=== PATIENT | female | born 1930 | race Caucasian/White ===

== ENCOUNTER 2016-12-11 10:46 | Observation (INO) | payer MEDICARE, OTHER ==
[2016-12-11] MEDS ORDERED: Albuterol 0.083% 2.5 MG/3 ML Neb Soln NEB ONE (11:29)
[2016-12-11] MEDS ORDERED: Sodium Chloride 0.9% 10 ML Syringe FLUSH PRN (11:29)
--- NOTE | 2016-12-11 11:36 | EDM.PDOC ---
ED HISTORY OF PRESENT ILLNESS - General Chief Complaint: Respiratory Problem Stated Complaint: FLU SYMPTOMS Time Seen by Provider: 12/11/16 11:09 Source of Information: Reports: Patient, Family History Limitations: Reports: No limitations - History of Present Illness INITIAL COMMENTS - FREE TEXT/NARRATIVE: Patient is a 86-year-old female who presents to the ED complaining of nonproductive cough with wheezing and generalized weakness/fatigue that has been present for the past 2 weeks. States her son was visiting her and had what appeared to be a bad upper respiratory infection with similar symptoms. Patient states she's been experiencing a poor appetite with worsening fatigue. States the cough has only mildly worsened. She did have diarrhea with onset of symptoms that has resolved. States she has chronic shortness of breath with mild worsening noted. In addition states she has some mild intermittent chest discomfort located around her heart that is chronic as well with no worsening noted. She does have history of congestive heart failure , atrial fibrillation , and sores to her lower legs. She takes Coumadin, metoprolol, lisinopril, Aldactone, and Lasix. She denies any increase in weight or increased swelling to her lower legs. She denies any PND or orthopnea. Sores to the lower leg are a chronic issue to which she receives dressing changes twice a week by home health. 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 She states her INR is therapeutic. Daughter states she has noticed patient being more short of breath with exertion. Timing/Duration: Reports: Constant Severity: mild Improves with: Reports: None Worsens with: Reports: Other (Exertion) Context, General: Reports: Sick contact Associated Symptoms (General): Reports: chest pain, cough, loss of appetite, malaise, shortness of breath, weakness. 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 (see below) (None stated) - Related Data Allergies/ADRs: Allergies Allergy/AdvReac Type Severity Reaction Status Date / Time Penicillins Allergy Mild Swelling/itchy Verified 12/11/16 11:03 rash ciprofloxacin [From Cipro] Allergy Rash Verified 12/11/16 11:03 metronidazole Allergy Nausea and Verified 12/11/16 11:03 Vomiting vancomycin Allergy Rash Verified 12/11/16 11:03 Home Meds: Home Meds Furosemide [Lasix] 20 mg PO BID 02/28/14 [History] Levothyroxine Sodium [Levoxyl] 150 mcg PO DAILY 02/28/14 [History] Lisinopril 5 mg PO BEDTIME 02/28/14 [History] Metoprolol Tartrate [Lopressor] 12.5 mg PO BID 02/28/14 [History] Pramipexole [Mirapex] 0.5 mg PO DAILY 02/28/14 [History] Sertraline [Zoloft] 25 mg PO DAILY 02/28/14 [History] Simvastatin [Zocor] 10 mg PO DAILY 02/28/14 [History] Spironolactone [Aldactone] 25 mg PO DAILY 02/28/14 [History] Warfarin [Coumadin] 2 mg PO MO 02/28/14 [History] Zolpidem Tartrate [Ambien] 5 mg PO BEDTIME 02/28/14 [History] Warfarin [Coumadin] 3 mg PO SUTUWETHFRSA 10/25/15 [History] Potassium Chloride [Klor-Con 10] 10 meq PO BIDMEALS 06/29/16 [History] Past Medical History HEENT History: Reports: Impaired vision Cardiovascular History: Reports: Heart murmur, Pacemaker Respiratory History: Reports: Sleep apnea, SOB Genitourinary History: Reports: Urinary incontinence 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: Endocrine/Metabolic History: Reports: Hypothyroidism Oncologic (Cancer) History: Reports: Other (see below) 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 Dermatologic History: Reports: Other (see below) Other Dermatologic History: scattered sores all over her legs and arms from picking - Infectious Disease History Infectious Disease History: Reports: MRSA - Past Surgical History GI Surgical History: Reports: Cholecystectomy Musculoskeletal Surgical History: Reports: Knee replacement Social & Family History - Family History Family Medical History: Noncontributory - Tobacco Use Smoking Status *Q: Never Smoker Second Hand Smoke Exposure: No - Caffeine Use Caffeine Use: Reports: Coffee - Recreational Drug Use Recreational Drug Use: No - Living Situation & Occupation Living situation: Reports: Occupation: retired ED ROS GENERAL - Review of Systems Review Of Systems: See Below Constitutional: Reports: malaise, weakness, fatigue, decreased appetite. Denies : fever, chills Respiratory: Reports: Shortness of Breath, Wheezing, Cough. Denies: Pleuritic Chest Pain, Sputum, Hemoptysis Cardiovascular: Reports: Chest pain, Dyspnea on exertion. Denies: Edema, Lightheadedness, Orthopnea, Palpitations, PND, Syncope GI/Abdominal: Reports: Diarrhea. Denies: Abdominal pain, Nausea, Vomiting : Denies: dysuria, urgency Musculoskeletal: Reports: no symptoms Neurological: Reports: Dizziness (Intermittent) ED EXAM, GENERAL - Physical Exam Exam: See Below Exam Limited By: No limitations General Appearance: alert, WD/WN, no apparent distress Ears: hearing grossly normal Nose: normal inspection Throat/Mouth: Normal voice, No airway compromise, Other (Mild dry oromucosa) Neck: normal inspection, supple Respiratory/Chest: no respiratory distress, no accessory muscle use, chest non- tender, other (Wheezing to the lower lobes bilaterally with rhonchi to the right lower/middle lobe.) Cardiovascular: normal peripheral pulses, regular rate, rhythm, no edema Peripheral Pulses: 2+: radial (L) GI/Abdominal: normal bowel sounds, soft, non tender, no organomegaly, no distention Back Exam: normal inspection Extremities: non-tender, other (Lower legs are wrapped with no increased edema noted.) Neurological: alert, oriented, CN II-XII intact, normal cognition Psychiatric: normal affect, normal mood Skin Exam: Warm, Dry, Intact, Normal color, No rash Course - Vital Signs Last Recorded V/S: Last Vital Signs Temp 98.4 F 12/11/16 11:03 Pulse 71 12/11/16 11:03 Resp 26 H 12/11/16 11:03 BP 111/63 12/11/16 11:03 Pulse Ox 98 12/11/16 12:02 - Orders/Labs/Meds Orders: Active Orders 24 hr Category Date Time Status Admission Status [Patient Status] [ADT] Routine ADT 12/11/16 14:34 Active Peripheral IV Care [RC] . DIRECTED Care 12/11/16 11:29 Active RT Aerosol Therapy [RC] ASDIRECTED Care 12/11/16 11:29 Active CULTURE URINE [RM] Stat Lab 12/11/16 14:33 Uncollected Sodium Chloride 0.9% [Normal Saline] 1,000 ml Med 12/11/16 13:15 Active IV ASDIRECTED Sodium Chloride 0.9% [Saline Flush] Med 12/11/16 11:29 Active 10 ml FLUSH ASDIRECTED PRN Peripheral IV Insertion Adult [OM.PC] Stat Oth 12/11/16 11:29 Ordered Medication Orders Sodium Chloride (Normal Saline) 1,000 mls @ 50 mls/hr IV ASDIRECTED KAY Last Admin: 12/11/16 13:33 Dose: 50 mls/hr Sodium Chloride (Saline Flush) 10 ml FLUSH ASDIRECTED PRN PRN Reason: Keep Vein Open Last Admin: 12/11/16 11:58 Dose: 10 ml Labs: Laboratory Tests 12/11/16 12/11/16 12/11/16 Range/Units 12:00 12:00 12:00 WBC 6.43 (3.98-10.04) K/mm3 RBC 4.59 (3.98-5.22) M/mm3 Hgb 14.3 (11.2-15.7) gm/L Hct 43.6 (34.1-44.9) % MCV 95.0 H (79.4-94.8) fl MCH 31.2 (25.6-32.2) pg MCHC 32.8 (32.2-35.5) g/dl RDW Std Deviation 49.4 H (36.4-46.3) fL Plt Count 177 L (182-369) K/mm3 MPV 9.9 (9.4-12.3) fl Neut % (Auto) 74.0 H (34.0-71.1) % Lymph % (Auto) 16.0 L (19.3-51.7) % [place] % (Auto) 8.4 (4.7-12.5) % Eos % (Auto) 1.2 (0.7-5.8) Baso % (Auto) 0.2 (0.1-1.2) % Neut # (Auto) 4.76 (1.56-6.13) K/mm3 Lymph # (Auto) 1.03 L (1.18-3.74) K/mm3 [place] # (Auto) 0.54 H (0.24-0.36) K/mm3 Eos # (Auto) 0.08 (0.04-0.36) K/mm3 Baso # (Auto) 0.01 (0.01-0.08) K/mm3 PT 36.1 H (8.0-13.0) SECONDS INR 3.08 APTT (22-36) SECONDS Sodium 140 (136-145) mEq/L Potassium 4.3 (3.5-5.1) mEq/L Chloride 107 (98-107) mEq/L Carbon Dioxide 26 (21-32) mEq/L Anion Gap 11.3 (5-15) BUN 21 H (7-18) mg/dL Creatinine 1.2 H (0.55-1.02) mg/dL Est Cr Clr Drug Dosing 24.17 mL/min Estimated GFR (MDRD) 43 (>60) mL/min BUN/Creatinine Ratio 17.5 (14-18) Glucose 93 (83-115) mg/dL Calcium 8.6 (8.5-10.1) mg/dL Total Bilirubin 0.6 (0.2-1.0) mg/dL AST 19 (15-37) U/L ALT 15 (14-59) U/L Alkaline Phosphatase 108 (46-116) U/L Troponin I < 0.017 (0.00-0.056) ng/mL C-Reactive Protein 0.7 (<1.0) mg/dL B-Natriuretic Peptide (0-100) pg/mL Total Protein 6.2 L (6.4-8.2) g/dl Albumin 3.1 L (3.4-5.0) g/dl Globulin 3.1 gm/dL Albumin/Globulin Ratio 1.0 (1-2) Urine Color (Yellow) Urine Appearance (Clear) Urine pH (5.0-8.0) Ur Specific [place] (1.005-1.030) Urine Protein (Negative) Urine Glucose (UA) (Negative) Urine Ketones (Negative) Urine Occult Blood (Negative) Urine Nitrite (Negative) Urine Bilirubin (Negative) Urine Urobilinogen (0.2-1.0) Ur Leukocyte Esterase (Negative) Urine RBC (0-5) /hpf Urine WBC (0-5) /hpf Ur Epithelial Cells (0-5) /hpf Urine Bacteria (FEW) /hpf Urine Mucus (FEW) /hpf 12/11/16 12/11/16 12/11/16 Range/Units 12:00 12:00 13:30 WBC (3.98-10.04) K/mm3 RBC (3.98-5.22) M/mm3 Hgb (11.2-15.7) gm/L Hct (34.1-44.9) % MCV (79.4-94.8) fl MCH (25.6-32.2) pg MCHC (32.2-35.5) g/dl RDW Std Deviation (36.4-46.3) fL Plt Count (182-369) K/mm3 MPV (9.4-12.3) fl Neut % (Auto) (34.0-71.1) % Lymph % (Auto) (19.3-51.7) % [place] % (Auto) (4.7-12.5) % Eos % (Auto) (0.7-5.8) Baso % (Auto) (0.1-1.2) % Neut # (Auto) (1.56-6.13) K/mm3 Lymph # (Auto) (1.18-3.74) K/mm3 [place] # (Auto) (0.24-0.36) K/mm3 Eos # (Auto) (0.04-0.36) K/mm3 Baso # (Auto) (0.01-0.08) K/mm3 PT (8.0-13.0) SECONDS INR APTT 38 H (22-36) SECONDS Sodium (136-145) mEq/L Potassium (3.5-5.1) mEq/L Chloride (98-107) mEq/L Carbon Dioxide (21-32) mEq/L Anion Gap (5-15) BUN (7-18) mg/dL Creatinine (0.55-1.02) mg/dL Est Cr Clr Drug Dosing mL/min Estimated GFR (MDRD) (>60) mL/min BUN/Creatinine Ratio (14-18) Glucose (83-115) mg/dL Calcium (8.5-10.1) mg/dL Total Bilirubin (0.2-1.0) mg/dL AST (15-37) U/L ALT (14-59) U/L Alkaline Phosphatase (46-116) U/L Troponin I (0.00-0.056) ng/mL C-Reactive Protein (<1.0) mg/dL B-Natriuretic Peptide 220 H (0-100) pg/mL Total Protein (6.4-8.2) g/dl Albumin (3.4-5.0) g/dl Globulin gm/dL Albumin/Globulin Ratio (1-2) Urine Color Dark yellow (Yellow) Urine Appearance Slt cloudy H (Clear) Urine pH 6.5 (5.0-8.0) Ur Specific [place] 1.020 (1.005-1.030) Urine Protein 1+ H (Negative) Urine Glucose (UA) Negative (Negative) Urine Ketones Negative (Negative) Urine Occult Blood Trace-lysed H (Negative) Urine Nitrite Positive H (Negative) Urine Bilirubin Negative (Negative) Urine Urobilinogen 0.2 (0.2-1.0) Ur Leukocyte Esterase 1+ H (Negative) Urine RBC 0-5 (0-5) /hpf Urine WBC 5-10 H (0-5) /hpf Ur Epithelial Cells 0-5 (0-5) /hpf Urine Bacteria Many H (FEW) /hpf Urine Mucus Few (FEW) /hpf Meds: Medications Generic Name Dose Route Start Last Admin Trade Name Freq PRN Reason Stop Dose Admin Sodium Chloride 1,000 mls @ 50 mls/hr 12/11/16 13:15 12/11/16 13:33 Normal Saline IV 50 mls/hr ASDIRECTED KAY Administration Sodium Chloride 10 ml 12/11/16 11:29 12/11/16 11:58 Saline Flush FLUSH 10 ml ASDIRECTED PRN Administration Keep Vein Open Discontinued Medications Generic Name Dose Route Start Last Admin Trade Name Freq PRN Reason Stop Dose Admin Albuterol 2.5 mg 12/11/16 11:29 12/11/16 12:02 Proventil Neb Soln NEB 12/11/16 11:30 2.5 mg ONETIME ONE Administration Ceftriaxone Sodium 1 gm/ 100 mls @ 200 mls/hr 12/11/16 14:06 12/11/16 14:21 Sodium Chloride IV 12/11/16 14:35 200 mls/hr ONETIME ONE Administration - Re-Assessments/Exams Free Text/Narrative Re-Assessment/Exam: Order peripheral IV and albuterol neb treatment times one. Initial labs and studies include CBC, chem 14, CRP, BNP, troponin, PTT, INR, UA with micro, and chest x-ray two-view. EKG revealed a ventricular paced rhythm. 12/11/16 12:17 chest x-ray impression: Incidental findings. Nothing acute is appreciated on two-view chest x-ray. 12/11/16 12:50 labs reviewed with patient and daughter: White blood cell count is 6.43, hemoglobin is 14.3, INR is 3.08, sodium is 140, potassium is 4.3, creatinine is 1.2, troponin is less than 0.017, BNP is 220. Patient has not been able to urinate. She is taking fluids at this time. She is requesting having something to eat to which will arrange. Neb treatment did not improve symptoms. Although chest x-ray does not show any findings for pneumonia I am concerned that she may have early onset pneumonia vs bronchitis. Family and patient are requesting to be admitted to the hospital for evaluation and treatment. Discussed patient with case management director to check on admission status. Patient meets observation admission. Awaiting for urine to be collected for UA. Patient has history of UTI's in the past. Will start patient on NS 50 mls/hr. 12/11/16 13:16 12/11/16 14:07 UA revealed patient has a UTI. Urine culture obtained. Ordered rocephin 1 gram IVP. Patient has a PCN allergy with rash. Denies anaphylactic reaction. She received Rocephin this past June with no issues. 12/11/16 14:[address] Eduardo. She will see the patient in the ED. Departure - Departure Time of Disposition: 14:29 Disposition: Refer to Observation Condition: fair Clinical Impression: Dehydration, Weakness, Poor appetite UTI (urinary tract infection) Qualifiers: Urinary tract infection type: acute cystitis Hematuria presence: with hematuria Qualified Code(s): N30.01 - Acute cystitis with hematuria Referrals: Ag Garcia MD [Primary Care Provider] - Forms: ED Department Discharge - My Orders Last 24 Hours: My Active Orders 12/11/16 11:29 Peripheral IV Care [RC] . DIRECTED RT Aerosol Therapy [RC] ASDIRECTED Sodium Chloride 0.9% [Saline Flush] 10 ml FLUSH ASDIRECTED PRN Peripheral IV Insertion Adult [OM.PC] Stat 12/11/16 13:15 Sodium Chloride 0.9% [Normal Saline] 1,000 ml IV ASDIRECTED 12/11/16 14:33 CULTURE URINE [RM] Stat 12/11/16 14:34 Admission Status [Patient Status] [ADT] Routine - Assessment/Plan Last 24 Hours: My Active Orders 12/11/16 11:29 Peripheral IV Care [RC] . DIRECTED RT Aerosol Therapy [RC] ASDIRECTED Sodium Chloride 0.9% [Saline Flush] 10 ml FLUSH ASDIRECTED PRN Peripheral IV Insertion Adult [OM.PC] Stat 12/11/16 13:15 Sodium Chloride 0.9% [Normal Saline] 1,000 ml IV ASDIRECTED 12/11/16 14:33 CULTURE URINE [RM] Stat 12/11/16 14:34 Admission Status [Patient Status] [ADT] Routine
--- NOTE | 2016-12-11 12:07 | CR ---
Chest: Two views of the chest are obtained. Comparison: Previous chest x-ray 06/29/16 and 10/26/15. Heart size and mediastinum are within normal limits for technique. Lungs are somewhat dark in technique but no discrete infiltrates are seen. Scoliosis noted within the spine. Kyphosis present within the spine due to multiple compression deformities. Compression deformities appear fairly stable from previous chest x-ray of 10/26/15. Impression: 1. Incidental findings. Nothing acute is appreciated on two-view chest x-ray. Diagnostic code #2
[2016-12-11] MEDS ORDERED: Sodium Chloride 0.9% 1,000 ML IV SCH (13:15)
[2016-12-11] MEDS ORDERED: cefTRIAXone 1 GM in Sodium Chloride 0.9% 100 ML IV ONE (14:06)
--- NOTE | 2016-12-11 16:26 | PCM.HP ---
H&P History of Present Illness - General Date of Service: 12/11/16 Admit Problem/Dx: Admission Diagnosis/Problem Admission Diagnosis/Problem UTI, Urinary tract infectious disease Source of Information: Patient, Family, Provider History Limitations: Reports: No limitations - History of Present Illness Initial Comments - Free Text/Narative: 86 year old female presents with mutiple complaints, but overall has lost her appetite. Complains of generalized weakness, lighthead, with a dry cough. CXR is not supportive of CAP, however a UA documents an AUTI. The patient lives at home and until 12/08/13 was able to enjoy working outside in her garden. She reports feeling weak and "run down" for 1-2 weeks; her family added additional information. She was given rocephin in the ED; aggressive IV hydration will be started upon admission. Onset of Symptoms: Reports: gradual Symptom Onset Date: 12/06/16 Duration of Symptoms: Reports: Day(s):, Getting worse Location: Reports: generalized Severity: moderate Improves with: Reports: None Worsens with: Reports: None Context: Reports: sick contact (unknown) Associated Symptoms: Reports: fever/chills, loss of appetite, malaise, syncope ( presyncope) - Related Data Allergies/Adverse Reactions: Allergies Allergy/AdvReac Type Severity Reaction Status Date / Time Penicillins Allergy Mild Swelling/itchy Verified 12/11/16 16:45 rash ciprofloxacin [From Cipro] Allergy Rash Verified 12/11/16 16:45 vancomycin Allergy Rash Verified 12/11/16 16:45 metronidazole AdvReac Nausea and Verified 12/11/16 16:45 Vomiting Home Medications: Home Meds Furosemide [Lasix] 20 mg PO BID 02/28/14 [History] Levothyroxine Sodium [Levoxyl] 150 mcg PO DAILY 02/28/14 [History] Lisinopril 5 mg PO BEDTIME 02/28/14 [History] Metoprolol Tartrate [Lopressor] 12.5 mg PO BID 02/28/14 [History] Pramipexole [Mirapex] 0.5 mg PO DAILY 02/28/14 [History] Sertraline [Zoloft] 25 mg PO DAILY 02/28/14 [History] Simvastatin [Zocor] 10 mg PO DAILY 02/28/14 [History] Spironolactone [Aldactone] 25 mg PO DAILY 02/28/14 [History] Warfarin [Coumadin] 2 mg PO MO 02/28/14 [History] Zolpidem Tartrate [Ambien] 5 mg PO BEDTIME 02/28/14 [History] Warfarin [Coumadin] 3 mg PO SUTUWETHFRSA 10/25/15 [History] Potassium Chloride [Klor-Con 10] 10 meq PO BIDMEALS 06/29/16 [History] Past Medical History HEENT History: Reports: Impaired vision Cardiovascular History: Reports: Heart murmur, Pacemaker Respiratory History: Reports: Sleep apnea, SOB Genitourinary History: Reports: Urinary incontinence 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: Endocrine/Metabolic History: Reports: Hypothyroidism Oncologic (Cancer) History: Reports: Other (see below) 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 Dermatologic History: Reports: Other (see below) Other Dermatologic History: scattered sores all over her legs and arms from picking - Infectious Disease History Infectious Disease History: Reports: MRSA - Past Surgical History GI Surgical History: Reports: Cholecystectomy Musculoskeletal Surgical History: Reports: Knee replacement Social & Family History - Family History Family Medical History: Noncontributory - Tobacco Use Smoking Status *Q: Never Smoker Second Hand Smoke Exposure: No - Caffeine Use Caffeine Use: Reports: Coffee - Recreational Drug Use Recreational Drug Use: No - Living Situation & Occupation Living situation: Reports: Occupation: retired H&P Review of Systems - Review of Systems: Review Of Systems: See Below General: Reports: malaise, weakness, fatigue HEENT: Reports: no symptoms Pulmonary: Reports: Shortness of Breath, Pleuritic Chest Pain, Cough Cardiovascular: Reports: lightheadedness Gastrointestinal: Reports: Diarrhea, Decreased appetite Genitourinary: Reports: no symptoms Musculoskeletal: Reports: no symptoms Skin: Reports: no symptoms Psychiatric: Reports: no symptoms Neurological: Reports: No Symptoms Hematologic/Lymphatic: Reports: no symptoms Immunologic: Reports: no symptoms Exam - Exam Exam: See Below - Vital Signs Vital Signs: Last Vital Signs Temp 36.9 C 12/11/16 11:03 Pulse 71 12/11/16 11:03 Resp 26 H 12/11/16 11:03 BP 111/63 12/11/16 11:03 Pulse Ox 98 12/11/16 12:02 Weight: 88.451 kg - Exam Quality Assessment: DVT prophylaxis General: alert, oriented HEENT: Conjunctiva clear, Mucosa moist & pink, Nares patent, Normal nasal septum , Pupils equal, Pupils reactive Neck: supple, trachea midline Lungs: Normal respiratory effort Cardiovascular: regular rate Abdomen: normal bowel sounds, soft (Female) Exam: Deferred Rectal (Female) Exam: Deferred Back Exam: normal inspection Extremities: normal pulses (UE bilaterally) Skin: warm Neurological: cranial nerves intact, normal speech Neuro Extensive - Mental Status: alert, oriented x3, normal mood/affect, normal cognition, memory intact Neuro Extensive - Motor, Sensory, Reflexes: CN II-XII intact Psychiatric: alert, normal affect, normal mood - Patient Data Result Diagrams: 12/11/16 12:00 12/11/16 12:00 *Q Meaningful Use (ADM) - VTE *Q VTE Criteria *Q: - Stroke *Q Stroke Criteria *Q: - AMI *Q AMI Criteria *Q: - Problem List (1) Dehydration SNOMED Code(s): 40023632 ICD Code: E86.0 - DEHYDRATION Status: Acute Current Visit: Yes (2) Poor appetite SNOMED Code(s): 47622689 ICD Code: R63.0 - ANOREXIA Status: Acute Current Visit: Yes (3) UTI (urinary tract infection) SNOMED Code(s): 83102932 ICD Code: N39.0 - URINARY TRACT INFECTION, SITE NOT SPECIFIED Status: Acute Current Visit: Yes Qualifiers: Urinary tract infection type: acute cystitis Hematuria presence: with hematuria Qualified Code(s): N30.01 - Acute cystitis with hematuria (4) Weakness SNOMED Code(s): 63452423 ICD Code: R53.1 - WEAKNESS Status: Acute Current Visit: Yes (5) Acute upper urinary tract infection SNOMED Code(s): 800777595 ICD Code: N39.0 - URINARY TRACT INFECTION, SITE NOT SPECIFIED Status: Acute Current Visit: No (6) Bronchitis SNOMED Code(s): 04418408 ICD Code: J40 - BRONCHITIS, NOT SPECIFIED ACUTE OR CHRONIC Status: Acute Current Visit: No Problem List Initiated/Reviewed/Updated: Yes Orders Last 24hrs: Active Orders 24 hr Category Date Time Status Antiembolic Devices [RC] PER UNIT ROUTINE Care 12/11/16 16:07 Ordered Bedrest Bathroom Privileges [RC] ASDIRECTED Care 12/11/16 16:02 Ordered RT Aerosol Therapy [RC] ASDIRECTED Care 12/11/16 16:23 Ordered Consult to Case Management [CONS] Routine Cons 12/11/16 16:23 Ordered Consult to Occupational Therapy [OT Evaluation and Cons 12/12/16 10:00 Ordered Treatment] [CONS] Routine Consult to Physical Therapy [PT Evaluation and Cons 12/12/16 09:00 Ordered Treatment] [CONS] Routine CXR [Chest 2V] [CR] Routine Exams 12/12/16 10:00 Ordered BASIC METABOLIC PANEL,BMP [CHEM] DAILY Lab 12/12/16 05:00 Ordered BASIC METABOLIC PANEL,BMP [CHEM] DAILY Lab 12/13/16 05:00 Ordered CBC WITH AUTO DIFF [HEME] DAILY Lab 12/13/16 05:00 Ordered CBC WITH AUTO DIFF [HEME] DAILY Lab 12/14/16 05:00 Ordered CRP [C-REACTIVE PROTEIN] [CHEM] DAILY Lab 12/12/16 05:00 Ordered CRP [C-REACTIVE PROTEIN] [CHEM] DAILY Lab 12/13/16 05:00 Ordered INFLUENZA A+B AG SCREEN [RM] Routine Lab 12/11/16 16:21 Uncollected INR,PT,PROTHROMBIN TIME [COAG] Routine Lab 12/12/16 05:00 Ordered MAGNESIUM [CHEM] DAILY Lab 12/12/16 05:00 Ordered MAGNESIUM [CHEM] DAILY Lab 12/13/16 05:00 Ordered MYCOPLASMA PNEUMONIAE IGM AB [CHEM] Routine Lab 12/12/16 05:00 Ordered Levalbuterol HCl [Xopenex] Med 12/11/16 16:22 Ordered 1.25 mg NEB QID PRN Levothyroxine Sodium [Levoxyl] Med 12/12/16 09:00 Ordered 150 mcg PO DAILY Pramipexole [Mirapex] Med 12/12/16 09:00 Ordered 0.5 mg PO DAILY Sertraline [Zoloft] Med 12/12/16 09:00 Ordered 25 mg PO DAILY Simvastatin [Zocor] Med 12/12/16 09:00 Ordered 10 mg PO DAILY Sodium Chloride 0.45% @ 125 MLS/HR(1,000ml) Med 12/11/16 16:15 Ordered Sodium Chloride 0.45% 1,000 ml IV ASDIRECTED Warfarin [Coumadin] Med 12/11/16 16:00 Ordered 2 mg PO MO Warfarin [Coumadin] Med 12/12/16 16:00 Ordered 3 mg PO SUTUWETHFRSA Zolpidem Tartrate [Ambien] Med 12/11/16 21:00 Ordered 5 mg PO BEDTIME cefTRIAXone [Rocephin] 2 gm Med 12/12/16 09:00 Ordered Sodium Chloride 0.9% [Normal Saline] 100 ml IV Q24H SCD [Sequential Compression Device] [OM.PC] Routine Oth 12/11/16 16:07 Ordered Code Status [Resuscitation Status] Routine Resus Stat 12/11/16 16:02 Ordered Medication Orders Ceftriaxone Sodium 2 gm/ (Sodium Chloride) 100 mls @ 200 mls/hr IV Q24H KAY Sodium Chloride (Sodium Chloride 0.45%) 1,000 mls @ 125 mls/hr IV ASDIRECTED KAY Non-Formulary Medication (Warfarin [Coumadin]) 2 mg PO MO KAY Non-Formulary Medication (Warfarin [Coumadin]) 3 mg PO SUTUWETHFRSA KAY Non-Formulary Medication (Simvastatin [Zocor]) 10 mg PO DAILY KAY Non-Formulary Medication (Sertraline [Zoloft]) 25 mg PO DAILY KAY Non-Formulary Medication (Pramipexole [Mirapex]) 0.5 mg PO DAILY KAY Non-Formulary Medication (Levothyroxine Sodium [Levoxyl]) 150 mcg PO DAILY KAY Zolpidem Tartrate (Ambien) 5 mg PO BEDTIME KAY Assessment/Plan Comment:: Impression: URI AUTI Chronic A Fib, s/p PPM; on coumadin CHF, unknown etiology Hypothyroidism CHRIS on CPAP Poor wound healing of 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 Xopenex QID prn SOB Obs admission IV antibiotics Ur/BLD Cxs Repeat CXR IVF 0.45% NaCl DVT/GI prophylaxis Full code
[2016-12-11] MEDS: Azithromycin 500 MG in Sodium Chloride 0.9% 250 ML IV SCH (17:39)
[2016-12-11] MEDS: Sodium Chloride 0.45% 1,000 ML IV SCH (17:39)
[2016-12-11] MEDS ORDERED: WARFARIN 2 MG PO SCH (18:00)
[2016-12-11] MEDS: Zolpidem 5 MG TAB PO SCH (20:52)
[2016-12-11] MEDS: Albuterol 0.083% 2.5 MG/3 ML Neb Soln NEB PRN (21:11)
[2016-12-11] MEDS: Benzonatate 100 MG Cap PO SCH (23:32)
[2016-12-12] MEDS: Sodium Chloride 0.45% 1,000 ML IV SCH ×3 (02:17→22:56)
[2016-12-12] MEDS: Albuterol 0.083% 2.5 MG/3 ML Neb Soln NEB PRN (04:41)
[2016-12-12] MEDS: LEVOTHYROXINE SODIUM 150 MCG PO SCH (05:30)
[2016-12-12] MEDS ORDERED: Diphtheria,Pertussis(Acell),Tetanus Vaccine 0.5 ML SDV inactive IM ONE (08:17)
[2016-12-12] MEDS ORDERED: Pneumococcal 13-Valent Conjugate Vaccine 0.5 ML Syringe IM ONE (08:18)
[2016-12-12] MEDS: cefTRIAXone 2 GM in Sodium Chloride 0.9% 100 ML IV SCH (08:19)
[2016-12-12] MEDS: Simvastatin 10 MG PO SCH (08:20)
[2016-12-12] MEDS: Benzonatate 100 MG Cap PO SCH ×3 (08:20→20:48)
[2016-12-12] MEDS: SERTRALINE 50 MG PO SCH (08:20)
--- NOTE | 2016-12-12 08:57 | CR ---
Chest: Two views of the chest were obtained. Comparison: Previous chest x-ray of 12/11/16. Heart size within normal limits. Tortuous thoracic aorta is seen. Pacemaker is noted. Minimal linear areas of scarring are seen within both lung bases. Lungs otherwise are clear. Osteopenia is noted. Compression deformities within the spine are seen which are stable. Impression: 1. Stable chest x-ray. Nothing acute is identified. Diagnostic code #2
--- NOTE | 2016-12-12 12:35 | PCM.PN ---
- General Info Date of Service: 12/12/16 Functional Status: Reports: tolerating diet, ambulating, urinating - Review of Systems General: Reports: Weakness HEENT: Reports: no symptoms Pulmonary: Reports: no symptoms Cardiovascular: Reports: No Symptoms Gastrointestinal: Reports: No symptoms Genitourinary: Reports: no symptoms Musculoskeletal: Reports: no symptoms Skin: Reports: no symptoms Neurological: Reports: No Symptoms Psychiatric: Reports: no symptoms - Patient Data Vitals - most recent: Last Vital Signs Temp 36.2 C 12/12/16 07:53 Pulse 70 12/12/16 07:53 Resp 18 12/12/16 07:53 BP 121/86 12/12/16 07:53 Pulse Ox 98 12/12/16 07:53 Weight - most recent: 91.263 kg I&O - last 24 hours: Intake & Output 12/11/16 12/12/16 12/12/16 22:59 06:59 14:59 Intake Total 320 430 460 Output Total 150 Balance 320 280 460 Lab Results last 24 hrs: Laboratory Results - last 24 hr 12/12/16 12/12/16 Range/Units 06:45 06:45 PT 25.4 H (8.0-13.0) SECONDS INR 2.21 Sodium 139 (136-145) mEq/L Potassium 3.8 (3.5-5.1) mEq/L Chloride 105 (98-107) mEq/L Carbon Dioxide 24 (21-32) mEq/L Anion Gap 13.8 (5-15) BUN 15 (7-18) mg/dL Creatinine 0.9 (0.55-1.02) mg/dL Est Cr Clr Drug Dosing 35.49 mL/min Estimated GFR (MDRD) 59 (>60) mL/min BUN/Creatinine Ratio 16.7 (14-18) Glucose 93 (83-115) mg/dL Calcium 8.1 L (8.5-10.1) mg/dL Magnesium 1.7 L (1.8-2.4) mg/dl C-Reactive Protein 0.4 (<1.0) mg/dL Lorenzo Results last 24 hrs: Microbiology 12/11/16 18:33 Influenza Type A Antigen Screen - Final Nasopharyngeal Swab - Nare, Left NEGATIVE INFLUENZA A VIRUS AG Influenza Type B Antigen Screen - Final NEGATIVE INFLUENZA B VIRUS AG Med Orders - Current: Current Medications Albuterol (Proventil Neb Soln) 2.5 mg NEB Q4H PRN PRN Reason: Shortness of Breath Last Admin: 12/12/16 04:41 Dose: 2.5 mg Benzonatate (Tessalon Perles) 200 mg PO TID [facility] Last Admin: 12/12/16 08:20 Dose: 200 mg Ceftriaxone Sodium 2 gm/ (Sodium Chloride) 100 mls @ 200 mls/hr IV Q24H [facility] Last Admin: 12/12/16 08:19 Dose: 200 mls/hr Sodium Chloride (Sodium Chloride 0.45%) 1,000 mls @ 70 mls/hr IV ASDIRECTED [facility] Last Admin: 12/12/16 08:20 Dose: 70 mls/hr Azithromycin 500 mg/ Sodium (Chloride) 250 mls @ 250 mls/hr IV Q24H [facility] Last Admin: 12/11/16 17:39 Dose: 250 mls/hr Zolpidem 5 Mg Tab 0 each PO BEDTIME [facility] Last Admin: 12/11/16 20:52 Dose: 1 each Warfarin 2 Mg 0 each PO Mo@1800 [facility] Last Admin: 12/11/16 20:00 Dose: Not Given Warfarin 2 Mg (3 Mg (Dose)) 0 each PO SuTuWeThFrSa@1800 [facility] Simvastatin 10 Mg 0 each PO DAILY [facility] Last Admin: 12/12/16 08:20 Dose: 1 each Sertraline 50 Mg 0 each PO DAILY [facility] Last Admin: 12/12/16 08:20 Dose: 1 each Pramipexole 0.5 Mg 0 each PO BEDTIME [facility] Last Admin: 12/11/16 20:51 Dose: 1 each Levothyroxine Sodium (150 Mcg) 0 each PO ACBREAKFAST [facility] Last Admin: 12/12/16 05:30 Dose: 1 each Discontinued Medications Albuterol (Proventil Neb Soln) 2.5 mg NEB ONETIME ONE Stop: 12/11/16 11:30 Last Admin: 12/11/16 12:02 Dose: 2.5 mg Diphtheria/Tetanus/Acell Pertussis (Boostrix) 0.5 ml IM .ONCE ONE Stop: 12/12/16 08:18 Sodium Chloride (Normal Saline) 1,000 mls @ 50 mls/hr IV ASDIRECTED [facility] Last Admin: 12/11/16 13:33 Dose: 50 mls/hr Ceftriaxone Sodium 1 gm/ (Sodium Chloride) 100 mls @ 200 mls/hr IV ONETIME ONE Stop: 12/11/16 14:35 Last Admin: 12/11/16 14:21 Dose: 200 mls/hr Pneumococcal 13-Valent Conj Vacc (Prevnar 13) 0.5 ml IM .ONCE ONE Stop: 12/12/16 08:19 Sodium Chloride (Saline Flush) 10 ml FLUSH ASDIRECTED PRN PRN Reason: Keep Vein Open Last Admin: 12/11/16 11:58 Dose: 10 ml - Exam Quality Assessment: DVT prophylaxis General: alert, oriented, no acute distress HEENT: Pupils equal, Pupils reactive Neck: supple, trachea midline Lungs: Normal respiratory effort, Decreased breath sounds Cardiovascular: Regular Rate Abdomen: bowel sounds present, soft, no tenderness, no distension (Female) Exam: Deferred Back Exam: normal inspection Extremities: normal pulses Skin: warm Neurological: no new focal deficit, normal gait, normal speech Psy/Mental Status: alert, normal affect, normal mood - Problem List & Annotations (1) Dehydration SNOMED Code(s): 41094786 Code(s): E86.0 - DEHYDRATION Status: Acute Current Visit: Yes (2) Poor appetite SNOMED Code(s): 91404396 Code(s): R63.0 - ANOREXIA Status: Acute Current Visit: Yes (3) UTI (urinary tract infection) SNOMED Code(s): 64101163 Code(s): N39.0 - URINARY TRACT INFECTION, SITE NOT SPECIFIED Status: Acute Current Visit: Yes Qualifiers: Urinary tract infection type: acute cystitis Hematuria presence: with hematuria Qualified Code(s): N30.01 - Acute cystitis with hematuria (4) Weakness SNOMED Code(s): 14718803 Code(s): R53.1 - WEAKNESS Status: Acute Current Visit: Yes (5) Acute upper urinary tract infection SNOMED Code(s): 258445622 Code(s): N39.0 - URINARY TRACT INFECTION, SITE NOT SPECIFIED Status: Acute Current Visit: No (6) Bronchitis SNOMED Code(s): 75070833 Code(s): J40 - BRONCHITIS, NOT SPECIFIED ACUTE OR CHRONIC Status: Acute Current Visit: No - Problem List Review Problem List Initiated/Reviewed/Updated: Yes - My Orders Last 24 Hours: My Active Orders 12/11/16 16:02 Bedrest Bathroom Privileges [RC] ASDIRECTED Code Status [Resuscitation Status] Routine 12/11/16 16:15 Sodium Chloride 0.45% 1,000 ml IV ASDIRECTED 12/11/16 16:22 Albuterol [Proventil Neb Soln] 2.5 mg NEB Q4H PRN 12/11/16 16:23 RT Aerosol Therapy [RC] .PRN Consult to Case Management [CONS] Routine 12/11/16 18:00 Azithromycin [Zithromax] 500 mg Sodium Chloride 0.9% [Normal Saline] 250 ml IV Q24H Patient's Own Medication [Ptom] 0 each PO Mo@1800 12/11/16 21:00 Patient's Own Medication [Ptom] 0 each PO BEDTIME Patient's Own Medication [Ptom] 0 each PO BEDTIME 12/11/16 22:00 Benzonatate [Tessalon Perles] 200 mg PO TID 12/11/16 Dinner Clear Liquid Diet [DIET] 12/12/16 06:00 Patient's Own Medication [Ptom] 0 each PO ACBREAKFAST 12/12/16 06:45 BASIC METABOLIC PANEL,BMP [CHEM] DAILY CRP [C-REACTIVE PROTEIN] [CHEM] DAILY MAGNESIUM [CHEM] DAILY MYCOPLASMA PNEUMONIAE IGM AB [CHEM] Routine 12/12/16 07:13 Consult to Physical Therapy [PT Evaluation and Treatment] [CONS] Routine 12/12/16 08:17 Vaccines to be Administered [RC] PER UNIT ROUTINE 12/12/16 09:00 Consult to Physical Therapy [PT Evaluation and Treatment] [CONS] Routine Patient's Own Medication [Ptom] 0 each PO DAILY Patient's Own Medication [Ptom] 0 each PO DAILY cefTRIAXone [Rocephin] 2 gm Sodium Chloride 0.9% [Normal Saline] 100 ml IV Q24H 12/12/16 10:00 Consult to Occupational Therapy [OT Evaluation and Treatment] [CONS] Routine 12/12/16 14:00 CBC WITH AUTO DIFF [HEME] Routine 12/12/16 18:00 Patient's Own Medication [Ptom] 0 each PO SuTuWeThFrSa@1800 12/13/16 05:00 BASIC METABOLIC PANEL,BMP [CHEM] DAILY CBC WITH AUTO DIFF [HEME] DAILY CRP [C-REACTIVE PROTEIN] [CHEM] DAILY MAGNESIUM [CHEM] DAILY 12/14/16 05:00 CBC WITH AUTO DIFF [HEME] DAILY - Plan Plan:: Impression: URI AUTI Chronic A Fib, s/p PPM; on coumadin CHF, unknown etiology Hypothyroidism CHRIS on CPAP Poor wound healing of 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 Xopenex QID prn SOB Obs admission IV antibiotics Ur/BLD Cxs Repeat CXR IVF 0.45% NaCl DVT/GI prophylaxis Full code
[2016-12-12] MEDS ORDERED: WARFARIN PO SCH (18:00)
[2016-12-12] MEDS: Azithromycin 500 MG in Sodium Chloride 0.9% 250 ML IV SCH (18:21)
[2016-12-12] MEDS: Zolpidem 5 MG TAB PO SCH (20:48)
[2016-12-12] MEDS ORDERED: Temazepam 15 MG Cap PO PRN (21:58)
[2016-12-13] MEDS: LEVOTHYROXINE SODIUM 150 MCG PO SCH (06:16)
[2016-12-13] MEDS ORDERED: Acetaminophen 325 MG Tab PO PRN (07:00)
[2016-12-13] MEDS: Simvastatin 10 MG PO SCH (08:31)
[2016-12-13] MEDS: SERTRALINE 50 MG PO SCH (08:31)
[2016-12-13] MEDS: cefTRIAXone 2 GM in Sodium Chloride 0.9% 100 ML IV SCH (08:31)
[2016-12-13] MEDS: Benzonatate 100 MG Cap PO SCH (08:31)
[2016-12-13 08:33] VITALS: BP 147/97
--- NOTE | 2016-12-13 10:15 | PCM.DCSUM1 ---
Discharge Summary - Hospital Course Free Text/Narrative:: 86 year old female who progressively became weaker unable to participate in her usual activities, was found to have AUTI. Additionally was treated empirically for URI; she was treated for dehydration and had 48 hours of IV antibiotics ( Zithromax/Rocephin). The patient was seen by OT and PT, she will resume the previous Home Health schedule that was present before admission. Also had wound care consult for bilateral LE. Primary Dx UTI URI Dehydration Condition Stable Disposition Home Follow up Dr Garcia in 1-2 weeks Medication Resume Home meds Z-pack, take as directed. Tessalon Perles 100 mg 1-2 caps TID prn cough. Activity As tolerated Diet May resume usual; recommend: heart healthy - Discharge Data Discharge Date: 12/13/16 Discharge Disposition: Home, Self-Care 01 Condition: Good - Discharge Diagnosis/Problem(s) (1) Dehydration SNOMED Code(s): 92138605 ICD Code: E86.0 - DEHYDRATION Status: Acute Current Visit: Yes (2) Poor appetite SNOMED Code(s): 95817125 ICD Code: R63.0 - ANOREXIA Status: Acute Current Visit: Yes (3) UTI (urinary tract infection) SNOMED Code(s): 79952812 ICD Code: N39.0 - URINARY TRACT INFECTION, SITE NOT SPECIFIED Status: Acute Current Visit: Yes Qualifiers: Urinary tract infection type: acute cystitis Hematuria presence: with hematuria Qualified Code(s): N30.01 - Acute cystitis with hematuria (4) Weakness SNOMED Code(s): 21075558 ICD Code: R53.1 - WEAKNESS Status: Acute Current Visit: Yes (5) Acute upper urinary tract infection SNOMED Code(s): 864812992 ICD Code: N39.0 - URINARY TRACT INFECTION, SITE NOT SPECIFIED Status: Acute Current Visit: No (6) Bronchitis SNOMED Code(s): 98870459 ICD Code: J40 - BRONCHITIS, NOT SPECIFIED ACUTE OR CHRONIC Status: Acute Current Visit: No - Patient Summary/Data Consults: Consultations 12/11/16 16:23 Consult to Case Management [CONS] Routine 12/12/16 07:13 Consult to Physical Therapy [PT Evaluation and Treatment] [CONS] Routine 12/12/16 09:00 Consult to Physical Therapy [PT Evaluation and Treatment] [CONS] Routine 12/12/16 10:00 Consult to Occupational Therapy [OT Evaluation and Treatment] [CONS] Routine - Patient Instructions Diet: Usual Diet as Tolerated Activity: As Tolerated Driving: Do Not Drive Showering/Bathing: May Shower Notify Provider of: Fever, Nausea and/or Vomiting - Discharge Plan Prescriptions/Med Rec: Azithromycin [Zithromax] 500 mg PO DAILY #5 tablet Benzonatate [Tessalon Perles] 200 mg PO TID PRN #20 cap PRN Reason: Cough Home Medications: Home Meds Furosemide [Lasix] 20 mg PO BID 02/28/14 [History] Levothyroxine Sodium [Levoxyl] 150 mcg PO DAILY 02/28/14 [History] Lisinopril 5 mg PO 1700 02/28/14 [History] Metoprolol Tartrate [Lopressor] 12.5 mg PO BID 02/28/14 [History] Pramipexole [Mirapex] 0.5 mg PO BEDTIME 02/28/14 [History] Sertraline [Zoloft] 50 mg PO DAILY 02/28/14 [History] Simvastatin [Zocor] 10 mg PO DAILY 02/28/14 [History] Spironolactone [Aldactone] 25 mg PO DAILY 02/28/14 [History] Warfarin [Coumadin] 2 mg PO MO 02/28/14 [History] Zolpidem Tartrate [Ambien] 5 mg PO BEDTIME 02/28/14 [History] Warfarin [Coumadin] 3 mg PO SUTUWETHFRSA 10/25/15 [History] Potassium Chloride [Klor-Con 10] 10 meq PO BIDMEALS 06/29/16 [History] L Acidophil/B Lactis/B Longum [Florajen3] 1 tab PO BEDTIME 12/11/16 [History] Azithromycin [Zithromax] 500 mg PO DAILY #5 tablet 12/13/16 [Rx] Benzonatate [Tessalon Perles] 200 mg PO TID PRN #20 cap 12/13/16 [Rx] Patient Handouts: Warfarin: What You Need to Know, Urinary Tract Infection, Adult, [id number], Dehydration, Adult, [id number], Heart Failure, Easy-to- Read Forms: ED Department Discharge Referrals: Ag Garcia MD [Primary Care Provider] - 12/20/16 1:00 pm (Please arrive 15 minutes early. ) - Discharge Summary/Plan Comment DC Time >30 min.: No - General Info Date of Service: 12/11/16 Functional Status: Reports: tolerating diet, ambulating, urinating - Review of Systems General: Reports: No Symptoms HEENT: Reports: no symptoms Pulmonary: Reports: no symptoms Cardiovascular: Reports: No Symptoms Gastrointestinal: Reports: No symptoms Genitourinary: Reports: no symptoms Musculoskeletal: Reports: no symptoms Skin: Reports: no symptoms Neurological: Reports: No Symptoms Psychiatric: Reports: no symptoms - Patient Data Vitals - Most Recent: Last Vital Signs Temp 36.5 C 12/13/16 08:29 Pulse 80 12/13/16 08:29 Resp 15 12/13/16 08:29 BP 147/97 H 12/13/16 08:29 Pulse Ox 100 12/13/16 08:29 Weight - Most Recent: 91.263 kg I&O - Last 24 hours: Intake & Output 12/12/16 12/13/16 12/13/16 22:59 06:59 14:59 Intake Total 2520 1288 Output Total 700 300 Balance 1820 988 Lab Results - Last 24 hrs: Laboratory Results - last 24 hr 12/12/16 12/12/16 12/13/16 Range/Units 06:45 13:56 05:53 WBC 5.43 4.81 (3.98-10.04) K/mm3 RBC 4.48 4.28 (3.98-5.22) M/mm3 Hgb 13.9 13.3 (11.2-15.7) gm/L Hct 42.8 40.6 (34.1-44.9) % MCV 95.5 H 94.9 H (79.4-94.8) fl MCH 31.0 31.1 (25.6-32.2) pg MCHC 32.5 32.8 (32.2-35.5) g/dl RDW Std Deviation 50.0 H 49.0 H (36.4-46.3) fL Plt Count 139 L 142 L (182-369) K/mm3 MPV 9.2 L 9.5 (9.4-12.3) fl Neut % (Auto) 66.3 65.6 (34.0-71.1) % Lymph % (Auto) 21.7 18.9 L (19.3-51.7) % [place] % (Auto) 9.4 11.2 (4.7-12.5) % Eos % (Auto) 1.8 3.5 (0.7-5.8) Baso % (Auto) 0.4 0.4 (0.1-1.2) % Neut # (Auto) 3.60 3.15 (1.56-6.13) K/mm3 Lymph # (Auto) 1.18 0.91 L (1.18-3.74) K/mm3 [place] # (Auto) 0.51 H 0.54 H (0.24-0.36) K/mm3 Eos # (Auto) 0.10 0.17 (0.04-0.36) K/mm3 Baso # (Auto) 0.02 0.02 (0.01-0.08) K/mm3 Sodium 139 (136-145) mEq/L Potassium 3.8 (3.5-5.1) mEq/L Chloride 105 (98-107) mEq/L Carbon Dioxide 24 (21-32) mEq/L Anion Gap 13.8 (5-15) BUN 15 (7-18) mg/dL Creatinine 0.9 (0.55-1.02) mg/dL Est Cr Clr Drug Dosing 35.49 mL/min Estimated GFR (MDRD) 59 (>60) mL/min BUN/Creatinine Ratio 16.7 (14-18) Glucose 93 (83-115) mg/dL Calcium 8.1 L (8.5-10.1) mg/dL Magnesium 1.7 L (1.8-2.4) mg/dl C-Reactive Protein 0.4 (<1.0) mg/dL Mycoplasma pneumon IgM Negative (NEGATIVE) 12/13/16 Range/Units 05:53 WBC (3.98-10.04) K/mm3 RBC (3.98-5.22) M/mm3 Hgb (11.2-15.7) gm/L Hct (34.1-44.9) % MCV (79.4-94.8) fl MCH (25.6-32.2) pg MCHC (32.2-35.5) g/dl RDW Std Deviation (36.4-46.3) fL Plt Count (182-369) K/mm3 MPV (9.4-12.3) fl Neut % (Auto) (34.0-71.1) % Lymph % (Auto) (19.3-51.7) % [place] % (Auto) (4.7-12.5) % Eos % (Auto) (0.7-5.8) Baso % (Auto) (0.1-1.2) % Neut # (Auto) (1.56-6.13) K/mm3 Lymph # (Auto) (1.18-3.74) K/mm3 [place] # (Auto) (0.24-0.36) K/mm3 Eos # (Auto) (0.04-0.36) K/mm3 Baso # (Auto) (0.01-0.08) K/mm3 Sodium 138 (136-145) mEq/L Potassium 3.9 (3.5-5.1) mEq/L Chloride 106 (98-107) mEq/L Carbon Dioxide 24 (21-32) mEq/L Anion Gap 11.9 (5-15) BUN 13 (7-18) mg/dL Creatinine 0.8 (0.55-1.02) mg/dL Est Cr Clr Drug Dosing 39.92 mL/min Estimated GFR (MDRD) > 60 (>60) mL/min BUN/Creatinine Ratio 16.3 (14-18) Glucose 87 (83-115) mg/dL Calcium 8.1 L (8.5-10.1) mg/dL Magnesium 1.6 L (1.8-2.4) mg/dl C-Reactive Protein 0.5 (<1.0) mg/dL Mycoplasma pneumon IgM (NEGATIVE) Med Orders - Current: Current Medications Acetaminophen (Tylenol) 650 mg PO Q4H PRN PRN Reason: Pain/Fever Last Admin: 12/13/16 08:30 Dose: 650 mg Albuterol (Proventil Neb Soln) 2.5 mg NEB Q4H PRN PRN Reason: Shortness of Breath Last Admin: 12/12/16 04:41 Dose: 2.5 mg Benzonatate (Tessalon Perles) 200 mg PO TID [facility] Last Admin: 12/13/16 08:31 Dose: 200 mg Ceftriaxone Sodium 2 gm/ (Sodium Chloride) 100 mls @ 200 mls/hr IV Q24H [facility] Last Admin: 12/13/16 08:31 Dose: 200 mls/hr Sodium Chloride (Sodium Chloride 0.45%) 1,000 mls @ 70 mls/hr IV ASDIRECTED [facility] [place] Last Admin: 12/12/16 22:56 Dose: 70 mls/hr Azithromycin 500 mg/ Sodium (Chloride) 250 mls @ 250 mls/hr IV Q24H [facility] [place] Last Admin: 12/12/16 18:21 Dose: 250 mls/hr Zolpidem 5 Mg Tab 0 each PO BEDTIME [facility] [place] Last Admin: 12/12/16 20:48 Dose: 1 each Warfarin 2 Mg 0 each PO Mo@1800 [facility] Last Admin: 12/11/16 20:00 Dose: Not Given Warfarin 2 Mg (3 Mg (Dose)) 0 each PO SuTuWeThFrSa@1800 [facility] Last Admin: 12/12/16 18:22 Dose: 1.5 each Simvastatin 10 Mg 0 each PO DAILY [facility] Last Admin: 12/13/16 08:31 Dose: 1 each Sertraline 50 Mg 0 each PO DAILY [facility] Last Admin: 12/13/16 08:31 Dose: 1 each Pramipexole 0.5 Mg 0 each PO BEDTIME [facility] Last Admin: 12/12/16 20:48 Dose: 1 each Levothyroxine Sodium (150 Mcg) 0 each PO ACBREAKFAST [facility] Last Admin: 12/13/16 06:16 Dose: 1 each Temazepam (Restoril) 15 mg PO BEDTIME PRN PRN Reason: Sleep Last Admin: 12/12/16 22:56 Dose: 15 mg Discontinued Medications Albuterol (Proventil Neb Soln) 2.5 mg NEB ONETIME ONE Stop: 12/11/16 11:30 Last Admin: 12/11/16 12:02 Dose: 2.5 mg Diphtheria/Tetanus/Acell Pertussis (Boostrix) 0.5 ml IM .ONCE ONE Stop: 12/12/16 08:18 Sodium Chloride (Normal Saline) 1,000 mls @ 50 mls/hr IV ASDIRECTED [facility] Last Admin: 12/11/16 13:33 Dose: 50 mls/hr Ceftriaxone Sodium 1 gm/ (Sodium Chloride) 100 mls @ 200 mls/hr IV ONETIME ONE Stop: 12/11/16 14:35 Last Admin: 12/11/16 14:21 Dose: 200 mls/hr Pneumococcal 13-Valent Conj Vacc (Prevnar 13) 0.5 ml IM .ONCE ONE Stop: 12/12/16 08:19 Sodium Chloride (Saline Flush) 10 ml FLUSH ASDIRECTED PRN PRN Reason: Keep Vein Open Last Admin: 12/11/16 11:58 Dose: 10 ml - Exam Quality Assessment: Reports: DVT prophylaxis General: Reports: alert, oriented, cooperative, no acute distress HEENT: Reports: Pupils equal, Pupils reactive, EOMI Neck: Reports: supple, trachea midline Lungs: Reports: Normal respiratory effort Cardiovascular: Reports: Regular Rate Abdomen: Reports: bowel sounds present, soft, no tenderness, no distension (Female) Exam: Deferred Rectal (Female) Exam: Deferred Back Exam: Reports: normal inspection Extremities: Reports: edema (trace) Skin: Reports: warm Wound/Incisions: Reports: dressing dry and intact Neurological: Reports: no new focal deficit, normal gait (walker), normal speech Psy/Mental Status: Reports: alert, normal affect, normal mood *Q Meaningful Use (DIS) - VTE *Q VTE Criteria *Q: - Stroke *Q Stroke Criteria *Q: - AMI *Q AMI Criteria *Q:
[2016-12-13] MEDS ORDERED: Magnesium Sulfate/Water 2 GM in Premix Bag 1 BAG IV ONE (10:32)
[2016-12-13] MEDS ORDERED: Cephalexin 250 MG Cap PO SCH (12:00)
== END 2016-12-13 15:14 | disposition home or self-care (01) ==
LOC: JD.ED 10:46 → JD.MS 14:34
PROVIDERS: ADMIT Internal Medicine Cardiovascular Disease; ATTEND Internal Medicine Cardiovascular Disease
DX: N39.0 Urinary tract infection, site not specified (principal); E86.0 Dehydration; J40 Bronchitis, not specified as acute or chronic; R53.1 Weakness; R63.0 Anorexia; I48.91 Unspecified atrial fibrillation; I50.9 Heart failure, unspecified; E03.9 Hypothyroidism, unspecified; G47.33 Obstructive sleep apnea (adult) (pediatric); Z96.659 Presence of unspecified artificial knee joint; Z86.14 Personal history of Methicillin resistant Staphylococcus aureus infection; E78.5 Hyperlipidemia, unspecified; R32 Unspecified urinary incontinence; F32.9 Major depressive disorder, single episode, unspecified; Z95.0 Presence of cardiac pacemaker; Z79.01 Long term (current) use of anticoagulants; Z79.899 Other long term (current) drug therapy; Z88.1 Allergy status to other antibiotic agents; S81.802A Unspecified open wound, left lower leg, initial encounter; S81.801A Unspecified open wound, right lower leg, initial encounter; X58.XXXA Exposure to other specified factors, initial encounter; Z23 Encounter for immunization
CPT/HCPCS: 29580; 36415; 71020; 80048; 80053; 81001; 83735; 83880; 84484; 85025; 85610; 85730; 86140; 86738; 87086; 87088; 87186; 87804; 90471; 94640; 94664; 94760; 96361; 96365; 96366; 96367; 97110; 97116; 97161; 97165; 97530; 97535; 99285; A9270; G0009; G0378; J0456; J0696; J7030; J7040; J7050; P9612; 90670; 90715; 99284; J3475

== ENCOUNTER 2017-05-06 01:42 | Inpatient (IN) | payer MEDICARE, OTHER ==
[2017-05-06] MEDS ORDERED: Morphine 2 MG/ML Syringe IVPUSH ONE ×2 (01:53→18:32)
--- NOTE | 2017-05-06 02:27 | EDM.PDOC ---
ED HPI GENERAL MEDICAL PROBLEM - General Chief Complaint: Cardiovascular Problem Stated Complaint: [facility] Time Seen by Provider: 05/06/17 01:45 Source of Information: Reports: Patient, EMS, Family History Limitations: Reports: Respiratory Distress - History of Present Illness INITIAL COMMENTS - FREE TEXT/NARRATIVE: This is an 87-year-old female. According to her son she's been doing fairly well over the last couple of days but yesterday she woke up gasping for breath feeling somewhat weak but having no chest pain. She normally walks around with a walker at home and she tends a garden at home but she was unable to do that since yesterday. This morning her shortness of breath got worse and she was so weak she was unable to get off the toilet so she called the ambulance. When they arrive she was somewhat cyanotic with a pulse ox of 88% and she appeared to be in congestive heart failure. They plus put her on some BiPAP give her 40 of Lasix and transported her to the ER. At home her blood pressure is 106/53. Patient has a history of congestive heart failure. When I talked to the patient when she first arrived the patient just complained of shortness of breath and denied any chest pain. - Related Data Allergies Allergy/AdvReac Type Severity Reaction Status Date / Time Penicillins Allergy Mild Swelling/itchy Verified 05/06/17 01:55 rash ciprofloxacin [From Cipro] Allergy Rash Verified 05/06/17 01:55 vancomycin Allergy Rash Verified 05/06/17 01:55 metronidazole AdvReac Nausea and Verified 05/06/17 01:55 Vomiting Home Meds: Home Meds Furosemide [Lasix] 20 mg PO BID 02/28/14 [History] Levothyroxine Sodium [Levoxyl] 150 mcg PO DAILY 02/28/14 [History] Lisinopril 5 mg PO 1700 02/28/14 [History] Metoprolol Tartrate [Lopressor] 12.5 mg PO BID 02/28/14 [History] Pramipexole [Mirapex] 0.5 mg PO BEDTIME 02/28/14 [History] Sertraline [Zoloft] 50 mg PO DAILY 02/28/14 [History] Simvastatin [Zocor] 10 mg PO DAILY 02/28/14 [History] Spironolactone [Aldactone] 25 mg PO DAILY 02/28/14 [History] Warfarin [Coumadin] 2 mg PO MO 02/28/14 [History] Zolpidem Tartrate [Ambien] 5 mg PO BEDTIME 02/28/14 [History] Warfarin [Coumadin] 3 mg PO SUTUWETHFRSA 10/25/15 [History] Potassium Chloride [Klor-Con 10] 10 meq PO BIDMEALS 06/29/16 [History] L Acidophil/B Lactis/B Longum [Florajen3] 1 tab PO BEDTIME 12/11/16 [History] Azithromycin [Zithromax] 500 mg PO DAILY #5 tablet 12/13/16 [Rx] Benzonatate [Tessalon Perles] 200 mg PO TID PRN #20 cap 12/13/16 [Rx] Past Medical History HEENT History: Reports: Impaired Vision Other HEENT History: wears glasses, hard of hearing Cardiovascular History: 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, Pacemaker Respiratory History: Reports: Sleep Apnea, SOB Genitourinary History: Reports: Urinary Incontinence 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: Endocrine/Metabolic History: Reports: Hypothyroidism Oncologic (Cancer) History: Reports: Other (See Below) 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 Dermatologic History: Reports: Other (See Below) Other Dermatologic History: scattered sores all over her legs and arms from picking - Infectious Disease History Infectious Disease History: Reports: MRSA - Past Surgical History HEENT Surgical History: Reports: Cataract Surgery GI Surgical History: Reports: Cholecystectomy Musculoskeletal Surgical History: Reports: Knee Replacement Social & Family History - Family History Family Medical History: Noncontributory - Tobacco Use Smoking Status *Q: Never Smoker Second Hand Smoke Exposure: No - Caffeine Use Caffeine Use: Reports: Coffee - Recreational Drug Use Recreational Drug Use: No - Living Situation & Occupation Living situation: Reports: Occupation: Retired ED ROS GENERAL - Review of Systems Review Of Systems: See Below Constitutional: Reports: Weakness, Fatigue. Denies: Fever, Chills HEENT: Reports: No Symptoms Respiratory: Reports: Shortness of Breath Cardiovascular: Reports: Edema. Denies: Chest Pain Endocrine: Reports: Fatigue GI/Abdominal: Denies: Abdominal Pain, Nausea, Vomiting : Reports: No Symptoms Musculoskeletal: Reports: Other (Lower extremity swelling) Skin: Reports: Other (Brawny skin changes of lower extremities) Neurological: Reports: Difficulty Walking Psychiatric: Reports: No Symptoms Hematologic/Lymphatic: Reports: No Symptoms ED EXAM, GENERAL - Physical Exam Exam: See Below Exam Limited By: No Limitations General Appearance: Alert, Moderate Distress, Obese Eye Exam: Bilateral Eye: Normal Inspection Ears: Normal External Exam Nose: Normal Inspection Throat/Mouth: Other (Patient is able to verbalize but due to the BiPAP and is somewhat difficult and she is short of breath) Head: Normocephalic Neck: Supple Respiratory/Chest: Respiratory Distress, Crackles, Rales. No: No Respiratory Distress, Retractions Cardiovascular: Regular Rate, Rhythm GI/Abdominal: Soft, Other (Bowel sounds are decreased but she denies any tenderness on palpation) Extremities: Other (She appears to have brawny skin changes of her lower extremities she has just a small amount of swelling noted but in the left lower extremity on the medial side she appears to have some cellulitis and some skin changes) Neurological: Alert, Oriented Psychiatric: Anxious Skin Exam: Warm, Dry. No: Diaphoretic EKG INTERPRETATION EKG Date: 05/06/17 Time: 01:40 EKG Interpretation Comments: EKG shows a sinus rhythm there is no acute ST or T-wave changes however there is very poor R-wave progression in the anterior leads suggesting an old anterior [place], she does appear to have a ventricular paced complexes which would make it difficult to note ST changes. Course - Vital Signs Last Recorded V/S: Last Vital Signs Temp 96 F 05/06/17 01:45 Pulse 75 05/06/17 01:45 Resp 32 H 05/06/17 01:45 BP 111/78 05/06/17 01:45 Pulse Ox 100 05/06/17 01:45 - Orders/Labs/Meds Orders: Active Orders 24 hr Category Date Time Status Adam Catheter Insertion [Insert Urinary Catheter] [OM. Care 05/06/17 02:00 Ordered PC] Q24H Urinary Catheter Assessment [RC] ASDIRECTED Care 05/06/17 01:54 Active Chest 1V Frontal [CR] Stat Exams 05/06/17 01:46 Taken BiPAP [RESPCARE] Urgent Oth 05/06/17 01:56 Active Labs: Laboratory Tests 05/06/17 05/06/17 05/06/17 Range/Units 01:50 01:50 01:50 WBC 12.94 H (3.98-10.04) K/mm3 RBC 4.27 (3.98-5.22) M/mm3 Hgb 13.6 (11.2-15.7) gm/L Hct 41.2 (34.1-44.9) % MCV 96.5 H (79.4-94.8) fl MCH 31.9 (25.6-32.2) pg MCHC 33.0 (32.2-35.5) g/dl RDW Std Deviation 51.8 H (36.4-46.3) fL Plt Count 137 L (182-369) K/mm3 MPV 10.4 (9.4-12.3) fl Neut % (Auto) 88.9 H (34.0-71.1) % Lymph % (Auto) 4.2 L (19.3-51.7) % [place] % (Auto) 6.3 (4.7-12.5) % Eos % (Auto) 0 L (0.7-5.8) Baso % (Auto) 0.2 (0.1-1.2) % Neut # (Auto) 11.52 H (1.56-6.13) K/mm3 Lymph # (Auto) 0.54 L (1.18-3.74) K/mm3 [place] # (Auto) 0.81 H (0.24-0.36) K/mm3 Eos # (Auto) 0.00 L (0.04-0.36) K/mm3 Baso # (Auto) 0.02 (0.01-0.08) K/mm3 Manual Slide Review Normal smear PT 25.1 H (8.0-13.0) SECONDS INR 2.19 Sodium 136 (136-145) mEq/L Potassium 4.0 (3.5-5.1) mEq/L Chloride 101 (98-107) mEq/L Carbon Dioxide 25 (21-32) mEq/L Anion Gap 14.0 (5-15) BUN 31 H (7-18) mg/dL Creatinine 1.5 H (0.55-1.02) mg/dL Est Cr Clr Drug Dosing TNP Estimated GFR (MDRD) 33 (>60) mL/min BUN/Creatinine Ratio 20.7 H (14-18) Glucose 141 H (83-115) mg/dL Calcium 9.4 (8.5-10.1) mg/dL Total Bilirubin 1.2 H (0.2-1.0) mg/dL AST 22 (15-37) U/L ALT 18 (14-59) U/L Alkaline Phosphatase 96 (46-116) U/L Troponin I < 0.017 (0.00-0.056) ng/mL NT-Pro-B Natriuret Pep 5276 H (0-450) pg/mL Total Protein 7.1 (6.4-8.2) g/dl Albumin 3.6 (3.4-5.0) g/dl Globulin 3.5 gm/dL Albumin/Globulin Ratio 1.0 (1-2) Meds: Medications Discontinued Medications Generic Name Dose Route Start Last Admin Trade Name Freq PRN Reason Stop Dose Admin Morphine Sulfate 1 mg 05/06/17 01:53 05/06/17 01:58 Morphine IVPUSH 05/06/17 01:54 1 mg ONETIME ONE Administration - Radiology Interpretation Free Text/Narrative:: X-ray suggests some mild pleural effusions in the costophrenic angles and some mild congestive failure at this time. - Re-Assessments/Exams Free Text/Narrative Re-Assessment/Exam: 05/06/17 03:55 I spoke to the family regarding the test results. She is in congestive heart failure and she will need to be admitted for further evaluation and treatment and they are in agreement with this. I spoke to Dr. Eduardo and she agrees to admit the patient for further evaluation and treatment Departure - Departure Time of Disposition: 03:55 Disposition: Admitted As Inpatient 66 Condition: Fair Clinical Impression: Hypoxemia, Respiratory distress Congestive heart failure Qualifiers: Congestive heart failure type: unspecified congestive heart failure type Congestive heart failure chronicity: unspecified congestive heart failure chronicity Qualified Code(s): I50.9 - Heart failure, unspecified Additional Instructions: I spoke to Dr. Eduardo and she will admit the patient for further evaluation and treatment ED Communication - ED Communication Date/Time Date: 05/06/17 Time Called: 03:56 - Discussed Case With (1) Discussed Case With (1): Admitting Provider Person/s Notified (1): Theresa Eduardo (Will admit for evaluation treatment) - My Orders Last 24 Hours: My Active Orders 05/06/17 01:46 Chest 1V Frontal [CR] Stat 05/06/17 01:54 Urinary Catheter Assessment [RC] ASDIRECTED 05/06/17 01:56 BiPAP [RESPCARE] Urgent 05/06/17 02:00 Adam Catheter Insertion [Insert Urinary Catheter] [OM.PC] Q24H - Assessment/Plan Last 24 Hours: My Active Orders 05/06/17 01:46 Chest 1V Frontal [CR] Stat 05/06/17 01:54 Urinary Catheter Assessment [RC] ASDIRECTED 05/06/17 01:56 BiPAP [RESPCARE] Urgent 05/06/17 02:00 Adam Catheter Insertion [Insert Urinary Catheter] [OM.PC] Q24H
--- NOTE | 2017-05-06 09:13 | PCM.HP ---
H&P History of Present Illness - General Date of Service: 05/06/17 Admit Problem/Dx: Admission Diagnosis/Problem Admission Diagnosis/Problem CHF, Congestive heart failure Source of Information: Family, Provider History Limitations: Reports: No Limitations - History of Present Illness Initial Comments - Free Text/Narative: 87 year old female S/P PPM, query A Fib presented profoundly SOB. She was given lasix, and started on BiPAP, which she has tolerated well. The description from the ED physician is that she was gasping for breath. She was comfortable when seen later by the hospitalist service after her treatment in the [employer] at 0300 hour. She has CHF, and the family has reported a relative active elderly person who has a garden. 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 She appears to drink water liberally without concern for fluid over load. She will be admitted for respiratory distress with acute on chronic CHF. At this time, MS telemetry has been ordered. Onset of Symptoms: Reports: Sudden Symptom Onset Date: 05/05/17 Duration of Symptoms: Reports: Hour(s):, Getting Worse Location: Reports: Generalized Severity: Moderate Improves with: Reports: Medication Worsens with: Reports: Eating (and drinking) Associated Symptoms: Reports: Confusion, Shortness of Breath, Weakness - Related Data Allergies/Adverse Reactions: Allergies Allergy/AdvReac Type Severity Reaction Status Date / Time Penicillins Allergy Mild Swelling/itchy Verified 05/06/17 10:49 rash ciprofloxacin [From Cipro] Allergy Rash Verified 05/06/17 10:49 vancomycin Allergy Rash Verified 05/06/17 10:49 metronidazole AdvReac Nausea and Verified 05/06/17 10:49 Vomiting Home Medications: Home Meds Furosemide [Lasix] 20 mg PO BID 02/28/14 [History] Levothyroxine Sodium [Levoxyl] 150 mcg PO DAILY 02/28/14 [History] Lisinopril 5 mg PO 1700 02/28/14 [History] Metoprolol Tartrate [Lopressor] 12.5 mg PO BID 02/28/14 [History] Pramipexole [Mirapex] 0.5 mg PO DAILY 02/28/14 [History] Sertraline [Zoloft] 25 mg PO DAILY 02/28/14 [History] Simvastatin [Zocor] 10 mg PO DAILY 02/28/14 [History] Spironolactone [Aldactone] 25 mg PO DAILY 02/28/14 [History] Warfarin [Coumadin] 2 mg PO MO 02/28/14 [History] Zolpidem Tartrate [Ambien] 5 mg PO BEDTIME 02/28/14 [History] Warfarin [Coumadin] 3 mg PO SUTUWETHFRSA 10/25/15 [History] Potassium Chloride [Klor-Con 10] 20 meq PO BIDMEALS 06/29/16 [History] Past Medical History HEENT History: Reports: Impaired Vision Other HEENT History: wears glasses, hard of hearing Cardiovascular History: 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, Pacemaker Respiratory History: Reports: Sleep Apnea, SOB Genitourinary History: Reports: Urinary Incontinence 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: Endocrine/Metabolic History: Reports: Hypothyroidism Oncologic (Cancer) History: Reports: Other (See Below) 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 Dermatologic History: Reports: Other (See Below) Other Dermatologic History: scattered sores all over her legs and arms from picking - Infectious Disease History Infectious Disease History: Reports: MRSA - Past Surgical History HEENT Surgical History: Reports: Cataract Surgery Respiratory Surgical History: Reports: None GI Surgical History: Reports: Cholecystectomy Female Surgical History: Reports: None Endocrine Surgical History: Reports: None Neurological Surgical History: Reports: None Musculoskeletal Surgical History: Reports: Knee Replacement Oncologic Surgical History: Reports: None Dermatological Surgical History: Reports: None Social & Family History - Family History Family Medical History: Noncontributory - Tobacco Use Smoking Status *Q: Never Smoker Second Hand Smoke Exposure: No - Caffeine Use Caffeine Use: Reports: Coffee - Recreational Drug Use Recreational Drug Use: No - Living Situation & Occupation Living situation: Reports: Occupation: Retired H&P Review of Systems - Review of Systems: Review Of Systems: See Below General: Reports: Weakness, Fatigue HEENT: Reports: No Symptoms Pulmonary: Reports: Shortness of Breath Cardiovascular: Reports: No Symptoms Gastrointestinal: Reports: No Symptoms Genitourinary: Reports: No Symptoms Musculoskeletal: Reports: No Symptoms Skin: Reports: No Symptoms Psychiatric: Reports: Confusion Neurological: Reports: Confusion Hematologic/Lymphatic: Reports: No Symptoms Immunologic: Reports: No Symptoms Exam - Exam Exam: See Below - Vital Signs Vital Signs: Last Vital Signs Temp 36.2 C 05/06/17 04:59 Pulse 73 05/06/17 04:59 Resp 22 H 05/06/17 04:59 BP 118/67 05/06/17 04:59 Pulse Ox 96 05/06/17 04:59 Weight: 91.217 kg - Exam Quality Assessment: Supplemental Oxygen, DVT Prophylaxis General: Alert, Oriented, Cooperative HEENT: Conjunctiva Clear, Nares Patent, Normal Nasal Septum, Pupils Equal, Pupils Reactive Neck: Supple, Trachea Midline Lungs: Normal Respiratory Effort, Decreased Breath Sounds, Crackles Cardiovascular: Regular Rate GI/Abdominal Exam: Normal Bowel Sounds, Soft, Non-Tender, No Distention (Female) Exam: Deferred Rectal (Female) Exam: Deferred Back Exam: Normal Inspection Extremities: Pedal Edema Skin: Rash (with excoriation) Neurological: Cranial Nerves Intact, Normal Speech Neuro Extensive - Mental Status: Alert Neuro Extensive - Motor, Sensory, Reflexes: CN II-XII Intact Psychiatric: Alert - Patient Data Result Diagrams: 05/06/17 01:50 05/06/17 01:50 *Q Meaningful Use (ADM) - VTE *Q VTE Criteria *Q: - Stroke *Q Stroke Criteria *Q: - AMI *Q AMI Criteria *Q: - Problem List (1) CHF (congestive heart failure) SNOMED Code(s): 58173644 ICD Code: I50.9 - HEART FAILURE, UNSPECIFIED Status: Acute Current Visit : Yes Qualifiers: Congestive heart failure type: unspecified congestive heart failure type Congestive heart failure chronicity: unspecified congestive heart failure chronicity Qualified Code(s): I50.9 - Heart failure, unspecified (2) Hypoxemia SNOMED Code(s): 788331167 ICD Code: R09.02 - HYPOXEMIA Status: Acute Current Visit: Yes (3) Respiratory distress SNOMED Code(s): 400113396 ICD Code: R06.00 - DYSPNEA, UNSPECIFIED Status: Acute Current Visit: Yes (4) Acute upper urinary tract infection SNOMED Code(s): 498065639 ICD Code: N39.0 - URINARY TRACT INFECTION, SITE NOT SPECIFIED Status: Acute Current Visit: No (5) Hypothyroid SNOMED Code(s): 07735632 ICD Code: E03.9 - HYPOTHYROIDISM, UNSPECIFIED Status: Acute Current Visit : Yes (6) Pacemaker SNOMED Code(s): 323026752, 306902149 ICD Code: Z95.0 - PRESENCE OF CARDIAC PACEMAKER Status: Acute Current Visit: Yes Problem List Initiated/Reviewed/Updated: Yes Orders Last 24hrs: Active Orders 24 hr Category Date Time Status Admission Status [Patient Status] [ADT] Routine ADT 05/06/17 04:44 Active Activity as Tolerated [RC] .Routine Care 05/06/17 05:36 Active Intake and Output Strict [RC] Q2HR Care 05/06/17 05:37 Active Oxygen Therapy Adult [Oxygen Therapy] [RC] ASDIRECTED Care 05/06/17 05:34 Active Soft Diet [DIET] Diet 05/06/17 Breakfast Active Code Status [Resuscitation Status] Routine Resus Stat 05/06/17 05:36 Ordered Assessment/Plan Comment:: Impression: Acute respiratory distress on BiPAP Acute on chronic CHF exacerbation AUTI AMS Chronic Hypothyroidism HTN PPM, query A Fib; V paced ECG is noted. CKD Plan: Diurese as tolerated Hold ACEI Decrease BB dose with acute exacerbation 2D echo Renal US UCr/BC Rocephin IV Q 24 hours DVT/GI prophylaxis
[2017-05-06] MEDS ORDERED: Furosemide 40 MG/4 ML VIAL IVPUSH ONE ×2 (10:51→18:00)
[2017-05-06] MEDS: cefTRIAXone 2 GM in Sodium Chloride 0.9% 100 ML IV SCH (15:21)
[2017-05-06] MEDS: Warfarin 3 MG Tab PO SCH (17:44)
[2017-05-06] MEDS ORDERED: Albuterol/Ipratropium 3.0-0.5 MG/3 ML Neb Soln NEB PRN (18:53)
[2017-05-06] MEDS ORDERED: hydrALAZINE 20 MG/ML SDV IVPUSH PRN (18:57)
[2017-05-06] MEDS ORDERED: Magnesium Sulfate/Water 2 GM in Premix Bag 1 BAG IV ONE (19:00)
[2017-05-06] MEDS: Pramipexole 0.5 MG Tab PO SCH (20:32)
[2017-05-06] MEDS: Zolpidem 5 MG Tab PO SCH (20:33)
[2017-05-06] MEDS ORDERED: LORazepam 2 MG/ML MDV IVPUSH PRN (20:59)
[2017-05-06] MEDS ORDERED: Metoprolol Tartrate 25 MG Tab PO SCH (21:00)
[2017-05-06] MEDS ORDERED: Morphine 2 MG/ML Syringe IVPUSH PRN (21:03)
[2017-05-07] MEDS ORDERED: Bumetanide 1 MG/4 ML MDV IVPUSH ONE ×2 (08:00→18:00)
[2017-05-07] MEDS: Levothyroxine 150 MCG Tab PO SCH (08:19)
[2017-05-07] MEDS: Simvastatin 10 MG Tab PO SCH (08:19)
[2017-05-07] MEDS: Spironolactone 25 MG Tab PO SCH (08:19)
[2017-05-07] MEDS: Carvedilol 6.25 MG Tab PO SCH ×2 (08:20→20:04)
[2017-05-07] MEDS: Sertraline 25 MG Tab PO SCH (08:20)
[2017-05-07] MEDS: Enoxaparin 30 MG/0.3 ML Syringe SUBCUT SCH (08:22)
[2017-05-07] MEDS ORDERED: Pramipexole 0.5 MG Tab PO SCH (09:00)
--- NOTE | 2017-05-07 10:54 | PCM.PN ---
- General Info Date of Service: 05/07/17 Functional Status: Reports: Tolerating Diet, Urinating - Review of Systems General: Reports: No Symptoms HEENT: Reports: No Symptoms Pulmonary: Reports: Shortness of Breath Cardiovascular: Reports: No Symptoms Gastrointestinal: Reports: No Symptoms Genitourinary: Reports: No Symptoms Musculoskeletal: Reports: No Symptoms Skin: Reports: No Symptoms Neurological: Reports: No Symptoms Psychiatric: Reports: No Symptoms - Patient Data Vitals - Most Recent: Last Vital Signs Temp 36.6 C 05/07/17 07:35 Pulse 70 05/07/17 08:20 Resp 20 05/07/17 07:35 BP 130/82 05/07/17 08:20 Pulse Ox 96 05/07/17 09:33 Weight - Most Recent: 91.444 kg I&O - Last 24 Hours: Intake & Output 05/06/17 05/07/17 05/07/17 22:59 06:59 14:59 Intake Total 1030 50 0 Output Total 610 350 160 Balance 420 -300 -160 Lab Results Last 24 Hours: Laboratory Results - last 24 hr 05/06/17 05/06/17 05/06/17 Range/Units 12:00 14:20 14:20 WBC (3.98-10.04) K/mm3 RBC (3.98-5.22) M/mm3 Hgb (11.2-15.7) gm/L Hct (34.1-44.9) % MCV (79.4-94.8) fl MCH (25.6-32.2) pg MCHC (32.2-35.5) g/dl RDW Std Deviation (36.4-46.3) fL Plt Count (182-369) K/mm3 MPV (9.4-12.3) fl Neut % (Auto) (34.0-71.1) % Lymph % (Auto) (19.3-51.7) % [place] % (Auto) (4.7-12.5) % Eos % (Auto) (0.7-5.8) Baso % (Auto) (0.1-1.2) % Neut # (Auto) (1.56-6.13) K/mm3 Lymph # (Auto) (1.18-3.74) K/mm3 [place] # (Auto) (0.24-0.36) K/mm3 Eos # (Auto) (0.04-0.36) K/mm3 Baso # (Auto) (0.01-0.08) K/mm3 Manual Slide Review Puncture Site ABG pH (7.35-7.45) ABG pCO2 (35.0-45.0) mmHg ABG pO2 (80.0-100.0) mmHg ABG HCO3 (22.0-26.0) meq/L ABG O2 Saturation (96.0-97.0) % ABG Base Excess (-2-2.0) Toni Test A-a Gradient mmHg O2 Delivery Device Oxygen Flow Rate FiO2 (21.00-100.00) % Sodium (136-145) mEq/L Potassium (3.5-5.1) mEq/L Chloride (98-107) mEq/L Carbon Dioxide (21-32) mEq/L Anion Gap (5-15) BUN (7-18) mg/dL Creatinine (0.55-1.02) mg/dL Est Cr Clr Drug Dosing mL/min Estimated GFR (MDRD) (>60) mL/min BUN/Creatinine Ratio (14-18) Glucose (83-115) mg/dL POC Glucose (83-110) mg/dL Hemoglobin A1c 6.00 (4.50-6.20) % Lactic Acid (0.4-2.0) mmol/L Calcium (8.5-10.1) mg/dL Magnesium 1.7 L (1.8-2.4) mg/dl Troponin I < 0.017 (0.00-0.056) ng/mL C-Reactive Protein 19.1 H* (<1.0) mg/dL NT-Pro-B Natriuret Pep (0-450) pg/mL Triglycerides (<150) mg/dL Cholesterol (<200) mg/dL LDL Cholesterol Direct (<100) mg/dL HDL Cholesterol (40-59) mg/dL TSH 3rd Generation 0.527 (0.358-3.74) uIU/mL Urine Color Yellow (Yellow) Urine Appearance Slt cloudy H (Clear) Urine pH 6.5 (5.0-8.0) Ur Specific [place] 1.020 (1.005-1.030) Urine Protein 1+ H (Negative) Urine Glucose (UA) Negative (Negative) Urine Ketones Negative (Negative) Urine Occult Blood 3+ H (Negative) Urine Nitrite Negative (Negative) Urine Bilirubin Negative (Negative) Urine Urobilinogen 0.2 (0.2-1.0) Ur Leukocyte Esterase 3+ H (Negative) Urine RBC 30-40 H (0-5) /hpf Urine WBC 40-50 H (0-5) /hpf Ur Epithelial Cells 0-5 (0-5) /hpf Urine Bacteria Moderate H (FEW) /hpf Urine Mucus Few (FEW) /hpf 05/06/17 05/06/17 05/06/17 Range/Units 14:20 18:31 18:47 WBC (3.98-10.04) K/mm3 RBC (3.98-5.22) M/mm3 Hgb (11.2-15.7) gm/L Hct (34.1-44.9) % MCV (79.4-94.8) fl MCH (25.6-32.2) pg MCHC (32.2-35.5) g/dl RDW Std Deviation (36.4-46.3) fL Plt Count (182-369) K/mm3 MPV (9.4-12.3) fl Neut % (Auto) (34.0-71.1) % Lymph % (Auto) (19.3-51.7) % [place] % (Auto) (4.7-12.5) % Eos % (Auto) (0.7-5.8) Baso % (Auto) (0.1-1.2) % Neut # (Auto) (1.56-6.13) K/mm3 Lymph # (Auto) (1.18-3.74) K/mm3 [place] # (Auto) (0.24-0.36) K/mm3 Eos # (Auto) (0.04-0.36) K/mm3 Baso # (Auto) (0.01-0.08) K/mm3 Manual Slide Review Puncture Site Rt radial ABG pH 7.49 H (7.35-7.45) ABG pCO2 27.0 L (35.0-45.0) mmHg ABG pO2 62.0 L (80.0-100.0) mmHg ABG HCO3 20.3 L (22.0-26.0) meq/L ABG O2 Saturation 94.4 L (96.0-97.0) % ABG Base Excess -1.3 (-2-2.0) Toni Test Positive A-a Gradient 58 mmHg O2 Delivery Device Nasal cannula Oxygen Flow Rate 1.0 FiO2 24.00 (21.00-100.00) % Sodium (136-145) mEq/L Potassium (3.5-5.1) mEq/L Chloride (98-107) mEq/L Carbon Dioxide (21-32) mEq/L Anion Gap (5-15) BUN (7-18) mg/dL Creatinine (0.55-1.02) mg/dL Est Cr Clr Drug Dosing mL/min Estimated GFR (MDRD) (>60) mL/min BUN/Creatinine Ratio (14-18) Glucose (83-115) mg/dL POC Glucose 224 H (83-110) mg/dL Hemoglobin A1c (4.50-6.20) % Lactic Acid (0.4-2.0) mmol/L Calcium (8.5-10.1) mg/dL Magnesium (1.8-2.4) mg/dl Troponin I (0.00-0.056) ng/mL C-Reactive Protein (<1.0) mg/dL NT-Pro-B Natriuret Pep 5422 H (0-450) pg/mL Triglycerides (<150) mg/dL Cholesterol (<200) mg/dL LDL Cholesterol Direct (<100) mg/dL HDL Cholesterol (40-59) mg/dL TSH 3rd Generation (0.358-3.74) uIU/mL Urine Color (Yellow) Urine Appearance (Clear) Urine pH (5.0-8.0) Ur Specific [place] (1.005-1.030) Urine Protein (Negative) Urine Glucose (UA) (Negative) Urine Ketones (Negative) Urine Occult Blood (Negative) Urine Nitrite (Negative) Urine Bilirubin (Negative) Urine Urobilinogen (0.2-1.0) Ur Leukocyte Esterase (Negative) Urine RBC (0-5) /hpf Urine WBC (0-5) /hpf Ur Epithelial Cells (0-5) /hpf Urine Bacteria (FEW) /hpf Urine Mucus (FEW) /hpf 05/07/17 05/07/17 05/07/17 Range/Units 05:55 05:55 05:55 WBC 10.73 H (3.98-10.04) K/mm3 RBC 4.07 (3.98-5.22) M/mm3 Hgb 13.0 (11.2-15.7) gm/L Hct 39.1 (34.1-44.9) % MCV 96.1 H (79.4-94.8) fl MCH 31.9 (25.6-32.2) pg MCHC 33.2 (32.2-35.5) g/dl RDW Std Deviation 51.1 H (36.4-46.3) fL Plt Count 104 L (182-369) K/mm3 MPV 10.1 (9.4-12.3) fl Neut % (Auto) 86.5 H (34.0-71.1) % Lymph % (Auto) 6.0 L (19.3-51.7) % [place] % (Auto) 7.0 (4.7-12.5) % Eos % (Auto) 0.2 L (0.7-5.8) Baso % (Auto) 0.1 (0.1-1.2) % Neut # (Auto) 9.29 H (1.56-6.13) K/mm3 Lymph # (Auto) 0.64 L (1.18-3.74) K/mm3 [place] # (Auto) 0.75 H (0.24-0.36) K/mm3 Eos # (Auto) 0.02 L (0.04-0.36) K/mm3 Baso # (Auto) 0.01 (0.01-0.08) K/mm3 Manual Slide Review Not Reportable Puncture Site ABG pH (7.35-7.45) ABG pCO2 (35.0-45.0) mmHg ABG pO2 (80.0-100.0) mmHg ABG HCO3 (22.0-26.0) meq/L ABG O2 Saturation (96.0-97.0) % ABG Base Excess (-2-2.0) Toni Test A-a Gradient mmHg O2 Delivery Device Oxygen Flow Rate FiO2 (21.00-100.00) % Sodium 136 (136-145) mEq/L Potassium 3.3 L (3.5-5.1) mEq/L Chloride 100 (98-107) mEq/L Carbon Dioxide 26 (21-32) mEq/L Anion Gap 13.3 (5-15) BUN 27 H (7-18) mg/dL Creatinine 1.2 H (0.55-1.02) mg/dL Est Cr Clr Drug Dosing 26.12 mL/min Estimated GFR (MDRD) 42 (>60) mL/min BUN/Creatinine Ratio 22.5 H (14-18) Glucose 118 H (83-115) mg/dL POC Glucose (83-110) mg/dL Hemoglobin A1c (4.50-6.20) % Lactic Acid 1.0 (0.4-2.0) mmol/L Calcium 8.5 (8.5-10.1) mg/dL Magnesium (1.8-2.4) mg/dl Troponin I (0.00-0.056) ng/mL C-Reactive Protein (<1.0) mg/dL NT-Pro-B Natriuret Pep (0-450) pg/mL Triglycerides 96 (<150) mg/dL Cholesterol 80 (<200) mg/dL LDL Cholesterol Direct 42 (<100) mg/dL HDL Cholesterol 22.0 L (40-59) mg/dL TSH 3rd Generation (0.358-3.74) uIU/mL Urine Color (Yellow) Urine Appearance (Clear) Urine pH (5.0-8.0) Ur Specific [place] (1.005-1.030) Urine Protein (Negative) Urine Glucose (UA) (Negative) Urine Ketones (Negative) Urine Occult Blood (Negative) Urine Nitrite (Negative) Urine Bilirubin (Negative) Urine Urobilinogen (0.2-1.0) Ur Leukocyte Esterase (Negative) Urine RBC (0-5) /hpf Urine WBC (0-5) /hpf Ur Epithelial Cells (0-5) /hpf Urine Bacteria (FEW) /hpf Urine Mucus (FEW) /hpf 05/07/17 Range/Units 05:55 WBC (3.98-10.04) K/mm3 RBC (3.98-5.22) M/mm3 Hgb (11.2-15.7) gm/L Hct (34.1-44.9) % MCV (79.4-94.8) fl MCH (25.6-32.2) pg MCHC (32.2-35.5) g/dl RDW Std Deviation (36.4-46.3) fL Plt Count (182-369) K/mm3 MPV (9.4-12.3) fl Neut % (Auto) (34.0-71.1) % Lymph % (Auto) (19.3-51.7) % [place] % (Auto) (4.7-12.5) % Eos % (Auto) (0.7-5.8) Baso % (Auto) (0.1-1.2) % Neut # (Auto) (1.56-6.13) K/mm3 Lymph # (Auto) (1.18-3.74) K/mm3 [place] # (Auto) (0.24-0.36) K/mm3 Eos # (Auto) (0.04-0.36) K/mm3 Baso # (Auto) (0.01-0.08) K/mm3 Manual Slide Review Puncture Site ABG pH (7.35-7.45) ABG pCO2 (35.0-45.0) mmHg ABG pO2 (80.0-100.0) mmHg ABG HCO3 (22.0-26.0) meq/L ABG O2 Saturation (96.0-97.0) % ABG Base Excess (-2-2.0) Toni Test A-a Gradient mmHg O2 Delivery Device Oxygen Flow Rate FiO2 (21.00-100.00) % Sodium (136-145) mEq/L Potassium (3.5-5.1) mEq/L Chloride (98-107) mEq/L Carbon Dioxide (21-32) mEq/L Anion Gap (5-15) BUN (7-18) mg/dL Creatinine (0.55-1.02) mg/dL Est Cr Clr Drug Dosing mL/min Estimated GFR (MDRD) (>60) mL/min BUN/Creatinine Ratio (14-18) Glucose (83-115) mg/dL POC Glucose (83-110) mg/dL Hemoglobin A1c (4.50-6.20) % Lactic Acid (0.4-2.0) mmol/L Calcium (8.5-10.1) mg/dL Magnesium (1.8-2.4) mg/dl Troponin I (0.00-0.056) ng/mL C-Reactive Protein (<1.0) mg/dL NT-Pro-B Natriuret Pep 4078 H (0-450) pg/mL Triglycerides (<150) mg/dL Cholesterol (<200) mg/dL LDL Cholesterol Direct (<100) mg/dL HDL Cholesterol (40-59) mg/dL TSH 3rd Generation (0.358-3.74) uIU/mL Urine Color (Yellow) Urine Appearance (Clear) Urine pH (5.0-8.0) Ur Specific [place] (1.005-1.030) Urine Protein (Negative) Urine Glucose (UA) (Negative) Urine Ketones (Negative) Urine Occult Blood (Negative) Urine Nitrite (Negative) Urine Bilirubin (Negative) Urine Urobilinogen (0.2-1.0) Ur Leukocyte Esterase (Negative) Urine RBC (0-5) /hpf Urine WBC (0-5) /hpf Ur Epithelial Cells (0-5) /hpf Urine Bacteria (FEW) /hpf Urine Mucus (FEW) /hpf Lorenzo Results Last 24 Hours: Microbiology 05/06/17 12:00 Urine Culture - Preliminary Urine, Catheterized Gram Negative Rods 05/06/17 15:08 Aerobic Blood Culture - Preliminary Blood - Venous - Lab Draw Gram Negative Rods Anaerobic Blood Culture - Preliminary Gram Negative Rods 05/06/17 14:50 Aerobic Blood Culture - Preliminary Blood - Venous Gram Negative Rods Anaerobic Blood Culture - Preliminary Gram Negative Rods Med Orders - Current: Current Medications Albuterol/Ipratropium (Duoneb 3.0-0.5 Mg/3 Ml) 3 ml NEB QID PRN PRN Reason: Shortness of Breath Bumetanide (Bumex) 1 mg IVPUSH ONETIME ONE Stop: 05/07/17 18:01 Carvedilol (Coreg) 6.25 mg PO BID [facility] Last Admin: 05/07/17 08:20 Dose: 6.25 mg Enoxaparin Sodium (Lovenox) 30 mg SUBCUT DAILY [facility] Last Admin: 05/07/17 08:22 Dose: 30 mg Hydralazine HCl (Apresoline) 10 mg IVPUSH Q6H PRN PRN Reason: Hypertension Ceftriaxone Sodium 2 gm/ (Sodium Chloride) 100 mls @ 200 mls/hr IV Q24H [facility] Last Admin: 05/06/17 15:21 Dose: 200 mls/hr Levothyroxine Sodium (Levothyroxine) 150 mcg PO DAILY [facility] Last Admin: 05/07/17 08:19 Dose: 150 mcg Lorazepam (Ativan) 0.5 mg IVPUSH Q8H PRN PRN Reason: Anxiety Morphine Sulfate (Morphine) 1 mg IVPUSH Q6H PRN PRN Reason: SOB, restlessness Potassium Chloride (Potassium Chloride) 40 meq PO BID [facility] Stop: 05/08/17 09:01 Pramipexole Dihydrochloride (Mirapex) 0.5 mg PO BEDTIME [facility] Last Admin: 05/06/17 20:32 Dose: 0.5 mg Sertraline HCl (Zoloft) 25 mg PO DAILY [facility] Last Admin: 05/07/17 08:20 Dose: 25 mg Simvastatin (Zocor) 10 mg PO DAILY [facility] Last Admin: 05/07/17 08:19 Dose: 10 mg Spironolactone (Aldactone) 25 mg PO DAILY [facility] Last Admin: 05/07/17 08:19 Dose: 25 mg Warfarin Sodium (Coumadin) 2 mg PO Mo@1800 [facility] Warfarin Sodium (Coumadin) 3 mg PO SuTuWeThFrSa@1800 [facility] Last Admin: 05/06/17 17:44 Dose: 3 mg Zolpidem Tartrate (Ambien) 5 mg PO BEDTIME [facility] Last Admin: 05/06/17 20:33 Dose: 5 mg Discontinued Medications Bumetanide (Bumex) 1 mg IVPUSH ONETIME ONE Stop: 05/07/17 08:01 Last Admin: 05/07/17 08:26 Dose: 1 mg Furosemide (Lasix) 40 mg IVPUSH NOW ONE Stop: 05/06/17 10:52 Last Admin: 05/06/17 11:17 Dose: 40 mg Furosemide (Lasix) 40 mg IVPUSH NOW ONE Stop: 05/06/17 18:01 Last Admin: 05/06/17 17:44 Dose: 40 mg Magnesium Sulfate 2 gm/ Premix 50 mls @ 25 mls/hr IV ONETIME ONE Stop: 05/06/17 20:59 Last Admin: 05/06/17 19:13 Dose: 25 mls/hr Metoprolol Tartrate (Lopressor) 12.5 mg PO BID [facility] Last Admin: 05/06/17 20:32 Dose: 12.5 mg Morphine Sulfate (Morphine) 1 mg IVPUSH ONETIME ONE Stop: 05/06/17 01:54 Last Admin: 05/06/17 01:58 Dose: 1 mg Morphine Sulfate (Morphine) 1 mg IVPUSH ONETIME ONE Stop: 05/06/17 18:33 Last Admin: 05/06/17 18:41 Dose: 1 mg Pramipexole Dihydrochloride (Mirapex) 0.5 mg PO DAILY KAY - Exam Quality Assessment: DVT Prophylaxis General: Alert, Oriented, Cooperative, No Acute Distress HEENT: Pupils Equal, Pupils Reactive Neck: Supple, Trachea Midline Lungs: Normal Respiratory Effort Cardiovascular: Regular Rate, Regular Rhythm GI/Abdominal Exam: Normal Bowel Sounds, Soft, Non-Tender, No Distention (Female) Exam: Deferred Back Exam: Normal Inspection Extremities: Normal Inspection, Pedal Edema Skin: Warm Neurological: No New Focal Deficit Psy/Mental Status: Alert - Problem List & Annotations (1) CHF (congestive heart failure) SNOMED Code(s): 28231733 Code(s): I50.9 - HEART FAILURE, UNSPECIFIED Status: Acute Current Visit: Yes Qualifiers: Congestive heart failure type: unspecified congestive heart failure type Congestive heart failure chronicity: unspecified congestive heart failure chronicity Qualified Code(s): I50.9 - Heart failure, unspecified (2) Hypoxemia SNOMED Code(s): 550106587 Code(s): R09.02 - HYPOXEMIA Status: Acute Current Visit: Yes (3) Respiratory distress SNOMED Code(s): 953679466 Code(s): R06.00 - DYSPNEA, UNSPECIFIED Status: Acute Current Visit: Yes (4) Acute upper urinary tract infection SNOMED Code(s): 782629595 Code(s): N39.0 - URINARY TRACT INFECTION, SITE NOT SPECIFIED Status: Acute Current Visit: No (5) Hypothyroid SNOMED Code(s): 51054867 Code(s): E03.9 - HYPOTHYROIDISM, UNSPECIFIED Status: Acute Current Visit : Yes (6) Pacemaker SNOMED Code(s): 775533999, 199502192 Code(s): Z95.0 - PRESENCE OF CARDIAC PACEMAKER Status: Acute Current Visit: Yes - Problem List Review Problem List Initiated/Reviewed/Updated: Yes - My Orders Last 24 Hours: My Active Orders 05/06/17 12:00 CULTURE URINE [RM] Routine 05/06/17 14:22 Blood Culture x2 Reflex Set [OM.PC] Stat 05/06/17 14:30 cefTRIAXone [Rocephin] 2 gm Sodium Chloride 0.9% [Normal Saline] 100 ml IV Q24H 05/06/17 14:50 CULTURE BLOOD [BC] Routine 05/06/17 15:08 CULTURE BLOOD [BC] Stat 05/06/17 18:00 Warfarin [Coumadin] 3 mg PO [id number]@1800 05/06/17 18:53 Albuterol/Ipratropium [DuoNeb 3.0-0.5 MG/3 ML] 3 ml NEB QID PRN 05/06/17 18:54 RT Aerosol Therapy [RC] ASDIRECTED 05/06/17 18:57 hydrALAZINE [Apresoline] 10 mg IVPUSH Q6H PRN 05/06/17 20:59 LORazepam [Ativan] 0.5 mg IVPUSH Q8H PRN 05/06/17 21:00 Pramipexole [Mirapex] 0.5 mg PO BEDTIME Zolpidem [Ambien] 5 mg PO BEDTIME 05/06/17 21:03 Morphine 1 mg IVPUSH Q6H PRN 05/07/17 09:00 Consult to Occupational Therapy [OT Evaluation and Treatment] [CONS] Routine Consult to Physical Therapy [PT Evaluation and Treatment] [CONS] Routine Consult to Facility Maintenance Worker [CONS] Routine Carvedilol [Coreg] 6.25 mg PO BID Enoxaparin [Lovenox] 30 mg SUBCUT DAILY Levothyroxine 150 mcg PO DAILY Sertraline [Zoloft] 25 mg PO DAILY Simvastatin [Zocor] 10 mg PO DAILY Spironolactone [Aldactone] 25 mg PO DAILY 05/07/17 10:00 Echo Comp wo Cont [US] Routine Kidney Ultrasound [Retroperitoneal Comp] [US] Routine Congestive Heart Failure Education [OM.PC] Routine 05/07/17 10:48 Potassium Chloride 40 meq PO BID 05/07/17 18:00 Bumetanide [Bumex] 1 mg IVPUSH ONETIME ONE Warfarin [Coumadin] 2 mg PO Mo@1800 05/07/17 Breakfast Fluid Restriction [DIET] Soft Diet [DIET] 05/08/17 05:00 BMP [BASIC METABOLIC PANEL,BMP] [CHEM] DAILY CBC WITH AUTO DIFF [HEME] DAILY INR,PT,PROTHROMBIN TIME [COAG] Routine LACTIC ACID [CHEM] DAILY 05/08/17 08:00 Chest 2V [CR] Routine 05/09/17 05:00 BMP [BASIC METABOLIC PANEL,BMP] [CHEM] DAILY CBC WITH AUTO DIFF [HEME] DAILY 05/10/17 05:00 BMP [BASIC METABOLIC PANEL,BMP] [CHEM] DAILY CBC WITH AUTO DIFF [HEME] DAILY - Plan Plan:: Impression: Acute respiratory distress on BiPAP-->resolved Acute on chronic CHF exacerbation AUTI with G negative bacteremia AMS Chronic Hypothyroidism HTN PPM, query A Fib; V paced ECG is noted. CKD Plan: 2 gm Na and 2 liter fluid restriction Diurese as tolerated Hold ACEI Decrease BB dose with acute exacerbation; non selective BB has been started 2D echo Renal US UCr/BC-->await ID and sensitivity Rocephin IV Q 24 hours DVT/GI prophylaxis
[2017-05-07] MEDS: Potassium Chloride 10% 20 MEQ/15 ML Soln 30 ML UD Cup PO SCH ×2 (11:56→20:04)
[2017-05-07] MEDS: cefTRIAXone 2 GM in Sodium Chloride 0.9% 100 ML IV SCH (14:29)
--- NOTE | 2017-05-07 17:54 | CR ---
Chest: Portable view of the chest was obtained. Comparison: Previous chest x-ray of 12/12/16. Heart size appears within normal limits. Tortuous thoracic aorta is again noted. Pacemaker is noted. No acute appearing infiltrates are seen. Scoliosis is noted within the spine. Bony structures are osteopenic. Impression: 1. Incidental findings. Nothing acute is identified on portable chest x-ray. Diagnostic code #2
[2017-05-07] MEDS ORDERED: Warfarin 2 MG Tab PO SCH (18:00)
[2017-05-07] MEDS: Pramipexole 0.5 MG Tab PO SCH (20:04)
[2017-05-07] MEDS: Zolpidem 5 MG Tab PO SCH (20:06)
[2017-05-08] MEDS: Sertraline 25 MG Tab PO SCH (08:07)
[2017-05-08] MEDS: Carvedilol 6.25 MG Tab PO SCH ×2 (08:08→20:03)
[2017-05-08] MEDS: Simvastatin 10 MG Tab PO SCH (08:14)
[2017-05-08] MEDS: Spironolactone 25 MG Tab PO SCH (08:15)
[2017-05-08] MEDS: Enoxaparin 30 MG/0.3 ML Syringe SUBCUT SCH (08:15)
[2017-05-08] MEDS: Potassium Chloride 10% 20 MEQ/15 ML Soln 30 ML UD Cup PO SCH (08:15)
[2017-05-08] MEDS ORDERED: Bumetanide 1 MG/4 ML MDV IVPUSH ONE ×2 (09:20→18:00)
[2017-05-08] MEDS: Levothyroxine 150 MCG Tab PO SCH (10:15)
--- NOTE | 2017-05-08 11:08 | CR ---
Chest: Two views of the chest were obtained. Comparison: Previous chest x-ray of 05/06/17. Heart size is felt to be within normal limits for technique. Tortuous thoracic aorta is seen. Pacemaker is noted. Lungs show nothing acute. Multiple compression deformities are seen within the spine on the lateral view with kyphosis. Degenerative change is seen within the lower lumbar spine. Impression: 1. Incidental findings. Nothing acute is appreciated on two-view chest x-ray. Diagnostic code #2
--- NOTE | 2017-05-08 11:08 | US ---
Renal ultrasound: Multiple real-time images of the kidneys were obtained. Kidneys show no hydronephrosis or mass. Diffuse cortical thinning is seen. Fatty replacement is seen within a large portion of the renal hilum on both sides. Very small hypoechoic area is noted within the right kidney within the upper pole measuring 8.0 mm most likely due to minimal cyst. No other abnormality is appreciated within the kidneys. No hydronephrosis is seen. Resistivities within the left kidney are slightly elevated. Resistivities within the right kidney are within normal limits. Prevoid volume within the bladder is 46.8 mL and postvoid volume is 15 mL. Adam catheter appears to be present. Measurements: Right kidney length: 10.3 cm Left kidney length: 9.8 cm Impression: 1. Diffuse cortical thinning and other incidental findings. Diagnostic code #3
--- NOTE | 2017-05-08 13:44 | PCM.PN ---
- General Info Date of Service: 05/08/17 Functional Status: Reports: Tolerating Diet, Ambulating, Urinating - Review of Systems General: Reports: Weakness, Fatigue HEENT: Reports: No Symptoms Pulmonary: Reports: No Symptoms Cardiovascular: Reports: No Symptoms Gastrointestinal: Reports: No Symptoms Genitourinary: Reports: No Symptoms Musculoskeletal: Reports: No Symptoms Skin: Reports: No Symptoms Neurological: Reports: No Symptoms Psychiatric: Reports: No Symptoms - Patient Data Vitals - Most Recent: Last Vital Signs Temp 36.7 C 05/08/17 11:56 Pulse 70 05/08/17 11:56 Resp 16 05/08/17 11:56 BP 111/70 05/08/17 11:56 Pulse Ox 97 05/08/17 11:56 Weight - Most Recent: 92.034 kg I&O - Last 24 Hours: Intake & Output 05/07/17 05/08/17 05/08/17 22:59 06:59 14:59 Intake Total 540 100 Output Total 750 550 750 Balance -210 -450 -750 Lab Results Last 24 Hours: Laboratory Results - last 24 hr 05/08/17 05/08/17 05/08/17 Range/Units 06:22 06:22 06:22 WBC 9.11 (3.98-10.04) K/mm3 RBC 3.87 L (3.98-5.22) M/mm3 Hgb 12.4 (11.2-15.7) gm/L Hct 37.6 (34.1-44.9) % MCV 97.2 H (79.4-94.8) fl MCH 32.0 (25.6-32.2) pg MCHC 33.0 (32.2-35.5) g/dl RDW Std Deviation 50.8 H (36.4-46.3) fL Plt Count 113 L (182-369) K/mm3 MPV 10.4 (9.4-12.3) fl Neut % (Auto) 76.4 H (34.0-71.1) % Lymph % (Auto) 8.5 L (19.3-51.7) % [place] % (Auto) 13.4 H (4.7-12.5) % Eos % (Auto) 1.3 (0.7-5.8) Baso % (Auto) 0.2 (0.1-1.2) % Neut # (Auto) 6.96 H (1.56-6.13) K/mm3 Lymph # (Auto) 0.77 L (1.18-3.74) K/mm3 [place] # (Auto) 1.22 H (0.24-0.36) K/mm3 Eos # (Auto) 0.12 (0.04-0.36) K/mm3 Baso # (Auto) 0.02 (0.01-0.08) K/mm3 Manual Slide Review Abnormal smear PT 29.8 H (8.0-13.0) SECONDS INR 2.57 Sodium 139 (136-145) mEq/L Potassium 3.8 (3.5-5.1) mEq/L Chloride 102 (98-107) mEq/L Carbon Dioxide 27 (21-32) mEq/L Anion Gap 13.8 (5-15) BUN 32 H (7-18) mg/dL Creatinine 1.1 H (0.55-1.02) mg/dL Est Cr Clr Drug Dosing 28.50 mL/min Estimated GFR (MDRD) 47 (>60) mL/min BUN/Creatinine Ratio 29.1 H (14-18) Glucose 102 (83-115) mg/dL Lactic Acid (0.4-2.0) mmol/L Calcium 8.5 (8.5-10.1) mg/dL 05/08/17 Range/Units 06:23 WBC (3.98-10.04) K/mm3 RBC (3.98-5.22) M/mm3 Hgb (11.2-15.7) gm/L Hct (34.1-44.9) % MCV (79.4-94.8) fl MCH (25.6-32.2) pg MCHC (32.2-35.5) g/dl RDW Std Deviation (36.4-46.3) fL Plt Count (182-369) K/mm3 MPV (9.4-12.3) fl Neut % (Auto) (34.0-71.1) % Lymph % (Auto) (19.3-51.7) % [place] % (Auto) (4.7-12.5) % Eos % (Auto) (0.7-5.8) Baso % (Auto) (0.1-1.2) % Neut # (Auto) (1.56-6.13) K/mm3 Lymph # (Auto) (1.18-3.74) K/mm3 [place] # (Auto) (0.24-0.36) K/mm3 Eos # (Auto) (0.04-0.36) K/mm3 Baso # (Auto) (0.01-0.08) K/mm3 Manual Slide Review PT (8.0-13.0) SECONDS INR Sodium (136-145) mEq/L Potassium (3.5-5.1) mEq/L Chloride (98-107) mEq/L Carbon Dioxide (21-32) mEq/L Anion Gap (5-15) BUN (7-18) mg/dL Creatinine (0.55-1.02) mg/dL Est Cr Clr Drug Dosing mL/min Estimated GFR (MDRD) (>60) mL/min BUN/Creatinine Ratio (14-18) Glucose (83-115) mg/dL Lactic Acid 1.2 (0.4-2.0) mmol/L Calcium (8.5-10.1) mg/dL Lorenzo Results Last 24 Hours: Microbiology 05/06/17 12:00 Urine Culture - Final Urine, Catheterized Escherichia Coli 05/06/17 15:08 Aerobic Blood Culture - Preliminary Blood - Venous - Lab Draw Gram Negative Rods Anaerobic Blood Culture - Preliminary Gram Negative Rods 05/06/17 14:50 Aerobic Blood Culture - Preliminary Blood - Venous Gram Negative Rods Anaerobic Blood Culture - Preliminary Gram Negative Rods Med Orders - Current: Current Medications Albuterol/Ipratropium (Duoneb 3.0-0.5 Mg/3 Ml) 3 ml NEB QID PRN PRN Reason: Shortness of Breath Bumetanide (Bumex) 1 mg IVPUSH ONETIME ONE Stop: 05/08/17 18:01 Carvedilol (Coreg) 6.25 mg PO BID [facility] Last Admin: 05/08/17 08:08 Dose: 6.25 mg Hydralazine HCl (Apresoline) 10 mg IVPUSH Q6H PRN PRN Reason: Hypertension Ceftriaxone Sodium 2 gm/ (Sodium Chloride) 100 mls @ 200 mls/hr IV Q24H [facility] Last Admin: 05/07/17 14:29 Dose: 200 mls/hr Levothyroxine Sodium (Levothyroxine) 150 mcg PO ACBREAKFAST [facility] Lorazepam (Ativan) 0.5 mg IVPUSH Q8H PRN PRN Reason: Anxiety Morphine Sulfate (Morphine) 1 mg IVPUSH Q6H PRN PRN Reason: SOB, restlessness Pramipexole Dihydrochloride (Mirapex) 0.5 mg PO BEDTIME [facility] Last Admin: 05/07/17 20:04 Dose: 0.5 mg Sertraline HCl (Zoloft) 25 mg PO DAILY [facility] Last Admin: 05/08/17 08:07 Dose: 25 mg Simvastatin (Zocor) 10 mg PO DAILY [facility] Last Admin: 05/08/17 08:14 Dose: 10 mg Spironolactone (Aldactone) 25 mg PO DAILY [facility] Last Admin: 05/08/17 08:15 Dose: 25 mg Warfarin Sodium (Coumadin) 2 mg PO Mo@1800 [facility] Last Admin: 05/07/17 17:16 Dose: 2 mg Warfarin Sodium (Coumadin) 3 mg PO SuTuWeThFrSa@1800 [facility] Last Admin: 05/06/17 17:44 Dose: 3 mg Zolpidem Tartrate (Ambien) 5 mg PO BEDTIME [facility] Last Admin: 05/07/17 20:06 Dose: 5 mg Discontinued Medications Bumetanide (Bumex) 1 mg IVPUSH ONETIME ONE Stop: 05/07/17 08:01 Last Admin: 05/07/17 08:26 Dose: 1 mg Bumetanide (Bumex) 1 mg IVPUSH ONETIME ONE Stop: 05/07/17 18:01 Last Admin: 05/07/17 17:08 Dose: 1 mg Bumetanide (Bumex) 1 mg IVPUSH ONETIME ONE Stop: 05/08/17 09:21 Last Admin: 05/08/17 10:18 Dose: 1 mg Enoxaparin Sodium (Lovenox) 30 mg SUBCUT DAILY [facility] Last Admin: 05/08/17 08:15 Dose: 30 mg Furosemide (Lasix) 40 mg IVPUSH NOW ONE Stop: 05/06/17 10:52 Last Admin: 05/06/17 11:17 Dose: 40 mg Furosemide (Lasix) 40 mg IVPUSH NOW ONE Stop: 05/06/17 18:01 Last Admin: 05/06/17 17:44 Dose: 40 mg Magnesium Sulfate 2 gm/ Premix 50 mls @ 25 mls/hr IV ONETIME ONE Stop: 05/06/17 20:59 Last Admin: 05/06/17 19:13 Dose: 25 mls/hr Levothyroxine Sodium (Levothyroxine) 150 mcg PO DAILY [facility] Stop: 05/08/17 11:00 Last Admin: 05/08/17 10:15 Dose: 150 mcg Metoprolol Tartrate (Lopressor) 12.5 mg PO BID [facility] Last Admin: 05/06/17 20:32 Dose: 12.5 mg Morphine Sulfate (Morphine) 1 mg IVPUSH ONETIME ONE Stop: 05/06/17 01:54 Last Admin: 05/06/17 01:58 Dose: 1 mg Morphine Sulfate (Morphine) 1 mg IVPUSH ONETIME ONE Stop: 05/06/17 18:33 Last Admin: 05/06/17 18:41 Dose: 1 mg Potassium Chloride (Potassium Chloride) 40 meq PO BID [facility] Stop: 05/08/17 09:01 Last Admin: 05/08/17 08:15 Dose: 40 meq Pramipexole Dihydrochloride (Mirapex) 0.5 mg PO DAILY [facility] - Exam Quality Assessment: Supplemental Oxygen, Urine Catheter, DVT Prophylaxis General: Alert, Oriented, Cooperative, No Acute Distress HEENT: Pupils Equal, Pupils Reactive, EOMI Neck: Supple, Trachea Midline Lungs: Normal Respiratory Effort, Decreased Breath Sounds Cardiovascular: Regular Rate GI/Abdominal Exam: Normal Bowel Sounds, Soft, Non-Tender, No Organomegaly, No Distention (Female) Exam: Deferred Back Exam: Normal Inspection Extremities: Normal Inspection, Pedal Edema Skin: Warm Neurological: No New Focal Deficit, Normal Speech Psy/Mental Status: Alert, Normal Affect, Normal Mood - Problem List & Annotations (1) CHF (congestive heart failure) SNOMED Code(s): 58002796 Code(s): I50.9 - HEART FAILURE, UNSPECIFIED Status: Acute Current Visit: Yes Qualifiers: Congestive heart failure type: unspecified congestive heart failure type Congestive heart failure chronicity: unspecified congestive heart failure chronicity Qualified Code(s): I50.9 - Heart failure, unspecified (2) Hypoxemia SNOMED Code(s): 734973429 Code(s): R09.02 - HYPOXEMIA Status: Acute Current Visit: Yes (3) Respiratory distress SNOMED Code(s): 050455211 Code(s): R06.00 - DYSPNEA, UNSPECIFIED Status: Acute Current Visit: Yes (4) Acute upper urinary tract infection SNOMED Code(s): 706824511 Code(s): N39.0 - URINARY TRACT INFECTION, SITE NOT SPECIFIED Status: Acute Current Visit: No (5) Hypothyroid SNOMED Code(s): 21384782 Code(s): E03.9 - HYPOTHYROIDISM, UNSPECIFIED Status: Acute Current Visit : Yes (6) Pacemaker SNOMED Code(s): 614802766, 562751610 Code(s): Z95.0 - PRESENCE OF CARDIAC PACEMAKER Status: Acute Current Visit: Yes - Problem List Review Problem List Initiated/Reviewed/Updated: Yes - My Orders Last 24 Hours: My Active Orders 05/07/17 18:00 Warfarin [Coumadin] 2 mg PO Mo@1800 05/08/17 10:00 Echo Comp wo Cont [US] Routine 05/08/17 18:00 Bumetanide [Bumex] 1 mg IVPUSH ONETIME ONE 05/08/17 Lunch Fluid Restriction [DIET] 05/09/17 05:00 BMP [BASIC METABOLIC PANEL,BMP] [CHEM] DAILY CBC WITH AUTO DIFF [HEME] DAILY 05/09/17 06:00 Levothyroxine 150 mcg PO ACBREAKFAST 05/09/17 09:00 Remove Urinary Catheter [Urinary Catheter Removal] [RC] Per Unit Routine 05/09/17 10:00 Consult to Dietary [Consult to Behavioral Sciences Department Chair] [CONS] Routine 05/10/17 05:00 BMP [BASIC METABOLIC PANEL,BMP] [CHEM] DAILY CBC WITH AUTO DIFF [HEME] DAILY - Plan Plan:: Impression: Acute respiratory distress on BiPAP-->resolved Acute on chronic CHF exacerbation; 2D echo today AUTI with G negative bacteremia AMS-->resolved Chronic Hypothyroidism HTN PPM, query A Fib; V paced ECG is noted. CKD-->renal US today Plan: 2 gm Na and 2 liter fluid restriction Diurese as tolerated Hold ACEI Decrease BB dose with acute exacerbation; non selective BB has been started Renal US UCr/BC-->await ID and sensitivity Rocephin IV Q 24 hours DVT/GI prophylaxis
[2017-05-08] MEDS: cefTRIAXone 2 GM in Sodium Chloride 0.9% 100 ML IV SCH (15:38)
[2017-05-08] MEDS: Warfarin 3 MG Tab PO SCH (18:40)
[2017-05-08] MEDS: Pramipexole 0.5 MG Tab PO SCH (20:02)
[2017-05-08] MEDS: Zolpidem 5 MG Tab PO SCH (20:03)
[2017-05-09] MEDS: Levothyroxine 150 MCG Tab PO SCH (06:30)
[2017-05-09] MEDS: Phenazopyridine 95 MG Tab PO SCH ×3 (10:04→18:06)
[2017-05-09] MEDS: Spironolactone 25 MG Tab PO SCH (10:04)
[2017-05-09] MEDS: Sertraline 25 MG Tab PO SCH (10:04)
[2017-05-09] MEDS: Simvastatin 10 MG Tab PO SCH (10:04)
[2017-05-09] MEDS: Carvedilol 6.25 MG Tab PO SCH (10:05)
--- NOTE | 2017-05-09 14:14 | PCM.PN ---
- General Info Date of Service: 05/09/17 Functional Status: Reports: Tolerating Diet, Ambulating, Urinating - Review of Systems General: Reports: No Symptoms HEENT: Reports: No Symptoms Pulmonary: Reports: No Symptoms Cardiovascular: Reports: No Symptoms Gastrointestinal: Reports: No Symptoms Genitourinary: Reports: No Symptoms Musculoskeletal: Reports: No Symptoms Skin: Reports: No Symptoms Neurological: Reports: No Symptoms Psychiatric: Reports: No Symptoms - Patient Data Vitals - Most Recent: Last Vital Signs Temp 36.5 C 05/09/17 09:29 Pulse 71 05/09/17 09:29 Resp 21 H 05/09/17 09:29 BP 129/92 H 05/09/17 09:29 Pulse Ox 95 05/09/17 09:29 Weight - Most Recent: 92.17 kg I&O - Last 24 Hours: Intake & Output 05/08/17 05/09/17 05/09/17 22:59 06:59 14:59 Intake Total 1800 200 450 Output Total 1210 600 175 Balance 590 -400 275 Lab Results Last 24 Hours: Laboratory Results - last 24 hr 05/09/17 05/09/17 Range/Units 05:45 05:45 WBC 8.05 (3.98-10.04) K/mm3 RBC 4.25 (3.98-5.22) M/mm3 Hgb 13.4 (11.2-15.7) gm/L Hct 41.0 (34.1-44.9) % MCV 96.5 H (79.4-94.8) fl MCH 31.5 (25.6-32.2) pg MCHC 32.7 (32.2-35.5) g/dl RDW Std Deviation 50.2 H (36.4-46.3) fL Plt Count 123 L (182-369) K/mm3 MPV 10.2 (9.4-12.3) fl Neut % (Auto) 72.4 H (34.0-71.1) % Lymph % (Auto) 10.7 L (19.3-51.7) % [place] % (Auto) 13.4 H (4.7-12.5) % Eos % (Auto) 2.9 (0.7-5.8) Baso % (Auto) 0.2 (0.1-1.2) % Neut # (Auto) 5.83 (1.56-6.13) K/mm3 Lymph # (Auto) 0.86 L (1.18-3.74) K/mm3 [place] # (Auto) 1.08 H (0.24-0.36) K/mm3 Eos # (Auto) 0.23 (0.04-0.36) K/mm3 Baso # (Auto) 0.02 (0.01-0.08) K/mm3 Sodium 140 (136-145) mEq/L Potassium 3.8 (3.5-5.1) mEq/L Chloride 101 (98-107) mEq/L Carbon Dioxide 29 (21-32) mEq/L Anion Gap 13.8 (5-15) BUN 41 H (7-18) mg/dL Creatinine 1.2 H (0.55-1.02) mg/dL Est Cr Clr Drug Dosing 26.12 mL/min Estimated GFR (MDRD) 42 (>60) mL/min BUN/Creatinine Ratio 34.2 H (14-18) Glucose 97 (83-115) mg/dL Calcium 8.7 (8.5-10.1) mg/dL Lorenzo Results Last 24 Hours: Microbiology 05/06/17 15:08 Aerobic Blood Culture - Final Blood - Venous - Lab Draw Escherichia Coli Anaerobic Blood Culture - Preliminary Escherichia Coli 05/06/17 14:50 Aerobic Blood Culture - Final Blood - Venous Escherichia Coli Anaerobic Blood Culture - Preliminary Escherichia Coli 05/06/17 12:00 Urine Culture - Final Urine, Catheterized Escherichia Coli Med Orders - Current: Current Medications Albuterol/Ipratropium (Duoneb 3.0-0.5 Mg/3 Ml) 3 ml NEB QID PRN PRN Reason: Shortness of Breath Bumetanide (Bumex) 1 mg IVPUSH ONETIME ONE Stop: 05/09/17 18:01 Carvedilol (Coreg) 6.25 mg PO BID [facility] Last Admin: 05/09/17 10:05 Dose: 6.25 mg Hydralazine HCl (Apresoline) 10 mg IVPUSH Q6H PRN PRN Reason: Hypertension Ceftriaxone Sodium 2 gm/ (Sodium Chloride) 100 mls @ 200 mls/hr IV Q24H [facility] Last Admin: 05/08/17 15:38 Dose: 200 mls/hr Levothyroxine Sodium (Levothyroxine) 150 mcg PO ACBREAKFAST [facility] Last Admin: 05/09/17 06:30 Dose: 150 mcg Lorazepam (Ativan) 0.5 mg IVPUSH Q8H PRN PRN Reason: Anxiety Morphine Sulfate (Morphine) 1 mg IVPUSH Q6H PRN PRN Reason: SOB, restlessness Phenazopyridine HCl (Urinary Pain Relief) 95 mg PO TIDPC [facility] Last Admin: 05/09/17 12:52 Dose: 95 mg Pramipexole Dihydrochloride (Mirapex) 0.5 mg PO BEDTIME [facility] Last Admin: 05/08/17 20:02 Dose: 0.5 mg Sertraline HCl (Zoloft) 25 mg PO DAILY [facility] Last Admin: 05/09/17 10:04 Dose: 25 mg Simvastatin (Zocor) 10 mg PO DAILY [facility] Last Admin: 05/09/17 10:04 Dose: 10 mg Spironolactone (Aldactone) 25 mg PO DAILY [facility] Last Admin: 05/09/17 10:04 Dose: 25 mg Warfarin Sodium (Coumadin) 2 mg PO Mo@1800 [facility] Last Admin: 05/07/17 17:16 Dose: 2 mg Warfarin Sodium (Coumadin) 3 mg PO SuTuWeThFrSa@1800 [facility] Last Admin: 05/08/17 18:40 Dose: 3 mg Zolpidem Tartrate (Ambien) 5 mg PO BEDTIME [facility] Last Admin: 05/08/17 20:03 Dose: 5 mg Discontinued Medications Bumetanide (Bumex) 1 mg IVPUSH ONETIME ONE Stop: 05/07/17 08:01 Last Admin: 05/07/17 08:26 Dose: 1 mg Bumetanide (Bumex) 1 mg IVPUSH ONETIME ONE Stop: 05/07/17 18:01 Last Admin: 05/07/17 17:08 Dose: 1 mg Bumetanide (Bumex) 1 mg IVPUSH ONETIME ONE Stop: 05/08/17 09:21 Last Admin: 05/08/17 10:18 Dose: 1 mg Bumetanide (Bumex) 1 mg IVPUSH ONETIME ONE Stop: 05/08/17 18:01 Last Admin: 05/08/17 18:41 Dose: 1 mg Enoxaparin Sodium (Lovenox) 30 mg SUBCUT DAILY [facility] Last Admin: 05/08/17 08:15 Dose: 30 mg Furosemide (Lasix) 40 mg IVPUSH NOW ONE Stop: 05/06/17 10:52 Last Admin: 05/06/17 11:17 Dose: 40 mg Furosemide (Lasix) 40 mg IVPUSH NOW ONE Stop: 05/06/17 18:01 Last Admin: 05/06/17 17:44 Dose: 40 mg Magnesium Sulfate 2 gm/ Premix 50 mls @ 25 mls/hr IV ONETIME ONE Stop: 05/06/17 20:59 Last Admin: 05/06/17 19:13 Dose: 25 mls/hr Levothyroxine Sodium (Levothyroxine) 150 mcg PO DAILY [facility] Stop: 05/08/17 11:00 Last Admin: 05/08/17 10:15 Dose: 150 mcg Metoprolol Tartrate (Lopressor) 12.5 mg PO BID [facility] Last Admin: 05/06/17 20:32 Dose: 12.5 mg Morphine Sulfate (Morphine) 1 mg IVPUSH ONETIME ONE Stop: 05/06/17 01:54 Last Admin: 05/06/17 01:58 Dose: 1 mg Morphine Sulfate (Morphine) 1 mg IVPUSH ONETIME ONE Stop: 05/06/17 18:33 Last Admin: 05/06/17 18:41 Dose: 1 mg Potassium Chloride (Potassium Chloride) 40 meq PO BID [facility] Stop: 05/08/17 09:01 Last Admin: 05/08/17 08:15 Dose: 40 meq Pramipexole Dihydrochloride (Mirapex) 0.5 mg PO DAILY [facility] - Exam Quality Assessment: DVT Prophylaxis General: Alert, Oriented, Cooperative HEENT: Pupils Equal, Pupils Reactive Neck: Supple, Trachea Midline Lungs: Normal Respiratory Effort Cardiovascular: Regular Rate, Regular Rhythm GI/Abdominal Exam: Normal Bowel Sounds, Soft, Non-Tender, No Distention (Female) Exam: Deferred Back Exam: Normal Inspection Extremities: Normal Inspection, Pedal Edema Skin: Warm, Other (hyperpigmented, thickened, hairless) Neurological: No New Focal Deficit Psy/Mental Status: Alert, Normal Affect, Normal Mood - Problem List & Annotations (1) CHF (congestive heart failure) SNOMED Code(s): 26105894 Code(s): I50.9 - HEART FAILURE, UNSPECIFIED Status: Acute Current Visit: Yes Qualifiers: Congestive heart failure type: unspecified congestive heart failure type Congestive heart failure chronicity: unspecified congestive heart failure chronicity Qualified Code(s): I50.9 - Heart failure, unspecified (2) Hypoxemia SNOMED Code(s): 481004536 Code(s): R09.02 - HYPOXEMIA Status: Acute Current Visit: Yes (3) Respiratory distress SNOMED Code(s): 756565506 Code(s): R06.00 - DYSPNEA, UNSPECIFIED Status: Acute Current Visit: Yes (4) Acute upper urinary tract infection SNOMED Code(s): 812948167 Code(s): N39.0 - URINARY TRACT INFECTION, SITE NOT SPECIFIED Status: Acute Current Visit: No (5) Hypothyroid SNOMED Code(s): 24226986 Code(s): E03.9 - HYPOTHYROIDISM, UNSPECIFIED Status: Acute Current Visit : Yes (6) Pacemaker SNOMED Code(s): 234993061, 959451211 Code(s): Z95.0 - PRESENCE OF CARDIAC PACEMAKER Status: Acute Current Visit: Yes - Problem List Review Problem List Initiated/Reviewed/Updated: Yes - My Orders Last 24 Hours: My Active Orders 05/09/17 06:00 Levothyroxine 150 mcg PO ACBREAKFAST 05/09/17 09:00 Remove Urinary Catheter [Urinary Catheter Removal] [RC] Per Unit Routine 05/09/17 09:45 Phenazopyridine [Urinary Pain Relief] 95 mg PO TIDPC 05/09/17 10:00 Consult to Dietary [Consult to Con[employer]or [employer] Worker] [CONS] Routine 05/09/17 14:00 MAGNESIUM [CHEM] Routine PRO B-TYPE NATRIUR PEPT,BNPPRO [CHEM] Routine 05/09/17 18:00 Bumetanide [Bumex] 1 mg IVPUSH ONETIME ONE 05/10/17 05:00 BMP [BASIC METABOLIC PANEL,BMP] [CHEM] DAILY CBC WITH AUTO DIFF [HEME] DAILY CULTURE BLOOD [BC] Routine - Plan Plan:: Impression: Acute respiratory distress on BiPAP-->resolved Acute on chronic CHF exacerbation; 2D echo today AUTI with G negative bacteremia AMS-->resolved Chronic Hypothyroidism HTN PPM, query A Fib; V paced ECG is noted. CKD-->renal US today Plan: Repeat BC DC Adam Pyridium 95 mg as directed. 2 gm Na and 2 liter fluid restriction Diurese as tolerated Hold ACEI Decrease BB dose with acute exacerbation; non selective BB has been started-->increase dose as tolerated Renal US UCr/BC-->await ID and sensitivity Rocephin IV Q 24 hours DVT/GI prophylaxis DC, 05/10/17, LOS~96 hours
[2017-05-09] MEDS: cefTRIAXone 2 GM in Sodium Chloride 0.9% 100 ML IV SCH (14:36)
[2017-05-09] MEDS ORDERED: Bumetanide 1 MG/4 ML MDV IVPUSH ONE (18:00)
[2017-05-09] MEDS: Warfarin 3 MG Tab PO SCH (18:06)
[2017-05-09] MEDS: Zolpidem 5 MG Tab PO SCH (20:13)
[2017-05-09] MEDS: Pramipexole 0.5 MG Tab PO SCH (20:13)
[2017-05-09] MEDS: Carvedilol 12.5 MG Tab PO SCH (20:13)
[2017-05-10] MEDS: Levothyroxine 150 MCG Tab PO SCH (06:10)
[2017-05-10] MEDS: Phenazopyridine 95 MG Tab PO SCH ×3 (09:27→18:13)
[2017-05-10] MEDS: Simvastatin 10 MG Tab PO SCH (09:27)
[2017-05-10] MEDS: Carvedilol 12.5 MG Tab PO SCH ×2 (09:28→20:44)
[2017-05-10] MEDS: Spironolactone 25 MG Tab PO SCH (09:29)
[2017-05-10] MEDS: Sertraline 25 MG Tab PO SCH (09:29)
[2017-05-10] MEDS ORDERED: Aluminum Hydroxide/Magnesium Hydroxide/Simethicone Susp 30 ML Cup PO PRN (11:52)
[2017-05-10] MEDS: cefTRIAXone 2 GM in Sodium Chloride 0.9% 100 ML IV SCH (14:24)
[2017-05-10] MEDS ORDERED: Potassium Chloride 20 MEQ Tab.ER PO ONE (16:34)
--- NOTE | 2017-05-10 16:50 | PCM.PN ---
- General Info Date of Service: 05/10/17 Functional Status: Reports: Pain Controlled, Tolerating Diet, Ambulating - Review of Systems General: Reports: No Symptoms HEENT: Reports: No Symptoms Pulmonary: Reports: No Symptoms Cardiovascular: Reports: No Symptoms Gastrointestinal: Reports: No Symptoms Genitourinary: Reports: No Symptoms Musculoskeletal: Reports: No Symptoms Skin: Reports: No Symptoms Neurological: Reports: No Symptoms Psychiatric: Reports: No Symptoms - Patient Data Vitals - Most Recent: Last Vital Signs Temp 36.9 C 05/10/17 15:10 Pulse 68 05/10/17 15:10 Resp 16 05/10/17 15:10 BP 140/85 05/10/17 15:10 Pulse Ox 94 L 05/10/17 15:10 Weight - Most Recent: 87.861 kg I&O - Last 24 Hours: Intake & Output 05/10/17 05/10/17 05/10/17 06:59 14:59 22:59 Intake Total 300 1200 Output Total 1000 250 Balance -700 950 Lab Results Last 24 Hours: Laboratory Results - last 24 hr 05/10/17 05/10/17 05/10/17 Range/Units 07:40 07:40 14:14 WBC 7.89 (3.98-10.04) K/mm3 RBC 4.39 (3.98-5.22) M/mm3 Hgb 13.9 (11.2-15.7) gm/L Hct 41.7 (34.1-44.9) % MCV 95.0 H (79.4-94.8) fl MCH 31.7 (25.6-32.2) pg MCHC 33.3 (32.2-35.5) g/dl RDW Std Deviation 48.6 H (36.4-46.3) fL Plt Count 146 L (182-369) K/mm3 MPV 10.1 (9.4-12.3) fl Neut % (Auto) 73.9 H (34.0-71.1) % Lymph % (Auto) 11.4 L (19.3-51.7) % [place] % (Auto) 12.0 (4.7-12.5) % Eos % (Auto) 1.8 (0.7-5.8) Baso % (Auto) 0.1 (0.1-1.2) % Neut # (Auto) 5.83 (1.56-6.13) K/mm3 Lymph # (Auto) 0.90 L (1.18-3.74) K/mm3 [place] # (Auto) 0.95 H (0.24-0.36) K/mm3 Eos # (Auto) 0.14 (0.04-0.36) K/mm3 Baso # (Auto) 0.01 (0.01-0.08) K/mm3 PT 40.0 H (8.0-13.0) SECONDS INR 3.39 Sodium 140 (136-145) mEq/L Potassium 3.3 L (3.5-5.1) mEq/L Chloride 101 (98-107) mEq/L Carbon Dioxide 29 (21-32) mEq/L Anion Gap 13.3 (5-15) BUN 46 H (7-18) mg/dL Creatinine 1.2 H (0.55-1.02) mg/dL Est Cr Clr Drug Dosing 26.12 mL/min Estimated GFR (MDRD) 42 (>60) mL/min BUN/Creatinine Ratio 38.3 H (14-18) Glucose 104 (83-115) mg/dL Calcium 8.9 (8.5-10.1) mg/dL Magnesium 1.9 (1.8-2.4) mg/dl Lorenzo Results Last 24 Hours: Microbiology 05/06/17 14:50 Aerobic Blood Culture - Final Blood - Venous Escherichia Coli Anaerobic Blood Culture - Final Escherichia Coli 05/06/17 15:08 Aerobic Blood Culture - Final Blood - Venous - Lab Draw Escherichia Coli Anaerobic Blood Culture - Final Escherichia Coli Med Orders - Current: Current Medications Al Hydroxide/Mg Hydroxide (Mag-Al Plus) 30 ml PO Q4H PRN PRN Reason: Heartburn Albuterol/Ipratropium (Duoneb 3.0-0.5 Mg/3 Ml) 3 ml NEB QID PRN PRN Reason: Shortness of Breath Carvedilol (Coreg) 12.5 mg PO BID [facility] Last Admin: 05/10/17 09:28 Dose: 12.5 mg Hydralazine HCl (Apresoline) 10 mg IVPUSH Q6H PRN PRN Reason: Hypertension Ceftriaxone Sodium 2 gm/ (Sodium Chloride) 100 mls @ 200 mls/hr IV Q24H [facility] Last Admin: 05/10/17 14:24 Dose: 200 mls/hr Levothyroxine Sodium (Levothyroxine) 150 mcg PO ACBREAKFAST [facility] Last Admin: 05/10/17 06:10 Dose: 150 mcg Lorazepam (Ativan) 0.5 mg IVPUSH Q8H PRN PRN Reason: Anxiety Morphine Sulfate (Morphine) 1 mg IVPUSH Q6H PRN PRN Reason: SOB, restlessness Phenazopyridine HCl (Urinary Pain Relief) 95 mg PO TIDPC [facility] Last Admin: 05/10/17 13:01 Dose: 95 mg Pramipexole Dihydrochloride (Mirapex) 0.5 mg PO BEDTIME [facility] Last Admin: 05/09/17 20:13 Dose: 0.5 mg Sertraline HCl (Zoloft) 25 mg PO DAILY [facility] Last Admin: 05/10/17 09:29 Dose: 25 mg Simvastatin (Zocor) 10 mg PO DAILY [facility] Last Admin: 05/10/17 09:27 Dose: 10 mg Spironolactone (Aldactone) 25 mg PO DAILY [facility] Last Admin: 05/10/17 09:29 Dose: 25 mg Warfarin Sodium (Coumadin) 2 mg PO Mo@1800 [facility] Last Admin: 05/07/17 17:16 Dose: 2 mg Warfarin Sodium (Coumadin) 3 mg PO SuTuWeThFrSa@1800 [facility] Last Admin: 05/09/17 18:06 Dose: 3 mg Zolpidem Tartrate (Ambien) 5 mg PO BEDTIME [facility] Last Admin: 05/09/17 20:13 Dose: 5 mg Discontinued Medications Bumetanide (Bumex) 1 mg IVPUSH ONETIME ONE Stop: 05/07/17 08:01 Last Admin: 05/07/17 08:26 Dose: 1 mg Bumetanide (Bumex) 1 mg IVPUSH ONETIME ONE Stop: 05/07/17 18:01 Last Admin: 05/07/17 17:08 Dose: 1 mg Bumetanide (Bumex) 1 mg IVPUSH ONETIME ONE Stop: 05/08/17 09:21 Last Admin: 05/08/17 10:18 Dose: 1 mg Bumetanide (Bumex) 1 mg IVPUSH ONETIME ONE Stop: 05/08/17 18:01 Last Admin: 05/08/17 18:41 Dose: 1 mg Bumetanide (Bumex) 1 mg IVPUSH ONETIME ONE Stop: 05/09/17 18:01 Last Admin: 05/09/17 18:06 Dose: 1 mg Carvedilol (Coreg) 6.25 mg PO BID [facility] Last Admin: 05/09/17 10:05 Dose: 6.25 mg Enoxaparin Sodium (Lovenox) 30 mg SUBCUT DAILY [facility] Last Admin: 05/08/17 08:15 Dose: 30 mg Furosemide (Lasix) 40 mg IVPUSH NOW ONE Stop: 05/06/17 10:52 Last Admin: 05/06/17 11:17 Dose: 40 mg Furosemide (Lasix) 40 mg IVPUSH NOW ONE Stop: 05/06/17 18:01 Last Admin: 05/06/17 17:44 Dose: 40 mg Magnesium Sulfate 2 gm/ Premix 50 mls @ 25 mls/hr IV ONETIME ONE Stop: 05/06/17 20:59 Last Admin: 05/06/17 19:13 Dose: 25 mls/hr Levothyroxine Sodium (Levothyroxine) 150 mcg PO DAILY [facility] Stop: 05/08/17 11:00 Last Admin: 05/08/17 10:15 Dose: 150 mcg Metoprolol Tartrate (Lopressor) 12.5 mg PO BID [facility] Last Admin: 05/06/17 20:32 Dose: 12.5 mg Morphine Sulfate (Morphine) 1 mg IVPUSH ONETIME ONE Stop: 05/06/17 01:54 Last Admin: 05/06/17 01:58 Dose: 1 mg Morphine Sulfate (Morphine) 1 mg IVPUSH ONETIME ONE Stop: 05/06/17 18:33 Last Admin: 05/06/17 18:41 Dose: 1 mg Potassium Chloride (Potassium Chloride) 40 meq PO BID [facility] Stop: 05/08/17 09:01 Last Admin: 05/08/17 08:15 Dose: 40 meq Potassium Chloride (Klor-Con M20) 40 meq PO ONETIME ONE Stop: 05/10/17 16:35 Pramipexole Dihydrochloride (Mirapex) 0.5 mg PO DAILY [facility] - Exam Quality Assessment: DVT Prophylaxis General: Alert, Oriented, Cooperative HEENT: Pupils Equal, Pupils Reactive Neck: Supple, Trachea Midline Lungs: Normal Respiratory Effort Cardiovascular: Regular Rate GI/Abdominal Exam: Normal Bowel Sounds, Soft, Non-Tender, No Distention (Female) Exam: Deferred Back Exam: Normal Inspection Extremities: Normal Inspection, Pedal Edema Skin: Warm Wound/Incisions: Dressing Dry and Intact Neurological: No New Focal Deficit Psy/Mental Status: Alert, Normal Affect, Normal Mood - Problem List & Annotations (1) CHF (congestive heart failure) SNOMED Code(s): 84844228 Code(s): I50.9 - HEART FAILURE, UNSPECIFIED Status: Acute Current Visit: Yes Qualifiers: Congestive heart failure type: unspecified congestive heart failure type Congestive heart failure chronicity: unspecified congestive heart failure chronicity Qualified Code(s): I50.9 - Heart failure, unspecified (2) Hypoxemia SNOMED Code(s): 397114994 Code(s): R09.02 - HYPOXEMIA Status: Acute Current Visit: Yes (3) Respiratory distress SNOMED Code(s): 733521965 Code(s): R06.00 - DYSPNEA, UNSPECIFIED Status: Acute Current Visit: Yes (4) Acute upper urinary tract infection SNOMED Code(s): 783891223 Code(s): N39.0 - URINARY TRACT INFECTION, SITE NOT SPECIFIED Status: Acute Current Visit: No (5) Hypothyroid SNOMED Code(s): 75837316 Code(s): E03.9 - HYPOTHYROIDISM, UNSPECIFIED Status: Acute Current Visit : Yes (6) Pacemaker SNOMED Code(s): 862736201, 337241184 Code(s): Z95.0 - PRESENCE OF CARDIAC PACEMAKER Status: Acute Current Visit: Yes - Problem List Review Problem List Initiated/Reviewed/Updated: Yes - My Orders Last 24 Hours: My Active Orders 05/10/17 07:40 CULTURE BLOOD [BC] Routine 05/10/17 10:51 Consult to Physical Therapy [PT Evaluation and Treatment] [CONS] Routine 05/10/17 11:52 Alum Hydrox/Mag Hydrox/Simeth [Mag-Al Plus] 30 ml PO Q4H PRN - Plan Plan:: Impression: Acute respiratory distress on BiPAP-->resolved Acute on chronic CHF exacerbation; 2D echo completed AUTI with G negative bacteremia, BC pending AMS-->resolved Chronic Hypothyroidism HTN PPM, query A Fib; V paced ECG is noted. CKD-->renal US today Plan: Repeat BC DC Adam Pyridium 95 mg as directed. 2 gm Na and 2 liter fluid restriction Diurese as tolerated Hold ACEI-->resume at DC Decrease BB dose with acute exacerbation; non selective BB has been started-->increase dose as tolerated Renal US UCr/BC-->await ID and sensitivity Rocephin IV Q 24 hours DVT/GI prophylaxis LOS>96 hours with treatment response
[2017-05-10] MEDS: Warfarin 3 MG Tab PO SCH (17:12)
[2017-05-10] MEDS ORDERED: Potassium Chloride 10% 20 MEQ/15 ML Soln 30 ML UD Cup PO ONE ×2 (19:43→21:30)
[2017-05-10] MEDS ORDERED: Magnesium Sulfate/Water 2 GM in Premix Bag 1 BAG IV ONE (19:44)
[2017-05-10] MEDS: Zolpidem 5 MG Tab PO SCH (20:47)
[2017-05-10] MEDS: Pramipexole 0.5 MG Tab PO SCH (20:57)
[2017-05-11] MEDS: Levothyroxine 150 MCG Tab PO SCH (06:44)
[2017-05-11 08:50] VITALS: BP 124/93
[2017-05-11] MEDS ORDERED: Bumetanide 1 MG Tab PO SCH (09:00)
[2017-05-11] MEDS: Spironolactone 25 MG Tab PO SCH (09:06)
[2017-05-11] MEDS: Carvedilol 12.5 MG Tab PO SCH (09:06)
[2017-05-11] MEDS: Simvastatin 10 MG Tab PO SCH (09:06)
[2017-05-11] MEDS: Phenazopyridine 95 MG Tab PO SCH (09:06)
[2017-05-11] MEDS: Sertraline 25 MG Tab PO SCH (09:06)
--- NOTE | 2017-05-11 09:55 | PCM.DCSUM1 ---
Discharge Summary - Hospital Course Free Text/Narrative:: 87 year old female with known history of CHF presented with profound SOB; she required BiPAP to improve her oxygenation. The patient had no chest pain, had recently eaten s heavy sodium meal 2 days [employer]. She additionally had mild mental status change and was found to have a UTI. Lab studies also documented bacteremia. The patient was treated successfully with Rocephin and received frequent IV doses of Lasix with a good response. 2 gram sodium and an 1800 cc fluid restriction was also imposed. She lost 10 pounds during her hospital stay. Contact isolation was required for MRSA. Skin/wound care as directed by PT was provided. DC to home with continuation of Home Health; she continues to require nursing, PT and additional aid with her daily needs. Primary Dx Acute exacerbation of CHF Hypoxia AUTI AMS Diet 2 gram sodium 2 liter fluid restriction Consults Dietary HF education PT/OT/CM Medication (adjusted) Lopressor 50 m/2 tab BID UTI: Ceftin 500 mg BID; Pyridium 95 mg TID as directed. Activities As tolerated Appointments See list Laboratory BMP, INR on 05/14/17; INR was >3.0 at DC. - Discharge Data Discharge Date: 05/11/17 Discharge Disposition: Home, W Home Health Agency 06 Condition: Good - Discharge Diagnosis/Problem(s) (1) CHF (congestive heart failure) SNOMED Code(s): 79100568 ICD Code: I50.9 - HEART FAILURE, UNSPECIFIED Status: Acute Qualifiers: Congestive heart failure type: unspecified congestive heart failure type Congestive heart failure chronicity: unspecified congestive heart failure chronicity Qualified Code(s): I50.9 - Heart failure, unspecified (2) Hypoxemia SNOMED Code(s): 815634371 ICD Code: R09.02 - HYPOXEMIA Status: Acute (3) Respiratory distress SNOMED Code(s): 633945112 ICD Code: R06.00 - DYSPNEA, UNSPECIFIED Status: Acute (4) Acute upper urinary tract infection SNOMED Code(s): 546491958 ICD Code: N39.0 - URINARY TRACT INFECTION, SITE NOT SPECIFIED Status: Acute (5) Hypothyroid SNOMED Code(s): 86508399 ICD Code: E03.9 - HYPOTHYROIDISM, UNSPECIFIED Status: Acute (6) Pacemaker SNOMED Code(s): 780549109, 685440219 ICD Code: Z95.0 - PRESENCE OF CARDIAC PACEMAKER Status: Acute - Patient Summary/Data Consults: Consultations 05/07/17 09:00 Consult to Occupational Therapy [OT Evaluation and Treatment] [CONS] Routine Consult to Physical Therapy [PT Evaluation and Treatment] [CONS] Routine Consult to Strip Cutting Machine Operator [CONS] Routine 05/09/17 10:00 Consult to Dietary [Consult to Warehouse Foreman] [CONS] Routine 05/10/17 10:51 Consult to Physical Therapy [PT Evaluation and Treatment] [CONS] Routine - Patient Instructions Diet: Heart Healthy Diet Fluid Restriction: 2000 mL Activity: As Tolerated Driving: Do Not Drive Showering/Bathing: May Shower Notify Provider of: Nausea and/or Vomiting - Discharge Plan Prescriptions/Med Rec: Cefuroxime [Ceftin] 500 mg PO BID 5 Days #10 tablet Metoprolol Tartrate 50 mg PO BID #60 tablet Phenazopyridine [Urinary Pain Relief] 95 mg PO TIDPC #15 tablet Home Medications: Home Meds Furosemide [Lasix] 20 mg PO BID 02/28/14 [History] Levothyroxine Sodium [Levoxyl] 150 mcg PO DAILY 02/28/14 [History] Lisinopril 5 mg PO 1700 02/28/14 [History] Pramipexole [Mirapex] 0.5 mg PO DAILY 02/28/14 [History] Sertraline [Zoloft] 25 mg PO DAILY 02/28/14 [History] Simvastatin [Zocor] 10 mg PO DAILY 02/28/14 [History] Spironolactone [Aldactone] 25 mg PO DAILY 02/28/14 [History] Warfarin [Coumadin] 2 mg PO MO 02/28/14 [History] Zolpidem Tartrate [Ambien] 5 mg PO BEDTIME 02/28/14 [History] Warfarin [Coumadin] 3 mg PO [id number] 10/25/15 [History] Potassium Chloride [Klor-Con 10] 20 meq PO BIDMEALS 06/29/16 [History] Cefuroxime [Ceftin] 500 mg PO BID 5 Days #10 tablet 05/11/17 [Rx] Metoprolol Tartrate 50 mg PO BID #60 tablet 05/11/17 [Rx] Phenazopyridine [Urinary Pain Relief] 95 mg PO TIDPC #15 tablet 05/11/17 [Rx] Patient Handouts: Shortness of Breath, [id number], Urinary Tract Infection, Adult, [id number], Heart Failure, [id number], MRSA Infection, Adult, Venous Ulcer, [id number], Urosepsis, MRSA FAQs - [facility] Referrals: Ag Garcia MD [Physician] - 05/21/17 4:15 pm - Discharge Summary/Plan Comment DC Time >30 min.: No - General Info Date of Service: 05/06/17 Functional Status: Reports: Pain Controlled, Tolerating Diet, Ambulating - Review of Systems General: Reports: No Symptoms HEENT: Reports: No Symptoms Pulmonary: Reports: No Symptoms Cardiovascular: Reports: No Symptoms Gastrointestinal: Reports: No Symptoms Genitourinary: Reports: No Symptoms Musculoskeletal: Reports: No Symptoms Skin: Reports: No Symptoms Neurological: Reports: No Symptoms Psychiatric: Reports: No Symptoms - Patient Data Vitals - Most Recent: Last Vital Signs Temp 36.5 C 05/11/17 08:37 Pulse 70 05/11/17 09:06 Resp 20 05/11/17 08:37 BP 124/93 H 05/11/17 09:06 Pulse Ox 98 05/11/17 08:37 Weight - Most Recent: 87.997 kg I&O - Last 24 hours: Intake & Output 05/10/17 05/11/17 05/11/17 22:59 06:59 14:59 Intake Total 1600 300 Output Total 250 500 Balance 1350 -200 Lab Results - Last 24 hrs: Laboratory Results - last 24 hr 05/10/17 05/10/17 05/11/17 Range/Units 14:14 14:19 06:35 WBC (3.98-10.04) K/mm3 RBC (3.98-5.22) M/mm3 Hgb (11.2-15.7) gm/L Hct (34.1-44.9) % MCV (79.4-94.8) fl MCH (25.6-32.2) pg MCHC (32.2-35.5) g/dl RDW Std Deviation (36.4-46.3) fL Plt Count (182-369) K/mm3 MPV (9.4-12.3) fl Neut % (Auto) (34.0-71.1) % Lymph % (Auto) (19.3-51.7) % [place] % (Auto) (4.7-12.5) % Eos % (Auto) (0.7-5.8) Baso % (Auto) (0.1-1.2) % Neut # (Auto) (1.56-6.13) K/mm3 Lymph # (Auto) (1.18-3.74) K/mm3 [place] # (Auto) (0.24-0.36) K/mm3 Eos # (Auto) (0.04-0.36) K/mm3 Baso # (Auto) (0.01-0.08) K/mm3 PT 40.0 H 43.1 H (8.0-13.0) SECONDS INR 3.39 3.64 Sodium (136-145) mEq/L Potassium (3.5-5.1) mEq/L Chloride (98-107) mEq/L Carbon Dioxide (21-32) mEq/L Anion Gap (5-15) BUN (7-18) mg/dL Creatinine (0.55-1.02) mg/dL Est Cr Clr Drug Dosing mL/min Estimated GFR (MDRD) (>60) mL/min BUN/Creatinine Ratio (14-18) Glucose (83-115) mg/dL Calcium (8.5-10.1) mg/dL NT-Pro-B Natriuret Pep 1567 H (0-450) pg/mL 05/11/17 05/11/17 Range/Units 06:35 06:35 WBC 7.52 (3.98-10.04) K/mm3 RBC 4.27 (3.98-5.22) M/mm3 Hgb 13.4 (11.2-15.7) gm/L Hct 41.2 (34.1-44.9) % MCV 96.5 H (79.4-94.8) fl MCH 31.4 (25.6-32.2) pg MCHC 32.5 (32.2-35.5) g/dl RDW Std Deviation 50.5 H (36.4-46.3) fL Plt Count 139 L (182-369) K/mm3 MPV 10.1 (9.4-12.3) fl Neut % (Auto) 71.0 (34.0-71.1) % Lymph % (Auto) 13.7 L (19.3-51.7) % [place] % (Auto) 12.1 (4.7-12.5) % Eos % (Auto) 2.1 (0.7-5.8) Baso % (Auto) 0.3 (0.1-1.2) % Neut # (Auto) 5.34 (1.56-6.13) K/mm3 Lymph # (Auto) 1.03 L (1.18-3.74) K/mm3 [place] # (Auto) 0.91 H (0.24-0.36) K/mm3 Eos # (Auto) 0.16 (0.04-0.36) K/mm3 Baso # (Auto) 0.02 (0.01-0.08) K/mm3 PT (8.0-13.0) SECONDS INR Sodium 142 (136-145) mEq/L Potassium 4.7 (3.5-5.1) mEq/L Chloride 108 H (98-107) mEq/L Carbon Dioxide 29 (21-32) mEq/L Anion Gap 9.7 (5-15) BUN 34 H (7-18) mg/dL Creatinine 1.0 (0.55-1.02) mg/dL Est Cr Clr Drug Dosing 31.35 mL/min Estimated GFR (MDRD) 52 (>60) mL/min BUN/Creatinine Ratio 34.0 H (14-18) Glucose 95 (83-115) mg/dL Calcium 9.0 (8.5-10.1) mg/dL NT-Pro-B Natriuret Pep (0-450) pg/mL BRENDAN Results - Last 24 hrs: Microbiology 05/10/17 07:40 Aerobic Blood Culture - Preliminary Blood - Venous - Lab Draw NO GROWTH AFTER 1 DAY Anaerobic Blood Culture - Preliminary NO GROWTH AFTER 1 DAY 05/06/17 14:50 Aerobic Blood Culture - Final Blood - Venous Escherichia Coli Anaerobic Blood Culture - Final Escherichia Coli 05/06/17 15:08 Aerobic Blood Culture - Final Blood - Venous - Lab Draw Escherichia Coli Anaerobic Blood Culture - Final Escherichia Coli Med Orders - Current: Current Medications Al Hydroxide/Mg Hydroxide (Mag-Al Plus) 30 ml PO Q4H PRN PRN Reason: Heartburn Albuterol/Ipratropium (Duoneb 3.0-0.5 Mg/3 Ml) 3 ml NEB QID PRN PRN Reason: Shortness of Breath Bumetanide (Bumex) 1 mg PO DAILY [facility] Last Admin: 05/11/17 09:06 Dose: 1 mg Carvedilol (Coreg) 12.5 mg PO BID [facility] Last Admin: 05/11/17 09:06 Dose: 12.5 mg Hydralazine HCl (Apresoline) 10 mg IVPUSH Q6H PRN PRN Reason: Hypertension Ceftriaxone Sodium 2 gm/ (Sodium Chloride) 100 mls @ 200 mls/hr IV Q24H [facility] Last Admin: 05/10/17 14:24 Dose: 200 mls/hr Levothyroxine Sodium (Levothyroxine) 150 mcg PO ACBREAKFAST [facility] Last Admin: 05/11/17 06:44 Dose: 150 mcg Lorazepam (Ativan) 0.5 mg IVPUSH Q8H PRN PRN Reason: Anxiety Morphine Sulfate (Morphine) 1 mg IVPUSH Q6H PRN PRN Reason: SOB, restlessness Phenazopyridine HCl (Urinary Pain Relief) 95 mg PO TIDPC [facility] Last Admin: 05/11/17 09:06 Dose: 95 mg Pramipexole Dihydrochloride (Mirapex) 0.5 mg PO BEDTIME [facility] Last Admin: 05/10/17 20:57 Dose: 0.5 mg Sertraline HCl (Zoloft) 25 mg PO DAILY [facility] Last Admin: 05/11/17 09:06 Dose: 25 mg Simvastatin (Zocor) 10 mg PO DAILY [facility] Last Admin: 05/11/17 09:06 Dose: 10 mg Spironolactone (Aldactone) 25 mg PO DAILY [facility] Last Admin: 05/11/17 09:06 Dose: 25 mg Warfarin Sodium (Coumadin) 2 mg PO Mo@1800 [facility] Last Admin: 05/07/17 17:16 Dose: 2 mg Warfarin Sodium (Coumadin) 3 mg PO SuTuWeThFrSa@1800 [facility] Last Admin: 05/10/17 17:12 Dose: Not Given Zolpidem Tartrate (Ambien) 5 mg PO BEDTIME [facility] Last Admin: 05/10/17 20:47 Dose: 5 mg Discontinued Medications Bumetanide (Bumex) 1 mg IVPUSH ONETIME ONE Stop: 05/07/17 08:01 Last Admin: 05/07/17 08:26 Dose: 1 mg Bumetanide (Bumex) 1 mg IVPUSH ONETIME ONE Stop: 05/07/17 18:01 Last Admin: 05/07/17 17:08 Dose: 1 mg Bumetanide (Bumex) 1 mg IVPUSH ONETIME ONE Stop: 05/08/17 09:21 Last Admin: 05/08/17 10:18 Dose: 1 mg Bumetanide (Bumex) 1 mg IVPUSH ONETIME ONE Stop: 05/08/17 18:01 Last Admin: 05/08/17 18:41 Dose: 1 mg Bumetanide (Bumex) 1 mg IVPUSH ONETIME ONE Stop: 05/09/17 18:01 Last Admin: 05/09/17 18:06 Dose: 1 mg Carvedilol (Coreg) 6.25 mg PO BID [facility] Last Admin: 05/09/17 10:05 Dose: 6.25 mg Enoxaparin Sodium (Lovenox) 30 mg SUBCUT DAILY [facility] Last Admin: 05/08/17 08:15 Dose: 30 mg Furosemide (Lasix) 40 mg IVPUSH NOW ONE Stop: 05/06/17 10:52 Last Admin: 05/06/17 11:17 Dose: 40 mg Furosemide (Lasix) 40 mg IVPUSH NOW ONE Stop: 05/06/17 18:01 Last Admin: 05/06/17 17:44 Dose: 40 mg Magnesium Sulfate 2 gm/ Premix 50 mls @ 25 mls/hr IV ONETIME ONE Stop: 05/06/17 20:59 Last Admin: 05/06/17 19:13 Dose: 25 mls/hr Magnesium Sulfate 2 gm/ Premix 50 mls @ 25 mls/hr IV ONETIME ONE Stop: 05/10/17 21:43 Last Admin: 05/10/17 20:44 Dose: 25 mls/hr Levothyroxine Sodium (Levothyroxine) 150 mcg PO DAILY [facility] Stop: 05/08/17 11:00 Last Admin: 05/08/17 10:15 Dose: 150 mcg Metoprolol Tartrate (Lopressor) 12.5 mg PO BID [facility] Last Admin: 05/06/17 20:32 Dose: 12.5 mg Morphine Sulfate (Morphine) 1 mg IVPUSH ONETIME ONE Stop: 05/06/17 01:54 Last Admin: 05/06/17 01:58 Dose: 1 mg Morphine Sulfate (Morphine) 1 mg IVPUSH ONETIME ONE Stop: 05/06/17 18:33 Last Admin: 05/06/17 18:41 Dose: 1 mg Potassium Chloride (Potassium Chloride) 40 meq PO BID [facility] Stop: 05/08/17 09:01 Last Admin: 05/08/17 08:15 Dose: 40 meq Potassium Chloride (Klor-Con M20) 40 meq PO ONETIME ONE Stop: 05/10/17 16:35 Last Admin: 05/10/17 17:04 Dose: 40 meq Potassium Chloride (Potassium Chloride) 60 meq PO ONETIME ONE Stop: 05/10/17 21:31 Last Admin: 05/10/17 21:45 Dose: 60 meq Pramipexole Dihydrochloride (Mirapex) 0.5 mg PO DAILY [facility] - Exam Quality Assessment: Reports: DVT Prophylaxis General: Reports: Alert, Oriented, Cooperative, No Acute Distress HEENT: Reports: Pupils Equal, Pupils Reactive, EOMI Neck: Reports: Supple, Trachea Midline Lungs: Reports: Clear to Auscultation Cardiovascular: Reports: Regular Rate, Regular Rhythm GI/Abdominal Exam: Normal Bowel Sounds, Soft, Non-Tender, No Distention (Female) Exam: Deferred Rectal (Female) Exam: Deferred Extremities: Normal Inspection, Pedal Edema (+1) Skin: Reports: Warm Neurological: Reports: No New Focal Deficit Psy/Mental Status: Reports: Alert, Normal Affect, Normal Mood *Q Meaningful Use (DIS) - VTE *Q VTE Criteria *Q: - Stroke *Q Stroke Criteria *Q: - AMI *Q AMI Criteria *Q:
== END 2017-05-11 11:01 | disposition home health service (06) | DRG 292 ==
LOC: JD.ED 01:42 → JD.MS 04:10
PROVIDERS: ADMIT Internal Medicine Cardiovascular Disease; ATTEND Internal Medicine Cardiovascular Disease
DX: I13.0 Hypertensive heart and chronic kidney disease with heart failure and stage 1 through stage 4 chronic kidney disease, or unspecified chronic kidney disease (principal); R06.09 Other forms of dyspnea; R09.02 Hypoxemia; N39.0 Urinary tract infection, site not specified; I50.9 Heart failure, unspecified; N18.9 Chronic kidney disease, unspecified; R06.00 Dyspnea, unspecified; R41.82 Altered mental status, unspecified; E03.9 Hypothyroidism, unspecified; Z95.0 Presence of cardiac pacemaker; Z86.14 Personal history of Methicillin resistant Staphylococcus aureus infection; R32 Unspecified urinary incontinence; G47.30 Sleep apnea, unspecified; H91.90 Unspecified hearing loss, unspecified ear; H54.7 Unspecified visual loss; B95.62 Methicillin resistant Staphylococcus aureus infection as the cause of diseases classified elsewhere; Z96.659 Presence of unspecified artificial knee joint; Z88.0 Allergy status to penicillin; Z88.1 Allergy status to other antibiotic agents; Z88.8 Allergy status to other drugs, medicaments and biological substances; Z79.01 Long term (current) use of anticoagulants; Z79.899 Other long term (current) drug therapy
CPT/HCPCS: 36415; 51702; 71010; 80053; 83880; 84484; 85025; 85610; 93005; 94660; 96374; 99285; J2270; 36600; 71020; 71020-26; 76770; 76770-26; 80048; 80061; 81001; 82803; 82962; 83036; 83605; 83735; 84443; 86140; 87040; 87077; 87086; 87088; 87186; 93306; 94760; 94761; 97110-GO; 97116-GP; 97162-GP; 97166-GO; 97530-GO; 97535-GO; 97597-GP; 97598-GP; A9270-GY; J0696; J1650; J1940; J3475; J7030

== ENCOUNTER 2017-06-03 19:02 | Emergency (ER) | payer MEDICARE, OTHER ==
[2017-06-03 19:12] VITALS: BP 128/91
[2017-06-03] MEDS ORDERED: Sodium Chloride 0.9% 10 ML Syringe FLUSH PRN (19:26)
--- NOTE | 2017-06-03 21:17 | EDM.PDOC ---
ED HPI GENERAL MEDICAL PROBLEM - General Chief Complaint: Cardiovascular Problem Stated Complaint: [facility] Time Seen by Provider: 06/03/17 19:06 Source of Information: Reports: Patient, EMS History Limitations: Reports: No Limitations - History of Present Illness INITIAL COMMENTS - FREE TEXT/NARRATIVE: The patient presents with dizziness, nausea, and feelin "icky" since this morning. She denies a headache, fever, chills, cough, chest pain, shortness of breath, abdominal pain, or dysuria. She says the dizziness is like the room is spinning when she looks to the side. She has no trouble with vertigo in the past. She has decreased hearing but that is normal for her. She has no ringing in her ears. She was in the hospital about 1 month ago for a UTI and CHF exacerbation. She says her breathing is good. She says her vision has been more blurry lately and she had an episode of dizziness where she lost vision for a short times. Onset: Gradual Duration: Hour(s): (This morning) Severity: Moderate Improves with: Reports: None Worsens with: Reports: Movement Associated Symptoms: Reports: Nausea/Vomiting. Denies: Chest Pain, Cough, Fever /Chills, Headaches, Shortness of Breath - Related Data Allergies Allergy/AdvReac Type Severity Reaction Status Date / Time Penicillins Allergy Mild Swelling/itchy Verified 05/06/17 10:49 rash ciprofloxacin [From Cipro] Allergy Rash Verified 05/06/17 10:49 vancomycin Allergy Rash Verified 05/06/17 10:49 metronidazole AdvReac Nausea and Verified 05/06/17 10:49 Vomiting Home Meds: Home Meds Furosemide [Lasix] 20 mg PO BID 02/28/14 [History] Levothyroxine Sodium [Levoxyl] 150 mcg PO DAILY 02/28/14 [History] Lisinopril 5 mg PO 1700 02/28/14 [History] Pramipexole [Mirapex] 0.5 mg PO DAILY 02/28/14 [History] Sertraline [Zoloft] 25 mg PO DAILY 02/28/14 [History] Simvastatin [Zocor] 10 mg PO DAILY 02/28/14 [History] Spironolactone [Aldactone] 25 mg PO DAILY 02/28/14 [History] Warfarin [Coumadin] 2 mg PO MO 02/28/14 [History] Zolpidem Tartrate [Ambien] 5 mg PO BEDTIME 02/28/14 [History] Warfarin [Coumadin] 3 mg PO SUTUWETHFRSA 10/25/15 [History] Potassium Chloride [Klor-Con 10] 20 meq PO BIDMEALS 06/29/16 [History] Cefuroxime [Ceftin] 500 mg PO BID 5 Days #10 tablet 05/11/17 [Rx] Metoprolol Tartrate 50 mg PO BID #60 tablet 05/11/17 [Rx] Phenazopyridine [Urinary Pain Relief] 95 mg PO TIDPC #15 tablet 05/11/17 [Rx] Meclizine [Antivert] 25 mg PO Q6H PRN #20 tablet 06/03/17 [Rx] Past Medical History HEENT History: Reports: Impaired Vision Other HEENT History: wears glasses, hard of hearing Cardiovascular History: 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, Pacemaker Respiratory History: Reports: Sleep Apnea, SOB Genitourinary History: Reports: Urinary Incontinence [employer] History: Reports: Endocrine/Metabolic History: Reports: Hypothyroidism Oncologic (Cancer) History: Reports: Other (See Below) 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 Dermatologic History: Reports: Other (See Below) Other Dermatologic History: scattered sores all over her legs and arms from picking - Infectious Disease History Infectious Disease History: Reports: MRSA - Past Surgical History HEENT Surgical History: Reports: Cataract Surgery Respiratory Surgical History: Reports: None GI Surgical History: Reports: Cholecystectomy Female Surgical History: Reports: None Endocrine Surgical History: Reports: None Neurological Surgical History: Reports: None Musculoskeletal Surgical History: Reports: Knee Replacement Oncologic Surgical History: Reports: None Dermatological Surgical History: Reports: None Social & Family History - Family History Family Medical History: Noncontributory - Tobacco Use Smoking Status *Q: Never Smoker Second Hand Smoke Exposure: No - Caffeine Use Caffeine Use: Reports: Coffee - Recreational Drug Use Recreational Drug Use: No - Living Situation & Occupation Living situation: Reports: Occupation: Retired ED ROS GENERAL - Review of Systems Review Of Systems: See Below Constitutional: Reports: No Symptoms HEENT: Reports: No Symptoms Respiratory: Reports: No Symptoms Cardiovascular: Reports: No Symptoms Endocrine: Reports: No Symptoms GI/Abdominal: Reports: Nausea. Denies: Abdominal Pain, Vomiting : Reports: No Symptoms Musculoskeletal: Reports: No Symptoms Skin: Reports: No Symptoms Neurological: Reports: Dizziness. Denies: Headache ED EXAM, GENERAL - Physical Exam Exam: See Below Exam Limited By: No Limitations General Appearance: Alert, No Apparent Distress Eye Exam: Right Eye: Nystagmus, Bilateral Eye: EOMI Ears: Normal External Exam, Normal Canal, Normal TMs, Other (Cerumen to the left canal) Nose: Normal Inspection Head: Atraumatic, Normocephalic Neck: Normal Inspection Respiratory/Chest: No Respiratory Distress, Lungs Clear, Normal Breath Sounds Cardiovascular: Regular Rate, Rhythm, No Edema, No Murmur GI/Abdominal: Soft, Non-Tender, No Organomegaly, No Mass Back Exam: Normal Inspection Extremities: Normal Inspection EKG INTERPRETATION EKG Date: 06/03/17 Time: 19:39 Rhythm: Other (Ventricular paced rhythm) Course - Vital Signs Last Recorded V/S: Last Vital Signs Temp 97.6 F 06/03/17 19:09 Pulse 73 06/03/17 19:09 Resp 23 H 06/03/17 19:09 BP 128/91 H 06/03/17 19:09 Pulse Ox 94 L 06/03/17 19:09 - Orders/Labs/Meds Orders: Active Orders 24 hr Category Date Time Status Cardiac Monitoring [RC] . DIRECTED Care 06/03/17 19:26 Active EKG Documentation Completion [RC] STAT Care 06/03/17 19:27 Active Oxygen Therapy [RC] PRN Care 06/03/17 19:26 Active Peripheral IV Care [RC] . DIRECTED Care 06/03/17 19:27 Active Chest 1V Frontal [CR] Stat Exams 06/03/17 19:27 Taken Head wo Cont [CT] Stat Exams 06/03/17 19:28 Taken Sodium Chloride 0.9% [Saline Flush] Med 06/03/17 19:26 Active 10 ml FLUSH ASDIRECTED PRN Peripheral IV Insertion Adult [OM.PC] Stat Oth 06/03/17 19:26 Ordered Medication Orders Sodium Chloride (Saline Flush) 10 ml FLUSH ASDIRECTED PRN PRN Reason: Keep Vein Open Last Admin: 06/03/17 20:19 Dose: 10 ml Labs: Laboratory Tests 06/03/17 06/03/17 06/03/17 Range/Units 19:55 19:55 20:17 WBC 5.92 (3.98-10.04) K/mm3 RBC 4.09 (3.98-5.22) M/mm3 Hgb 13.0 (11.2-15.7) gm/L Hct 40.9 (34.1-44.9) % MCV 100.0 H (79.4-94.8) fl MCH 31.8 (25.6-32.2) pg MCHC 31.8 L (32.2-35.5) g/dl RDW Std Deviation 57.8 H (36.4-46.3) fL Plt Count 152 L (182-369) K/mm3 MPV 9.7 (9.4-12.3) fl Neut % (Auto) 64.1 (34.0-71.1) % Lymph % (Auto) 19.9 (19.3-51.7) % [place] % (Auto) 12.0 (4.7-12.5) % Eos % (Auto) 3.2 (0.7-5.8) Baso % (Auto) 0.5 (0.1-1.2) % Neut # (Auto) 3.79 (1.56-6.13) K/mm3 Lymph # (Auto) 1.18 (1.18-3.74) K/mm3 [place] # (Auto) 0.71 H (0.24-0.36) K/mm3 Eos # (Auto) 0.19 (0.04-0.36) K/mm3 Baso # (Auto) 0.03 (0.01-0.08) K/mm3 Sodium 138 (136-145) mEq/L Potassium 4.5 (3.5-5.1) mEq/L Chloride 102 (98-107) mEq/L Carbon Dioxide 28 (21-32) mEq/L Anion Gap 12.5 (5-15) BUN 27 H (7-18) mg/dL Creatinine 1.2 H (0.55-1.02) mg/dL Est Cr Clr Drug Dosing 26.12 mL/min Estimated GFR (MDRD) 42 (>60) mL/min BUN/Creatinine Ratio 22.5 H (14-18) Glucose 109 (83-115) mg/dL Calcium 9.1 (8.5-10.1) mg/dL Total Bilirubin 0.5 (0.2-1.0) mg/dL AST 22 (15-37) U/L ALT 19 (14-59) U/L Alkaline Phosphatase 119 H (46-116) U/L Troponin I < 0.017 (0.00-0.056) ng/mL NT-Pro-B Natriuret Pep 2907 H (0-450) pg/mL Total Protein 6.7 (6.4-8.2) g/dl Albumin 3.4 (3.4-5.0) g/dl Globulin 3.3 gm/dL Albumin/Globulin Ratio 1.0 (1-2) Urine Color Yellow (Yellow) Urine Appearance Clear (Clear) Urine pH 5.5 (5.0-8.0) Ur Specific [place] 1.015 (1.005-1.030) Urine Protein Negative (Negative) Urine Glucose (UA) Negative (Negative) Urine Ketones Negative (Negative) Urine Occult Blood Negative (Negative) Urine Nitrite Negative (Negative) Urine Bilirubin Negative (Negative) Urine Urobilinogen 0.2 (0.2-1.0) Ur Leukocyte Esterase Negative (Negative) Urine RBC 0-5 (0-5) /hpf Urine WBC 0-5 (0-5) /hpf Urine WBC Clumps Rare (NOT SEEN) /hpf Ur Epithelial Cells 0-5 (0-5) /hpf Urine Bacteria Rare (FEW) /hpf Hyaline Casts 0-5 (0-5) /lpf Urine Mucus Few (FEW) /hpf Meds: Medications Generic Name Dose Route Start Last Admin Trade Name Freq PRN Reason Stop Dose Admin Sodium Chloride 10 ml 06/03/17 19:26 06/03/17 20:19 Saline Flush FLUSH 10 ml ASDIRECTED PRN Administration Keep Vein Open Discontinued Medications Generic Name Dose Route Start Last Admin Trade Name Freq PRN Reason Stop Dose Admin Meclizine HCl 25 mg 06/03/17 19:29 06/03/17 20:19 Antivert PO 06/03/17 19:30 25 mg ONETIME ONE Administration - Re-Assessments/Exams Free Text/Narrative Re-Assessment/Exam: 06/03/17 21:23 I ordered an IV saline lock, EKG, CT of her head, labs and UA. I also gave her some antivert. Her EKG shows a ventricular paced rhythm. Her CXR shows cardiomegaly with no congestion. Her CT of her head looks good with nothing acute seen. Her CBC looks good. Her creatinine was 1.2. Her BNP was 2900 but that is down from prior admission. Her troponin was negative. She feels better and she walked the department with her walker. The antivert helped. I will get her on some more for home. Departure - Departure Time of Disposition: 21:25 Disposition: Home, Self-Care 01 Condition: Good Clinical Impression: Vertigo Prescriptions: Meclizine [Antivert] 25 mg PO Q6H PRN #20 tablet PRN Reason: Dizziness Referrals: Ag Garcia MD [Primary Care Provider] - 1 Week Forms: ED Department Discharge Additional Instructions: Take the antivert every 6 hours as needed for dizziness. Keep taking your other medications as prescribed. Follow up with Dr Garcia this week. Please return if you are worse. - My Orders Last 24 Hours: My Active Orders 06/03/17 19:26 Cardiac Monitoring [RC] . DIRECTED Oxygen Therapy [RC] PRN Sodium Chloride 0.9% [Saline Flush] 10 ml FLUSH ASDIRECTED PRN Peripheral IV Insertion Adult [OM.PC] Stat 06/03/17 19:27 EKG Documentation Completion [RC] STAT Peripheral IV Care [RC] . DIRECTED Chest 1V Frontal [CR] Stat 06/03/17 19:28 Head wo Cont [CT] Stat - Assessment/Plan Last 24 Hours: My Active Orders 06/03/17 19:26 Cardiac Monitoring [RC] . DIRECTED Oxygen Therapy [RC] PRN Sodium Chloride 0.9% [Saline Flush] 10 ml FLUSH ASDIRECTED PRN Peripheral IV Insertion Adult [OM.PC] Stat 06/03/17 19:27 EKG Documentation Completion [RC] STAT Peripheral IV Care [RC] . DIRECTED Chest 1V Frontal [CR] Stat 06/03/17 19:28 Head wo Cont [CT] Stat
--- NOTE | 2017-06-04 12:49 | CT ---
Head CT Technique: Multiple axial sections through the brain were obtained. Intravenous contrast was not utilized. Comparison: Prior head CT study of 02/21/13. Findings: Ventricles along the basal cisterns and sulci over the convexities are moderately prominent. Minimal diminished intensity noted within the periventricular and subcortical white matter which is compatible with small vessel ischemic demyelination change. No other abnormal parenchymal densities are seen. No evidence of intracranial hemorrhage. No midline shift or mass effect is seen. Bone window settings were reviewed which show visualized sinuses to appear clear. No acute calvarial abnormality is identified. Impression: 1. Senescent change. 2. Nothing acute is identified on noncontrast head CT study. Diagnostic code #2 I agree with preliminary report issued by [facility] ([facility] report finalized on 06/03/17, 9:35 PM Central Time)
--- NOTE | 2017-06-04 12:49 | CR ---
Chest: Portable view of the chest was obtained. Comparison: Previous chest x-ray of 05/08/17. Heart size appears within normal limits for portable technique. Tortuous thoracic aorta is seen. Lungs are clear. Pacemaker is noted. Bony structures are grossly intact. Impression: 1. Nothing acute is identified. Diagnostic code #2
== END 2017-06-03 21:25 | disposition home or self-care (01) ==
LOC: JD.ED 19:02
DX: R42 Dizziness and giddiness (principal); E03.9 Hypothyroidism, unspecified; Z88.0 Allergy status to penicillin; Z79.01 Long term (current) use of anticoagulants; Z88.8 Allergy status to other drugs, medicaments and biological substances; Z88.1 Allergy status to other antibiotic agents; Z79.899 Other long term (current) drug therapy
CPT/HCPCS: 36415; 70450; 71010; 80053; 81001; 83880; 84484; 85025; 93005; 99285; A9270; J7050; P9612; 99284

== ENCOUNTER 2018-05-17 15:16 | Inpatient (IN) | payer MEDICARE, OTHER ==
--- NOTE | 2018-05-17 16:14 | EDM.PDOC ---
ED HPI GENERAL MEDICAL PROBLEM - General Chief Complaint: Cardiovascular Problem Stated Complaint: BLOOD LEVEL HIGH/WEAK/POSS. PNEUMONIA Time Seen by Provider: 05/17/18 15:48 Source of Information: Reports: Patient, RN Notes Reviewed - History of Present Illness INITIAL COMMENTS - FREE TEXT/NARRATIVE: 88-year-old female has been brought to the ED for evaluation of elevated pro time INR, generalized weakness, dyspnea, increased low back pain, increased confusion since starting on tramadol about a week ago for the back pain. The patient has been living independently at home getting by with a lot of help and support from family members and also from frequent home health visits. Home health to check her pro time INR today, it was elevated at 7 triggering her visit here to the ED and also for the other stated reasons. Patient is not able to give any meaningful history. She does answer yes and no type questions. The history is obtained primarily from a daughter. She does deny chest pain at this time. Feels mildly short of breath. She does deny abdominal pain. There's been no recent vomiting that we are aware of. Appetite has been diminished. She has had worsening leg edema and shortness of breath along with the increased confusion. Family member is wondering if she has an exacerbation of CHF which she has had in the past. 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 Daughter states her legs are not wrapped that she will just pick at her legs until they do start getting ulcerated and infected. Left Lower Back Pain Score (Numeric/FACES): 3 - Related Data Allergies Allergy/AdvReac Type Severity Reaction Status Date / Time Penicillins Allergy Mild Swelling/itchy Verified 05/06/17 10:49 rash ciprofloxacin [From Cipro] Allergy Rash Verified 05/06/17 10:49 vancomycin Allergy Rash Verified 05/06/17 10:49 metronidazole AdvReac Nausea and Verified 05/06/17 10:49 Vomiting Home Meds: Home Meds Furosemide [Lasix] 20 mg PO BID 02/28/14 [History] Levothyroxine Sodium [Levoxyl] 150 mcg PO DAILY 02/28/14 [History] Lisinopril 5 mg PO 1700 02/28/14 [History] Pramipexole [Mirapex] 0.5 mg PO DAILY 02/28/14 [History] Sertraline [Zoloft] 50 mg PO DAILY 02/28/14 [History] Simvastatin [Zocor] 10 mg PO DAILY 02/28/14 [History] Spironolactone [Aldactone] 25 mg PO DAILY 02/28/14 [History] Warfarin [Coumadin] 2 mg PO SUMOWETHFRSA 02/28/14 [History] Zolpidem Tartrate [Ambien] 5 mg PO BEDTIME 02/28/14 [History] Warfarin [Coumadin] 3 mg PO TU 10/25/15 [History] Potassium Chloride [Klor-Con 10] 10 meq PO BIDMEALS 06/29/16 [History] Metoprolol Tartrate 25 mg PO BID 05/17/18 [History] traMADol [Ultram] 50 mg PO Q6H PRN 05/17/18 [History] Past Medical History HEENT History: Reports: Impaired Vision Other HEENT History: wears glasses, hard of hearing Cardiovascular History: 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, Pacemaker Respiratory History: Reports: Sleep Apnea, SOB Gastrointestinal History: Reports: Chronic Diarrhea Genitourinary History: Reports: Urinary Incontinence ART CLASS MODEL History: Reports: Musculoskeletal History: Reports: Back Pain, Chronic Endocrine/Metabolic History: Reports: Hypothyroidism Oncologic (Cancer) History: Reports: Other (See Below) 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 Dermatologic History: Reports: Other (See Below) Other Dermatologic History: scattered sores all over her legs and arms from picking - Infectious Disease History Infectious Disease History: Reports: MRSA - Past Surgical History HEENT Surgical History: Reports: Cataract Surgery Respiratory Surgical History: Reports: None GI Surgical History: Reports: Cholecystectomy Female Surgical History: Reports: None Endocrine Surgical History: Reports: None Neurological Surgical History: Reports: None Musculoskeletal Surgical History: Reports: Knee Replacement Oncologic Surgical History: Reports: None Dermatological Surgical History: Reports: None Social & Family History - Family History Family Medical History: Noncontributory - Tobacco Use Smoking Status *Q: Former Smoker Used Tobacco, but Quit: No - Caffeine Use Caffeine Use: Reports: Coffee - Recreational Drug Use Recreational Drug Use: No - Living Situation & Occupation Living situation: Reports: Occupation: Retired ED ROS GENERAL - Review of Systems Review Of Systems: See Below Constitutional: Denies: Fever, Diaphoresis HEENT: Denies: Throat Pain Respiratory: Reports: Shortness of Breath, Cough (Occasional) Cardiovascular: Reports: Dyspnea on Exertion. Denies: Chest Pain GI/Abdominal: Reports: Decreased Appetite. Denies: Abdominal Pain, Nausea, Vomiting Musculoskeletal: Reports: Back Pain Skin: Denies: Bruising, Rash Neurological: Reports: Confusion. Denies: Trouble Speaking ED EXAM, GENERAL - Physical Exam Exam: See Below General Appearance: No Apparent Distress, Other (Awake but somewhat drowsy) Eye Exam: Bilateral Eye: PERRL Throat/Mouth: Normal Inspection Head: Atraumatic Neck: Supple, Other (No JVD) Respiratory/Chest: Respiratory Distress (Mild tachypnea), Rales (Mild bilateral) Cardiovascular: Regular Rate, Rhythm GI/Abdominal: Soft, Non-Tender. No: Guarding Back Exam: No: CVA Tenderness (L), CVA Tenderness (R) Extremities: Pedal Edema (Mild bilateral), Other (Legs were wrapped with bilateral Dalton bandages, removal of bandages do not reveal any skin ulcerations of either leg at this time.) Neurological: No Motor/Sensory Deficits, Confused, Other (Patient is confused but does answer simple questions) Skin Exam: Warm, Dry, Normal Color, Other (L groin area very inflamed consistent with yeast infection) EKG INTERPRETATION EKG Date: 05/17/18 Rhythm: Other (Paced rhythm) Rate (Beats/Min): 71 P-Wave: Present QRS: Wide ST-T: Normal Course - Vital Signs Last Recorded V/S: Last Vital Signs Temp 96.7 F 05/17/18 15:32 Pulse 74 05/17/18 15:32 Resp 17 05/17/18 19:51 BP 84/57 L 05/17/18 19:51 Pulse Ox 91 L 05/17/18 16:17 - Orders/Labs/Meds Orders: Active Orders 24 hr Category Date Time Status Admission Status [Patient Status] [ADT] Routine ADT 05/17/18 19:54 Active EKG 12 Lead [EKG Documentation Completion] [RC] STAT Care 05/17/18 16:00 Active EKG 12 Lead [EKG Documentation Completion] [RC] STAT Care 05/17/18 16:14 Active Chest 1V Frontal [CR] Stat Exams 05/17/18 16:00 Taken Head wo Cont [CT] Stat Exams 05/17/18 19:11 Taken Labs: Laboratory Tests 09/05/17/18 05/17/18 Range/Units 16:10 16:10 16:10 WBC 8.75 (3.98-10.04) K/mm3 RBC 4.35 (3.98-5.22) M/mm3 Hgb 13.9 (11.2-15.7) gm/L Hct 42.7 (34.1-44.9) % MCV 98.2 H (79.4-94.8) fl MCH 32.0 (25.6-32.2) pg MCHC 32.6 (32.2-35.5) g/dl RDW Std Deviation 53.4 H (36.4-46.3) fL Plt Count 180 L (182-369) K/mm3 MPV 10.2 (9.4-12.3) fl Neut % (Auto) 77.2 H (34.0-71.1) % Lymph % (Auto) 13.6 L (19.3-51.7) % Blanco % (Auto) 7.2 (4.7-12.5) % Eos % (Auto) 1.7 (0.7-5.8) Baso % (Auto) 0.2 (0.1-1.2) % Neut # (Auto) 6.75 H (1.56-6.13) K/mm3 Lymph # (Auto) 1.19 (1.18-3.74) K/mm3 Blanco # (Auto) 0.63 H (0.24-0.36) K/mm3 Eos # (Auto) 0.15 (0.04-0.36) K/mm3 Baso # (Auto) 0.02 (0.01-0.08) K/mm3 PT 54.7 H* (9.5-12.1) SECONDS INR 5.18 H* Sodium 134 L (136-145) mEq/L Potassium 4.7 (3.5-5.1) mEq/L Chloride 103 (98-107) mEq/L Carbon Dioxide 25 (21-32) mEq/L Anion Gap 10.7 (5-15) BUN 81 H (7-18) mg/dL Creatinine 2.6 H (0.55-1.02) mg/dL Est Cr Clr Drug Dosing 11.83 mL/min Estimated GFR (MDRD) 17 (>60) mL/min BUN/Creatinine Ratio 31.2 H (14-18) Glucose 109 (83-115) mg/dL Calcium 9.1 (8.5-10.1) mg/dL Total Bilirubin 0.7 (0.2-1.0) mg/dL AST 29 (15-37) U/L ALT 24 (14-59) U/L Alkaline Phosphatase 115 (46-116) U/L Troponin I < 0.017 (0.00-0.056) ng/mL NT-Pro-B Natriuret Pep (0-450) pg/mL Total Protein 7.0 (6.4-8.2) g/dl Albumin 3.6 (3.4-5.0) g/dl Globulin 3.4 gm/dL Albumin/Globulin Ratio 1.1 (1-2) Urine Color (Yellow) Urine Appearance (Clear) Urine pH (5.0-8.0) Ur Specific Kennard (1.005-1.030) Urine Protein (Negative) Urine Glucose (UA) (Negative) Urine Ketones (Negative) Urine Occult Blood (Negative) Urine Nitrite (Negative) Urine Bilirubin (Negative) Urine Urobilinogen (0.2-1.0) Ur Leukocyte Esterase (Negative) Urine RBC (0-5) /hpf Urine WBC (0-5) /hpf Ur Epithelial Cells (0-5) /hpf Urine Bacteria (FEW) /hpf Hyaline Casts (0-5) /lpf Fine Granular Casts (0-5) /lpf Urine Mucus (FEW) /hpf 05/17/18 05/17/18 Range/Units 16:10 17:50 WBC (3.98-10.04) K/mm3 RBC (3.98-5.22) M/mm3 Hgb (11.2-15.7) gm/L Hct (34.1-44.9) % MCV (79.4-94.8) fl MCH (25.6-32.2) pg MCHC (32.2-35.5) g/dl RDW Std Deviation (36.4-46.3) fL Plt Count (182-369) K/mm3 MPV (9.4-12.3) fl Neut % (Auto) (34.0-71.1) % Lymph % (Auto) (19.3-51.7) % Blanco % (Auto) (4.7-12.5) % Eos % (Auto) (0.7-5.8) Baso % (Auto) (0.1-1.2) % Neut # (Auto) (1.56-6.13) K/mm3 Lymph # (Auto) (1.18-3.74) K/mm3 Blanco # (Auto) (0.24-0.36) K/mm3 Eos # (Auto) (0.04-0.36) K/mm3 Baso # (Auto) (0.01-0.08) K/mm3 PT (9.5-12.1) SECONDS INR Sodium (136-145) mEq/L Potassium (3.5-5.1) mEq/L Chloride (98-107) mEq/L Carbon Dioxide (21-32) mEq/L Anion Gap (5-15) BUN (7-18) mg/dL Creatinine (0.55-1.02) mg/dL Est Cr Clr Drug Dosing mL/min Estimated GFR (MDRD) (>60) mL/min BUN/Creatinine Ratio (14-18) Glucose (83-115) mg/dL Calcium (8.5-10.1) mg/dL Total Bilirubin (0.2-1.0) mg/dL AST (15-37) U/L ALT (14-59) U/L Alkaline Phosphatase (46-116) U/L Troponin I (0.00-0.056) ng/mL NT-Pro-B Natriuret Pep 1693 H (0-450) pg/mL Total Protein (6.4-8.2) g/dl Albumin (3.4-5.0) g/dl Globulin gm/dL Albumin/Globulin Ratio (1-2) Urine Color Yellow (Yellow) Urine Appearance Clear (Clear) Urine pH 5.5 (5.0-8.0) Ur Specific Kennard 1.025 (1.005-1.030) Urine Protein Negative (Negative) Urine Glucose (UA) Negative (Negative) Urine Ketones Negative (Negative) Urine Occult Blood Negative (Negative) Urine Nitrite Negative (Negative) Urine Bilirubin Negative (Negative) Urine Urobilinogen 0.2 (0.2-1.0) Ur Leukocyte Esterase Negative (Negative) Urine RBC Not seen (0-5) /hpf Urine WBC 0-5 (0-5) /hpf Ur Epithelial Cells 0-5 (0-5) /hpf Urine Bacteria Rare (FEW) /hpf Hyaline Casts 5-10 H (0-5) /lpf Fine Granular Casts 0-5 (0-5) /lpf Urine Mucus Few (FEW) /hpf Meds: Medications Discontinued Medications Generic Name Dose Route Start Last Admin Trade Name Jorge L PRN Reason Stop Dose Admin Sodium Chloride 500 mls @ 999 mls/hr 05/17/18 19:13 05/17/18 19:21 Normal Saline IV 05/17/18 19:43 999 mls/hr .BOLUS ONE Administration - Re-Assessments/Exams Free Text/Narrative Re-Assessment/Exam: 05/17/18 19:58 Labs show renal insufficiency with BUN of 81, creatinine 2.6. This is a major change from prior labs that showed creatinine in the 1-1.2 range and BUN 27-[address] shows generalized atrophy. I do not see obvious acute infarct. No area of hemorrhage. Awaiting radiologist report. As noted in history family members have observed that her confusion seemed to start shortly after starting the tramadol for her low back pain about a week ago. It sounds like she has not been eating well and probably not taking fluids well. With her confusion, renal insufficiency she is not a candidate to go home at this time as she was barely getting along before these symptoms started. Discussing with the daughter she is DNR DNI status. Her daughter feels that she may well need to go to the senior care if her condition doesn't dramatically improve while here in the hospital. Departure - Departure Time of Disposition: 19:21 Disposition: Admitted As Inpatient 66 Condition: Fair Clinical Impression: Generalized weakness, Renal insufficiency Altered mental status Qualifiers: Altered mental status type: unspecified Qualified Code(s): R41.82 - Altered mental status, unspecified Hypotension Qualifiers: Hypotension type: unspecified hypotension type Qualified Code(s): I95.9 - Hypotension, unspecified Referrals: Ag Garcia MD [Primary Care Provider] - Forms: ED Department Discharge ED Communication - Discussed Case With (1) Discussed Case With (1): Admitting Provider (Marcos, decision to admit at about 19:15.) - My Orders Last 24 Hours: My Active Orders 05/17/18 16:00 EKG 12 Lead [EKG Documentation Completion] [RC] STAT Chest 1V Frontal [CR] Stat 05/17/18 16:14 EKG 12 Lead [EKG Documentation Completion] [RC] STAT 05/17/18 19:11 Head wo Cont [CT] Stat 05/17/18 19:54 Admission Status [Patient Status] [ADT] Routine - Assessment/Plan Last 24 Hours: My Active Orders 05/17/18 16:00 EKG 12 Lead [EKG Documentation Completion] [RC] STAT Chest 1V Frontal [CR] Stat 05/17/18 16:14 EKG 12 Lead [EKG Documentation Completion] [RC] STAT 05/17/18 19:11 Head wo Cont [CT] Stat 05/17/18 19:54 Admission Status [Patient Status] [ADT] Routine
[2018-05-17] MEDS ORDERED: Sodium Chloride 0.9% 500 ML IV ONE (19:13)
[2018-05-17] MEDS ORDERED: Bisacodyl 5 MG Tab PO PRN (22:08)
[2018-05-17] MEDS ORDERED: Acetaminophen/oxyCODONE 325-5 MG Tab PO PRN (22:08)
[2018-05-17] MEDS ORDERED: Promethazine 25 MG Tab PO PRN (22:08)
[2018-05-17] MEDS ORDERED: Albuterol/Ipratropium 3.0-0.5 MG/3 ML Neb Soln NEB PRN (22:08)
[2018-05-17] MEDS ORDERED: Zolpidem 5 MG Tab PO PRN (22:08)
[2018-05-17] MEDS ORDERED: Polyethylene Glycol 3350 Powder 17 GM Packet PO PRN (22:08)
[2018-05-17] MEDS ORDERED: HYDROmorphone 0.5 MG/0.5 ML Syringe IVPUSH PRN (22:08)
[2018-05-17] MEDS ORDERED: Docusate Sodium 100 MG Cap PO PRN (22:08)
[2018-05-17] MEDS ORDERED: Promethazine 6.25 MG in Sodium Chloride 0.9% 50 ML IV PRN (22:08)
[2018-05-17] MEDS ORDERED: Albuterol 0.083% 2.5 MG/3 ML Neb Soln NEB PRN (22:08)
[2018-05-17] MEDS ORDERED: Acetaminophen 325 MG Tab PO PRN (22:08)
[2018-05-17] MEDS ORDERED: Magnesium Hydroxide 400 MG/5 ML Susp 30 ML Cup PO PRN (22:08)
--- NOTE | 2018-05-17 22:30 | PCM.HP ---
H&P History of Present Illness - General Date of Service: 05/17/18 Admit Problem/Dx: Admission Diagnosis/Problem Admission Diagnosis/Problem Weakness Source of Information: Old Records, Provider History Limitations: Reports: Altered Mental Status (A+O x 2, person and place. She seems confused about situation. ) - History of Present Illness Initial Comments - Free Text/Narative: HPI: This is an 88 yo female with past medical hx/o PVD, Afib on coumadin, PM, CHF, Hypothyroid, CHRIS on CPAP, H/O MRSA, HLD, Urinary Incontinence, Depression, CKD, HTN who comes in for Generalized Weakness and Supratherapeutic INR. She is A+O x 2 and it is difficult to attain an accurate ROS. She currently is confused as to why she is here, but does state she has pain to her right leg. Her symptoms slightly improved after receiving IVF in the ED. Her initial workup in the ED showed a CBC remarkable for MCV 98.2, RDW 53.4, Plt 180, Neut 77.2%, Lymph 13.6%. Her coagulation studies showed PT 54.7, INR 5.18. Her chemistry is remarkable for Na 134, BUN 81, Cr 2.6, GFR 17, BNP 1693. EKG shows wide QRS. CXR shows nothing acute. CT Head shows nothing acute. U/A was unremarkable for UTI. She is subsequently admitted to the medical floor. She is a DNR/DNI. Her PCP is Dr. Ag Garcia. Left Lower Back Pain Score (Numeric/FACES): 3 - Related Data Allergies/Adverse Reactions: Allergies Allergy/AdvReac Type Severity Reaction Status Date / Time Penicillins Allergy Mild Swelling/itchy Verified 05/06/17 10:49 rash ciprofloxacin [From Cipro] Allergy Rash Verified 05/06/17 10:49 vancomycin Allergy Rash Verified 05/06/17 10:49 metronidazole AdvReac Nausea and Verified 05/06/17 10:49 Vomiting Home Medications: Home Meds Furosemide [Lasix] 20 mg PO BID 02/28/14 [History] Levothyroxine Sodium [Levoxyl] 150 mcg PO DAILY 02/28/14 [History] Lisinopril 5 mg PO 1700 02/28/14 [History] Pramipexole [Mirapex] 0.5 mg PO DAILY 02/28/14 [History] Sertraline [Zoloft] 50 mg PO DAILY 02/28/14 [History] Simvastatin [Zocor] 10 mg PO DAILY 02/28/14 [History] Spironolactone [Aldactone] 25 mg PO DAILY 02/28/14 [History] Warfarin [Coumadin] 2 mg PO SUMOWETHFRSA 02/28/14 [History] Zolpidem Tartrate [Ambien] 5 mg PO BEDTIME 02/28/14 [History] Warfarin [Coumadin] 3 mg PO TU 10/25/15 [History] Potassium Chloride [Klor-Con 10] 10 meq PO BIDMEALS 06/29/16 [History] Metoprolol Tartrate 25 mg PO BID 05/17/18 [History] traMADol [Ultram] 50 mg PO Q6H PRN 05/17/18 [History] Past Medical History HEENT History: Reports: Impaired Vision Other HEENT History: wears glasses, hard of hearing Cardiovascular History: 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, Pacemaker Respiratory History: Reports: Sleep Apnea, SOB Gastrointestinal History: Reports: Chronic Diarrhea Genitourinary History: Reports: Urinary Incontinence ELECTRICAL CONTACTS ADJUSTER History: Reports: Musculoskeletal History: Reports: Back Pain, Chronic Endocrine/Metabolic History: Reports: Hypothyroidism Oncologic (Cancer) History: Reports: Other (See Below) 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 Dermatologic History: Reports: Other (See Below) Other Dermatologic History: scattered sores all over her legs and arms from picking - Infectious Disease History Infectious Disease History: Reports: MRSA - Past Surgical History HEENT Surgical History: Reports: Cataract Surgery Respiratory Surgical History: Reports: None GI Surgical History: Reports: Cholecystectomy Female Surgical History: Reports: None Endocrine Surgical History: Reports: None Neurological Surgical History: Reports: None Musculoskeletal Surgical History: Reports: Knee Replacement Oncologic Surgical History: Reports: None Dermatological Surgical History: Reports: None Social & Family History - Family History Family Medical History: Noncontributory - Tobacco Use Smoking Status *Q: Former Smoker Used Tobacco, but Quit: No - Caffeine Use Caffeine Use: Reports: Coffee - Recreational Drug Use Recreational Drug Use: No - Living Situation & Occupation Living situation: Reports: Occupation: Retired H&P Review of Systems - Review of Systems: Review Of Systems: Unable To Obtain (A+O x 2) Musculoskeletal: Reports: Leg Pain (right leg with 3cm wound) Psychiatric: Reports: Confusion Neurological: Reports: Confusion Exam - Exam Exam: See Below - Vital Signs Vital Signs: Last Vital Signs Temp 96.7 F 05/17/18 15:32 Pulse 74 05/17/18 15:32 Resp 21 H 05/17/18 20:32 BP 121/91 H 05/17/18 21:12 Pulse Ox 91 L 05/17/18 16:17 Weight: 185 lb - Exam Quality Assessment: Urinary Catheter. No: Supplemental Oxygen General: Alert, Cooperative, Mild Distress. No: Oriented (situationally not oriented) HEENT: PERRLA, Hearing Intact, Mucosa Moist & Helper, Nares Patent, Normal Nasal Septum, Posterior Pharynx Clear, Conjunctiva Clear, EOMI, EACs Clear, TMs Clear Neck: Supple, Trachea Midline, 2 Lungs: Decreased Breath Sounds Cardiovascular: Regular Rate, Regular Rhythm GI/Abdominal Exam: Normal Bowel Sounds, Soft, Non-Tender, No Organomegaly, No Distention, No Abnormal Bruit, No Mass, Pelvis Stable (Female) Exam: Deferred Rectal (Female) Exam: Deferred Back Exam: Normal Inspection, Decreased Range of Motion Extremities: Normal Inspection, Normal Range of Motion, Non-Tender, Normal Capillary Refill, Pedal Edema (2-3+ bilaterally, R>L), Slow Capillary Refill ( fingers and toes of all extremities), Leg Pain (right leg has 3cm wound), Increased Warmth (Right leg near 3 cm wound), Redness (right leg near wound) Peripheral Pulses: 1+: Posterior Tibial (L), Posterior Tibial (R), Dorsalis Pedis (L), Dorsalis Pedis (R) Skin: Warm, Dry, Intact, Cool (in upper and lower extremities, especially the fingers and toes), Wound (multiple wounds on all extremities, the worst being on the right lower extremity. She has a history of "picking" her skin. ) Neurological: Cranial Nerves Intact (grossly) Neuro Extensive - Mental Status: Alert, Normal Mood/Affect, Other (Disoriented to Situation) Psychiatric: Alert, Normal Affect, Normal Mood - Patient Data Lab Results Last 24 hrs: Laboratory Results - last 24 hr 05/17/18 05/17/18 05/17/18 Range/Units 16:10 16:10 16:10 WBC 8.75 (3.98-10.04) K/mm3 RBC 4.35 (3.98-5.22) M/mm3 Hgb 13.9 (11.2-15.7) gm/L Hct 42.7 (34.1-44.9) % MCV 98.2 H (79.4-94.8) fl MCH 32.0 (25.6-32.2) pg MCHC 32.6 (32.2-35.5) g/dl RDW Std Deviation 53.4 H (36.4-46.3) fL Plt Count 180 L (182-369) K/mm3 MPV 10.2 (9.4-12.3) fl Neut % (Auto) 77.2 H (34.0-71.1) % Lymph % (Auto) 13.6 L (19.3-51.7) % [place] % (Auto) 7.2 (4.7-12.5) % Eos % (Auto) 1.7 (0.7-5.8) Baso % (Auto) 0.2 (0.1-1.2) % Neut # (Auto) 6.75 H (1.56-6.13) K/mm3 Lymph # (Auto) 1.19 (1.18-3.74) K/mm3 [place] # (Auto) 0.63 H (0.24-0.36) K/mm3 Eos # (Auto) 0.15 (0.04-0.36) K/mm3 Baso # (Auto) 0.02 (0.01-0.08) K/mm3 PT 54.7 H* (9.5-12.1) SECONDS INR 5.18 H* Sodium 134 L (136-145) mEq/L Potassium 4.7 (3.5-5.1) mEq/L Chloride 103 (98-107) mEq/L Carbon Dioxide 25 (21-32) mEq/L Anion Gap 10.7 (5-15) BUN 81 H (7-18) mg/dL Creatinine 2.6 H (0.55-1.02) mg/dL Est Cr Clr Drug Dosing 11.83 mL/min Estimated GFR (MDRD) 17 (>60) mL/min BUN/Creatinine Ratio 31.2 H (14-18) Glucose 109 (83-115) mg/dL Calcium 9.1 (8.5-10.1) mg/dL Total Bilirubin 0.7 (0.2-1.0) mg/dL AST 29 (15-37) U/L ALT 24 (14-59) U/L Alkaline Phosphatase 115 (46-116) U/L Troponin I < 0.017 (0.00-0.056) ng/mL NT-Pro-B Natriuret Pep (0-450) pg/mL Total Protein 7.0 (6.4-8.2) g/dl Albumin 3.6 (3.4-5.0) g/dl Globulin 3.4 gm/dL Albumin/Globulin Ratio 1.1 (1-2) Urine Color (Yellow) Urine Appearance (Clear) Urine pH (5.0-8.0) Ur Specific [place] (1.005-1.030) Urine Protein (Negative) Urine Glucose (UA) (Negative) Urine Ketones (Negative) Urine Occult Blood (Negative) Urine Nitrite (Negative) Urine Bilirubin (Negative) Urine Urobilinogen (0.2-1.0) Ur Leukocyte Esterase (Negative) Urine RBC (0-5) /hpf Urine WBC (0-5) /hpf Ur Epithelial Cells (0-5) /hpf Urine Bacteria (FEW) /hpf Hyaline Casts (0-5) /lpf Fine Granular Casts (0-5) /lpf Urine Mucus (FEW) /hpf 05/17/18 05/17/18 Range/Units 16:10 17:50 WBC (3.98-10.04) K/mm3 RBC (3.98-5.22) M/mm3 Hgb (11.2-15.7) gm/L Hct (34.1-44.9) % MCV (79.4-94.8) fl MCH (25.6-32.2) pg MCHC (32.2-35.5) g/dl RDW Std Deviation (36.4-46.3) fL Plt Count (182-369) K/mm3 MPV (9.4-12.3) fl Neut % (Auto) (34.0-71.1) % Lymph % (Auto) (19.3-51.7) % Ball[place] % (Auto) (4.7-12.5) % Eos % (Auto) (0.7-5.8) Baso % (Auto) (0.1-1.2) % Neut # (Auto) (1.56-6.13) K/mm3 Lymph # (Auto) (1.18-3.74) K/mm3 [place] # (Auto) (0.24-0.36) K/mm3 Eos # (Auto) (0.04-0.36) K/mm3 Baso # (Auto) (0.01-0.08) K/mm3 PT (9.5-12.1) SECONDS INR Sodium (136-145) mEq/L Potassium (3.5-5.1) mEq/L Chloride (98-107) mEq/L Carbon Dioxide (21-32) mEq/L Anion Gap (5-15) BUN (7-18) mg/dL Creatinine (0.55-1.02) mg/dL Est Cr Clr Drug Dosing mL/min Estimated GFR (MDRD) (>60) mL/min BUN/Creatinine Ratio (14-18) Glucose (83-115) mg/dL Calcium (8.5-10.1) mg/dL Total Bilirubin (0.2-1.0) mg/dL AST (15-37) U/L ALT (14-59) U/L Alkaline Phosphatase (46-116) U/L Troponin I (0.00-0.056) ng/mL NT-Pro-B Natriuret Pep 1693 H (0-450) pg/mL Total Protein (6.4-8.2) g/dl Albumin (3.4-5.0) g/dl Globulin gm/dL Albumin/Globulin Ratio (1-2) Urine Color Yellow (Yellow) Urine Appearance Clear (Clear) Urine pH 5.5 (5.0-8.0) Ur Specific [place] 1.025 (1.005-1.030) Urine Protein Negative (Negative) Urine Glucose (UA) Negative (Negative) Urine Ketones Negative (Negative) Urine Occult Blood Negative (Negative) Urine Nitrite Negative (Negative) Urine Bilirubin Negative (Negative) Urine Urobilinogen 0.2 (0.2-1.0) Ur Leukocyte Esterase Negative (Negative) Urine RBC Not seen (0-5) /hpf Urine WBC 0-5 (0-5) /hpf Ur Epithelial Cells 0-5 (0-5) /hpf Urine Bacteria Rare (FEW) /hpf Hyaline Casts 5-10 H (0-5) /lpf Fine Granular Casts 0-5 (0-5) /lpf Urine Mucus Few (FEW) /hpf Result Diagrams: 05/17/18 16:10 05/17/18 16:10 *Q Meaningful Use (ADM) - VTE *Q VTE Anticoagulation Contraindications: Med/TX Not Indicated/Need - Problem List (1) Altered mental status SNOMED Code(s): 254273637 ICD Code: R41.82 - ALTERED MENTAL STATUS, UNSPECIFIED Status: Acute Priority: High Current Visit: Yes Qualifiers: Altered mental status type: unspecified Qualified Code(s): R41.82 - Altered mental status, unspecified (2) Renal insufficiency SNOMED Code(s): 247889902, 897606690 ICD Code: N28.9 - DISORDER OF KIDNEY AND URETER, UNSPECIFIED Status: Acute Priority: High Current Visit: Yes (3) Weakness SNOMED Code(s): 16837377 ICD Code: R53.1 - WEAKNESS Status: Acute Priority: Medium Current Visit : Yes (4) CHF (congestive heart failure) SNOMED Code(s): 76396312 ICD Code: I50.9 - HEART FAILURE, UNSPECIFIED Status: Chronic Priority: Medium Current Visit: Yes Problem List Initiated/Reviewed/Updated: Yes Orders Last 24hrs: Active Orders 24 hr Category Date Time Status Admission Status [Patient Status] [ADT] Routine ADT 05/17/18 19:54 Active CPAP Adult [RT BiPAP/CPAP] [RC] ASDIRECTED Care 05/17/18 21:52 Active Cardiac Monitoring [RC] INTERMITTENT Care 05/17/18 22:09 Active EKG 12 Lead [EKG Documentation Completion] [RC] STAT Care 05/17/18 16:14 Active Height and Weight [RC] DAILY Care 05/17/18 22:08 Active Insert Urinary Catheter [OM.PC] Q24H Care 05/17/18 21:45 Ordered Intake and Output [RC] QSHIFT Care 05/17/18 22:09 Active May Shower [RC] ASDIRECTED Care 05/17/18 22:08 Active Oxygen Therapy [RC] PRN Care 05/17/18 22:08 Active Pulse Oximetry [] PRN Care 09/14/18 22:09 Active RT Aerosol Therapy [RC] ASDIRECTED Care 05/17/18 22:15 Active Up With Assistance [RC] ASDIRECTED Care 05/17/18 22:08 Active Urinary Catheter Assessment [RC] ASDIRECTED Care 05/17/18 21:44 Active Urinary Catheter Assessment [RC] ASDIRECTED Care 05/17/18 21:45 Active VTE/DVT Education [RC] PER UNIT ROUTINE Care 05/17/18 22:08 Active Vital Signs [RC] Q4H Care 05/17/18 22:08 Active Wound Care [RC] Q8H Care 05/17/18 21:42 Active Consult to Case Management/Blast Furnace Supervisor [CONS] Cons 05/17/18 22:08 Active Routine Consult to Lead Ingot Molder [CONS] Routine Cons 05/17/18 22:08 Active OT Evaluation and Treatment [CONS] Routine Cons 05/17/18 22:08 Active PT Evaluation and Treatment [CONS] Routine Cons 05/17/18 22:08 Active SOCIAL WORK COORDINATOR Evaluation and Treatment [CONS] Routine Cons 05/17/18 22:08 Active Fluid Restriction [DIET] Diet 05/17/18 Dinner Active Sodium Restricted Diet [DIET] Diet 05/17/18 Dinner Active Chest 1V Frontal [CR] Stat Exams 05/17/18 16:00 Taken Head wo Cont [CT] Stat Exams 05/17/18 19:11 Taken BASIC METABOLIC PANEL,BMP [CHEM] AM Lab 05/18/18 05:11 Ordered BASIC METABOLIC PANEL,BMP [CHEM] AM Lab 05/19/18 05:11 Ordered BASIC METABOLIC PANEL,BMP [CHEM] AM Lab 05/20/18 05:11 Ordered BASIC METABOLIC PANEL,BMP [CHEM] AM Lab 05/21/18 05:11 Ordered BASIC METABOLIC PANEL,BMP [CHEM] AM Lab 05/22/18 05:11 Ordered C-REACTIVE PROTEIN [CHEM] AM Lab 05/18/18 05:11 Ordered C-REACTIVE PROTEIN [CHEM] AM Lab 05/19/18 05:11 Ordered C-REACTIVE PROTEIN [CHEM] AM Lab 05/20/18 05:11 Ordered C-REACTIVE PROTEIN [CHEM] AM Lab 05/21/18 05:11 Ordered C-REACTIVE PROTEIN [CHEM] AM Lab 05/22/18 05:11 Ordered CBC WITH AUTO DIFF [HEME] AM Lab 05/18/18 05:11 Ordered CBC WITH AUTO DIFF [HEME] AM Lab 05/19/18 05:11 Ordered CBC WITH AUTO DIFF [HEME] AM Lab 05/20/18 05:11 Ordered CBC WITH AUTO DIFF [HEME] AM Lab 05/21/18 05:11 Ordered CBC WITH AUTO DIFF [HEME] AM Lab 05/22/18 05:11 Ordered INR,PT,PROTHROMBIN TIME [COAG] DAILY Lab 05/18/18 05:00 Ordered MAGNESIUM [CHEM] AM Lab 05/18/18 05:11 Ordered MAGNESIUM [CHEM] AM Lab 05/19/18 05:11 Ordered MAGNESIUM [CHEM] AM Lab 05/20/18 05:11 Ordered MAGNESIUM [CHEM] AM Lab 05/21/18 05:11 Ordered MAGNESIUM [CHEM] AM Lab 05/22/18 05:11 Ordered METH-RESIST S.AUR,MRSA BY PCR [MOLEC] Routine Lab 05/17/18 21:02 Ordered Acetaminophen [Tylenol] Med 05/17/18 22:08 Ordered 650 mg PO Q4H PRN Acetaminophen/oxyCODONE [Percocet 325-5 MG] Med 05/17/18 22:08 Ordered 1 tab PO Q4H PRN Albuterol [Proventil Neb Soln] Med 05/17/18 22:08 Ordered 2.5 mg NEB Q2H PRN Albuterol/Ipratropium [DuoNeb 3.0-0.5 MG/3 ML] Med 05/17/18 22:08 Ordered 3 ml NEB Q4H PRN Bisacodyl [Dulcolax] Med 05/17/18 22:08 Ordered 5 mg PO DAILY PRN Docusate Sodium [Colace] Med 05/17/18 22:08 Ordered 100 mg PO BID PRN Docusate Sodium/Sennosides [Senna Plus] Med 05/17/18 22:08 Ordered 1 tab PO BID PRN HYDROmorphone [Dilaudid] Med 05/17/18 22:08 Ordered 0.25 mg IVPUSH Q2H PRN Levothyroxine Med 05/18/18 06:00 Active 150 mcg PO ACBRK Magnesium Hydroxide [Milk of Magnesia] Med 05/17/18 22:08 Ordered 30 ml PO Q12H PRN Metoprolol Tartrate [Lopressor] Med 05/18/18 09:00 Active 25 mg PO BID Nystatin [Nystop] Med 05/18/18 09:00 Active 0 gm TOP TID Polyethylene Glycol 3350 [MiraLAX] Med 05/17/18 22:08 Ordered 17 gm PO DAILY PRN Pramipexole [Mirapex] Med 05/18/18 09:00 Pending 0.5 mg PO DAILY Promethazine [Phenergan] Med 05/17/18 22:08 Ordered 25 mg PO Q6H PRN Promethazine [Phenergan] 6.25 mg Med 05/17/18 22:08 Ordered Sodium Chloride 0.9% [Normal Saline] 50 ml IV Q6H Sertraline [Zoloft] Med 05/18/18 09:00 Active 50 mg PO DAILY Warfarin Pharmacy to Dose [Pharmacy to Dose - Warfarin] Med 05/17/18 22:00 Pending 1 dose .XX ASDIRECTED Zolpidem [Ambien] Med 05/17/18 22:08 Ordered 5 mg PO BEDTIME PRN AYESHA Bandage [Elastic Wrap] [OM.PC] Routine Oth 05/17/18 21:46 Ordered Anticoagulation Contraindications VTE [AST] Per Unit Oth 05/17/18 22:08 Ordered Routine Resuscitation Status Routine Resus Stat 05/17/18 22:08 Ordered Medication Orders Acetaminophen (Tylenol) 650 mg PO Q4H PRN PRN Reason: Pain (Mild 1-3)/fever Levothyroxine Sodium (Levothyroxine) 150 mcg PO ACBRK KAY Metoprolol Tartrate (Lopressor) 25 mg PO BID KAY Nystatin (Nystop) 0 gm TOP TID KAY Oxycodone/Acetaminophen (Percocet 325-5 Mg) 1 tab PO Q4H PRN PRN Reason: Pain (moderate 4-6) Pramipexole Dihydrochloride (Mirapex) 0.5 mg PO DAILY KAY Sertraline HCl (Zoloft) 50 mg PO DAILY KAY Warfarin Sodium (Pharmacy To Dose - Warfarin) 1 dose .XX ASDIRECTED [facility] Assessment/Plan Comment:: I/P: Acute: CHF exacerbation * SOB, 2-3+ pitting edema bilateral lower extremities R>L * BNP 1693 * Strict I&O's--> Adam catheter * Fluid and Salt restriction diet * Needs Lasix, but Renal function currently will not allow --> HOLD LASIX * Unable to put on MERRITT hose d/t wounds--> AYESHA wrap for now to help alleviate edema * Elevate legs * ECHO in AM Acute Kidney Injury * Acute on Chronic CKD * GFR 17 (was 52 on 05/11/17) * BUN 81, Cr 2.6 * Balance IVF with CHF * HOLD LASIX, LISINOPRIL, ZOCOR, ALDACTONE Possible Cellulitis of R leg * Has 3cm wound to R lower extremity with increased warmth and erythema * Wound culture pending * H/O MRSA--> awaiting culture before treatment Multiple wounds on all extremities and Fungal infection of groin * Risk factor: has h/o of "picking" her skin * Has had h/o of MRSA * PT wound care * Wound cultures pending * Nystatin powder for groin * Daily shower Generalized Weakness/Confusion * Likely 2/2 above and recent Tramadol she was put on for back pain--> HOLD TRAMADOL * Unable to walk at this time without assistance; has used cane/walker in past * PT/OT consult * SOCIAL WORK COORDINATOR cog eval * CM/SW consult--> Has HH but not thriving; will likely need SNF placement Supratherapeutic INR * PT 54.7, INR 5.18 * Hold home warfarin dose * Pharmacy to dose warfarin to therapeutic level Hypotension * 84/57 * Hold BP medications * IVF bolus as needed Chronic: PVD * Hands and feet are slightly cyanotic and cool with slow cap refill Afib on coumadin PM CHF Hypothyroid CHRIS on CPAP H/O MRSA HLD Urinary Incontinence --> Adam catheter Depression CKD HTN Plan: Transferred to Med Surg today CONTACT PRECAUTIONS, h/o MRSA--> MRSA by PCR pending She remains stable Other orders as indicated above Routine AM labs 2g Sodium Diet Restriction; 2L fluid restriction DVT Prophylaxis: On warfarin, supratherapeutic--> pharmacy to dose to therapeutic range GI Prophylaxis: Protonix Code Status: DNR/DNI; PCP: Dr. Ag Garcia
[2018-05-18] MEDS: Levothyroxine 150 MCG Tab PO SCH (08:06)
--- NOTE | 2018-05-18 08:29 | PCM.PN ---
- General Info Date of Service: 05/18/18 Admission Dx/Problem (Free Text): Admission Diagnosis/Problem Admission Diagnosis/Problem Weakness Subjective Update: Follow Up Functional Status: Reports: Pain Controlled, Urinating. Denies: New Symptoms - Review of Systems General: Denies: Fever, Malaise HEENT: Reports: No Symptoms Pulmonary: Reports: Shortness of Breath Cardiovascular: Denies: Chest Pain, Lightheadedness Gastrointestinal: Denies: Abdominal Pain, Nausea, Vomiting Genitourinary: Reports: No Symptoms Musculoskeletal: Reports: No Symptoms Skin: Reports: Bruising. Denies: Cyanosis, Mottled, Pallor Neurological: Reports: Difficulty Walking, Weakness, Gait Disturbance. Denies: Confusion Psychiatric: Denies: Depression, Anxiety, Agitation, Hallucinations Systems Review Comment:: No significant overnight or acute issues. She is "doing alright". She feels about a little better. She is afebrile w/o leukocytosis. Her INR is now 4.57. Her proBNP level is slightly elevated at 2262. She is MRSA positive on screening. - Patient Data Vitals - Most Recent: Last Vital Signs Temp 35.9 C 05/17/18 15:32 Pulse 74 05/17/18 15:32 Resp 21 H 05/17/18 20:32 BP 121/91 H 05/17/18 21:12 Pulse Ox 91 L 05/17/18 16:17 Weight - Most Recent: 88.314 kg Lab Results Last 24 Hours: Laboratory Results - last 24 hr 05/17/18 05/17/18 05/17/18 Range/Units 16:10 16:10 16:10 WBC 8.75 (3.98-10.04) K/mm3 RBC 4.35 (3.98-5.22) M/mm3 Hgb 13.9 (11.2-15.7) gm/L Hct 42.7 (34.1-44.9) % MCV 98.2 H (79.4-94.8) fl MCH 32.0 (25.6-32.2) pg MCHC 32.6 (32.2-35.5) g/dl RDW Std Deviation 53.4 H (36.4-46.3) fL Plt Count 180 L (182-369) K/mm3 MPV 10.2 (9.4-12.3) fl Neut % (Auto) 77.2 H (34.0-71.1) % Lymph % (Auto) 13.6 L (19.3-51.7) % [place] % (Auto) 7.2 (4.7-12.5) % Eos % (Auto) 1.7 (0.7-5.8) Baso % (Auto) 0.2 (0.1-1.2) % Neut # (Auto) 6.75 H (1.56-6.13) K/mm3 Lymph # (Auto) 1.19 (1.18-3.74) K/mm3 [place] # (Auto) 0.63 H (0.24-0.36) K/mm3 Eos # (Auto) 0.15 (0.04-0.36) K/mm3 Baso # (Auto) 0.02 (0.01-0.08) K/mm3 PT 54.7 H* (9.5-12.1) SECONDS INR 5.18 H* Sodium 134 L (136-145) mEq/L Potassium 4.7 (3.5-5.1) mEq/L Chloride 103 (98-107) mEq/L Carbon Dioxide 25 (21-32) mEq/L Anion Gap 10.7 (5-15) BUN 81 H (7-18) mg/dL Creatinine 2.6 H (0.55-1.02) mg/dL Est Cr Clr Drug Dosing 11.83 mL/min Estimated GFR (MDRD) 17 (>60) mL/min BUN/Creatinine Ratio 31.2 H (14-18) Glucose 109 (83-115) mg/dL Calcium 9.1 (8.5-10.1) mg/dL Magnesium (1.8-2.4) mg/dl Total Bilirubin 0.7 (0.2-1.0) mg/dL AST 29 (15-37) U/L ALT 24 (14-59) U/L Alkaline Phosphatase 115 (46-116) U/L Troponin I < 0.017 (0.00-0.056) ng/mL C-Reactive Protein (<1.0) mg/dL NT-Pro-B Natriuret Pep (0-450) pg/mL Total Protein 7.0 (6.4-8.2) g/dl Albumin 3.6 (3.4-5.0) g/dl Globulin 3.4 gm/dL Albumin/Globulin Ratio 1.1 (1-2) Urine Color (Yellow) Urine Appearance (Clear) Urine pH (5.0-8.0) Ur Specific [place] (1.005-1.030) Urine Protein (Negative) Urine Glucose (UA) (Negative) Urine Ketones (Negative) Urine Occult Blood (Negative) Urine Nitrite (Negative) Urine Bilirubin (Negative) Urine Urobilinogen (0.2-1.0) Ur Leukocyte Esterase (Negative) Urine RBC (0-5) /hpf Urine WBC (0-5) /hpf Ur Epithelial Cells (0-5) /hpf Urine Bacteria (FEW) /hpf Hyaline Casts (0-5) /lpf Fine Granular Casts (0-5) /lpf Urine Mucus (FEW) /hpf MRSA (PCR) 05/17/18 05/17/18 05/17/18 Range/Units 16:10 17:50 21:40 WBC (3.98-10.04) K/mm3 RBC (3.98-5.22) M/mm3 Hgb (11.2-15.7) gm/L Hct (34.1-44.9) % MCV (79.4-94.8) fl MCH (25.6-32.2) pg MCHC (32.2-35.5) g/dl RDW Std Deviation (36.4-46.3) fL Plt Count (182-369) K/mm3 MPV (9.4-12.3) fl Neut % (Auto) (34.0-71.1) % Lymph % (Auto) (19.3-51.7) % [place] % (Auto) (4.7-12.5) % Eos % (Auto) (0.7-5.8) Baso % (Auto) (0.1-1.2) % Neut # (Auto) (1.56-6.13) K/mm3 Lymph # (Auto) (1.18-3.74) K/mm3 [place] # (Auto) (0.24-0.36) K/mm3 Eos # (Auto) (0.04-0.36) K/mm3 Baso # (Auto) (0.01-0.08) K/mm3 PT (9.5-12.1) SECONDS INR Sodium (136-145) mEq/L Potassium (3.5-5.1) mEq/L Chloride (98-107) mEq/L Carbon Dioxide (21-32) mEq/L Anion Gap (5-15) BUN (7-18) mg/dL Creatinine (0.55-1.02) mg/dL Est Cr Clr Drug Dosing mL/min Estimated GFR (MDRD) (>60) mL/min BUN/Creatinine Ratio (14-18) Glucose (83-115) mg/dL Calcium (8.5-10.1) mg/dL Magnesium (1.8-2.4) mg/dl Total Bilirubin (0.2-1.0) mg/dL AST (15-37) U/L ALT (14-59) U/L Alkaline Phosphatase (46-116) U/L Troponin I (0.00-0.056) ng/mL C-Reactive Protein (<1.0) mg/dL NT-Pro-B Natriuret Pep 1693 H (0-450) pg/mL Total Protein (6.4-8.2) g/dl Albumin (3.4-5.0) g/dl Globulin gm/dL Albumin/Globulin Ratio (1-2) Urine Color Yellow (Yellow) Urine Appearance Clear (Clear) Urine pH 5.5 (5.0-8.0) Ur Specific [place] 1.025 (1.005-1.030) Urine Protein Negative (Negative) Urine Glucose (UA) Negative (Negative) Urine Ketones Negative (Negative) Urine Occult Blood Negative (Negative) Urine Nitrite Negative (Negative) Urine Bilirubin Negative (Negative) Urine Urobilinogen 0.2 (0.2-1.0) Ur Leukocyte Esterase Negative (Negative) Urine RBC Not seen (0-5) /hpf Urine WBC 0-5 (0-5) /hpf Ur Epithelial Cells 0-5 (0-5) /hpf Urine Bacteria Rare (FEW) /hpf Hyaline Casts 5-10 H (0-5) /lpf Fine Granular Casts 0-5 (0-5) /lpf Urine Mucus Few (FEW) /hpf MRSA (PCR) Positive H 05/18/18 05/18/18 05/18/18 Range/Units 05:28 05:28 05:28 WBC 7.88 (3.98-10.04) K/mm3 RBC 4.23 (3.98-5.22) M/mm3 Hgb 13.4 (11.2-15.7) gm/L Hct 41.5 (34.1-44.9) % MCV 98.1 H (79.4-94.8) fl MCH 31.7 (25.6-32.2) pg MCHC 32.3 (32.2-35.5) g/dl RDW Std Deviation 51.8 H (36.4-46.3) fL Plt Count 165 L (182-369) K/mm3 MPV 10.1 (9.4-12.3) fl Neut % (Auto) 75.5 H (34.0-71.1) % Lymph % (Auto) 14.0 L (19.3-51.7) % [place] % (Auto) 8.6 (4.7-12.5) % Eos % (Auto) 1.4 (0.7-5.8) Baso % (Auto) 0.1 (0.1-1.2) % Neut # (Auto) 5.95 (1.56-6.13) K/mm3 Lymph # (Auto) 1.10 L (1.18-3.74) K/mm3 [place] # (Auto) 0.68 H (0.24-0.36) K/mm3 Eos # (Auto) 0.11 (0.04-0.36) K/mm3 Baso # (Auto) 0.01 (0.01-0.08) K/mm3 PT 48.3 H (9.5-12.1) SECONDS INR 4.57 Sodium 140 (136-145) mEq/L Potassium 4.9 (3.5-5.1) mEq/L Chloride 107 (98-107) mEq/L Carbon Dioxide 24 (21-32) mEq/L Anion Gap 13.9 (5-15) BUN 66 H (7-18) mg/dL Creatinine 1.8 H (0.55-1.02) mg/dL Est Cr Clr Drug Dosing 17.09 mL/min Estimated GFR (MDRD) 27 (>60) mL/min BUN/Creatinine Ratio 36.7 H (14-18) Glucose 91 (83-115) mg/dL Calcium 8.8 (8.5-10.1) mg/dL Magnesium 1.8 (1.8-2.4) mg/dl Total Bilirubin (0.2-1.0) mg/dL AST (15-37) U/L ALT (14-59) U/L Alkaline Phosphatase (46-116) U/L Troponin I (0.00-0.056) ng/mL C-Reactive Protein 1.2 H* (<1.0) mg/dL NT-Pro-B Natriuret Pep (0-450) pg/mL Total Protein (6.4-8.2) g/dl Albumin (3.4-5.0) g/dl Globulin gm/dL Albumin/Globulin Ratio (1-2) Urine Color (Yellow) Urine Appearance (Clear) Urine pH (5.0-8.0) Ur Specific [place] (1.005-1.030) Urine Protein (Negative) Urine Glucose (UA) (Negative) Urine Ketones (Negative) Urine Occult Blood (Negative) Urine Nitrite (Negative) Urine Bilirubin (Negative) Urine Urobilinogen (0.2-1.0) Ur Leukocyte Esterase (Negative) Urine RBC (0-5) /hpf Urine WBC (0-5) /hpf Ur Epithelial Cells (0-5) /hpf Urine Bacteria (FEW) /hpf Hyaline Casts (0-5) /lpf Fine Granular Casts (0-5) /lpf Urine Mucus (FEW) /hpf MRSA (PCR) 05/18/18 Range/Units 05:28 WBC (3.98-10.04) K/mm3 RBC (3.98-5.22) M/mm3 Hgb (11.2-15.7) gm/L Hct (34.1-44.9) % MCV (79.4-94.8) fl MCH (25.6-32.2) pg MCHC (32.2-35.5) g/dl RDW Std Deviation (36.4-46.3) fL Plt Count (182-369) K/mm3 MPV (9.4-12.3) fl Neut % (Auto) (34.0-71.1) % Lymph % (Auto) (19.3-51.7) % [place] % (Auto) (4.7-12.5) % Eos % (Auto) (0.7-5.8) Baso % (Auto) (0.1-1.2) % Neut # (Auto) (1.56-6.13) K/mm3 Lymph # (Auto) (1.18-3.74) K/mm3 [place] # (Auto) (0.24-0.36) K/mm3 Eos # (Auto) (0.04-0.36) K/mm3 Baso # (Auto) (0.01-0.08) K/mm3 PT (9.5-12.1) SECONDS INR Sodium (136-145) mEq/L Potassium (3.5-5.1) mEq/L Chloride (98-107) mEq/L Carbon Dioxide (21-32) mEq/L Anion Gap (5-15) BUN (7-18) mg/dL Creatinine (0.55-1.02) mg/dL Est Cr Clr Drug Dosing mL/min Estimated GFR (MDRD) (>60) mL/min BUN/Creatinine Ratio (14-18) Glucose (83-115) mg/dL Calcium (8.5-10.1) mg/dL Magnesium (1.8-2.4) mg/dl Total Bilirubin (0.2-1.0) mg/dL AST (15-37) U/L ALT (14-59) U/L Alkaline Phosphatase (46-116) U/L Troponin I (0.00-0.056) ng/mL C-Reactive Protein (<1.0) mg/dL NT-Pro-B Natriuret Pep 2262 H (0-450) pg/mL Total Protein (6.4-8.2) g/dl Albumin (3.4-5.0) g/dl Globulin gm/dL Albumin/Globulin Ratio (1-2) Urine Color (Yellow) Urine Appearance (Clear) Urine pH (5.0-8.0) Ur Specific [place] (1.005-1.030) Urine Protein (Negative) Urine Glucose (UA) (Negative) Urine Ketones (Negative) Urine Occult Blood (Negative) Urine Nitrite (Negative) Urine Bilirubin (Negative) Urine Urobilinogen (0.2-1.0) Ur Leukocyte Esterase (Negative) Urine RBC (0-5) /hpf Urine WBC (0-5) /hpf Ur Epithelial Cells (0-5) /hpf Urine Bacteria (FEW) /hpf Hyaline Casts (0-5) /lpf Fine Granular Casts (0-5) /lpf Urine Mucus (FEW) /hpf MRSA (PCR) Med Orders - Current: Current Medications Acetaminophen (Tylenol) 650 mg PO Q4H PRN PRN Reason: Pain (Mild 1-3)/fever Albuterol (Proventil Neb Soln) 2.5 mg NEB Q2H PRN PRN Reason: Shortness Of Breath/wheezing Albuterol/Ipratropium (Duoneb 3.0-0.5 Mg/3 Ml) 3 ml NEB Q4H PRN PRN Reason: Shortness Of Breath/wheezing Bisacodyl (Dulcolax) 5 mg PO DAILY PRN PRN Reason: Constipation Docusate Sodium (Colace) 100 mg PO BID PRN PRN Reason: Constipation Hydromorphone HCl (Dilaudid) 0.25 mg IVPUSH Q2H PRN PRN Reason: Pain (severe 7-10) Promethazine HCl 6.25 mg/ (Sodium Chloride) 50.25 mls @ 100 mls/hr IV Q6H PRN PRN Reason: Nausea/Vomiting Levothyroxine Sodium (Levothyroxine) 150 mcg PO ACBRK [facility] Last Admin: 05/18/18 08:06 Dose: 150 mcg Magnesium Hydroxide (Milk Of Magnesia) 30 ml PO Q12H PRN PRN Reason: Constipation Metoprolol Tartrate (Lopressor) 25 mg PO BID [facility] Nystatin (Nystop) 0 gm TOP TID [facility] Oxycodone/Acetaminophen (Percocet 325-5 Mg) 1 tab PO Q4H PRN PRN Reason: Pain (moderate 4-6) Polyethylene Glycol (Miralax) 17 gm PO DAILY PRN PRN Reason: Constipation Pramipexole Dihydrochloride (Mirapex) 0.5 mg PO DAILY [facility] Promethazine HCl (Phenergan) 25 mg PO Q6H PRN PRN Reason: Nausea/Vomiting Senna/Docusate Sodium (Senna Plus) 1 tab PO BID PRN PRN Reason: Constipation Sertraline HCl (Zoloft) 50 mg PO DAILY [facility] Warfarin Sodium (Pharmacy To Dose - Warfarin) 1 dose .XX ASDIRECTED [facility] Zolpidem Tartrate (Ambien) 5 mg PO BEDTIME PRN PRN Reason: Sleep Discontinued Medications Sodium Chloride (Normal Saline) 500 mls @ 999 mls/hr IV .BOLUS ONE Stop: 05/17/18 19:43 Last Admin: 05/17/18 19:21 Dose: 999 mls/hr - Exam General: Alert, Cooperative, No Acute Distress HEENT: Pupils Equal, Pupils Reactive, Mucous Membr. Moist/[place] Neck: Supple Lungs: Normal Respiratory Effort, Decreased Breath Sounds Cardiovascular: Regular Rate, Regular Rhythm GI/Abdominal Exam: Normal Bowel Sounds, Soft, Non-Tender, No Organomegaly, No Distention, No Abnormal Bruit (Female) Exam: Other (indwelling solano catheter) Back Exam: Normal Inspection Extremities: Non-Tender, Limited Range of Motion, Other (bilateral lower extremity are wrapped; could not appreciate edema) Skin: Warm, Dry, Intact, Other (wound in bilateral lower extremity) Neurological: No New Focal Deficit Psy/Mental Status: Alert, Normal Affect, Normal Mood - Problem List Review Problem List Initiated/Reviewed/Updated: Yes - Plan Plan:: I/P: Acute: CHF Exacerbation * SOB, 2-3+ pitting edema bilateral lower extremities R>L * BNP 1693--> 2262 * Strict I&O's--> Solano catheter * Fluid and Salt restriction diet * Needs Lasix, but Renal function currently will not allow --> HOLD LASIX * Unable to put on MERRITT hose d/t wounds--> AYESHA wrap for now to help alleviate edema * Elevate legs * ECHO come Sunday Acute Kidney Injury, Improving * Acute on Chronic CKD * GFR 17 (was 52 on 05/11/17) * BUN 81--> 66, Cr 2.6--> 1.8 * Balance IVF with CHF * Continue to hold LASIX, LISINOPRIL, ZOCOR, ALDACTONE Possible Cellulitis of R Leg * Has 3cm wound to R lower extremity with increased warmth and erythema * Wound culture is MRSA positive * H/O MRSA--> MRSA positive * Isolation protocol Multiple Wounds on all extremities and Fungal infection of groin * Risk factor: has h/o of "picking" her skin * Has had h/o MRSA * PT wound care * Wound cultures pos for GPC; hold oral of IV Abx (No leukocytosis and CRP is 1.2) * Nystatin powder for groin * Daily shower Generalized Weakness/Confusion * Likely 2/2 above and recent Tramadol she was put on for back pain--> HOLD TRAMADOL * Unable to walk at this time without assistance; has used cane/walker in past * PT/OT consult * [employer] nida mayer * Thyroid Panel and Vit D level * CM/SW consult--> Has HH but not thriving; will likely need SNF placement Supratherapeutic INR, Improved * PT 54.7, INR 5.18---> 4.57 * Hold home warfarin dose * Pharmacy to dose warfarin to therapeutic level Resolved: S/p Hypotension * 84/57--> 107-149/62-99 mmHg * Hold BP medications * Cut down IVF rate Chronic: PVD * Hands and feet are slightly cyanotic and cool with slow cap refill PAF on coumadin PM CHF Hypothyroidism CHRIS on CPAP H/O MRSA HLD Urinary Incontinence Depression CKD HTN Plan: She is clinically and hemodynamically better Routine AM labs Continue salt/fluid restriction to reduce risk of UTI Discontinue solano catheter DVT Prophylaxis: On warfarin, supratherapeutic--> pharmacy to dose to therapeutic range GI Prophylaxis: Protonix CONTACT PRECAUTIONS, h/o MRSA--> MRSA screening positive Other orders as indicated above Code Status: DNR/DNI; PCP: Dr. Ag Garcia LOS anticipate > 96 hrs pending SNF/NH placement
[2018-05-18] MEDS: Pramipexole 0.5 MG Tab PO SCH (10:20)
[2018-05-18] MEDS: Sertraline 50 MG Tab PO SCH (10:21)
[2018-05-18] MEDS: Metoprolol Tartrate 25 MG Tab PO SCH ×2 (10:21→20:37)
[2018-05-18] MEDS: Nystatin Topical Powder 15 GM Bottle TOP SCH ×3 (10:21→20:37)
[2018-05-19] MEDS: Levothyroxine 150 MCG Tab PO SCH (05:01)
--- NOTE | 2018-05-19 07:55 | PCM.PN ---
- General Info Date of Service: 05/26/18 Admission Dx/Problem (Free Text): Admission Diagnosis/Problem Admission Diagnosis/Problem Weakness Subjective Update: Follow Up Functional Status: Reports: Pain Controlled, Tolerating Diet, Urinating. Denies : New Symptoms - Review of Systems General: Denies: Fever, Weakness, Fatigue, Malaise, Chills HEENT: Reports: No Symptoms, Other (Hard of hearing) Pulmonary: Reports: No Symptoms Cardiovascular: Denies: No Symptoms Gastrointestinal: Reports: No Symptoms Genitourinary: Reports: No Symptoms Musculoskeletal: Reports: No Symptoms Skin: Denies: Cyanosis, Mottled, Pallor, Diaphoresis Neurological: Reports: Difficulty Walking, Weakness, Gait Disturbance. Denies: Confusion Psychiatric: Denies: Depression, Anxiety, Agitation, Hallucinations Systems Review Comment:: No overnight or acute issues. She rested well last night. She has no complaints. Her INR is now at 2.72 but proBNP is trending up. Her Mg level is slightly low at 1.6. - Patient Data Vitals - Most Recent: Last Vital Signs Temp 36.4 C 05/19/18 04:58 Pulse 70 05/19/18 04:58 Resp 14 05/19/18 04:58 BP 106/64 05/19/18 04:58 Pulse Ox 97 05/18/18 20:20 Weight - Most Recent: 87.997 kg I&O - Last 24 Hours: Intake & Output 05/18/18 05/19/18 05/19/18 22:59 06:59 14:59 Intake Total 510 400 Output Total 645 Balance -135 400 Lab Results Last 24 Hours: Laboratory Results - last 24 hr 05/19/18 05/19/18 Range/Units 05:40 05:40 WBC 6.45 (3.98-10.04) K/mm3 RBC 4.00 (3.98-5.22) M/mm3 Hgb 13.0 (11.2-15.7) gm/L Hct 39.4 (34.1-44.9) % MCV 98.5 H (79.4-94.8) fl MCH 32.5 H (25.6-32.2) pg MCHC 33.0 (32.2-35.5) g/dl RDW Std Deviation 51.5 H (36.4-46.3) fL Plt Count 133 L (182-369) K/mm3 MPV 9.8 (9.4-12.3) fl Neut % (Auto) 66.6 (34.0-71.1) % Lymph % (Auto) 20.2 (19.3-51.7) % [place] % (Auto) 10.5 (4.7-12.5) % Eos % (Auto) 2.2 (0.7-5.8) Baso % (Auto) 0.3 (0.1-1.2) % Neut # (Auto) 4.30 (1.56-6.13) K/mm3 Lymph # (Auto) 1.30 (1.18-3.74) K/mm3 [place] # (Auto) 0.68 H (0.24-0.36) K/mm3 Eos # (Auto) 0.14 (0.04-0.36) K/mm3 Baso # (Auto) 0.02 (0.01-0.08) K/mm3 Sodium 139 (136-145) mEq/L Potassium 4.5 (3.5-5.1) mEq/L Chloride 107 (98-107) mEq/L Carbon Dioxide 25 (21-32) mEq/L Anion Gap 11.5 (5-15) BUN 43 H (7-18) mg/dL Creatinine 1.2 H (0.55-1.02) mg/dL Est Cr Clr Drug Dosing 25.63 mL/min Estimated GFR (MDRD) 42 (>60) mL/min BUN/Creatinine Ratio 35.8 H (14-18) Glucose 84 (83-115) mg/dL Calcium 8.8 (8.5-10.1) mg/dL Magnesium 1.6 L (1.8-2.4) mg/dl C-Reactive Protein 1.7 H* (<1.0) mg/dL Free T4 1.84 H (0.76-1.46) ng/dL TSH 3rd Generation 0.172 L (0.358-3.74) uIU/mL Lorenzo Results Last 24 Hours: Microbiology 05/17/18 21:40 Gram Stain - Final Arm, Right - Lower Anaerobic Culture - Preliminary Gram Positive Cocci Med Orders - Current: Current Medications Acetaminophen (Tylenol) 650 mg PO Q4H PRN PRN Reason: Pain (Mild 1-3)/fever Albuterol (Proventil Neb Soln) 2.5 mg NEB Q2H PRN PRN Reason: Shortness Of Breath/wheezing Albuterol/Ipratropium (Duoneb 3.0-0.5 Mg/3 Ml) 3 ml NEB Q4H PRN PRN Reason: Shortness Of Breath/wheezing Bisacodyl (Dulcolax) 5 mg PO DAILY PRN PRN Reason: Constipation Docusate Sodium (Colace) 100 mg PO BID PRN PRN Reason: Constipation Hydromorphone HCl (Dilaudid) 0.25 mg IVPUSH Q2H PRN PRN Reason: Pain (severe 7-10) Promethazine HCl 6.25 mg/ (Sodium Chloride) 50.25 mls @ 100 mls/hr IV Q6H PRN PRN Reason: Nausea/Vomiting Levothyroxine Sodium (Levothyroxine) 150 mcg PO ACBRK [facility] Last Admin: 05/19/18 05:01 Dose: 150 mcg Magnesium Hydroxide (Milk Of Magnesia) 30 ml PO Q12H PRN PRN Reason: Constipation Metoprolol Tartrate (Lopressor) 25 mg PO BID [facility] Last Admin: 05/18/18 20:37 Dose: 25 mg Mupirocin (Bactroban Oint) 30 gm TOP TID@0700,1400,2100 [facility] Nystatin (Nystop) 0 gm TOP TID [facility] Last Admin: 05/18/18 20:37 Dose: 1 applic Oxycodone/Acetaminophen (Percocet 325-5 Mg) 1 tab PO Q4H PRN PRN Reason: Pain (moderate 4-6) Polyethylene Glycol (Miralax) 17 gm PO DAILY PRN PRN Reason: Constipation Pramipexole Dihydrochloride (Mirapex) 0.5 mg PO DAILY [facility] Last Admin: 05/18/18 10:20 Dose: 0.5 mg Promethazine HCl (Phenergan) 25 mg PO Q6H PRN PRN Reason: Nausea/Vomiting Senna/Docusate Sodium (Senna Plus) 1 tab PO BID PRN PRN Reason: Constipation Sertraline HCl (Zoloft) 50 mg PO DAILY [facility] Last Admin: 05/18/18 10:21 Dose: 50 mg Warfarin Sodium (Pharmacy To Dose - Warfarin) 1 dose .XX ASDIRECTED [facility] Zolpidem Tartrate (Ambien) 5 mg PO BEDTIME PRN PRN Reason: Sleep Discontinued Medications Sodium Chloride (Normal Saline) 500 mls @ 999 mls/hr IV .BOLUS ONE Stop: 05/17/18 19:43 Last Admin: 05/17/18 19:21 Dose: 999 mls/hr - Exam General: Alert, Cooperative, No Acute Distress, Other (Obese) HEENT: Pupils Equal, Pupils Reactive, EOMI, Mucous Membr. Moist/[place], Other ( poor dentition; left [place]-orbital edema) Neck: Supple, Trachea Midline Lungs: Normal Respiratory Effort, Decreased Breath Sounds Cardiovascular: Regular Rate, Regular Rhythm GI/Abdominal Exam: Normal Bowel Sounds, Soft, Non-Tender, No Organomegaly, No Distention, No Abnormal Bruit, No Mass, Other (Obese) (Female) Exam: Deferred Back Exam: Normal Inspection, Decreased Range of Motion, Other (kyphosis) Extremities: Normal Range of Motion, Non-Tender, Pedal Edema, Other (b/l upper extremity edema) Peripheral Pulses: 1+: Dorsalis Pedis (L), Dorsalis Pedis (R) Skin: Warm, Dry, Intact Wound/Incisions: No Drainage, Erythema Neurological: No New Focal Deficit (limited due to body habitus and difficulty with hearing). No: Normal Gait Psy/Mental Status: Alert, Normal Affect, Normal Mood - Problem List Review Problem List Initiated/Reviewed/Updated: Yes - My Orders Last 24 Hours: My Active Orders 05/19/18 05:40 T4 FREE [CHEM] AM TSH [CHEM] AM VITAMIN D,25-HYDROXY [CHEM] AM 05/19/18 07:00 Mupirocin Oint [Bactroban Oint] 30 gm TOP TID@0700,1400,2100 05/19/18 07:54 INR,PT,PROTHROMBIN TIME [COAG] Urgent 05/20/18 05:11 INR,PT,PROTHROMBIN TIME [COAG] AM 05/21/18 05:11 INR,PT,PROTHROMBIN TIME [COAG] AM 05/22/18 05:11 INR,PT,PROTHROMBIN TIME [COAG] AM - Plan Plan:: I/P: Acute: CHF Exacerbation * SOB, 2-3+ pitting edema bilateral lower extremities R>L * BNP 1693--> 2262--> 3467 * Strict I&O's--> Solano catheter * Fluid and Salt restriction diet * Renal function has improved, will resume lasix, aldactone and ACEI * Unable to put on MERRITT hose d/t wounds--> AYESHA wrap for now to help alleviate edema * Elevate legs * ECHO come Sunday Acute Kidney Injury, Continue to Improve * Acute on Chronic CKD * GFR 17 (was 52 on 05/11/17) * BUN 81--> 66--> 43, Cr 2.6--> 1.8--> `.2 * Balance IVF with CHF * Resume LASIX, LISINOPRIL, ZOCOR, ALDACTONE Possible Cellulitis of R Leg * Has 3cm wound to R lower extremity with increased warmth and erythema * Wound culture is MRSA positive * H/O MRSA--> MRSA positive * Isolation protocol * Bacitracin Cream to apply as directed Multiple Wounds on all extremities and Fungal infection of groin * Risk factor: has h/o of "picking" her skin * Has had h/o MRSA * PT wound care * Wound cultures pos for MRSA; hold oral of IV Abx (Afebrile w/o leukocytosis and CRP remains minimal) * Nystatin powder for groin * Daily shower Generalized Weaknes * Likely 2/2 above and recent Tramadol she was put on for back pain--> HOLD TRAMADOL * Unable to walk at this time without assistance; has used cane/walker in past * PT/OT consult * DSP ENGINEER cog eval * Thyroid Panel:FT4 is 1.81 and TSH is 0.172--> need to cut down thyroid dose for pharmacy to dose * Vit D level 20.9 (low): D3 1000 units po daily * CM/SW consult--> Has HH but not thriving; will likely need SNF placement Hypomagnesemia * Mg is 1.6 * 2/2 inadequate intake * Replete and monitor Resolved: S/p Hypotension * 84/57--> 107-149/62-99 mmHg * Hold BP medications * Cut down IVF rate S/p Supratherapeutic INR, Improved * PT 54.7, INR 5.18---> 4.57--> 2.72 * Hold home warfarin dose * Pharmacy to dose warfarin to therapeutic level Chronic: PVD * Hands and feet are slightly cyanotic and cool with slow cap refill PAF on coumadin PM CHF Hypothyroidism CHRIS on CPAP H/O MRSA HLD Urinary Incontinence Depression CKD HTN Plan: She is remains clinically stable Routine AM labs Continue salt/fluid restriction to reduce risk of UTI Discontinue solano catheter DVT Prophylaxis: On warfarin, now therapeutic--> pharmacy to dose and monitor GI Prophylaxis: Protonix CONTACT PRECAUTIONS, h/o MRSA--> MRSA screening positive Other orders as indicated above Code Status: DNR/DNI; PCP: Dr. Ag Garcia LOS anticipate > 96 hrs pending SNF/NH placement
[2018-05-19] MEDS: Mupirocin Oint 22 GM Tube TOP SCH ×4 (08:03→21:22)
[2018-05-19 08:25] LABS: VITAMIN D,25-HYDROXY 20.9 ng/ml (30.0-100.0)
[2018-05-19] MEDS: Pramipexole 0.5 MG Tab PO SCH (08:27)
[2018-05-19] MEDS: Nystatin Topical Powder 15 GM Bottle TOP SCH ×3 (08:28→21:30)
[2018-05-19] MEDS: Metoprolol Tartrate 25 MG Tab PO SCH ×2 (08:28→21:30)
[2018-05-19] MEDS: Sertraline 50 MG Tab PO SCH (08:29)
--- NOTE | 2018-05-19 09:50 | CR ---
Chest: Portable view of the chest was obtained. Comparison: Prior chest x-ray of 06/03/17. Heart size within normal limits for portable technique. Tortuous thoracic aorta is seen. Lungs are clear with no acute parenchymal change. Pacemaker is noted. Bony structures are grossly intact. Impression: 1. Incidental findings. Nothing acute is appreciated on portable chest x-ray. Diagnostic code #2
[2018-05-19] MEDS: Lisinopril 5 MG Tab PO SCH (17:37)
[2018-05-19] MEDS ORDERED: Warfarin 2 MG Tab PO ONE (18:00)
[2018-05-19] MEDS ORDERED: Warfarin 2 MG Tab PO SCH (18:00)
[2018-05-19] MEDS: Furosemide 20 MG Tab PO SCH (21:30)
[2018-05-20] MEDS: Mupirocin Oint 22 GM Tube TOP SCH ×3 (04:39→20:07)
[2018-05-20] MEDS: Levothyroxine 150 MCG Tab PO SCH (06:37)
--- NOTE | 2018-05-20 07:13 | CT ---
Head CT Technique: Multiple axial sections through the brain were obtained. Intravenous contrast was not utilized. Comparison: Prior head CT study of 06/03/17. Findings: Ventricles along with basal cisterns and sulci over the convexities are mildly prominent. Minimal diminished density noted within the periventricular white matter compatible with small vessel ischemic demyelination change. No other abnormal parenchymal densities are seen. No evidence of intracranial hemorrhage. No midline shift or mass effect is seen. Bone window settings were reviewed which show no acute calvarial abnormality. Visualized sinuses are clear. Impression: 1. Senescent change. No acute intracranial abnormality is identified. Diagnostic code #2 I agree with preliminary report from [facility], finalized on 05/17/18, 9:00 PM Central Time
[2018-05-20] MEDS: Simvastatin 10 MG Tab PO SCH (08:52)
[2018-05-20] MEDS: Nystatin Topical Powder 15 GM Bottle TOP SCH ×3 (08:52→20:08)
[2018-05-20] MEDS: Spironolactone 25 MG Tab PO SCH (08:52)
[2018-05-20] MEDS: Furosemide 20 MG Tab PO SCH ×2 (08:52→20:07)
[2018-05-20] MEDS: Metoprolol Tartrate 25 MG Tab PO SCH ×2 (08:52→20:07)
[2018-05-20] MEDS: Pramipexole 0.5 MG Tab PO SCH (08:52)
[2018-05-20] MEDS: Sertraline 50 MG Tab PO SCH (08:52)
[2018-05-20] MEDS ORDERED: Magnesium Sulfate/Water 4 GM in Premix Bag 1 BAG IV ONE (11:15)
--- NOTE | 2018-05-20 14:55 | PCM.PN ---
- General Info Date of Service: 05/20/18 Admission Dx/Problem (Free Text): Admission Diagnosis/Problem Admission Diagnosis/Problem Weakness Subjective Update: Follow Up Functional Status: Reports: Pain Controlled, Tolerating Diet, Urinating, New Symptoms - Review of Systems General: Denies: Fever, Weakness, Fatigue, Malaise, Chills HEENT: Reports: No Symptoms Pulmonary: Denies: Shortness of Breath Cardiovascular: Reports: Edema. Denies: Chest Pain, Dyspnea on Exertion, Lightheadedness Gastrointestinal: Denies: Abdominal Pain, Decreased Appetite, Nausea, Vomiting Genitourinary: Reports: No Symptoms Musculoskeletal: Reports: No Symptoms Skin: Reports: Bruising, Pruritis, Rash. Denies: Cyanosis, Mottled, Pallor, Diaphoresis Neurological: Reports: Difficulty Walking, Gait Disturbance. Denies: Confusion , Weakness Psychiatric: Denies: Depression, Anxiety, Agitation Systems Review Comment:: Overnight she started picking on her left arm and was told by her nurse they found band aids in her mouth. She is alert and wake this AM. She has no complaints. Her renal function continue to improve. Her INR and Mg are 1.93 and 1.4 respectively. Her ProBNP level is elevated at 3647. - Patient Data Vitals - Most Recent: Last Vital Signs Temp 36.3 C 05/20/18 08:23 Pulse 70 05/20/18 08:52 Resp 16 05/20/18 03:19 BP 125/76 05/20/18 08:52 Pulse Ox 95 05/20/18 08:23 Weight - Most Recent: 85.275 kg I&O - Last 24 Hours: Intake & Output 05/19/18 05/20/18 05/20/18 22:59 06:59 14:59 Intake Total 640 100 180 Output Total 900 Balance 640 -800 180 Lab Results Last 24 Hours: Laboratory Results - last 24 hr 05/20/18 05/20/18 05/20/18 Range/Units 06:22 06:22 06:22 WBC 7.33 (3.98-10.04) K/mm3 RBC 3.98 (3.98-5.22) M/mm3 Hgb 12.9 (11.2-15.7) gm/L Hct 38.9 (34.1-44.9) % MCV 97.7 H (79.4-94.8) fl MCH 32.4 H (25.6-32.2) pg MCHC 33.2 (32.2-35.5) g/dl RDW Std Deviation 50.3 H (36.4-46.3) fL Plt Count 124 L (182-369) K/mm3 MPV 9.8 (9.4-12.3) fl Neut % (Auto) 69.8 (34.0-71.1) % Lymph % (Auto) 17.3 L (19.3-51.7) % [place] % (Auto) 10.6 (4.7-12.5) % Eos % (Auto) 1.8 (0.7-5.8) Baso % (Auto) 0.1 (0.1-1.2) % Neut # (Auto) 5.11 (1.56-6.13) K/mm3 Lymph # (Auto) 1.27 (1.18-3.74) K/mm3 [place] # (Auto) 0.78 H (0.24-0.36) K/mm3 Eos # (Auto) 0.13 (0.04-0.36) K/mm3 Baso # (Auto) 0.01 (0.01-0.08) K/mm3 PT (9.5-12.1) SECONDS INR Sodium 137 (136-145) mEq/L Potassium 4.1 (3.5-5.1) mEq/L Chloride 106 (98-107) mEq/L Carbon Dioxide 23 (21-32) mEq/L Anion Gap 12.1 (5-15) BUN 33 H (7-18) mg/dL Creatinine 1.1 H (0.55-1.02) mg/dL Est Cr Clr Drug Dosing 27.96 mL/min Estimated GFR (MDRD) 47 (>60) mL/min BUN/Creatinine Ratio 30.0 H (14-18) Glucose 92 (83-115) mg/dL Calcium 8.9 (8.5-10.1) mg/dL Magnesium 1.4 L (1.8-2.4) mg/dl C-Reactive Protein 1.5 H* (<1.0) mg/dL NT-Pro-B Natriuret Pep 3647 H (0-450) pg/mL 05/20/18 Range/Units 06:22 WBC (3.98-10.04) K/mm3 RBC (3.98-5.22) M/mm3 Hgb (11.2-15.7) gm/L Hct (34.1-44.9) % MCV (79.4-94.8) fl MCH (25.6-32.2) pg MCHC (32.2-35.5) g/dl RDW Std Deviation (36.4-46.3) fL Plt Count (182-369) K/mm3 MPV (9.4-12.3) fl Neut % (Auto) (34.0-71.1) % Lymph % (Auto) (19.3-51.7) % [place] % (Auto) (4.7-12.5) % Eos % (Auto) (0.7-5.8) Baso % (Auto) (0.1-1.2) % Neut # (Auto) (1.56-6.13) K/mm3 Lymph # (Auto) (1.18-3.74) K/mm3 [place] # (Auto) (0.24-0.36) K/mm3 Eos # (Auto) (0.04-0.36) K/mm3 Baso # (Auto) (0.01-0.08) K/mm3 PT 20.8 H (9.5-12.1) SECONDS INR 1.93 Sodium (136-145) mEq/L Potassium (3.5-5.1) mEq/L Chloride (98-107) mEq/L Carbon Dioxide (21-32) mEq/L Anion Gap (5-15) BUN (7-18) mg/dL Creatinine (0.55-1.02) mg/dL Est Cr Clr Drug Dosing mL/min Estimated GFR (MDRD) (>60) mL/min BUN/Creatinine Ratio (14-18) Glucose (83-115) mg/dL Calcium (8.5-10.1) mg/dL Magnesium (1.8-2.4) mg/dl C-Reactive Protein (<1.0) mg/dL NT-Pro-B Natriuret Pep (0-450) pg/mL Lorenzo Results Last 24 Hours: Microbiology 05/17/18 16:50 Aerobic Blood Culture - Preliminary Blood NO GROWTH AFTER 2 DAYS Anaerobic Blood Culture - Preliminary NO GROWTH AFTER 2 DAYS 05/17/18 21:40 Gram Stain - Final Arm, Right - Lower Anaerobic Culture - Final (Mrsa) Staphylococcus Aureus Med Orders - Current: Current Medications Acetaminophen (Tylenol) 650 mg PO Q4H PRN PRN Reason: Pain (Mild 1-3)/fever Albuterol (Proventil Neb Soln) 2.5 mg NEB Q2H PRN PRN Reason: Shortness Of Breath/wheezing Albuterol/Ipratropium (Duoneb 3.0-0.5 Mg/3 Ml) 3 ml NEB Q4H PRN PRN Reason: Shortness Of Breath/wheezing Bisacodyl (Dulcolax) 5 mg PO DAILY PRN PRN Reason: Constipation Docusate Sodium (Colace) 100 mg PO BID PRN PRN Reason: Constipation Furosemide (Lasix) 20 mg PO BID [facility] Last Admin: 05/20/18 08:52 Dose: 20 mg Hydromorphone HCl (Dilaudid) 0.25 mg IVPUSH Q2H PRN PRN Reason: Pain (severe 7-10) Promethazine HCl 6.25 mg/ (Sodium Chloride) 50.25 mls @ 100 mls/hr IV Q6H PRN PRN Reason: Nausea/Vomiting Magnesium Sulfate 4 gm/ Premix 100 mls @ 25 mls/hr IV ONETIME ONE Stop: 05/20/18 15:14 Last Admin: 05/20/18 11:23 Dose: 25 mls/hr Levothyroxine Sodium (Levothyroxine) 125 mcg PO DAILY@0700 [facility] Lisinopril (Prinivil) 5 mg PO DAILY@1700 [facility] Last Admin: 05/19/18 17:37 Dose: 5 mg Magnesium Hydroxide (Milk Of Magnesia) 30 ml PO Q12H PRN PRN Reason: Constipation Magnesium Sulfate (Pharmacy To Dose - Magnesium Replacement) 0 dose .XX ASDIRECTED PRN PRN Reason: RX TO DOSE MAG Metoprolol Tartrate (Lopressor) 25 mg PO BID [facility] Last Admin: 05/20/18 08:52 Dose: 25 mg Mupirocin (Bactroban Oint) 30 gm TOP TID@0700,1400,2100 [facility] Last Admin: 05/20/18 04:39 Dose: 22 gram Nystatin (Nystop) 0 gm TOP TID [facility] Last Admin: 05/20/18 08:52 Dose: 1 applic Oxycodone/Acetaminophen (Percocet 325-5 Mg) 1 tab PO Q4H PRN PRN Reason: Pain (moderate 4-6) Polyethylene Glycol (Miralax) 17 gm PO DAILY PRN PRN Reason: Constipation Potassium Chloride (Pharmacy To Dose - Potassium Replacement) 0 dose .XX ASDIRECTED PRN PRN Reason: RX TO DOSE K Pramipexole Dihydrochloride (Mirapex) 0.5 mg PO DAILY [facility] Last Admin: 05/20/18 08:52 Dose: 0.5 mg Promethazine HCl (Phenergan) 25 mg PO Q6H PRN PRN Reason: Nausea/Vomiting Senna/Docusate Sodium (Senna Plus) 1 tab PO BID PRN PRN Reason: Constipation Sertraline HCl (Zoloft) 50 mg PO DAILY [facility] Last Admin: 05/20/18 08:52 Dose: 50 mg Simvastatin (Zocor) 10 mg PO DAILY [facility] Last Admin: 05/20/18 08:52 Dose: 10 mg Spironolactone (Aldactone) 25 mg PO DAILY [facility] Last Admin: 05/20/18 08:52 Dose: 25 mg Warfarin Sodium (Pharmacy To Dose - Warfarin) 1 dose .XX ASDIRECTED [facility] Warfarin Sodium (Coumadin) 2 mg PO SuMoWeThFrSa@1800 [facility] Warfarin Sodium (Coumadin) 3 mg PO Tu@1800 [facility] Warfarin Sodium (Coumadin) 2 mg PO DAILY@1800 [facility] Stop: 05/20/18 21:00 Zolpidem Tartrate (Ambien) 5 mg PO BEDTIME PRN PRN Reason: Sleep Last Admin: 05/19/18 21:43 Dose: 5 mg Discontinued Medications Sodium Chloride (Normal Saline) 500 mls @ 999 mls/hr IV .BOLUS ONE Stop: 05/17/18 19:43 Last Admin: 05/17/18 19:21 Dose: 999 mls/hr Levothyroxine Sodium (Levothyroxine) 150 mcg PO ACBRK [facility] Last Admin: 05/20/18 06:37 Dose: 150 mcg Warfarin Sodium (Coumadin) 2 mg PO ONETIME ONE Stop: 05/19/18 18:01 Last Admin: 05/19/18 17:37 Dose: 2 mg - Exam General: Alert, Cooperative, No Acute Distress, Other (Obese) HEENT: Pupils Equal, Pupils Reactive, Mucous Membr. Moist/[place], Other (poor dentition) Neck: Supple, Trachea Midline Lungs: Normal Respiratory Effort, Decreased Breath Sounds Cardiovascular: Regular Rate, Regular Rhythm GI/Abdominal Exam: Normal Bowel Sounds, Soft, Non-Tender, No Organomegaly, No Distention, No Abnormal Bruit, Other (Obese) (Female) Exam: Deferred Back Exam: Normal Inspection, Decreased Range of Motion Extremities: Normal Range of Motion, Non-Tender, Other (legs warpped with AYESHA) Peripheral Pulses: 1+: Dorsalis Pedis (L), Dorsalis Pedis (R) Skin: Warm, Dry, Intact, Rash Wound/Incisions: Dressing Dry and Intact, No Drainage, Erythema Improving Neurological: No New Focal Deficit. No: Normal Gait Psy/Mental Status: Alert, Normal Affect, Normal Mood - Problem List Review Problem List Initiated/Reviewed/Updated: Yes - My Orders Last 24 Hours: My Active Orders 05/19/18 17:00 Lisinopril [Prinivil] 5 mg PO DAILY@1700 05/19/18 18:00 Warfarin [Coumadin] 2 mg PO SuMoWeThFrSa@179905/19/18 21:00 Furosemide [Lasix] 20 mg PO BID 05/20/18 09:00 Simvastatin [Zocor] 10 mg PO DAILY Spironolactone [Aldactone] 25 mg PO DAILY 05/20/18 11:15 Magnesium Sulfate/Water [Magnesium Sulfate 4 GM in Water 100 ML] 4 gm Premix Bag 1 bag IV ONETIME 05/20/18 14:44 Consult to Physician [CONS] Routine 05/20/18 14:46 Notify Provider Consults [RC] ASDIRECTED 05/20/18 18:00 Warfarin [Coumadin] 2 mg PO DAILY@1800 05/21/18 05:11 INR,PT,PROTHROMBIN TIME [COAG] AM 05/21/18 07:00 Levothyroxine 125 mcg PO DAILY@0700 05/21/18 18:00 Warfarin [Coumadin] 3 mg PO Tu@1800 05/22/18 05:11 INR,PT,PROTHROMBIN TIME [COAG] AM - Plan Plan:: I/P: Acute: CHF Exacerbation * SOB, 2-3+ pitting edema bilateral lower extremities R>L * BNP 1693--> 2262--> 3467--> 3647 * Strict I&O's--> Solano catheter * Fluid and Salt restriction diet * Renal function has improved, will resume lasix, aldactone and ACEI * Unable to put on MERRITT hose d/t wounds--> AYESHA wrap for now to help alleviate edema * Elevate legs * ECHO come Sunday Possible Cellulitis of R Leg * Has 3cm wound to R lower extremity with increased warmth and erythema * Wound culture is MRSA positive * H/O MRSA--> MRSA positive * Isolation protocol * Bacitracin Cream to apply as directed Multiple Wounds on all extremities and Fungal infection of groin * Risk factor: has h/o of "picking" her skin * Has had h/o MRSA * PT wound care * Wound cultures pos for MRSA; hold oral of IV Abx (Afebrile w/o leukocytosis and CRP remains minimal) * Nystatin powder for groin * Daily shower Generalized Weakness * Likely 2/2 above and recent Tramadol she was put on for back pain--> HOLD TRAMADOL * Unable to walk at this time without assistance; has used cane/walker in past * PT/OT consult * COMPUTATIONAL LINGUIST cog eval * Thyroid Panel:FT4 is 1.81 and TSH is 0.172--> need to cut down thyroid dose for pharmacy to dose * Vit D level 20.9 (low): D3 1000 units po daily * CM/SW consult--> Has HH but not thriving; will likely need SNF placement Hypomagnesemia * Mg is 1.6--> 1.4 * 2/2 inadequate intake * Replete and monitor Subtherapeutic INR * INR 1.93 * Pharmacy to dose and monitor Warfarin 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 Browne Resolved: S/p Hypotension * 84/57--> 107-149/62-99 mmHg * Hold BP medications * Cut down IVF rate S/p Supratherapeutic INR, Improved * PT 54.7, INR 5.18---> 4.57--> 2.72 * Hold home warfarin dose * Pharmacy to dose warfarin to therapeutic level S/p Acute Kidney Injury, likely at baseline * Acute on Chronic CKD * GFR 17 (was 52 on 05/11/17) * BUN 81--> 66--> 43, Cr 2.6--> 1.8--> 1.2--> 1.1 * Balance IVF with CHF * Resume LASIX, LISINOPRIL, ZOCOR, ALDACTONE Chronic: PVD * Hands and feet are slightly cyanotic and cool with slow cap refill PAF on coumadin PM CHF Hypothyroidism CHRIS on CPAP H/O MRSA HLD Urinary Incontinence Depression CKD HTN Plan: She is remains clinically stable Routine AM labs Continue salt/fluid restriction to reduce risk of UTI Discontinue solano catheter DVT Prophylaxis: On warfarin, now therapeutic--> pharmacy to dose and monitor GI Prophylaxis: Protonix CONTACT PRECAUTIONS, h/o MRSA--> MRSA screening positive Tele-psych consult Other orders as indicated above Code Status: DNR/DNI; PCP: Dr. Ag Garcia LOS > 96 hrs pending 2D echo report and tele-psych evaluation
[2018-05-20] MEDS: Lisinopril 5 MG Tab PO SCH (16:52)
[2018-05-20] MEDS: Warfarin 2 MG Tab PO SCH ×2 (16:54→17:13)
[2018-05-20] MEDS ORDERED: diphenhydrAMINE/Zinc Acetate 1% Crm 28.3 GM Tube TOP PRN (21:16)
--- NOTE | 2018-05-21 06:08 | CONS ---
CONSULTING PHYSICIAN: Julian Browne MD DATE OF CONSULTATION: 05/20/2018 PSYCHIATRIC EVALUATION This is a 60-minute inpatient clinical event. IDENTIFICATION: The patient is an 88-year-old female who is admitted to the Med/Surg Unit at [facility] on 05/17/2018. She is seen for psychiatric evaluation. CHIEF COMPLAINT: "I don't really know why." HISTORY OF PRESENT ILLNESS: The patient is an 88-year-old female, who was admitted to the Med/Surg Unit for generalized weakness and lethargy. The patient had been living by herself in [place], but does have family in the area. Staff is concerned that the patient is not displaying an ability to care for herself even though she is a little bit better from her weakness and lethargy since admission. For her part, the patient is saying she is "tired all the time" and there is concern on the staff that the patient is having some issues with picking at her skin to the point where the skin becomes overall broken and that she might have some OCD issues. The patient is not reporting any problems with OCD, but she does state that she gets depressed and she feels that the depression as well as her physical issues "are certainly all connected." She reports no suicidal or homicidal ideation. She denies any psychotic symptoms. She is alert and oriented x2 to person and place, but not to date. There are no reports of illicit substance use or excessive alcohol use complicating her clinical picture. MEDICATIONS: Psychiatric medications at time of presentation: 1. Ambien 5 mg at bedtime. 2. Zoloft 50 mg q.a.m. ALLERGIES: 1. Penicillin. 2. Cipro. 3. Vancomycin. 4. Flagyl. PAST MEDICAL HISTORY: The patient is currently being worked up for possible CHF. REVIEW OF SYSTEMS: Aside from cardiac, all other major organ systems are negative at this point in time for acute difficulties or complications per staff report. FAMILY PSYCHIATRIC AND CD HISTORY: None reported. PAST PSYCHIATRIC AND CD HISTORY: The patient does report that she has a past psychiatric diagnosis of depression and anxiety. Her outpatient MD is Dr. Garcia, who has been treating her for many years. SOCIAL HISTORY: The patient was born and raised in [place], [place]. She currently lives at home by herself in [place], [place], but does have family who support her, and they do report also that the patient has struggled with mental health issues for many years. MENTAL STATUS EXAM: The patient is an 88-year-old white female in no apparent distress. Speech is significant for increased latency of response, but regular rate and rhythm. Psychomotor activity is within normal limits. There is no abnormal motor movements or tics observed. Gait and station are not observed. This patient is seated during the course of the inpatient consult. The patient is alert and oriented x2, to person and place, but not date. Mood is depressed and anxious. Affect is cooperative overall for the purposes of the inpatient consult. There is no behavioral or stated evidence of acute suicidal or homicidal ideation or acute psychotic symptoms. Thought processes appear significant for some thought blocking. However, there are no acute manic symptoms or loose associations evident. Judgment and insight do appear impaired secondary to the patient's medical issues and possible symptoms of depression that might be causing thought blocking or a kind of pseudodementia condition as opposed to a full-blown dementia process. Motivation for help appears fair. VITAL SIGNS: Vitals at time of consultation: 109/54, 71, 20, 97.5 degrees. IMPRESSION: [place] I. 1. Major depressive disorder, recurrent, F33.2. 2. Anxiety disorder, not otherwise specified, F41.9. 3. Rule out obsessive-compulsive disorder. 4. Rule out trichotillomania process. 5. Rule out pseudodementia versus dementia process. [place] II: None. [place] III: Possible history of congestive heart failure, currently being worked up to assess for patient's weakness and malaise. [place] IV: Severe. [place] V: 50 to 55. PLAN: 1. Discontinue Ambien as this agent might be causing exacerbation of the patient's symptoms in terms of a poor memory and fatigue as well as depression. 2. Increase the patient's Zoloft from 50 to 75 mg q.a.m. to help with symptoms of depression. 3. Continue other medications as prescribed by the patient's inpatient primary medical treatment team. 4. Treatment planning, also as laid out by the patient's inpatient primary medical treatment team. 5. If the patient continues to have difficulties with her cognition as she convalesces, we would feel that the patient is a good candidate for possible placement and prison residence for a temporary stay while she stabilizes or for a lengthier stay if needed if she is assessed by OT and PT and found that she is unable to care for herself in an independent living environment. 6. We will continue to follow the patient on an as-needed basis while she remains on the Inpatient Med/Surg Unit. 7. We will follow up with the patient sooner if any complications in the interim. 8. Recommended the patient to follow up with outpatient care provider or Outpatient Psychiatry to assess her overall function, efficacy of her newly adjusted and continued psychiatric medication regimen once she is discharged back to the community, to an alternative living facility. 9. Crisis plan is in place. JUANI /[id number]
[2018-05-21] MEDS ORDERED: Levothyroxine 125 MCG Tab PO SCH (07:00)
[2018-05-21] MEDS: Mupirocin Oint 22 GM Tube TOP SCH ×2 (07:18→13:57)
[2018-05-21] MEDS ORDERED: Sertraline 50 MG Tab PO SCH (09:00)
[2018-05-21] MEDS: Furosemide 20 MG Tab PO SCH (09:32)
[2018-05-21] MEDS: Spironolactone 25 MG Tab PO SCH (09:32)
[2018-05-21] MEDS: Simvastatin 10 MG Tab PO SCH (09:32)
[2018-05-21] MEDS: Metoprolol Tartrate 25 MG Tab PO SCH (09:32)
[2018-05-21] MEDS: Pramipexole 0.5 MG Tab PO SCH (09:32)
[2018-05-21] MEDS: Nystatin Topical Powder 15 GM Bottle TOP SCH ×2 (09:45→14:02)
--- NOTE | 2018-05-21 10:53 | PCM.DCSUM1 ---
Discharge Summary - Hospital Course Brief History: This is an 88 yo female with past medical hx/o PVD, Afib on coumadin, PM, CHF, Hypothyroid, CHRIS on CPAP, H/O MRSA, HLD, Urinary Incontinence , Depression, CKD, HTN who comes in for Generalized Weakness and Supratherapeutic INR. She is A+O x 2 and it is difficult to attain an accurate ROS. She currently is confused as to why she is here, but does state she has pain to her right leg. Her symptoms slightly improved after receiving IVF in the ED. Her initial workup in the ED showed a CBC remarkable for MCV 98.2, RDW 53.4, Plt 180, Neut 77.2%, Lymph 13.6%. Her coagulation studies showed PT 54.7, INR 5.18. Her chemistry is remarkable for Na 134, BUN 81, Cr 2.6, GFR 17, BNP 1693. EKG shows wide QRS. CXR shows nothing acute. CT Head shows nothing acute. U/A was unremarkable for UTI. She is subsequently admitted to the medical floor. She is a DNR/DNI. Her PCP is Dr. Ag Garcia. 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 SALESMAN (CURRENT) DRUG THERAPY Status: Acute (2) Subtherapeutic international normalized ratio (INR) SNOMED Code(s): 694527078, 260054317 ICD Code: R79.1 - ABNORMAL COAGULATION PROFILE Status: Acute (3) OCD (obsessive compulsive disorder) SNOMED Code(s): 257957461 ICD Code: F42.9 - OBSESSIVE-COMPULSIVE DISORDER, UNSPECIFIED Status: Chronic Qualifiers: Obsessive-compulsive disorder type: excoriation disorder Qualified Code(s) : 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 (4) Wound cellulitis SNOMED Code(s): 109195289 ICD Code: L03.90 - CELLULITIS, UNSPECIFIED Status: Chronic (5) Altered mental status SNOMED Code(s): 458980336 ICD Code: R41.82 - ALTERED MENTAL STATUS, UNSPECIFIED Status: Resolved Priority: High Qualifiers: Altered mental status type: transient alteration of awareness Qualified Code(s): R40.4 - Transient alteration of awareness (6) Hypotension SNOMED Code(s): 62560068 ICD Code: I95.9 - HYPOTENSION, UNSPECIFIED Status: Resolved Qualifiers: Hypotension type: hypotension due to drug Qualified Code(s): I95.2 - Hypotension due to drugs (7) Weakness SNOMED Code(s): 60389011 ICD Code: R53.1 - WEAKNESS Status: Resolved Priority: Medium (8) Hypomagnesemia syndrome SNOMED Code(s): 860074527 ICD Code: E83.42 - HYPOMAGNESEMIA Status: Resolved (9) Supratherapeutic INR SNOMED Code(s): 412545749 ICD Code: R79.1 - ABNORMAL COAGULATION PROFILE Status: Resolved (10) MARAH (acute kidney injury) SNOMED Code(s): 79709067 ICD Code: N17.9 - ACUTE KIDNEY FAILURE, UNSPECIFIED Status: Resolved (11) CHF (congestive heart failure) SNOMED Code(s): 52331562 ICD Code: I50.9 - HEART FAILURE, UNSPECIFIED Status: Resolved Priority: Medium (12) MRSA (methicillin resistant Staphylococcus aureus) colonization SNOMED Code(s): 761058125 ICD Code: Z22.322 - CARRIER OR SUSPECTED CARRIER OF METHICILLIN RESIS STAPH Status: Acute - Patient Summary/Data Operative Procedure(s) Performed: None Complications: None Consults: Consultations 05/17/18 22:08 Consult to Case Management/Care Technician [CONS] Routine Consult to [employer] [CONS] Routine OT Evaluation and Treatment [CONS] Routine PT Evaluation and Treatment [CONS] Routine CONNIE SCRATCHER Evaluation and Treatment [CONS] Routine 05/20/18 06:13 CONNIE SCRATCHER Evaluation and Treatment [CONS] Routine 05/20/18 14:44 Consult to Physician [CONS] Routine Labs Pending at D/C: None Recommended Follow-up Testing/Procedures: Repeat labs in 1 week Planned Operative Procedure(s) after DC: None Hospital Course: The patient was primairly admited for evaluationf of AMS. - Patient Instructions Diet: Heart Healthy Diet, Usual Diet as Tolerated, Low Sodium, Fluid Restriction , Weight Loss Diet Fluid Restriction: 2000 mL Activity: As Tolerated Driving: Do Not Drive Showering/Bathing: May Shower Wound/Incision Care: Keep Operative Site/Wound Site Clean and Dry Notify Provider of: Fever, Increased Pain, Swelling and Redness, Drainage, Nausea and/or Vomiting Other/Special Instructions: - Please take all new medications as directed. - Resume all home medications and routine home activities as tolerated. - Check vitals and follow parameters before taking your BP medications. - Please follow daily fluid restriction. - Call or follow up with your PCP for any questions or concerns after discharge. - Follow up with your PCP in 1 week with repeat labs (INR, BMP and Mg). - Recommend go over (review) all home medications with your PCP on follow up appointment. - Come back or seek immediate care should your symptoms persist or get worse - Discharge Plan *PRESCRIPTION DRUG MONITORING PROGRAM REVIEWED*: Not Applicable *COPY OF PRESCRIPTION DRUG MONITORING REPORT IN PATIENT RACHANA: Not Applicable Prescriptions/Med Rec: diphenhydrAMINE/Zinc Acetate [Benadryl Itch Stopping Crm] 28.3 gm TP Q4H PRN #1 cream..g. PRN Reason: Itching Ergocalciferol (Vitamin D2) [Vitamin D2] 50,000 unit PO ASDIRECTED #12 cap Levothyroxine 125 mcg PO ACBREAKFAST #30 tab Mupirocin Oint [Bactroban Oint] 30 gm TOP TID@0700,1400,2100 #1 tube Sertraline [Zoloft] 75 mg PO DAILY #120 tablet Home Medications: Home Meds Pramipexole [Mirapex] 0.5 mg PO DAILY 02/28/14 [History] Simvastatin [Zocor] 10 mg PO DAILY 02/28/14 [History] Warfarin [Coumadin] 2 mg PO SUMOWETHFRSA 02/28/14 [History] Warfarin [Coumadin] 3 mg PO TU 10/25/15 [History] Potassium Chloride [Klor-Con 10] 10 meq PO BIDMEALS 06/29/16 [History] Ergocalciferol (Vitamin D2) [Vitamin D2] 50,000 unit PO ASDIRECTED #12 cap 05/21 [Rx] Furosemide [Lasix] 20 mg PO BID #0 05/21/18 [Rx] Levothyroxine 125 mcg PO ACBREAKFAST #30 tab 05/21/18 [Rx] Lisinopril 5 mg PO 1700 #0 05/21/18 [Rx] Metoprolol Tartrate 25 mg PO BID #0 05/21/18 [Rx] Mupirocin Oint [Bactroban Oint] 30 gm TOP TID@0700,1400,2100 #1 tube 05/21/18 [ Rx] Sertraline [Zoloft] 75 mg PO DAILY #120 tablet 05/21/18 [Rx] Spironolactone [Aldactone] 25 mg PO DAILY #0 05/21/18 [Rx] Zolpidem Tartrate [Ambien] 5 mg PO BEDTIME #0 05/21/18 [Rx] diphenhydrAMINE/Zinc Acetate [Benadryl Itch Stopping Crm] 28.3 gm TP Q4H PRN #1 cream..g. 05/21/18 [Rx] traMADol [Ultram] 50 mg PO Q6H PRN #0 05/21/18 [Rx] Patient Handouts: Acute Kidney Injury, Adult, Vitamin K Foods and Warfarin, Hypotension, [id number], Confusion, Hypomagnesemia, Weakness, [id number], Supporting Someone With Obsessive-Compulsive Disorder, Heart Failure, Easy-to- Read, Preventing Heart Failure, MRSA FAQs - [facility] Referrals: Ag Garcia MD [Primary Care Provider] - 05/29/18 12:45 pm - Discharge Summary/Plan Comment DC Time >30 min.: Yes (45 mins) Discharge Summary/Plan Comment: Discharge to Home Due to listed medical diagnoses in this report, patient is in need of skilled home health services for nursing, speech, physical and occupation therapy. Patient is homebound due to chronic medical illness and was further weakened by her most recent illness. She will benefit from above services to improve her level of activity tolerance, generalized weakness and increased level of independence. She will be followed outpatient by her PCP, Dr. Garcia. - General Info Date of Service: 05/21/18 Admission Dx/Problem (Free Text: Admission Diagnosis/Problem Admission Diagnosis/Problem Weakness Subjective Update: Follow Up Functional Status: Reports: Pain Controlled, Tolerating Diet, Ambulating, Urinating. Denies: New Symptoms - Review of Systems General: Denies: Fever, Weakness, Fatigue, Malaise, Chills HEENT: Reports: No Symptoms Pulmonary: Denies: Shortness of Breath, Pleuritic Chest Pain, Cough Cardiovascular: Reports: Edema. Denies: Chest Pain, Dyspnea on Exertion, Lightheadedness Gastrointestinal: Denies: Abdominal Pain, Nausea, Vomiting Genitourinary: Reports: No Symptoms Musculoskeletal: Reports: No Symptoms Skin: Reports: Bruising, Rash, Other (wounds). Denies: Jaundice, Pallor, Diaphoresis Neurological: Reports: Difficulty Walking, Weakness, Gait Disturbance. Denies: Confusion Psychiatric: Denies: Depression, Anxiety, Agitation, Hallucinations, Suicidal Ideation Systems Review Comment: No significant overnight or acute issues. She looks clinicaly stale. ehas no complaints this AM. Her INR and Mg level sare1.8 and 1.4 respectively. Her proBNP is now down to 1928. - Patient Data Vitals - Most Recent: Last Vital Signs Temp 36.2 C 05/21/18 08:22 Pulse 70 05/21/18 09:32 Resp 28 H 05/21/18 08:22 BP 142/75 H 05/21/18 09:32 Pulse Ox 96 05/21/18 08:26 Weight - Most Recent: 84.414 kg I&O - Last 24 hours: Intake & Output 05/20/18 05/21/18 05/21/18 22:59 06:59 14:59 Intake Total 580 150 300 Output Total 600 1550 Balance -20 -1400 300 Lab Results - Last 24 hrs: Laboratory Results - last 24 hr 05/21/18 05/21/18 05/21/18 Range/Units 06:15 06:15 06:15 WBC 5.52 (3.98-10.04) K/mm3 RBC 4.00 (3.98-5.22) M/mm3 Hgb 12.9 (11.2-15.7) gm/L Hct 39.1 (34.1-44.9) % MCV 97.8 H (79.4-94.8) fl MCH 32.3 H (25.6-32.2) pg MCHC 33.0 (32.2-35.5) g/dl RDW Std Deviation 51.0 H (36.4-46.3) fL Plt Count 125 L (182-369) K/mm3 MPV 9.9 (9.4-12.3) fl Neut % (Auto) 66.8 (34.0-71.1) % Lymph % (Auto) 20.3 (19.3-51.7) % Sumner % (Auto) 10.1 (4.7-12.5) % Eos % (Auto) 2.4 (0.7-5.8) Baso % (Auto) 0.2 (0.1-1.2) % Neut # (Auto) 3.69 (1.56-6.13) K/mm3 Lymph # (Auto) 1.12 L (1.18-3.74) K/mm3 Sumner # (Auto) 0.56 H (0.24-0.36) K/mm3 Eos # (Auto) 0.13 (0.04-0.36) K/mm3 Baso # (Auto) 0.01 (0.01-0.08) K/mm3 PT (9.5-12.1) SECONDS INR Sodium 139 (136-145) mEq/L Potassium 3.8 (3.5-5.1) mEq/L Chloride 104 (98-107) mEq/L Carbon Dioxide 26 (21-32) mEq/L Anion Gap 12.8 (5-15) BUN 29 H (7-18) mg/dL Creatinine 1.1 H (0.55-1.02) mg/dL Est Cr Clr Drug Dosing 27.96 mL/min Estimated GFR (MDRD) 47 (>60) mL/min BUN/Creatinine Ratio 26.4 H (14-18) Glucose 85 (83-115) mg/dL Calcium 8.4 L (8.5-10.1) mg/dL Magnesium 2.0 (1.8-2.4) mg/dl C-Reactive Protein 1.4 H* (<1.0) mg/dL NT-Pro-B Natriuret Pep 1928 H (0-450) pg/mL 05/21/18 Range/Units 06:15 WBC (3.98-10.04) K/mm3 RBC (3.98-5.22) M/mm3 Hgb (11.2-15.7) gm/L Hct (34.1-44.9) % MCV (79.4-94.8) fl MCH (25.6-32.2) pg MCHC (32.2-35.5) g/dl RDW Std Deviation (36.4-46.3) fL Plt Count (182-369) K/mm3 MPV (9.4-12.3) fl Neut % (Auto) (34.0-71.1) % Lymph % (Auto) (19.3-51.7) % Sumner % (Auto) (4.7-12.5) % Eos % (Auto) (0.7-5.8) Baso % (Auto) (0.1-1.2) % Neut # (Auto) (1.56-6.13) K/mm3 Lymph # (Auto) (1.18-3.74) K/mm3 Sumner # (Auto) (0.24-0.36) K/mm3 Eos # (Auto) (0.04-0.36) K/mm3 Baso # (Auto) (0.01-0.08) K/mm3 PT 19.9 H (9.5-12.1) SECONDS INR 1.85 Sodium (136-145) mEq/L Potassium (3.5-5.1) mEq/L Chloride (98-107) mEq/L Carbon Dioxide (21-32) mEq/L Anion Gap (5-15) BUN (7-18) mg/dL Creatinine (0.55-1.02) mg/dL Est Cr Clr Drug Dosing mL/min Estimated GFR (MDRD) (>60) mL/min BUN/Creatinine Ratio (14-18) Glucose (83-115) mg/dL Calcium (8.5-10.1) mg/dL Magnesium (1.8-2.4) mg/dl C-Reactive Protein (<1.0) mg/dL NT-Pro-B Natriuret Pep (0-450) pg/mL BRENDAN Results - Last 24 hrs: Microbiology 05/17/18 16:50 Aerobic Blood Culture - Preliminary Blood NO GROWTH AFTER 2 DAYS Anaerobic Blood Culture - Preliminary NO GROWTH AFTER 2 DAYS 05/17/18 21:40 Gram Stain - Final Arm, Right - Lower Anaerobic Culture - Final (Mrsa) Staphylococcus Aureus Med Orders - Current: Current Medications Acetaminophen (Tylenol) 650 mg PO Q4H PRN PRN Reason: Pain (Mild 1-3)/fever Albuterol (Proventil Neb Soln) 2.5 mg NEB Q2H PRN PRN Reason: Shortness Of Breath/wheezing Albuterol/Ipratropium (Duoneb 3.0-0.5 Mg/3 Ml) 3 ml NEB Q4H PRN PRN Reason: Shortness Of Breath/wheezing Bisacodyl (Dulcolax) 5 mg PO DAILY PRN PRN Reason: Constipation Docusate Sodium (Colace) 100 mg PO BID PRN PRN Reason: Constipation Furosemide (Lasix) 20 mg PO BID [facility] Last Admin: 05/21/18 09:32 Dose: 20 mg Hydromorphone HCl (Dilaudid) 0.25 mg IVPUSH Q2H PRN PRN Reason: Pain (severe 7-10) Promethazine HCl 6.25 mg/ (Sodium Chloride) 50.25 mls @ 100 mls/hr IV Q6H PRN PRN Reason: Nausea/Vomiting Levothyroxine Sodium (Levothyroxine) 125 mcg PO DAILY@0700 [facility] Last Admin: 05/21/18 07:18 Dose: 125 mcg Lisinopril (Prinivil) 5 mg PO DAILY@1700 [facility] Last Admin: 05/20/18 16:52 Dose: 5 mg Magnesium Hydroxide (Milk Of Magnesia) 30 ml PO Q12H PRN PRN Reason: Constipation Magnesium Sulfate (Pharmacy To Dose - Magnesium Replacement) 0 dose .XX ASDIRECTED PRN PRN Reason: RX TO DOSE MAG Metoprolol Tartrate (Lopressor) 25 mg PO BID [facility] Last Admin: 05/21/18 09:32 Dose: 25 mg Mupirocin (Bactroban Oint) 30 gm TOP TID@0700,1400,2100 [facility] Last Admin: 05/21/18 07:18 Dose: 1 applic Nystatin (Nystop) 0 gm TOP TID [facility] Last Admin: 05/21/18 09:45 Dose: 1 applic Oxycodone/Acetaminophen (Percocet 325-5 Mg) 1 tab PO Q4H PRN PRN Reason: Pain (moderate 4-6) Polyethylene Glycol (Miralax) 17 gm PO DAILY PRN PRN Reason: Constipation Potassium Chloride (Pharmacy To Dose - Potassium Replacement) 0 dose .XX ASDIRECTED PRN PRN Reason: RX TO DOSE K Pramipexole Dihydrochloride (Mirapex) 0.5 mg PO DAILY [facility] Last Admin: 05/21/18 09:32 Dose: 0.5 mg Promethazine HCl (Phenergan) 25 mg PO Q6H PRN PRN Reason: Nausea/Vomiting Senna/Docusate Sodium (Senna Plus) 1 tab PO BID PRN PRN Reason: Constipation Sertraline HCl (Zoloft) 75 mg PO DAILY [facility] Last Admin: 05/21/18 09:33 Dose: 75 mg Simvastatin (Zocor) 10 mg PO DAILY [facility] Last Admin: 05/21/18 09:32 Dose: 10 mg Spironolactone (Aldactone) 25 mg PO DAILY [facility] Last Admin: 05/21/18 09:32 Dose: 25 mg Warfarin Sodium (Pharmacy To Dose - Warfarin) 1 dose .XX ASDIRECTED [facility] Warfarin Sodium (Coumadin) 3 mg PO DAILY@1800 [facility] Stop: 05/21/18 21:00 Zinc Acetate/Diphenhydramine (Benadryl Itch Stopping Crm) 0 gm TOP Q4H PRN PRN Reason: Itching Discontinued Medications Sodium Chloride (Normal Saline) 500 mls @ 999 mls/hr IV .BOLUS ONE Stop: 05/17/18 19:43 Last Admin: 05/17/18 19:21 Dose: 999 mls/hr Magnesium Sulfate 4 gm/ Premix 100 mls @ 25 mls/hr IV ONETIME ONE Stop: 05/20/18 15:14 Last Admin: 05/20/18 11:23 Dose: 25 mls/hr Levothyroxine Sodium (Levothyroxine) 150 mcg PO ACBRK [facility] Last Admin: 05/20/18 06:37 Dose: 150 mcg Sertraline HCl (Zoloft) 50 mg PO DAILY [facility] Last Admin: 05/20/18 08:52 Dose: 50 mg Warfarin Sodium (Coumadin) 2 mg PO ONETIME ONE Stop: 05/19/18 18:01 Last Admin: 05/19/18 17:37 Dose: 2 mg Warfarin Sodium (Coumadin) 2 mg PO SuMoWeThFrSa@1800 [facility] Warfarin Sodium (Coumadin) 3 mg PO Tu@1800 [facility] Warfarin Sodium (Coumadin) 2 mg PO DAILY@1800 [facility] Stop: 05/20/18 21:00 Last Admin: 05/20/18 17:13 Dose: Not Given Zolpidem Tartrate (Ambien) 5 mg PO BEDTIME PRN PRN Reason: Sleep Last Admin: 05/19/18 21:43 Dose: 5 mg - Exam General: Reports: Alert, Cooperative, No Acute Distress, Other (Obese) HEENT: Reports: Pupils Equal, Pupils Reactive, EOMI, Mucous Membr. Moist/[place] Neck: Reports: Supple, Trachea Midline Lungs: Reports: Normal Respiratory Effort, Decreased Breath Sounds Cardiovascular: Reports: Regular Rate, Regular Rhythm GI/Abdominal Exam: Normal Bowel Sounds, Soft, Non-Tender, No Organomegaly, No Distention, No Abnormal Bruit, No Mass, Other (Obese) (Female) Exam: Deferred Rectal (Female) Exam: Deferred Back Exam: Reports: Normal Inspection, Decreased Range of Motion Extremities: Normal Range of Motion, Non-Tender, Pedal Edema, Increased Warmth, Redness, Other (B/l lower extremity leg: wrapped with AYESHA and Left upper extremity: wrapped with AYESHA) Skin: Reports: Warm, Dry, Intact Wound/Incisions: Reports: No Drainage, Erythema Improving Neurological: Reports: No New Focal Deficit, Normal Gait Psy/Mental Status: Reports: Alert, Normal Affect, Normal Mood. Denies: Anxious , Suicidal Ideation, Homicidal Ideation *Q Meaningful Use (DIS) - VTE *Q VTE Anticoagulation Contraindications: Med/TX Not Indicated/Need
[2018-05-21] MEDS: Lisinopril 5 MG Tab PO SCH (17:58)
[2018-05-21] MEDS ORDERED: Warfarin 3 MG Tab PO SCH (18:00)
[2018-05-21 18:13] VITALS: BP 128/93
== END 2018-05-21 19:45 | disposition home or self-care (01) | DRG 291 ==
LOC: JD.ED 15:16 → JD.MS 19:54
PROVIDERS: ADMIT Internal Medicine; ATTEND Internal Medicine
DX: N28.9 Disorder of kidney and ureter, unspecified (principal); I13.0 Hypertensive heart and chronic kidney disease with heart failure and stage 1 through stage 4 chronic kidney disease, or unspecified chronic kidney disease; R53.1 Weakness; I50.33 Acute on chronic diastolic (congestive) heart failure; B37.89 Other sites of candidiasis; N17.9 Acute kidney failure, unspecified; L03.115 Cellulitis of right lower limb; G47.30 Sleep apnea, unspecified; F33.9 Major depressive disorder, recurrent, unspecified; N18.9 Chronic kidney disease, unspecified; I73.9 Peripheral vascular disease, unspecified; I48.0 Paroxysmal atrial fibrillation; G47.33 Obstructive sleep apnea (adult) (pediatric); E03.9 Hypothyroidism, unspecified; E78.5 Hyperlipidemia, unspecified; R79.1 Abnormal coagulation profile; F41.9 Anxiety disorder, unspecified; I95.9 Hypotension, unspecified; F42.9 Obsessive-compulsive disorder, unspecified; B95.62 Methicillin resistant Staphylococcus aureus infection as the cause of diseases classified elsewhere; E83.42 Hypomagnesemia; R41.82 Altered mental status, unspecified; T40.4X5A Adverse effect of other synthetic narcotics, initial encounter; F42.4 Excoriation (skin-picking) disorder; R05 Cough; R06.03 Acute respiratory distress; R06.82 Tachypnea, not elsewhere classified; R60.9 Edema, unspecified; R41.0 Disorientation, unspecified; R06.02 Shortness of breath; R01.1 Cardiac murmur, unspecified; R63.0 Anorexia; R06.00 Dyspnea, unspecified; K52.9 Noninfective gastroenteritis and colitis, unspecified; R32 Unspecified urinary incontinence; G89.29 Other chronic pain; M54.5 Low back pain; H54.7 Unspecified visual loss; S41.102A Unspecified open wound of left upper arm, initial encounter; S41.101A Unspecified open wound of right upper arm, initial encounter; S81.802A Unspecified open wound, left lower leg, initial encounter; S81.801A Unspecified open wound, right lower leg, initial encounter; X58.XXXA Exposure to other specified factors, initial encounter; Z22.322 Carrier or suspected carrier of Methicillin resistant Staphylococcus aureus; Z66 Do not resuscitate; Z88.1 Allergy status to other antibiotic agents; Z88.0 Allergy status to penicillin; Z79.01 Long term (current) use of anticoagulants; Z79.899 Other long term (current) drug therapy; Z95.0 Presence of cardiac pacemaker; Z85.818 Personal history of malignant neoplasm of other sites of lip, oral cavity, and pharynx; Z86.14 Personal history of Methicillin resistant Staphylococcus aureus infection; Z90.49 Acquired absence of other specified parts of digestive tract; Z96.659 Presence of unspecified artificial knee joint; Z87.891 Personal history of nicotine dependence
CPT/HCPCS: 36415; 70450; 71045; 80053; 81001; 83880; 84484; 85025; 85610; 87040; 93005; 96360; 99285; J7040; 51702; 80048; 82306; 83735; 84439; 84443; 86140; 87075; 87077; 87186; 87205; 87641; 92507-GN; 92523-GN; 93010; 93306; 97110-GP; 97116-GP; 97162-GP; 97165-GO; 97530-GO; 97530-GP; A9270-GY; J3475

== ENCOUNTER 2019-01-03 16:49 | Emergency (ER) | payer MEDICARE, OTHER ==
[2019-01-03 17:09] VITALS: BP 93/68
[2019-01-03] MEDS ORDERED: Sodium Chloride 0.9% 1,000 ML IV SCH (17:30)
--- NOTE | 2019-01-03 17:38 | EDM.PDOC ---
ED HPI GENERAL MEDICAL PROBLEM - General Chief Complaint: Cardiovascular Problem Stated Complaint: FROM [facility] Time Seen by Provider: 01/03/19 17:20 Source of Information: Reports: Patient, Group Home Records History Limitations: Reports: No Limitations - History of Present Illness INITIAL COMMENTS - FREE TEXT/NARRATIVE: 88-year-old female presents to the ED for evaluation of low blood pressure for the last few days. Patient has chronic severe congestive heart failure and is on multiple medications including Lasix 40 mg a.m. and 20 mg in the afternoon. She did have recent change in medications we believe discontinuation of lisinopril and the addition of losartan 25 mg daily on Sunday last week with Dr. Ring. Patient has healing ulcers on both lower extremities which are venous stasis ulcers combined with some arterial insufficiency as well. These were dressed earlier by the political science instructor today. She's had no fever or chills. Appetite has remained fair. Denies any dysuria urgency or frequency. She admits to being short of breath on minimal exertion but not all that different than her norm. She denies cough or sputum production. 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 Onset: Gradual (Blood pressures been noted to be lower than normal the last few days when checked at [facility] home where she resides.) Onset Date: 01/01/19 Duration: Day(s):, Constant Location: Reports: Other (Low blood pressure. Healing ulcers both lower extremities.) Severity: Moderate Improves with: Reports: None Worsens with: Reports: None Context: Denies: Activity, Exercise, Lifting, Sick Contact, Trauma, Other Associated Symptoms: Reports: Cough, Malaise, Shortness of Breath, Weakness. Denies: No Other Symptoms, Confusion (Occasional nonproductive cough), Chest Pain, cough w sputum, Diaphoresis, Fever/Chills, Headaches, Loss of Appetite, Nausea/Vomiting, Rash, Seizure, Syncope Treatments RIVET PASSER: Reports: Other (see below) (Recent changes in blood pressure medications. Lisinopril was discontinued and changed to losartan 25 mg daily. This was apparently done on Sunday, December 30) - Related Data Allergies Allergy/AdvReac Type Severity Reaction Status Date / Time Penicillins Allergy Mild Swelling/itchy Verified 01/03/19 17:04 rash ciprofloxacin [From Cipro] Allergy Rash Verified 01/03/19 17:04 vancomycin Allergy Rash Verified 01/03/19 17:04 metronidazole AdvReac Nausea and Verified 01/03/19 17:04 Vomiting Home Meds: Home Meds Pramipexole [Mirapex] 0.5 mg PO DAILY 02/28/14 [History] Ergocalciferol (Vitamin D2) [Vitamin D2] 50,000 unit PO ASDIRECTED #12 cap 05/21 [Rx] Levothyroxine 125 mcg PO ACBREAKFAST #30 tab 05/21/18 [Rx] Metoprolol Tartrate 25 mg PO BID #0 05/21/18 [Rx] Mupirocin Oint [Bactroban Oint] 30 gm TOP TID@0700,1400,2100 #1 tube 05/21/18 [ Rx] Apixaban [Eliquis] 2.5 mg PO BID 08/22/18 [History] Colestipol [Colestipol HCl] 1 gm PO TID 08/22/18 [History] Denosumab [Prolia] 60 mg SQ ASDIRECTED 08/22/18 [History] Folic Acid 2 mg PO DAILY 08/22/18 [History] Multivit with Calcium,Iron,Min [Essential Daily] 1 tab PO DAILY 08/22/18 [ History] Nystatin [Nystop] 1 applic TP BID 08/22/18 [History] Sertraline [Zoloft] 75 tab PO BEDTIME 08/22/18 [History] Acetaminophen [Tylenol Extra Strength] 1,000 mg PO Q12H 01/03/19 [History] Furosemide [Lasix] 20 mg PO DAILY 01/03/19 [History] Furosemide [Lasix] 40 mg PO DAILY 01/03/19 [History] Losartan [Cozaar] 25 mg PO DAILY 01/03/19 [History] Spironolactone [Aldactone] 50 mg PO DAILY 01/03/19 [History] Triamcinolone Acetonide [Nasacort] 2 sprays NASBOTH DAILY 01/03/19 [History] diphenhydrAMINE [Benadryl] 12.5 mg PO BEDTIME 01/03/19 [History] Past Medical History HEENT History: Reports: Impaired Vision Other HEENT History: wears glasses, hard of hearing Cardiovascular History: 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, Pacemaker Respiratory History: Reports: Sleep Apnea, SOB Gastrointestinal History: Reports: Chronic Diarrhea Other Gastrointestinal History: dysphagia with bread and certain other foods Genitourinary History: Reports: Urinary Incontinence LOOP TENDER History: Reports: Musculoskeletal History: Reports: Back Pain, Chronic Neurological History: Reports: None Psychiatric History: Reports: Depression Endocrine/Metabolic History: Reports: Hypothyroidism Oncologic (Cancer) History: Reports: Other (See Below) 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 Dermatologic History: Reports: Other (See Below) Other Dermatologic History: scattered sores all over her legs and arms from picking - Infectious Disease History Infectious Disease History: Reports: MRSA - Past Surgical History HEENT Surgical History: Reports: Cataract Surgery, Tonsillectomy Respiratory Surgical History: Reports: None Other Respiratory Surgeries/Procedures: Uses oxygen at night unsure of how many liters GI Surgical History: Reports: Cholecystectomy Female Surgical History: Reports: None Endocrine Surgical History: Reports: None Neurological Surgical History: Reports: None Musculoskeletal Surgical History: Reports: Knee Replacement Oncologic Surgical History: Reports: None Dermatological Surgical History: Reports: None Social & Family History - Family History Family Medical History: Noncontributory - Tobacco Use Smoking Status *Q: Never Smoker - Caffeine Use Caffeine Use: Reports: Coffee - Living Situation & Occupation Living situation: Reports: Occupation: Retired ED ROS GENERAL - Review of Systems Review Of Systems: See Below Constitutional: Reports: Malaise, Weakness, Fatigue, Decreased Appetite. Denies : Fever, Chills HEENT: Reports: Glasses, Hearing Loss Respiratory: Reports: Shortness of Breath, Cough. Denies: Wheezing, Pleuritic Chest Pain, Sputum, Hemoptysis (Nonproductive) Cardiovascular: Reports: Blood Pressure Problem, Edema (Both lower extremities with venous stasis dermatitis and ulceration. Ulceration appears to be a combination of arterial insufficiency and venous insufficiency.), Orthopnea. Denies: Chest Pain, Claudication (Running much lower than normal the last few days.), Lightheadedness Endocrine: Reports: Fatigue GI/Abdominal: Reports: Diarrhea (Chronic process with diarrhea.) : Reports: Frequency, Incontinence (Both urge and stress components.), Urgency Musculoskeletal: Reports: Joint Pain (Knees hips neck low back and both shoulders at times.) Skin: Reports: Other (Currently has ulcerations of skin both lower extremities which were cleansed and wrapped this morning and apparently are healing quite well. There are wrapped very well at this time with mild edema both lower extremities appreciated. I did not remove the dressings.) Neurological: Reports: No Symptoms Psychiatric: Reports: No Symptoms Hematologic/Lymphatic: Reports: No Symptoms Immunologic: Reports: No Symptoms ED EXAM, GENERAL - Physical Exam Exam: See Below Exam Limited By: No Limitations General Appearance: Alert, WD/WN, Mild Distress, Other (She is very kyphotic. However she is alert and answers all questions appropriately.) Eye Exam: Bilateral Eye: Normal Inspection (No scleral icterus.), Other (Mild pallor of the peripheral margins.) Throat/Mouth: Other Head: Atraumatic (Tongue is slightly dry.), Normocephalic Neck: Normal Inspection, Limited Range of Motion. No: Supple, Non-Tender, Full Range of Motion, Lymphadenopathy (L), Lymphadenopathy (R) Respiratory/Chest: Lungs Clear, No Accessory Muscle Use, Respiratory Distress ( Mild tachypnea. Pulse ox 95-96% on room air), Decreased Breath Sounds ( Decreased breath sounds to the lower 20% of lung trevino bilaterally.), Other ( Pacemaker left upper anterior chest.). No: Normal Breath Sounds Cardiovascular: Regular Rate, Rhythm (She is 100% percent paced rhythm at 70/m.) . No: Normal Peripheral Pulses, No Edema, No Murmur, No Rub Peripheral Pulses: 1+: Posterior Tibial (L) (Pulses are barely palpable in her dorsal feet.), Posterior Tibial (R), Dorsalis Pedis (L), Dorsalis Pedis (R) GI/Abdominal: Normal Bowel Sounds, Soft, Non-Tender, No Organomegaly, No Abnormal Bruit, No Mass, Pelvis Stable Back Exam: Other (Severe kyphosis thoracic spine. 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 No: Normal Capillary Refill Neurological: Alert, Oriented, CN II-XII Intact Psychiatric: Normal Affect, Normal Mood Skin Exam: Warm, Dry, Intact, Normal Color, No Rash Course - Vital Signs Last Recorded V/S: Last Vital Signs Temp 35.9 C 01/03/19 17:04 Pulse 76 01/03/19 17:04 Resp 20 01/03/19 17:04 BP 93/68 01/03/19 17:04 Pulse Ox 94 L 01/03/19 17:48 - Orders/Labs/Meds Orders: Active Orders 24 hr Category Date Time Status EKG Documentation Completion [RC] STAT Care 01/03/19 17:28 Active Oxygen Therapy [RC] ASDIRECTED Care 01/03/19 17:29 Active Chest 1V Frontal [CR] Stat Exams 01/03/19 17:28 Taken CULTURE BLOOD [BC] Stat Lab 01/03/19 17:42 Received CULTURE BLOOD [BC] Stat Lab 01/03/19 17:58 Received URINALYSIS W/MICROSCOPIC [UA W/MICROSCOPIC] [URIN] Stat Lab 01/03/19 19:30 Results Sodium Chloride 0.9% [Normal Saline] 1,000 ml Med 01/03/19 17:30 Active IV ASDIRECTED Blood Culture x2 Reflex Set [OM.PC] Stat Oth 01/03/19 17:30 Ordered Medication Orders Sodium Chloride (Normal Saline) 1,000 mls @ 125 mls/hr IV ASDIRECTED KAY Last Admin: 01/03/19 17:44 Dose: 125 mls/hr Labs: Laboratory Tests 01/03/19 01/03/19 01/03/19 Range/Units 17:42 17:42 17:42 WBC 7.48 (3.98-10.04) K/mm3 RBC 3.58 L (3.98-5.22) M/mm3 Hgb 12.0 (11.2-15.7) gm/L Hct 36.8 (34.1-44.9) % MCV 102.8 H (79.4-94.8) fl MCH 33.5 H (25.6-32.2) pg MCHC 32.6 (32.2-35.5) g/dl RDW Std Deviation 58.8 H (36.4-46.3) fL Plt Count 150 L (182-369) K/mm3 MPV 9.8 (9.4-12.3) fl Neutrophils % (Manual) 72 H (40-60) % Band Neutrophils % 0 (0-10) % Lymphocytes % (Manual) 20 (20-40) % Atypical Lymphs % 0 % Monocytes % (Manual) 6 (2-10) % Eosinophils % (Manual) 2 (0.7-5.8) % Basophils % (Manual) 0 L (0.1-1.2) Platelet Estimate Adequate Poikilocytosis 1+ slight Anisocytosis 1+ slight PT 11.8 (9.5-12.1) SECONDS INR 1.08 D-Dimer, Quantitative (0.19-0.50) mg/L Sodium 133 L (136-145) mEq/L Potassium 5.4 H (3.5-5.1) mEq/L Chloride 101 (98-107) mEq/L Carbon Dioxide 20 L (21-32) mEq/L Anion Gap 17.4 H (5-15) BUN 64 H (7-18) mg/dL Creatinine 2.2 H (0.55-1.02) mg/dL Est Cr Clr Drug Dosing TNP Estimated GFR (MDRD) 21 (>60) mL/min BUN/Creatinine Ratio 29.1 H (14-18) Glucose 93 (83-115) mg/dL Calcium 8.8 (8.5-10.1) mg/dL Magnesium 1.9 (1.8-2.4) mg/dl Total Bilirubin 0.5 (0.2-1.0) mg/dL AST 17 (15-37) U/L ALT 24 (14-59) U/L Alkaline Phosphatase 98 (46-116) U/L CK-MB (CK-2) 3.4 (0-3.6) ng/ml Troponin I < 0.017 (0.00-0.056) ng/mL C-Reactive Protein 0.2 (<1.0) mg/dL NT-Pro-B Natriuret Pep (0-450) pg/mL Total Protein 6.8 (6.4-8.2) g/dl Albumin 3.8 (3.4-5.0) g/dl Globulin 3.0 gm/dL Albumin/Globulin Ratio 1.3 (1-2) Urine Color (Yellow) Urine Appearance (Clear) Urine pH (5.0-8.0) Ur Specific [place] (1.005-1.030) Urine Protein (Negative) Urine Glucose (UA) (Negative) Urine Ketones (Negative) Urine Occult Blood (Negative) Urine Nitrite (Negative) Urine Bilirubin (Negative) Urine Urobilinogen (0.2-1.0) Ur Leukocyte Esterase (Negative) 05/03/19 05/03/19 05/03/19 Range/Units 17:42 17:42 19:30 WBC (3.98-10.04) K/mm3 RBC (3.98-5.22) M/mm3 Hgb (11.2-15.7) gm/L Hct (34.1-44.9) % MCV (79.4-94.8) fl MCH (25.6-32.2) pg MCHC (32.2-35.5) g/dl RDW Std Deviation (36.4-46.3) fL Plt Count (182-369) K/mm3 MPV (9.4-12.3) fl Neutrophils % (Manual) (40-60) % Band Neutrophils % (0-10) % Lymphocytes % (Manual) (20-40) % Atypical Lymphs % % Monocytes % (Manual) (2-10) % Eosinophils % (Manual) (0.7-5.8) % Basophils % (Manual) (0.1-1.2) Platelet Estimate Poikilocytosis Anisocytosis PT (9.5-12.1) SECONDS INR D-Dimer, Quantitative 0.92 H (0.19-0.50) mg/L Sodium (136-145) mEq/L Potassium (3.5-5.1) mEq/L Chloride (98-107) mEq/L Carbon Dioxide (21-32) mEq/L Anion Gap (5-15) BUN (7-18) mg/dL Creatinine (0.55-1.02) mg/dL Est Cr Clr Drug Dosing Estimated GFR (MDRD) (>60) mL/min BUN/Creatinine Ratio (14-18) Glucose (83-115) mg/dL Calcium (8.5-10.1) mg/dL Magnesium (1.8-2.4) mg/dl Total Bilirubin (0.2-1.0) mg/dL AST (15-37) U/L ALT (14-59) U/L Alkaline Phosphatase (46-116) U/L CK-MB (CK-2) (0-3.6) ng/ml Troponin I (0.00-0.056) ng/mL C-Reactive Protein (<1.0) mg/dL NT-Pro-B Natriuret Pep 3499 H (0-450) pg/mL Total Protein (6.4-8.2) g/dl Albumin (3.4-5.0) g/dl Globulin gm/dL Albumin/Globulin Ratio (1-2) Urine Color Yellow (Yellow) Urine Appearance Clear (Clear) Urine pH 5.5 (5.0-8.0) Ur Specific [place] 1.025 (1.005-1.030) Urine Protein Trace H (Negative) Urine Glucose (UA) Negative (Negative) Urine Ketones Negative (Negative) Urine Occult Blood Negative (Negative) Urine Nitrite Negative (Negative) Urine Bilirubin Negative (Negative) Urine Urobilinogen 0.2 (0.2-1.0) Ur Leukocyte Esterase Negative (Negative) Meds: Medications Generic Name Dose Route Start Last Admin Trade Name Freq PRN Reason Stop Dose Admin Sodium Chloride 1,000 mls @ 125 mls/hr 01/03/19 17:30 01/03/19 17:44 Normal Saline IV 125 mls/hr ASDIRECTED KAY Administration - Radiology Interpretation Free Text/Narrative:: 88-year-old female presents to the ED due to reported low blood pressures recorded at [facility] where she resides. Blood pressures have dropped as low as 81 systolic. Rarely this is a significant change from her usual. Tracking down she did have medication changed on December [address] Ring. Apparently lisinopril was discontinued and losartan 25 mg was added to her treatment plan in an effort to help her heart failure. Patient has healing ulcers on both lower extremities with no obvious signs of infection. He is afebrile and does not appear to have any sepsis causing hypotension. He is known to have severe congestive heart failure. She has had no chest pain recently. Plan she will have a complete workup to make sure there is been no reason for cardiac decompensation and cause of hypotension although it may be due to medication. - Re-Assessments/Exams Free Text/Narrative Re-Assessment/Exam: 01/03/19 19:01 Labs are partially back. Total white count is 7.48 differential 72% neutrophils and no band cells. Hemoglobin is 12.0 with hematocrit of 36.8. MCV is mildly elevated 102.8. Platelet count 150,000. There is mild 1+ poikilocytosis and 1+ anisocytosis. PT is 11.8 with an INR 1.08. D-dimer is mildly elevated at 0.92. Portable chest x-ray revealed marked cardiomegaly with a prominent tortuous thoracic aorta. The left hemidiaphragm is elevated suspicious for paralysis. There is no obvious pleural effusion. She has severe kyphosis of her thoracic spine which makes the heart look larger than it probably is for portable technique. 01/03/19 19:23 White count was 7.48 with 72% neutrophils and no band cells reported. Hemoglobin is 12.0 with hematocrit of 36.8. MCV is 102.8. Platelet count is 150,000. There is 1+ poikilocytosis and 1+ and iso-cytosis. PT is 11.8 with an INR of 1.08. D-dimer is 0.92. Sodium was 133 with potassium slightly elevated at 5.4. Chloride is 101 with a bicarbonate of 20. Anion gap is elevated at 17.4. BUN is 64 with a creatinine of 2.2. BUN/creatinine ratio is elevated at 29.1. Glucose is 93 with a calcium of 8.8. Magnesium is 1.9. Liver function is normal. CK-MB is 3.4 with a troponin I of less than 0.017. C- reactive protein is 0.2. BNP is 3499. Total protein is 6.8 with an albumin fraction of 3.8. Therefore her hypotension appears to be heart function related. She is essentially in terminal congestive failure. BP is currently up to 93/65. Sats are 96% .Heart rate of 70. He does not appear that she has suffered a recent cardiac insult. Her slight elevation of her d-dimer secondary to elevated BNP. I will have a close look at her med list to see if we can find a culprit medication that may be causing hypotension. She mentions that she's did see last week and some medications were changed. 01/03/19 19:36 blood pressure is currently up to 100/71. Sats are 100% she is ventricular paced at 70/min. I'm going to phone [facility] and see if they can identify what medications white count of been recently added to her treatment plan. 01/03/19 20:11 awaiting catheterized urine specimen. 01/03/19 21:30 Urine specimen is negative for any signs of infection. Patient will therefore be discharged back to [facility] with a plan to place her metoprolol on hold for the next 2 days and then resume on Sunday. The losartan is to be placed on hold until follow-up with Dr. Ring early next week. Also due to hyperkalemia which may be due to the recent addition of losartan eye will reduce the dosage of Aldactone to 25 mg once daily from 50 mg. This could be readjusted next week to help her heart failure if the hyperkalemia resolves after discontinuing the losartan. Her pressure should slowly come up over the next 2-3 days. She is relatively asymptomatic from the blood pressure. It was anywhere from 81 systolic to 102 systolic while she was in the ED. Departure - Departure Time of Disposition: 21:30 Disposition: Home, Self-Care 01 Condition: Fair Clinical Impression: Hypotension due to medication, Drug-induced hyperkalemia, Chronic diastolic congestive heart failure, NYHA class 3 Adverse effects of medication Qualifiers: Encounter type: initial encounter Qualified Code(s): T50.905A - Adverse effect of unspecified drugs, medicaments and biological substances, initial encounter Instructions: Hypotension, [id number] Referrals: Kedar Moreau MD [Primary Care Provider] - Forms: ED Department Discharge Additional Instructions: Evaluation the emergency room today in regards to low blood pressure with systolic pressures as low as 81 systolically at times complete evaluation revealed persistent congestive heart failure with no evidence or reason for exacerbation of heart failure. No evidence of recent heart attack. No signs of infection that would cause lowering of your blood pressure. Low blood pressure at this time appears to be secondary to effects of medication. It is thought that recent discontinuation of lisinopril and the addition of losartan in its place is a little too potent. Treatment is to withhold both metoprolol for the next 2 days and losartan completely until follow-up with Dr. Ring next week. Also the Aldactone medication is to be reduced to only 25 mg a day from 50 mg a day due to mildly elevated potassium levels. Continue Lasix dose morning and mid afternoon for congestive heart failure. May continue all other medications as prescribed. Please make follow-up arrangements to see Dr. Ring early next week for repeat lab work and reexamination of blood pressure. Her pressure will remain low for the next couple of days until medication has time to wear off. - My Orders Last 24 Hours: My Active Orders 01/03/19 17:28 EKG Documentation Completion [RC] STAT Chest 1V Frontal [CR] Stat 01/03/19 17:29 Oxygen Therapy [RC] ASDIRECTED 01/03/19 17:30 Sodium Chloride 0.9% [Normal Saline] 1,000 ml IV ASDIRECTED Blood Culture x2 Reflex Set [OM.PC] Stat 01/03/19 17:42 CULTURE BLOOD [BC] Stat 01/03/19 17:58 CULTURE BLOOD [BC] Stat 01/03/19 19:30 URINALYSIS W/MICROSCOPIC [UA W/MICROSCOPIC] [URIN] Stat - Assessment/Plan Last 24 Hours: My Active Orders 01/03/19 17:28 EKG Documentation Completion [RC] STAT Chest 1V Frontal [CR] Stat 01/03/19 17:29 Oxygen Therapy [RC] ASDIRECTED 01/03/19 17:30 Sodium Chloride 0.9% [Normal Saline] 1,000 ml IV ASDIRECTED Blood Culture x2 Reflex Set [OM.PC] Stat 01/03/19 17:42 CULTURE BLOOD [BC] Stat 01/03/19 17:58 CULTURE BLOOD [BC] Stat 01/03/19 19:30 URINALYSIS W/MICROSCOPIC [UA W/MICROSCOPIC] [URIN] Stat
--- NOTE | 2019-01-04 08:07 | CR ---
Chest: Portable view of the chest was obtained. Comparison: Prior chest x-ray of 08/22/18. Slight scarring is seen within the left and right lung base. Heart size is slightly enlarged. Tortuous thoracic aorta is seen. Pacemaker is noted. No acute parenchymal change is seen within either lung. Degenerative change is seen within both shoulders. Impression: 1. Incidental findings. Nothing acute is appreciated. Diagnostic code #2
== END 2019-01-03 21:47 | disposition home or self-care (01) ==
LOC: JD.ED 16:49
DX: I95.2 Hypotension due to drugs (principal); E87.5 Hyperkalemia; T50.1X5A Adverse effect of loop [high-ceiling] diuretics, initial encounter; I50.32 Chronic diastolic (congestive) heart failure; E03.9 Hypothyroidism, unspecified; Z79.899 Other long term (current) drug therapy; Z88.0 Allergy status to penicillin; Z88.1 Allergy status to other antibiotic agents; Z88.8 Allergy status to other drugs, medicaments and biological substances
CPT/HCPCS: 36415; 71045; 80053; 81001; 82553; 83735; 83880; 84484; 85007; 85027; 85379; 85610; 86140; 87040; 93005; 96360; 96361; 99285; J7040

== ENCOUNTER 2019-01-26 10:21 | Inpatient (IN) | payer MEDICARE, OTHER ==
[2019-01-26] MEDS ORDERED: Sodium Chloride 0.9% 10 ML Syringe FLUSH PRN (10:59)
[2019-01-26] MEDS ORDERED: Furosemide 40 MG/4 ML VIAL IVPUSH ONE (11:00)
--- NOTE | 2019-01-26 11:03 | EDM.PDOC ---
ED HPI GENERAL MEDICAL PROBLEM - General Chief Complaint: Cardiovascular Problem Stated Complaint: SOB Time Seen by Provider: 01/26/19 10:34 Source of Information: Reports: Patient History Limitations: Reports: No Limitations - History of Present Illness INITIAL COMMENTS - FREE TEXT/NARRATIVE: 88 y/o female presents to emergency room with patient chief complaints of shortness of breath. She reports for the past few days her breathing has become more labored and difficult. She resides at [facility]. It is noted that she has gained 8 pounds in the past week. She recently had her Lasix and spironolactone decreased 3 weeks ago. Patient does have a history of CHF, COPD, peripheral vascular disease, and kyphosis. She does report having swelling to her feet hands and face. She reports nothing makes it better. She states it is worse when she tries to ambulate or laying flat. She denies any fever or chills, nausea vomiting or diarrhea. Onset Date: 01/24/19 Onset Time: 09:00 Duration: Getting Worse Location: Reports: Chest Severity: Mild Improves with: Reports: None Worsens with: Reports: Movement Associated Symptoms: Reports: Shortness of Breath, Weakness. Denies: Chest Pain , Cough, Fever/Chills, Nausea/Vomiting - Related Data Allergies Allergy/AdvReac Type Severity Reaction Status Date / Time Penicillins Allergy Mild Swelling/itchy Verified 01/26/19 10:37 rash ciprofloxacin [From Cipro] Allergy Rash Verified 01/26/19 10:37 vancomycin Allergy Rash Verified 01/26/19 10:37 metronidazole AdvReac Nausea and Verified 01/26/19 10:37 Vomiting Home Meds: Home Meds Pramipexole [Mirapex] 0.5 mg PO DAILY 02/28/14 [History] Ergocalciferol (Vitamin D2) [Vitamin D2] 50,000 unit PO ASDIRECTED #12 cap 05/21 [Rx] Levothyroxine 125 mcg PO ACBREAKFAST #30 tab 05/21/18 [Rx] Apixaban [Eliquis] 2.5 mg PO BID 08/22/18 [History] Colestipol [Colestipol HCl] 1 gm PO TID 08/22/18 [History] Folic Acid 2 mg PO DAILY 08/22/18 [History] Multivit with Calcium,Iron,Min [Essential Daily] 1 tab PO DAILY 08/22/18 [ History] Nystatin [Nystop] 1 applic TP BID 08/22/18 [History] Sertraline [Zoloft] 75 tab PO BEDTIME 08/22/18 [History] Acetaminophen [Tylenol Extra Strength] 1,000 mg PO Q12H 01/03/19 [History] Furosemide [Lasix] 30 mg PO DAILY 01/03/19 [History] Losartan [Cozaar] 12.5 mg PO DAILY 01/03/19 [History] Spironolactone [Aldactone] 25 mg PO DAILY 01/03/19 [History] Triamcinolone Acetonide [Nasacort] 2 sprays NASBOTH DAILY 01/03/19 [History] diphenhydrAMINE [Benadryl] 12.5 mg PO BEDTIME 01/03/19 [History] Aloe Vera/Sodium Chloride [[place]ar[place] Saline Nasal Gel] 1 applic MEG DAILY PRN [History] Loperamide [Imodium] 2 mg PO BID 01/26/19 [History] Metoprolol Tartrate 25 mg PO BID 01/26/19 [History] Zolpidem [Ambien] 5 mg PO BEDTIME PRN 01/26/19 [History] Past Medical History HEENT History: Reports: Impaired Vision Other HEENT History: wears glasses, hard of hearing Cardiovascular History: 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, Pacemaker Respiratory History: Reports: Sleep Apnea, SOB Gastrointestinal History: Reports: Chronic Diarrhea Other Gastrointestinal History: dysphagia with bread and certain other foods Genitourinary History: Reports: Urinary Incontinence [employer] History: Reports: Musculoskeletal History: Reports: Back Pain, Chronic Neurological History: Reports: None Psychiatric History: Reports: Depression Endocrine/Metabolic History: Reports: Hypothyroidism Oncologic (Cancer) History: Reports: Other (See Below) 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 Dermatologic History: Reports: Other (See Below) Other Dermatologic History: scattered sores all over her legs and arms from picking - Infectious Disease History Infectious Disease History: Reports: MRSA - Past Surgical History HEENT Surgical History: Reports: Cataract Surgery, Tonsillectomy Respiratory Surgical History: Reports: None Other Respiratory Surgeries/Procedures: Uses oxygen at night unsure of how many liters GI Surgical History: Reports: Cholecystectomy Female Surgical History: Reports: None Endocrine Surgical History: Reports: None Neurological Surgical History: Reports: None Musculoskeletal Surgical History: Reports: Knee Replacement Oncologic Surgical History: Reports: None Dermatological Surgical History: Reports: None Social & Family History - Family History Family Medical History: Noncontributory - Tobacco Use Smoking Status *Q: Never Smoker - Caffeine Use Caffeine Use: Reports: None - Recreational Drug Use Recreational Drug Use: No - Living Situation & Occupation Living situation: Reports: Occupation: Retired ED ROS GENERAL - Review of Systems Review Of Systems: See Below Constitutional: Denies: Fever, Chills HEENT: Reports: Glasses, Hearing Loss Respiratory: Reports: Shortness of Breath Cardiovascular: Denies: Chest Pain Endocrine: Reports: Fatigue GI/Abdominal: Denies: Constipation, Diarrhea, Nausea, Vomiting : Reports: No Symptoms Musculoskeletal: Reports: No Symptoms Skin: Reports: Other (lower leg venous status ulcers) Neurological: Reports: No Symptoms Psychiatric: Reports: No Symptoms Hematologic/Lymphatic: Reports: No Symptoms Immunologic: Reports: No Symptoms ED EXAM, GENERAL - Physical Exam Exam: See Below Exam Limited By: No Limitations General Appearance: Alert, WD/WN, No Apparent Distress Throat/Mouth: Normal Inspection, Normal Lips, Normal Teeth, Normal Gums, Normal Oropharynx, Normal Voice, No Airway Compromise Neck: Normal Inspection, Supple, Non-Tender, Full Range of Motion Respiratory/Chest: Chest Non-Tender, Decreased Breath Sounds, Crackles Cardiovascular: Normal Peripheral Pulses, Regular Rate, Rhythm, No Edema, No Gallop, No JVD, No Murmur, No Rub GI/Abdominal: Normal Bowel Sounds, Soft, Non-Tender, No Organomegaly, No Distention, No Abnormal Bruit, No Mass, Pelvis Stable Back Exam: Decreased Range of Motion, Other (Kyphosis) Extremities: Pedal Edema, Limited Range of Motion, Other (lower extremity venous status ulcers noted. ) Neurological: Alert, Oriented, CN II-XII Intact Psychiatric: Normal Affect, Normal Mood Skin Exam: Warm, Dry, Intact, Normal Color, No Rash Lymphatic: No Adenopathy EKG INTERPRETATION EKG Date: 01/26/19 Time: 11:11 Rate (Beats/Min): 70 EKG Interpretation Comments: ventricular paced rhythm Course - Vital Signs Last Recorded V/S: Last Vital Signs Temp 98.6 F 01/26/19 10:31 Pulse 75 01/26/19 10:31 Resp 20 01/26/19 10:31 BP 112/80 01/26/19 10:31 Pulse Ox 98 01/26/19 10:31 - Orders/Labs/Meds Orders: Active Orders 24 hr Category Date Time Status Admission Status [Patient Status] [ADT] Routine ADT 01/26/19 11:47 Active EKG Documentation Completion [RC] STAT Care 01/26/19 10:56 Active Oxygen Therapy, ED [RC] ASDIRECTED Care 01/26/19 11:30 Active Chest 1V Frontal [CR] Stat Exams 01/26/19 10:56 Taken Sodium Chloride 0.9% [Saline Flush] Med 01/26/19 10:59 Active 10 ml FLUSH ASDIRECTED PRN Saline Lock Insert [OM.PC] Routine Oth 01/26/19 10:59 Ordered Medication Orders Sodium Chloride (Saline Flush) 10 ml FLUSH ASDIRECTED PRN PRN Reason: Keep Vein Open Labs: Laboratory Tests 01/26/19 01/26/19 01/26/19 Range/Units 10:40 10:40 10:40 WBC 6.25 (3.98-10.04) K/mm3 RBC 3.24 L (3.98-5.22) M/mm3 Hgb 11.3 (11.2-15.7) gm/L Hct 35.8 (34.1-44.9) % MCV 110.5 H D (79.4-94.8) fl MCH 34.9 H (25.6-32.2) pg MCHC 31.6 L (32.2-35.5) g/dl RDW Std Deviation 65.0 H (36.4-46.3) fL Plt Count 161 L (182-369) K/mm3 MPV 9.6 (9.4-12.3) fl Neut % (Auto) 67.9 (34.0-71.1) % Lymph % (Auto) 19.5 (19.3-51.7) % [place] % (Auto) 9.6 (4.7-12.5) % Eos % (Auto) 2.2 (0.7-5.8) Baso % (Auto) 0.3 (0.1-1.2) % Neut # (Auto) 4.24 (1.56-6.13) K/mm3 Lymph # (Auto) 1.22 (1.18-3.74) K/mm3 [place] # (Auto) 0.60 H (0.24-0.36) K/mm3 Eos # (Auto) 0.14 (0.04-0.36) K/mm3 Baso # (Auto) 0.02 (0.01-0.08) K/mm3 Manual Slide Review Abnormal smear Sodium 141 (136-145) mEq/L Potassium 3.7 D (3.5-5.1) mEq/L Chloride 106 (98-107) mEq/L Carbon Dioxide 26 (21-32) mEq/L Anion Gap 12.7 (5-15) BUN 34 H D (7-18) mg/dL Creatinine 1.6 H (0.55-1.02) mg/dL Est Cr Clr Drug Dosing TNP Estimated GFR (MDRD) 30 (>60) mL/min BUN/Creatinine Ratio 21.3 H (14-18) Glucose 88 (83-115) mg/dL Calcium 8.7 (8.5-10.1) mg/dL Total Bilirubin 0.5 (0.2-1.0) mg/dL AST 26 (15-37) U/L ALT 25 (14-59) U/L Alkaline Phosphatase 105 (46-116) U/L NT-Pro-B Natriuret Pep 3809 H (0-450) pg/mL Total Protein 6.6 (6.4-8.2) g/dl Albumin 3.7 (3.4-5.0) g/dl Globulin 2.9 gm/dL Albumin/Globulin Ratio 1.3 (1-2) Meds: Medications Generic Name Dose Route Start Last Admin Trade Name Freq PRN Reason Stop Dose Admin Sodium Chloride 10 ml 01/26/19 10:59 Saline Flush FLUSH ASDIRECTED PRN Keep Vein Open Discontinued Medications Generic Name Dose Route Start Last Admin Trade Name Freq PRN Reason Stop Dose Admin Furosemide 40 mg 01/26/19 11:00 01/26/19 11:30 Lasix IVPUSH 01/26/19 11:01 Not Given NOW ONE - Re-Assessments/Exams Free Text/Narrative Re-Assessment/Exam: 01/26/19 11:49 WBC 6.25 RBC 3.2 for hemoglobin 11.3 hematocrit 35.8 sodium 141 potassium 3.7 chloride 106 CO2 26 bun 34 creatinine 1.6. Pulse 88 calcium 8.7 AST 26 ALT 25 alkaline phosphate 105 BNP 3809 total protein 6.6 albumin 3.7. After discussing case with , I will admit to the hospital for further evaluation treatment of CHF. Patient is in agreement with plan of care. Departure - Departure Time of Disposition: 11:55 Disposition: Admitted As Inpatient 66 Clinical Impression: CHF (congestive heart failure) Qualifiers: Heart failure type: unspecified Heart failure chronicity: chronic Qualified Code(s): I50.9 - Heart failure, unspecified Referrals: Kedar Moreau MD [Primary Care Provider] - Forms: ED Department Discharge - My Orders Last 24 Hours: My Active Orders 01/26/19 10:56 EKG Documentation Completion [RC] STAT Chest 1V Frontal [CR] Stat 01/26/19 10:59 Sodium Chloride 0.9% [Saline Flush] 10 ml FLUSH ASDIRECTED PRN Saline Lock Insert [OM.PC] Routine 01/26/19 11:30 Oxygen Therapy, ED [RC] ASDIRECTED 01/26/19 11:47 Admission Status [Patient Status] [ADT] Routine - Assessment/Plan Last 24 Hours: My Active Orders 01/26/19 10:56 EKG Documentation Completion [RC] STAT Chest 1V Frontal [CR] Stat 01/26/19 10:59 Sodium Chloride 0.9% [Saline Flush] 10 ml FLUSH ASDIRECTED PRN Saline Lock Insert [OM.PC] Routine 01/26/19 11:30 Oxygen Therapy, ED [RC] ASDIRECTED 01/26/19 11:47 Admission Status [Patient Status] [ADT] Routine
[2019-01-26] MEDS ORDERED: Acetaminophen 325 MG Tab PO PRN (14:11)
[2019-01-26] MEDS ORDERED: Aloe Vera/Sodium Chloride Gel 14.1 GM Tube NAS PRN (14:17)
--- NOTE | 2019-01-26 15:21 | PCM.HP ---
H&P History of Present Illness - General Date of Service: 01/26/19 Admit Problem/Dx: Admission Diagnosis/Problem Admission Diagnosis/Problem Congestive heart failure Source of Information: Old Records, Provider - History of Present Illness Initial Comments - Free Text/Narative: This 88-year-old female with the history of chronic combined systolic and diastolic heart failure, generalized edema, hypertension, chronic atrial fibrillation, stage III chronic kidney disease, hypoxemia, chronic lower extremity ulcers, major depressive disorder, morbid obesity with alveolar hypoventilation presented to the emergency room with worsening shortness of breath, and kyphosis. Over the last week she has been feeling worse and her breathing has become more labored and difficult. She has had an 8 pound weight gain in the last week. Report is she had a decrease in her Lasix and spironolactone approximately 3 weeks ago. She is a poor historian so much of the history was obtained through old records. It appears that she complains of the shortness of breath worse when she ambulates or lies flat. I am not sure that her shortness of breath is worse than baseline, but she is feeling more fatigued. When she presented to the emergency room she was hypoxemic at reportedly in the 80s. She was given 40 mg of Lasix IV and when she arrived to the floor her oxygenation was in the mid 90s. BNP was 3890, and on January 03, 2019 her BNP in the emergency room was 3499. Creatinine today was 1.6, on January 03, 2019 2.2, on December 30, 2018 and 1.9. BUN today was 34, on January 03, 2019 64, December 31, 1999 1961. - Related Data Allergies/Adverse Reactions: Allergies Allergy/AdvReac Type Severity Reaction Status Date / Time Penicillins Allergy Mild Swelling/itchy Verified 01/26/19 10:37 rash ciprofloxacin [From Cipro] Allergy Rash Verified 01/26/19 10:37 vancomycin Allergy Rash Verified 01/26/19 10:37 metronidazole AdvReac Nausea and Verified 01/26/19 10:37 Vomiting Home Medications: Home Meds Pramipexole [Mirapex] 0.5 mg PO DAILY 02/28/14 [History] Levothyroxine 125 mcg PO ACBREAKFAST #30 tab 05/21/18 [Rx] Apixaban [Eliquis] 2.5 mg PO BID 08/22/18 [History] Colestipol [Colestipol HCl] 1 gm PO TID 08/22/18 [History] Folic Acid 2 mg PO DAILY 08/22/18 [History] Multivit with Calcium,Iron,Min [Essential Daily] 1 tab PO DAILY 08/22/18 [ History] Nystatin [Nystop] 1 applic TP BID 08/22/18 [History] Sertraline [Zoloft] 75 tab PO BEDTIME 08/22/18 [History] Acetaminophen [Tylenol Extra Strength] 1,000 mg PO Q12H 01/03/19 [History] Furosemide [Lasix] 30 mg PO DAILY 01/03/19 [History] Losartan [Cozaar] 12.5 mg PO DAILY 01/03/19 [History] Spironolactone [Aldactone] 25 mg PO DAILY 01/03/19 [History] Triamcinolone Acetonide [Nasacort] 2 sprays NASBOTH DAILY 01/03/19 [History] diphenhydrAMINE [Benadryl] 12.5 mg PO BEDTIME 01/03/19 [History] Aloe Vera/Sodium Chloride [[place] Saline Nasal Gel] 1 applic MEG DAILY PRN [History] Ergocalciferol (Vitamin D2) [Vitamin D2] 50,000 unit PO ASDIRECTED 01/26/19 [ History] Loperamide [Imodium] 2 mg PO BID 01/26/19 [History] Metoprolol Tartrate 25 mg PO BID 01/26/19 [History] Zolpidem [Ambien] 5 mg PO BEDTIME PRN 01/26/19 [History] Past Medical History HEENT History: Reports: Impaired Vision Other HEENT History: wears glasses, hard of hearing Cardiovascular History: Reports: Heart Failure, Heart Murmur, Pacemaker, SOB on Exertion Respiratory History: Reports: Sleep Apnea, SOB Gastrointestinal History: Reports: Chronic Diarrhea Other Gastrointestinal History: dysphagia with bread and certain other foods Genitourinary History: Reports: Urinary Incontinence 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 Has picked her toe nails and finger nails off. Had bilaterl ryan boots in placed but removed 01/26 - Infectious Disease History Infectious Disease History: Reports: MRSA - Past Surgical History HEENT Surgical History: Reports: Cataract Surgery, Tonsillectomy Respiratory Surgical History: Reports: None Other Respiratory Surgeries/Procedures: Uses oxygen at night 2 l NC GI Surgical History: Reports: Cholecystectomy Female Surgical History: Reports: None Endocrine Surgical History: Reports: None Neurological Surgical History: Reports: None Musculoskeletal Surgical History: Reports: Knee Replacement Oncologic Surgical History: Reports: None Dermatological Surgical History: Reports: None Social & Family History - Family History Family Medical History: Noncontributory - Tobacco Use Smoking Status *Q: Never Smoker - Caffeine Use Caffeine Use: Reports: Coffee - Recreational Drug Use Recreational Drug Use: No - Living Situation & Occupation Living situation: Reports: Occupation: Retired H&P Review of Systems - Review of Systems: Review Of Systems: ROS reveals no pertinent complaints other than HPI. Exam - Exam Exam: See Below - Vital Signs Vital Signs: Last Vital Signs Temp 98.6 F 01/26/19 10:31 Pulse 71 01/26/19 13:20 Resp 16 01/26/19 13:20 BP 119/70 01/26/19 13:20 Pulse Ox 95 01/26/19 13:20 Weight: 180 lb 14.4 oz - Exam Quality Assessment: No: Supplemental Oxygen General: No: Alert, Oriented, Mild Distress HEENT: Conjunctiva Clear, Mucosa Moist & [place], Posterior Pharynx Clear Neck: Supple Lungs: Normal Respiratory Effort, Rales Cardiovascular: Regular Rate, Irregular Rhythm GI/Abdominal Exam: Normal Bowel Sounds, Soft, Non-Tender, No Distention Extremities: Pedal Edema (diffuse lower extremity 3+ pitting) Skin: Warm, Dry, Intact, Wound (multiple lower extremity ulcers) Neurological: Cranial Nerves Intact Neuro Extensive - Mental Status: Memory Loss-Remote Events, Memory Loss-Recent Events. No: Normal Cognition Neuro Extensive - Motor, Sensory, Reflexes: CN II-XII Intact - Patient Data Lab Results Last 24 hrs: Laboratory Results - last 24 hr 01/26/19 01/26/19 01/26/19 Range/Units 10:40 10:40 10:40 WBC 6.25 (3.98-10.04) K/mm3 RBC 3.24 L (3.98-5.22) M/mm3 Hgb 11.3 (11.2-15.7) gm/L Hct 35.8 (34.1-44.9) % MCV 110.5 H D (79.4-94.8) fl MCH 34.9 H (25.6-32.2) pg MCHC 31.6 L (32.2-35.5) g/dl RDW Std Deviation 65.0 H (36.4-46.3) fL Plt Count 161 L (182-369) K/mm3 MPV 9.6 (9.4-12.3) fl Neut % (Auto) 67.9 (34.0-71.1) % Lymph % (Auto) 19.5 (19.3-51.7) % [place] % (Auto) 9.6 (4.7-12.5) % Eos % (Auto) 2.2 (0.7-5.8) Baso % (Auto) 0.3 (0.1-1.2) % Neut # (Auto) 4.24 (1.56-6.13) K/mm3 Lymph # (Auto) 1.22 (1.18-3.74) K/mm3 [place] # (Auto) 0.60 H (0.24-0.36) K/mm3 Eos # (Auto) 0.14 (0.04-0.36) K/mm3 Baso # (Auto) 0.02 (0.01-0.08) K/mm3 Manual Slide Review Abnormal smear Sodium 141 (136-145) mEq/L Potassium 3.7 D (3.5-5.1) mEq/L Chloride 106 (98-107) mEq/L Carbon Dioxide 26 (21-32) mEq/L Anion Gap 12.7 (5-15) BUN 34 H D (7-18) mg/dL Creatinine 1.6 H (0.55-1.02) mg/dL Est Cr Clr Drug Dosing TNP Estimated GFR (MDRD) 30 (>60) mL/min BUN/Creatinine Ratio 21.3 H (14-18) Glucose 88 (83-115) mg/dL Calcium 8.7 (8.5-10.1) mg/dL Magnesium (1.8-2.4) mg/dl Total Bilirubin 0.5 (0.2-1.0) mg/dL AST 26 (15-37) U/L ALT 25 (14-59) U/L Alkaline Phosphatase 105 (46-116) U/L NT-Pro-B Natriuret Pep 3809 H (0-450) pg/mL Total Protein 6.6 (6.4-8.2) g/dl Albumin 3.7 (3.4-5.0) g/dl Globulin 2.9 gm/dL Albumin/Globulin Ratio 1.3 (1-2) 01/26/19 Range/Units 10:40 WBC (3.98-10.04) K/mm3 RBC (3.98-5.22) M/mm3 Hgb (11.2-15.7) gm/L Hct (34.1-44.9) % MCV (79.4-94.8) fl MCH (25.6-32.2) pg MCHC (32.2-35.5) g/dl RDW Std Deviation (36.4-46.3) fL Plt Count (182-369) K/mm3 MPV (9.4-12.3) fl Neut % (Auto) (34.0-71.1) % Lymph % (Auto) (19.3-51.7) % [place] % (Auto) (4.7-12.5) % Eos % (Auto) (0.7-5.8) Baso % (Auto) (0.1-1.2) % Neut # (Auto) (1.56-6.13) K/mm3 Lymph # (Auto) (1.18-3.74) K/mm3 [place] # (Auto) (0.24-0.36) K/mm3 Eos # (Auto) (0.04-0.36) K/mm3 Baso # (Auto) (0.01-0.08) K/mm3 Manual Slide Review Sodium (136-145) mEq/L Potassium (3.5-5.1) mEq/L Chloride (98-107) mEq/L Carbon Dioxide (21-32) mEq/L Anion Gap (5-15) BUN (7-18) mg/dL Creatinine (0.55-1.02) mg/dL Est Cr Clr Drug Dosing Estimated GFR (MDRD) (>60) mL/min BUN/Creatinine Ratio (14-18) Glucose (83-115) mg/dL Calcium (8.5-10.1) mg/dL Magnesium 1.7 L (1.8-2.4) mg/dl Total Bilirubin (0.2-1.0) mg/dL AST (15-37) U/L ALT (14-59) U/L Alkaline Phosphatase (46-116) U/L NT-Pro-B Natriuret Pep (0-450) pg/mL Total Protein (6.4-8.2) g/dl Albumin (3.4-5.0) g/dl Globulin gm/dL Albumin/Globulin Ratio (1-2) Result Diagrams: 01/26/19 10:40 01/26/19 10:40 EKG INTERPRETATION EKG Date: 01/26/19 Rhythm: Other (ventricular paced beats at 70) Rate (Beats/Min): 70 - Problem List (1) Venous ulcer of leg SNOMED Code(s): 862299852, 902459146 ICD Code: I83.009 - VARICOSE VEINS OF UNSP LOWER EXTREMITY W ULCER OF UNSP SITE; L97.909 - NON-PRS CHRONIC ULC UNSP PRT OF UNSP LOW LEG W UNSP SEVERITY Status: Acute Current Visit: Yes (2) CHF (congestive heart failure) SNOMED Code(s): 35716222 ICD Code: I50.9 - HEART FAILURE, UNSPECIFIED Status: Acute Current Visit : Yes Qualifiers: Heart failure type: unspecified Heart failure chronicity: chronic Qualified Code(s): I50.9 - Heart failure, unspecified (3) Renal insufficiency SNOMED Code(s): 432121242, 122070782 ICD Code: N28.9 - DISORDER OF KIDNEY AND URETER, UNSPECIFIED Status: Acute Priority: High Current Visit: No (4) Weakness SNOMED Code(s): 92448895 ICD Code: R53.1 - WEAKNESS Status: Resolved Priority: Medium Current Visit: No Problem List Initiated/Reviewed/Updated: Yes Orders Last 24hrs: Active Orders 24 hr Category Date Time Status Admission Status [Patient Status] [ADT] Routine ADT 01/26/19 11:47 Active Oxygen Therapy [RC] PRN Care 01/26/19 14:13 Active Up ad Oanh [RC] ASDIRECTED Care 01/26/19 14:11 Active VTE/DVT Education [RC] DAILY Care 01/26/19 14:13 Active Vital Signs [RC] Q4HR Care 01/26/19 14:13 Active Heart Healthy Diet [DIET] Diet 01/26/19 Lunch Active Chest 1V Frontal [CR] Stat Exams 01/26/19 10:56 Taken CBC WITH AUTO DIFF [HEME] AM Lab 01/27/19 05:11 Ordered COMPREHENSIVE METABOLIC PN,CMP [CHEM] AM Lab 01/27/19 05:11 Ordered Acetaminophen [Tylenol] Med 01/26/19 14:11 Active 650 mg PO Q4H PRN Aloe Vera/Sodium Chloride [[place] Saline Nasal Gel] Med 01/26/19 14:17 Active 0 gm MEG DAILY PRN Apixaban [Eliquis] Med 01/26/19 21:00 Active 2.5 mg PO BID Colestipol Med 01/26/19 15:00 Pending 1 gm PO TID Fluticasone Propionate [Flonase] Med 01/27/19 09:00 Active 0 gm NASBOTH DAILY Folic Acid Med 01/27/19 09:00 Active 2 mg PO DAILY Furosemide [Lasix] Med 01/27/19 09:00 Active 40 mg PO DAILY Levothyroxine Med 01/27/19 06:00 Active 125 mcg PO ACBREAKFAST Loperamide [Imodium] Med 01/26/19 21:00 Active 2 mg PO BID Losartan [Cozaar] Med 01/27/19 09:00 Active 12.5 mg PO DAILY Melatonin Med 01/26/19 21:00 Active 3 mg PO BEDTIME Metoprolol Tartrate [Lopressor] Med 01/26/19 21:00 Active 25 mg PO BID Nystatin [Nystop] Med 01/26/19 21:00 Active 0 gm TOP BID Pramipexole [Mirapex] Med 01/26/19 21:00 Active 0.5 mg PO BEDTIME Sertraline [Zoloft] Med 01/27/19 09:00 Ordered 75 mg PO DAILY Sodium Chloride 0.9% [Saline Flush] Med 01/26/19 10:59 Active 10 ml FLUSH ASDIRECTED PRN Spironolactone [Aldactone] Med 01/26/19 14:30 Active 25 mg PO DAILY Saline Lock Insert [OM.PC] Routine Oth 01/26/19 10:59 Ordered Resuscitation Status Routine Resus Stat 01/26/19 13:38 Ordered Medication Orders Acetaminophen (Tylenol) 650 mg PO Q4H PRN PRN Reason: Pain (Mild 1-3)/fever Apixaban (Eliquis) 2.5 mg PO BID [facility] Fluticasone Propionate (Flonase) 0 gm NASBOTH DAILY KAY Folic Acid (Folic Acid) 2 mg PO DAILY KAY Furosemide (Lasix) 40 mg PO DAILY [facility] Levothyroxine Sodium (Levothyroxine) 125 mcg PO ACBREAKFAST KAY Loperamide HCl (Imodium) 2 mg PO BID KAY Losartan Potassium (Cozaar) 12.5 mg PO DAILY [facility] Melatonin (Melatonin) 3 mg PO BEDTIME KAY Metoprolol Tartrate (Lopressor) 25 mg PO BID [facility] Non-Formulary Medication (Colestipol) 1 gm PO TID KAY Nystatin (Nystop) 0 gm TOP BID KAY Pramipexole Dihydrochloride (Mirapex) 0.5 mg PO BEDTIME KAY Sertraline HCl (Zoloft) 75 mg PO DAILY [facility] Sodium Chloride (Saline Flush) 10 ml FLUSH ASDIRECTED PRN PRN Reason: Keep Vein Open Sodium Chloride ([place] Saline Nasal Gel) 0 gm MEG DAILY PRN PRN Reason: Dryness Spironolactone (Aldactone) 25 mg PO DAILY [facility] Assessment/Plan Comment:: Congestive heart failure * Patient was given 40 mg in the emergency room which resolved her hypoxemia * She will get an extra dose spironolactone 25 mg now. * Follow electrolytes closely * Strict I's and O's and daily weights Chronic renal insufficiency * BUN and creatinine are improved over last visit in the emergency room. Anticipate worsening as we improve her congestive heart failure. Chronic stasis ulcers * Continue treatment with lower extremity compression stockings and topical antibiotics. Anticipate length of stay 1-2 days. CODE STATUS: DNR/DNI DVT prophylaxis: Patient is on Eliquis. Chronic medical problems include:chronic combined systolic and diastolic heart failure, generalized edema, hypertension, chronic atrial fibrillation, stage III chronic kidney disease, hypoxemia, chronic lower extremity ulcers, major depressive disorder, morbid obesity with alveolar hypoventilation presented to the emergency room with worsening shortness of breath, and kyphosis Patient has a very poor long-term outcome. She has end-stage congestive heart failure and she is very close to baseline currently. I don't anticipate we can do much more for her congestive heart failure and generalized edema than what has already been done through the emergency room without worsening her renal function significantly.
[2019-01-26] MEDS: Loperamide 2 MG Cap PO SCH (20:41)
[2019-01-26] MEDS: Metoprolol Tartrate 50 MG Tab PO SCH (20:41)
[2019-01-26] MEDS: Spironolactone 25 MG Tab PO SCH (20:42)
[2019-01-26] MEDS: Nystatin Topical Powder 15 GM Bottle TOP SCH (20:42)
[2019-01-26] MEDS: Apixaban 2.5 MG Tab PO SCH (20:42)
[2019-01-26] MEDS ORDERED: Melatonin 3 MG Tab PO SCH (21:00)
[2019-01-26] MEDS ORDERED: Pramipexole 0.5 MG Tab PO SCH (21:00)
[2019-01-26] MEDS ORDERED: Sertraline 50 MG Tab PO SCH (21:00)
[2019-01-27] MEDS ORDERED: Levothyroxine 125 MCG Tab PO SCH (06:00)
--- NOTE | 2019-01-27 08:44 | PCM.DCSUM1 ---
Discharge Summary - Hospital Course HPI Initial Comments: This 88-year-old female with the history of chronic combined systolic and diastolic heart failure, generalized edema, hypertension, chronic atrial fibrillation, stage III chronic kidney disease, hypoxemia, chronic lower extremity ulcers, major depressive disorder, morbid obesity with alveolar hypoventilation presented to the emergency room with worsening shortness of breath, and kyphosis. Over the last week she has been feeling worse and her breathing has become more labored and difficult. She has had an 8 pound weight gain in the last week. Report is she had a decrease in her Lasix and spironolactone approximately 3 weeks ago. She is a poor historian so much of the history was obtained through old records. It appears that she complains of the shortness of breath worse when she ambulates or lies flat. I am not sure that her shortness of breath is worse than baseline, but she is feeling more fatigued. When she presented to the emergency room she was hypoxemic at reportedly in the 80s. She was given 40 mg of Lasix IV and when she arrived to the floor her oxygenation was in the mid 90s. BNP was 3890, and on January 03, 2019 her BNP in the emergency room was 3499. Creatinine today was 1.6, on January 03, 2019 2.2, on December 30, 2018 and 1.9. BUN today was 34, on January 03, 2019 64, December 31, 1999 1961. Brief History: After receiving the extra 40 mg IV of Lasix in the emergency room and 25 mg spironolactone by mouth on the floor patient did well. Labs this morning were all stable or improved. Unfortunately, BNP was unable to be performed because the analyzer was down. Diagnosis: Stroke: No - Discharge Data Discharge Date: 01/27/19 Discharge Disposition: DC/Tfer to [place] [id number] Condition: Fair - Discharge Diagnosis/Problem(s) (1) Venous ulcer of leg SNOMED Code(s): 495097293, 189755176 ICD Code: I83.009 - VARICOSE VEINS OF UNSP LOWER EXTREMITY W ULCER OF UNSP SITE; L97.909 - NON-PRS CHRONIC ULC UNSP PRT OF UNSP LOW LEG W UNSP SEVERITY Status: Acute Current Visit: Yes (2) CHF (congestive heart failure) SNOMED Code(s): 42465098 ICD Code: I50.9 - HEART FAILURE, UNSPECIFIED Status: Acute Current Visit : Yes Qualifiers: Heart failure type: unspecified Heart failure chronicity: chronic Qualified Code(s): I50.9 - Heart failure, unspecified (3) Renal insufficiency SNOMED Code(s): 368889066, 465788574 ICD Code: N28.9 - DISORDER OF KIDNEY AND URETER, UNSPECIFIED Status: Acute Priority: High Current Visit: No (4) Weakness SNOMED Code(s): 52721567 ICD Code: R53.1 - WEAKNESS Status: Resolved Priority: Medium Current Visit: No - Patient Instructions Diet: Heart Healthy Diet Driving: Do Not Drive Showering/Bathing: May Shower Other/Special Instructions: Follow-up with PCP in 3-5 days. I increased your furosemide from 30 mg to 40 mg a day. Recheck CMP and BNP with your physician in 3-5 days. - Discharge Plan *PRESCRIPTION DRUG MONITORING PROGRAM REVIEWED*: No *COPY OF PRESCRIPTION DRUG MONITORING REPORT IN PATIENT RACHANA: No Prescriptions/Med Rec: Furosemide [Lasix] 40 mg PO DAILY #30 tablet Home Medications: Home Meds Pramipexole [Mirapex] 0.5 mg PO DAILY 02/28/14 [History] Levothyroxine 125 mcg PO ACBREAKFAST #30 tab 05/21/18 [Rx] Apixaban [Eliquis] 2.5 mg PO BID 08/22/18 [History] Colestipol [Colestipol HCl] 1 gm PO TID 08/22/18 [History] Folic Acid 2 mg PO DAILY 08/22/18 [History] Multivit with Calcium,Iron,Min [Essential Daily] 1 tab PO DAILY 08/22/18 [ History] Nystatin [Nystop] 1 applic TP BID PRN 08/22/18 [History] Sertraline [Zoloft] 75 tab PO BEDTIME 08/22/18 [History] Acetaminophen [Tylenol Extra Strength] 1,000 mg PO Q12H 01/03/19 [History] Losartan [Cozaar] 12.5 mg PO DAILY 01/03/19 [History] Spironolactone [Aldactone] 25 mg PO DAILY 01/03/19 [History] Triamcinolone Acetonide [Nasacort] 2 sprays NASBOTH DAILY 01/03/19 [History] diphenhydrAMINE [Benadryl] 12.5 mg PO BEDTIME 01/03/19 [History] Aloe Vera/Sodium Chloride [[place] Saline Nasal Gel] 1 applic MEG DAILY PRN [History] Ergocalciferol (Vitamin D2) [Vitamin D2] 50,000 unit PO ASDIRECTED 01/26/19 [ History] Loperamide [Imodium] 2 mg PO BID 01/26/19 [History] Metoprolol Tartrate 25 mg PO BID 01/26/19 [History] Zolpidem [Ambien] 5 mg PO BEDTIME PRN 01/26/19 [History] Furosemide [Lasix] 40 mg PO DAILY #30 tablet 01/27/19 [Rx] Oxygen Therapy Mode: Room Air Forms: ED Department Discharge Referrals: Kedar Moreau MD [Primary Care Provider] - - Discharge Summary/Plan Comment DC Time >30 min.: Yes Discharge Summary/Plan Comment: Patient did well overnight. She is only on O2 when she sleeps, which is typical for her. I increased her Lasix to 40 mg in the morning. Patient needs to follow- up with her primary care provider in 3-5 days. Patient has a poor overall prognosis and will likely have recurrent episodes of congestive failure will progressively worsening. - General Info Date of Service: 01/27/19 Admission Dx/Problem (Free Text: Admission Diagnosis/Problem Admission Diagnosis/Problem Congestive heart failure - Review of Systems General: Reports: No Symptoms HEENT: Reports: No Symptoms Pulmonary: Reports: No Symptoms Cardiovascular: Reports: Edema. Denies: Chest Pain Gastrointestinal: Reports: No Symptoms - Patient Data Vitals - Most Recent: Last Vital Signs Temp 97.7 F 01/27/19 08:00 Pulse 74 01/27/19 08:00 Resp 17 01/27/19 08:00 BP 125/91 H 01/27/19 08:00 Pulse Ox 100 01/27/19 08:00 Weight - Most Recent: 180 lb 4.8 oz I&O - Last 24 hours: Intake & Output 01/26/19 01/27/19 01/27/19 22:59 06:59 14:59 Intake Total 380 200 Output Total 500 Balance 380 -300 Lab Results - Last 24 hrs: Laboratory Results - last 24 hr 01/26/19 01/26/19 01/26/19 Range/Units 10:40 10:40 10:40 WBC 6.25 (3.98-10.04) K/mm3 RBC 3.24 L (3.98-5.22) M/mm3 Hgb 11.3 (11.2-15.7) gm/L Hct 35.8 (34.1-44.9) % MCV 110.5 H D (79.4-94.8) fl MCH 34.9 H (25.6-32.2) pg MCHC 31.6 L (32.2-35.5) g/dl RDW Std Deviation 65.0 H (36.4-46.3) fL Plt Count 161 L (182-369) K/mm3 MPV 9.6 (9.4-12.3) fl Neut % (Auto) 67.9 (34.0-71.1) % Lymph % (Auto) 19.5 (19.3-51.7) % Orange % (Auto) 9.6 (4.7-12.5) % Eos % (Auto) 2.2 (0.7-5.8) Baso % (Auto) 0.3 (0.1-1.2) % Neut # (Auto) 4.24 (1.56-6.13) K/mm3 Lymph # (Auto) 1.22 (1.18-3.74) K/mm3 Orange # (Auto) 0.60 H (0.24-0.36) K/mm3 Eos # (Auto) 0.14 (0.04-0.36) K/mm3 Baso # (Auto) 0.02 (0.01-0.08) K/mm3 Manual Slide Review Abnormal smear Sodium 141 (136-145) mEq/L Potassium 3.7 D (3.5-5.1) mEq/L Chloride 106 (98-107) mEq/L Carbon Dioxide 26 (21-32) mEq/L Anion Gap 12.7 (5-15) BUN 34 H D (7-18) mg/dL Creatinine 1.6 H (0.55-1.02) mg/dL Est Cr Clr Drug Dosing TNP Estimated GFR (MDRD) 30 (>60) mL/min BUN/Creatinine Ratio 21.3 H (14-18) Glucose 88 (83-115) mg/dL Calcium 8.7 (8.5-10.1) mg/dL Magnesium (1.8-2.4) mg/dl Total Bilirubin 0.5 (0.2-1.0) mg/dL AST 26 (15-37) U/L ALT 25 (14-59) U/L Alkaline Phosphatase 105 (46-116) U/L NT-Pro-B Natriuret Pep 3809 H (0-450) pg/mL Total Protein 6.6 (6.4-8.2) g/dl Albumin 3.7 (3.4-5.0) g/dl Globulin 2.9 gm/dL Albumin/Globulin Ratio 1.3 (1-2) 01/26/19 01/27/19 01/27/19 Range/Units 10:40 05:12 05:12 WBC 4.10 (3.98-10.04) K/mm3 RBC 2.97 L (3.98-5.22) M/mm3 Hgb 10.2 L (11.2-15.7) gm/L Hct 32.7 L (34.1-44.9) % MCV 110.1 H (79.4-94.8) fl MCH 34.3 H (25.6-32.2) pg MCHC 31.2 L (32.2-35.5) g/dl RDW Std Deviation 63.2 H (36.4-46.3) fL Plt Count 119 L (182-369) K/mm3 MPV 9.4 (9.4-12.3) fl Neut % (Auto) 61.6 (34.0-71.1) % Lymph % (Auto) 26.1 (19.3-51.7) % Orange % (Auto) 9.0 (4.7-12.5) % Eos % (Auto) 2.4 (0.7-5.8) Baso % (Auto) 0.2 (0.1-1.2) % Neut # (Auto) 2.52 (1.56-6.13) K/mm3 Lymph # (Auto) 1.07 L (1.18-3.74) K/mm3 Orange # (Auto) 0.37 H (0.24-0.36) K/mm3 Eos # (Auto) 0.10 (0.04-0.36) K/mm3 Baso # (Auto) 0.01 (0.01-0.08) K/mm3 Manual Slide Review Abnormal smear Sodium 141 (136-145) mEq/L Potassium 3.5 (3.5-5.1) mEq/L Chloride 107 (98-107) mEq/L Carbon Dioxide 26 (21-32) mEq/L Anion Gap 11.5 (5-15) BUN 30 H (7-18) mg/dL Creatinine 1.3 H (0.55-1.02) mg/dL Est Cr Clr Drug Dosing 21.49 Estimated GFR (MDRD) 39 (>60) mL/min BUN/Creatinine Ratio 23.1 H (14-18) Glucose 89 (83-115) mg/dL Calcium 8.3 L (8.5-10.1) mg/dL Magnesium 1.7 L (1.8-2.4) mg/dl Total Bilirubin 0.5 (0.2-1.0) mg/dL AST 24 (15-37) U/L ALT 20 (14-59) U/L Alkaline Phosphatase 78 (46-116) U/L NT-Pro-B Natriuret Pep (0-450) pg/mL Total Protein 5.5 L (6.4-8.2) g/dl Albumin 3.1 L (3.4-5.0) g/dl Globulin 2.4 gm/dL Albumin/Globulin Ratio 1.3 (1-2) Med Orders - Current: Current Medications Acetaminophen (Tylenol) 650 mg PO Q4H PRN PRN Reason: Pain (Mild 1-3)/fever Apixaban (Eliquis) 2.5 mg PO BID [facility] Last Admin: 01/26/19 20:42 Dose: 2.5 mg Fluticasone Propionate (Flonase) 0 gm NASBOTH DAILY [facility] Folic Acid (Folic Acid) 2 mg PO DAILY [facility] Furosemide (Lasix) 40 mg PO DAILY [facility] Levothyroxine Sodium (Levothyroxine) 125 mcg PO ACBREAKFAST [facility] Last Admin: 01/27/19 05:34 Dose: 125 mcg Loperamide HCl (Imodium) 2 mg PO BID [facility] Last Admin: 01/26/19 20:41 Dose: 2 mg Losartan Potassium (Cozaar) 12.5 mg PO DAILY [facility] Melatonin (Melatonin) 3 mg PO BEDTIME [facility] Last Admin: 01/26/19 20:42 Dose: 3 mg Metoprolol Tartrate (Lopressor) 25 mg PO BID [facility] Last Admin: 01/26/19 20:41 Dose: 25 mg Nystatin (Nystop) 0 gm TOP BID [facility] Last Admin: 01/26/19 20:42 Dose: 1 applic Colestipol 1 Gm 0 each PO TID [facility] Pramipexole Dihydrochloride (Mirapex) 0.5 mg PO BEDTIME [facility] Last Admin: 01/26/19 20:41 Dose: 0.5 mg Sertraline HCl (Zoloft) 75 mg PO DAILY [facility] Sodium Chloride (Saline Flush) 10 ml FLUSH ASDIRECTED PRN PRN Reason: Keep Vein Open Sodium Chloride (Merritt Saline Nasal Gel) 0 gm MEG DAILY PRN PRN Reason: Dryness Spironolactone (Aldactone) 25 mg PO DAILY [facility] Last Admin: 01/26/19 20:42 Dose: 25 mg Discontinued Medications Furosemide (Lasix) 40 mg IVPUSH NOW ONE Stop: 01/26/19 11:01 Last Admin: 01/26/19 11:30 Dose: Not Given Sertraline HCl (Zoloft) 3,750 mg PO BEDTIME [facility] - Exam Quality Assessment: Denies: Supplemental Oxygen General: Reports: Alert, Oriented Neck: Reports: Supple Lungs: Reports: Normal Respiratory Effort, Rales (Mild bibasilar) Cardiovascular: Reports: Regular Rate, Regular Rhythm GI/Abdominal Exam: Normal Bowel Sounds, Soft, Non-Tender, No Distention Extremities: Normal Inspection, Non-Tender, Pedal Edema Skin: Reports: Warm, Dry, Intact
[2019-01-27] MEDS ORDERED: Sertraline 50 MG Tab PO SCH (09:00)
[2019-01-27] MEDS ORDERED: Losartan 25 MG Tab PO SCH (09:00)
[2019-01-27] MEDS ORDERED: Folic Acid 1 MG Tab PO SCH (09:00)
[2019-01-27] MEDS ORDERED: Fluticasone Propionate Nasal Spray 16 GM Bottle NASBOTH SCH (09:00)
[2019-01-27] MEDS ORDERED: Furosemide 40 MG Tab PO SCH (09:00)
[2019-01-27] MEDS: Spironolactone 25 MG Tab PO SCH (09:14)
[2019-01-27] MEDS: Apixaban 2.5 MG Tab PO SCH (09:14)
[2019-01-27] MEDS: Loperamide 2 MG Cap PO SCH (09:16)
[2019-01-27] MEDS: Metoprolol Tartrate 50 MG Tab PO SCH (09:17)
[2019-01-27] MEDS: Nystatin Topical Powder 15 GM Bottle TOP SCH (09:20)
[2019-01-27 14:54] VITALS: BP 107/92
--- NOTE | 2019-01-28 10:04 | CR ---
Chest: Portable view of the chest was obtained. Comparison: Prior chest x-ray of 01/03/19. Heart is enlarged. Haziness adjacent to the left hemidiaphragm is seen most likely due to atelectasis. Mild scarring is noted within the right lung base. Lungs otherwise are clear. Bony structures shows degenerative change within both shoulders with mild scoliosis noted within the spine. Pacemaker is present. Impression: 1. Incidental findings. Nothing acute is appreciated. Diagnostic code #2
== END 2019-01-27 14:45 | DRG 291 ==
LOC: JD.ED 10:21 → JD.MS 12:43
PROVIDERS: ADMIT Family Medicine; ATTEND Family Medicine
DX: I50.9 Heart failure, unspecified (principal); I13.0 Hypertensive heart and chronic kidney disease with heart failure and stage 1 through stage 4 chronic kidney disease, or unspecified chronic kidney disease; I50.43 Acute on chronic combined systolic (congestive) and diastolic (congestive) heart failure; G47.30 Sleep apnea, unspecified; E66.2 Morbid (severe) obesity with alveolar hypoventilation; L97.919 Non-pressure chronic ulcer of unspecified part of right lower leg with unspecified severity; L97.929 Non-pressure chronic ulcer of unspecified part of left lower leg with unspecified severity; J44.9 Chronic obstructive pulmonary disease, unspecified; I73.9 Peripheral vascular disease, unspecified; K52.9 Noninfective gastroenteritis and colitis, unspecified; R13.10 Dysphagia, unspecified; R32 Unspecified urinary incontinence; M54.9 Dorsalgia, unspecified; G89.29 Other chronic pain; F32.9 Major depressive disorder, single episode, unspecified; E03.9 Hypothyroidism, unspecified; H54.7 Unspecified visual loss; M40.209 Unspecified kyphosis, site unspecified; H91.90 Unspecified hearing loss, unspecified ear; Z85.89 Personal history of malignant neoplasm of other organs and systems; Z86.14 Personal history of Methicillin resistant Staphylococcus aureus infection; Z99.81 Dependence on supplemental oxygen; Z95.0 Presence of cardiac pacemaker; Z90.49 Acquired absence of other specified parts of digestive tract; Z88.0 Allergy status to penicillin; Z88.8 Allergy status to other drugs, medicaments and biological substances; R53.83 Other fatigue; R53.1 Weakness; I87.8 Other specified disorders of veins; R60.0 Localized edema; R06.02 Shortness of breath; Z79.01 Long term (current) use of anticoagulants; Z79.890 Hormone replacement therapy; Z88.1 Allergy status to other antibiotic agents; Z79.899 Other long term (current) drug therapy; Z96.659 Presence of unspecified artificial knee joint; N18.3 Chronic kidney disease, stage 3 (moderate); I48.2 Chronic atrial fibrillation; R09.02 Hypoxemia; M19.90 Unspecified osteoarthritis, unspecified site; N28.9 Disorder of kidney and ureter, unspecified; Z66 Do not resuscitate; I83.009 Varicose veins of unspecified lower extremity with ulcer of unspecified site
CPT/HCPCS: 36415; 71045; 71045-26; 80053; 83735; 83880; 85025; 93005; 93010; 99285; 99285-25; A9270-GY

== ENCOUNTER 2019-06-04 09:36 | Inpatient (IN) | payer MEDICARE, OTHER ==
[2019-06-04] MEDS ORDERED: Sodium Chloride 0.9% 10 ML Syringe FLUSH PRN (10:02)
[2019-06-04] MEDS ORDERED: Furosemide 40 MG/4 ML VIAL IVPUSH ONE (10:04)
--- NOTE | 2019-06-04 10:56 | CR ---
Chest: Portable view of the chest was obtained. Comparison: Prior chest x-ray of 04/03/19. Findings: Heart size is accentuated from portable technique. Tortuous thoracic aorta is noted. Bichamber pacemaker is seen. Lungs show no acute parenchymal change. Bony structures are osteopenic. Impression: 1. Findings as noted above. Nothing acute is appreciated on portable chest x-ray. Diagnostic code #2
--- NOTE | 2019-06-04 14:36 | EDM.PDOC ---
ED HPI GENERAL MEDICAL PROBLEM - General Chief Complaint: Respiratory Problem Stated Complaint: SOB Time Seen by Provider: 06/04/19 09:47 Source of Information: Reports: Patient, Senior Living Records () History Limitations: Reports: No Limitations - History of Present Illness INITIAL COMMENTS - FREE TEXT/NARRATIVE: The patient presents from [facility] with shortness of breath and 4 pound weight gain over 3 days. The patient has CHF with mixed diastolic and systolic dysfunction. She had no recent changes to her medications. She has no chest pain, fever, chills, cough, abdominal pain, nausea or vomiting. She is on home oxygen and she is requiring more oxygen. Onset: Gradual Duration: Day(s): Severity: Moderate Improves with: Reports: None Worsens with: Reports: None Associated Symptoms: Reports: Shortness of Breath. Denies: Chest Pain, Cough, Fever/Chills, Headaches, Nausea/Vomiting - Related Data Allergies Allergy/AdvReac Type Severity Reaction Status Date / Time Penicillins Allergy Mild Swelling/itchy Verified 06/04/19 09:56 rash ciprofloxacin [From Cipro] Allergy Rash Verified 06/04/19 09:56 vancomycin Allergy Rash Verified 06/04/19 09:56 metronidazole AdvReac Nausea and Verified 06/04/19 09:56 Vomiting Home Meds: Home Meds Pramipexole [Mirapex] 0.5 mg PO DAILY 02/28/14 [History] Levothyroxine 125 mcg PO ACBREAKFAST #30 tab 05/21/18 [Rx] Apixaban [Eliquis] 2.5 mg PO BID 08/22/18 [History] Folic Acid 2 mg PO DAILY 08/22/18 [History] Multivit with Calcium,Iron,Min [Essential Daily] 1 tab PO DAILY 08/22/18 [ History] Sertraline [Zoloft] 50 tab PO BEDTIME 08/22/18 [History] Acetaminophen [Tylenol Extra Strength] 1,000 mg PO Q12H 01/03/19 [History] Losartan [Cozaar] 12.5 mg PO DAILY 01/03/19 [History] Triamcinolone Acetonide [Nasacort] 2 sprays NASBOTH DAILY 01/03/19 [History] Aloe Vera/Sodium Chloride [[place] Saline Nasal Gel] 1 applic MEG DAILY PRN [History] Ergocalciferol (Vitamin D2) [Vitamin D2] 50,000 unit PO ASDIRECTED 01/26/19 [ History] Loperamide [Imodium] 2 mg PO BID 01/26/19 [History] Metoprolol Tartrate 25 mg PO BID 01/26/19 [History] Zolpidem [Ambien] 2.5 mg PO BEDTIME PRN 01/26/19 [History] Furosemide [Lasix] 40 mg PO BID 04/03/19 [History] Interdry Wipes 1 container TOP DAILY PRN 04/03/19 [History] Nystatin [Nystop] 1 applic TOP BID PRN 04/03/19 [History] Spironolactone 25 mg PO DAILY 04/03/19 [History] Past Medical History HEENT History: Reports: Impaired Vision Other HEENT History: wears glasses, hard of hearing Cardiovascular History: Reports: Heart Failure, Heart Murmur, Pacemaker, SOB on Exertion Other Cardiovascular History: generalized edema Respiratory History: Reports: Sleep Apnea, SOB Other Respiratory History: hypoxemia Gastrointestinal History: Reports: Chronic Diarrhea Other Gastrointestinal History: dysphagia with bread and certain other foods Genitourinary History: Reports: Urinary Incontinence Other Genitourinary History: CKD STAGE 3 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 Has picked her toe nails and finger nails off. 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 - Past Surgical History HEENT Surgical History: Reports: Cataract Surgery, Tonsillectomy Respiratory Surgical History: Reports: None Other Respiratory Surgeries/Procedures: Uses oxygen at night 2 l NC GI Surgical History: Reports: Cholecystectomy Female Surgical History: Reports: None Endocrine Surgical History: Reports: None Neurological Surgical History: Reports: None Musculoskeletal Surgical History: Reports: Knee Replacement Oncologic Surgical History: Reports: None Dermatological Surgical History: Reports: None Social & Family History - Family History Family Medical History: Noncontributory - Tobacco Use Smoking Status *Q: Never Smoker Second Hand Smoke Exposure: No - Caffeine Use Caffeine Use: Reports: Coffee - Living Situation & Occupation Living situation: Reports: Occupation: Retired ED ROS GENERAL - Review of Systems Review Of Systems: See Below Constitutional: Reports: No Symptoms HEENT: Reports: No Symptoms Respiratory: Reports: Shortness of Breath. Denies: Cough Cardiovascular: Reports: Edema. Denies: Chest Pain Endocrine: Reports: No Symptoms GI/Abdominal: Reports: No Symptoms ED EXAM, GENERAL - Physical Exam Exam: See Below Exam Limited By: No Limitations General Appearance: Alert, No Apparent Distress Ears: Normal External Exam Nose: Normal Inspection Head: Atraumatic, Normocephalic Neck: Normal Inspection Respiratory/Chest: No Respiratory Distress, Decreased Breath Sounds, Rales Cardiovascular: Regular Rate, Rhythm, No Edema, No Murmur GI/Abdominal: Soft, Non-Tender, No Organomegaly, No Mass Back Exam: Normal Inspection Extremities: Other (Edema to both legs) EKG INTERPRETATION EKG Date: 06/04/19 Time: 09:53 Rhythm: Other (Ventricular paced rhythm) Course - Vital Signs Last Recorded V/S: Last Vital Signs Temp 97.9 F 06/04/19 09:52 Pulse 75 06/04/19 09:52 Resp 18 06/04/19 09:52 BP 108/80 06/04/19 09:52 Pulse Ox 100 06/04/19 09:52 - Orders/Labs/Meds Orders: Active Orders 24 hr Category Date Time Status Cardiac Monitoring [RC] . DIRECTED Care 06/04/19 10:02 Active EKG Documentation Completion [RC] STAT Care 06/04/19 10:03 Active Oxygen Therapy [RC] PRN Care 06/04/19 10:02 Active Peripheral IV Care [RC] . DIRECTED Care 06/04/19 10:03 Active Sodium Chloride 0.9% [Saline Flush] Med 06/04/19 10:02 Active 10 ml FLUSH ASDIRECTED PRN Peripheral IV Insertion Adult [OM.PC] Stat Oth 06/04/19 10:02 Ordered Medication Orders Sodium Chloride (Saline Flush) 10 ml FLUSH ASDIRECTED PRN PRN Reason: Keep Vein Open Last Admin: 06/04/19 10:46 Dose: 10 ml Labs: Laboratory Tests 06/04/19 06/04/19 06/04/19 Range/Units 10:37 10:37 10:37 WBC 8.21 (3.98-10.04) K/mm3 RBC 3.49 L (3.98-5.22) M/mm3 Hgb 12.0 (11.2-15.7) gm/dl Hct 36.9 (34.1-44.9) % MCV 105.7 H (79.4-94.8) fl MCH 34.4 H (25.6-32.2) pg MCHC 32.5 (32.2-35.5) g/dl RDW Std Deviation 56.6 H (36.4-46.3) fL Plt Count 130 L (182-369) K/mm3 MPV 9.8 (9.4-12.3) fl Neut % (Auto) 76.2 H (34.0-71.1) % Lymph % (Auto) 13.6 L (19.3-51.7) % [place] % (Auto) 9.0 (4.7-12.5) % Eos % (Auto) 1.0 (0.7-5.8) Baso % (Auto) 0.2 (0.1-1.2) % Neut # (Auto) 6.25 H (1.56-6.13) K/mm3 Lymph # (Auto) 1.12 L (1.18-3.74) K/mm3 [place] # (Auto) 0.74 H (0.24-0.36) K/mm3 Eos # (Auto) 0.08 (0.04-0.36) K/mm3 Baso # (Auto) 0.02 (0.01-0.08) K/mm3 Manual Slide Review Abnormal smear Sodium 141 (136-145) mEq/L Potassium 4.2 (3.5-5.1) mEq/L Chloride 102 (98-107) mEq/L Carbon Dioxide 35 H (21-32) mEq/L Anion Gap 8.2 (5-15) BUN 25 H (7-18) mg/dL Creatinine 1.4 H (0.55-1.02) mg/dL Est Cr Clr Drug Dosing 0.89 mL/min Estimated GFR (MDRD) 35 (>60) mL/min BUN/Creatinine Ratio 17.9 (14-18) Glucose 93 (83-115) mg/dL Calcium 9.3 (8.5-10.1) mg/dL Total Bilirubin 0.9 (0.2-1.0) mg/dL AST 38 H (15-37) U/L ALT 35 (14-59) U/L Alkaline Phosphatase 133 H (46-116) U/L Troponin I < 0.017 (0.00-0.056) ng/mL NT-Pro-B Natriuret Pep 2373 H (0-450) pg/mL Total Protein 6.6 (6.4-8.2) g/dl Albumin 3.7 (3.4-5.0) g/dl Globulin 2.9 gm/dL Albumin/Globulin Ratio 1.3 (1-2) Meds: Medications Generic Name Dose Route Start Last Admin Trade Name Freq PRN Reason Stop Dose Admin Sodium Chloride 10 ml 06/04/19 10:02 06/04/19 10:46 Saline Flush FLUSH 10 ml ASDIRECTED PRN Administration Keep Vein Open Discontinued Medications Generic Name Dose Route Start Last Admin Trade Name Freq PRN Reason Stop Dose Admin Furosemide 80 mg 06/04/19 10:04 06/04/19 10:42 Lasix IVPUSH 06/04/19 10:05 80 mg NOW ONE Administration - Re-Assessments/Exams Free Text/Narrative Re-Assessment/Exam: 06/04/19 14:34 I ordered oxygen, IV saline lock, EKG, CXR, labs, and lasix 80mg IV. Her EKG shows a paced rhythm. Her CXR shows cardiolmegaly and congestive changes but nothing acute. Her WBC was normal. Her platelets were low at 130. Her creatinine was slightly elevated at 1.4. Her troponin was normal. Her BNP was elevated at 2373. She is urinating. I feel she needs to be admitted. I called Dr Banuelos and she agreed to the admission. Departure - Departure Time of Disposition: 14:40 Disposition: Admitted As Inpatient 66 Condition: Fair Clinical Impression: CHF exacerbation Qualifiers: Heart failure type: combined systolic and diastolic Qualified Code(s): I50.43 - Acute on chronic combined systolic (congestive) and diastolic (congestive) heart failure - Discharge Information - My Orders Last 24 Hours: My Active Orders 06/04/19 10:02 Cardiac Monitoring [RC] . DIRECTED Oxygen Therapy [RC] PRN Sodium Chloride 0.9% [Saline Flush] 10 ml FLUSH ASDIRECTED PRN Peripheral IV Insertion Adult [OM.PC] Stat 06/04/19 10:03 EKG Documentation Completion [RC] STAT Peripheral IV Care [RC] . DIRECTED - Assessment/Plan Last 24 Hours: My Active Orders 06/04/19 10:02 Cardiac Monitoring [RC] . DIRECTED Oxygen Therapy [RC] PRN Sodium Chloride 0.9% [Saline Flush] 10 ml FLUSH ASDIRECTED PRN Peripheral IV Insertion Adult [OM.PC] Stat 06/04/19 10:03 EKG Documentation Completion [RC] STAT Peripheral IV Care [RC] . DIRECTED
--- NOTE | 2019-06-04 16:39 | PCM.HP.2 ---
H&P History of Present Illness - General Date of Service: 06/04/19 Admit Problem/Dx: Admission Diagnosis/Problem Admission Diagnosis/Problem CHF, Congestive heart failure - History of Present Illness Initial Comments - Free Text/Narative: Most of the information obtained by chart review and nurse reporting due to patients mental status. CHIEF COMPLAINT: Patient brought in from skilled nursing for worsening shortness of breath and weight gain for the past 4 days. Unable to get a clear response on whether or not patient took medications today - Related Data Allergies/Adverse Reactions: Allergies Allergy/AdvReac Type Severity Reaction Status Date / Time Penicillins Allergy Mild Swelling/itchy Verified 06/04/19 15:10 rash ciprofloxacin [From Cipro] Allergy Rash Verified 06/04/19 15:10 vancomycin Allergy Rash Verified 06/04/19 15:10 metronidazole AdvReac Nausea and Verified 06/04/19 15:10 Vomiting Home Medications: Home Meds Pramipexole [Mirapex] 0.5 mg PO DAILY 02/28/14 [History] Levothyroxine 125 mcg PO ACBREAKFAST #30 tab 05/21/18 [Rx] Apixaban [Eliquis] 2.5 mg PO BID 08/22/18 [History] Folic Acid 2 mg PO DAILY 08/22/18 [History] Multivit with Calcium,Iron,Min [Essential Daily] 1 tab PO DAILY 08/22/18 [ History] Sertraline [Zoloft] 50 tab PO BEDTIME 08/22/18 [History] Acetaminophen [Tylenol Extra Strength] 1,000 mg PO Q12H 01/03/19 [History] Losartan [Cozaar] 12.5 mg PO DAILY 01/03/19 [History] Triamcinolone Acetonide [Nasacort] 2 sprays NASBOTH DAILY 01/03/19 [History] Aloe Vera/Sodium Chloride [[place] Saline Nasal Gel] 1 applic MEG DAILY PRN [History] Ergocalciferol (Vitamin D2) [Vitamin D2] 50,000 unit PO ASDIRECTED 01/26/19 [ History] Loperamide [Imodium] 2 mg PO BID 01/26/19 [History] Metoprolol Tartrate 25 mg PO BID 01/26/19 [History] Zolpidem [Ambien] 2.5 mg PO BEDTIME PRN 01/26/19 [History] Furosemide [Lasix] 40 mg PO DAILY 04/03/19 [History] Interdry Wipes 1 container TOP DAILY PRN 04/03/19 [History] Nystatin [Nystop] 1 applic TOP BID PRN 04/03/19 [History] Spironolactone 25 mg PO DAILY 04/03/19 [History] Acetaminophen [Tylenol] 600 mg PO DAILY PRN 06/04/19 [History] Past Medical History HEENT History: Reports: Impaired Vision Other HEENT History: wears glasses, hard of hearing Cardiovascular History: Reports: Heart Failure, Heart Murmur, Pacemaker, SOB on Exertion Other Cardiovascular History: generalized edema Respiratory History: Reports: Sleep Apnea, SOB Other Respiratory History: hypoxemia Gastrointestinal History: Reports: Chronic Diarrhea Other Gastrointestinal History: dysphagia with bread and certain other foods Genitourinary History: Reports: Urinary Incontinence Other Genitourinary History: CKD STAGE 3 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: Reports: Musculoskeletal History: Reports: Arthritis, Back Pain, Chronic Neurological History: Reports: None Other Neuro History: restless leg syndrome Psychiatric History: Reports: Depression, Other (See Below) Endocrine/Metabolic History: Reports: Hypothyroidism Other Endocrine/Metabolic History: autoimmune thyroiditis Other Hematologic History: hypokalemia Oncologic (Cancer) History: Reports: Other (See Below) 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 Has picked her toe nails and finger nails off. 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 - Past Surgical History HEENT Surgical History: Reports: Cataract Surgery, Tonsillectomy Respiratory Surgical History: Reports: None Other Respiratory Surgeries/Procedures: Uses oxygen at night 2 l NC GI Surgical History: Reports: Cholecystectomy Female Surgical History: Reports: None Endocrine Surgical History: Reports: None Neurological Surgical History: Reports: None Musculoskeletal Surgical History: Reports: Knee Replacement Oncologic Surgical History: Reports: None Dermatological Surgical History: Reports: None Social & Family History - Family History Family Medical History: Noncontributory - Tobacco Use Smoking Status *Q: Never Smoker Second Hand Smoke Exposure: No - Caffeine Use Caffeine Use: Reports: Coffee - Recreational Drug Use Recreational Drug Use: No - Living Situation & Occupation Living situation: Reports: Occupation: Retired H&P Review of Systems - Review of Systems: Review Of Systems: See Below Free Text/Narrative: unable to obtain due to AMS Exam - Exam Exam: See Below - Vital Signs Vital Signs: Last Vital Signs Temp 36.6 C 06/04/19 09:52 Pulse 74 06/04/19 14:49 Resp 14 06/04/19 14:49 BP 134/90 06/04/19 14:49 Pulse Ox 100 06/04/19 14:49 Weight: 81.057 kg - Exam Physical Exam Comments:: (confounded by body habitus) Gen.: 89 year old female somnolent but arousable in moderate distress 2/2 shortness of breath Head: Normocephalic and atraumatic Eyes: Significant periorbital edema, no lesions in sclera ENT: nares are patent without discharge, oral mucosa is dry without any obvious lesions Neck: supple, unable to appreciate JVD Cardiovascular: heart is rhythmic and synchronic with pulse, unable to appreciate murmurs or rubs Respiratory: crackles throughout lung trevino with diminished air entry at both bases, dull to percussion R>L. No wheezing or rhonchi. GI: abdomen is obese, non-tender Skin: there are multiple erythematous excoriations with stigmas of scratching in skin folds (below right breast, BL groin), no obvious pattern. Multiple scars from venous ulcers and 3 small ulcer in LE (lateral R ankle most significant, no obvious signs of infection) Musculoskeletal and extremities: 2+ pitting edema of BL LE up to knee Neurologic: somnolent and unable to stay awake to respond to my questions - Patient Data Lab Results Last 24 hrs: Laboratory Results - last 24 hr 06/04/19 06/04/19 06/04/19 Range/Units 10:37 10:37 10:37 WBC 8.21 (3.98-10.04) K/mm3 RBC 3.49 L (3.98-5.22) M/mm3 Hgb 12.0 (11.2-15.7) gm/dl Hct 36.9 (34.1-44.9) % MCV 105.7 H (79.4-94.8) fl MCH 34.4 H (25.6-32.2) pg MCHC 32.5 (32.2-35.5) g/dl RDW Std Deviation 56.6 H (36.4-46.3) fL Plt Count 130 L (182-369) K/mm3 MPV 9.8 (9.4-12.3) fl Neut % (Auto) 76.2 H (34.0-71.1) % Lymph % (Auto) 13.6 L (19.3-51.7) % Faulk % (Auto) 9.0 (4.7-12.5) % Eos % (Auto) 1.0 (0.7-5.8) Baso % (Auto) 0.2 (0.1-1.2) % Neut # (Auto) 6.25 H (1.56-6.13) K/mm3 Lymph # (Auto) 1.12 L (1.18-3.74) K/mm3 Faulk # (Auto) 0.74 H (0.24-0.36) K/mm3 Eos # (Auto) 0.08 (0.04-0.36) K/mm3 Baso # (Auto) 0.02 (0.01-0.08) K/mm3 Manual Slide Review Abnormal smear Sodium 141 (136-145) mEq/L Potassium 4.2 (3.5-5.1) mEq/L Chloride 102 (98-107) mEq/L Carbon Dioxide 35 H (21-32) mEq/L Anion Gap 8.2 (5-15) BUN 25 H (7-18) mg/dL Creatinine 1.4 H (0.55-1.02) mg/dL Est Cr Clr Drug Dosing 0.89 mL/min Estimated GFR (MDRD) 35 (>60) mL/min BUN/Creatinine Ratio 17.9 (14-18) Glucose 93 (83-115) mg/dL Calcium 9.3 (8.5-10.1) mg/dL Total Bilirubin 0.9 (0.2-1.0) mg/dL AST 38 H (15-37) U/L ALT 35 (14-59) U/L Alkaline Phosphatase 133 H (46-116) U/L Troponin I < 0.017 (0.00-0.056) ng/mL NT-Pro-B Natriuret Pep 2373 H (0-450) pg/mL Total Protein 6.6 (6.4-8.2) g/dl Albumin 3.7 (3.4-5.0) g/dl Globulin 2.9 gm/dL Albumin/Globulin Ratio 1.3 (1-2) Result Diagrams: 06/05/19 05:12 06/05/19 05:12 - Problem List (1) Acute on chronic combined systolic (congestive) and diastolic (congestive) heart failure SNOMED Code(s): 622910910020593, 929477239421538 ICD Code: I50.43 - ACUTE ON CHRONIC COMBINED SYSTOLIC AND DIASTOLIC HRT FAIL Status: Acute Current Visit: Yes (2) Altered awareness, transient SNOMED Code(s): 787691767 ICD Code: R40.4 - TRANSIENT ALTERATION OF AWARENESS Status: Acute Current Visit: Yes (3) Chronic kidney disease (CKD) stage G3b/A2, moderately decreased glomerular filtration rate (GFR) between 30-44 mL/min/1.73 square meter and albuminuria creatinine ratio between 30-299 mg/g SNOMED Code(s): 535098844, 271036304, 622878067 ICD Code: N18.3 - CHRONIC KIDNEY DISEASE, STAGE 3 (MODERATE) Status: Acute Current Visit: Yes (4) Atrial fibrillation with controlled ventricular response SNOMED Code(s): 690719839 ICD Code: I48.91 - UNSPECIFIED ATRIAL FIBRILLATION Status: Acute Current Visit: Yes (5) Hypertension SNOMED Code(s): 67588208 ICD Code: I10 - ESSENTIAL (PRIMARY) HYPERTENSION Status: Acute Current Visit: Yes (6) Metabolic alkalosis SNOMED Code(s): 7368406 ICD Code: E87.3 - ALKALOSIS Status: Acute Current Visit: Yes (7) Chronic venous insufficiency of lower extremity SNOMED Code(s): 193740248 ICD Code: I87.2 - VENOUS INSUFFICIENCY (CHRONIC) (PERIPHERAL) Status: Acute Current Visit: Yes (8) CHRIS (obstructive sleep apnea) SNOMED Code(s): 34417567 ICD Code: G47.33 - OBSTRUCTIVE SLEEP APNEA (ADULT) (PEDIATRIC) Status: Acute Current Visit: Yes Problem List Initiated/Reviewed/Updated: Yes Assessment/Plan Comment:: 1. Acute on chronic combined systolic and diastolic heart failure, unknown ejection fraction 2.
[2019-06-04] MEDS ORDERED: [UNRECOGNIZED DRUG - OTHER] TOP PRN (21:19)
[2019-06-04] MEDS ORDERED: Aloe Vera/Sodium Chloride Gel 14.1 GM Tube NAS PRN (21:19)
[2019-06-04] MEDS ORDERED: ERGOCALCIFEROL 50000 UNIT PO SCH (21:30)
[2019-06-04] MEDS: Furosemide 100 MG/10 ML SDV IVPUSH SCH (22:19)
[2019-06-04] MEDS: Sertraline 50 MG Tab PO SCH (23:07)
[2019-06-04] MEDS: Apixaban 2.5 MG Tab PO SCH (23:07)
[2019-06-05] MEDS: Levothyroxine 125 MCG Tab PO SCH (06:40)
[2019-06-05] MEDS: Pramipexole 0.5 MG Tab PO SCH (10:30)
[2019-06-05] MEDS: Spironolactone 25 MG Tab PO SCH (10:31)
[2019-06-05] MEDS: Metoprolol Tartrate 25 MG Tab PO SCH ×2 (10:33→20:07)
[2019-06-05] MEDS: Losartan 25 MG Tab PO SCH (10:35)
[2019-06-05] MEDS: Apixaban 2.5 MG Tab PO SCH ×2 (10:35→20:06)
[2019-06-05] MEDS: Folic Acid 1 MG Tab PO SCH (10:39)
[2019-06-05] MEDS: Furosemide 100 MG/10 ML SDV IVPUSH SCH ×2 (10:40→20:06)
[2019-06-05] MEDS: Sertraline 50 MG Tab PO SCH (20:07)
[2019-06-06] MEDS: Levothyroxine 125 MCG Tab PO SCH (06:55)
[2019-06-06] MEDS: Metoprolol Tartrate 25 MG Tab PO SCH (09:25)
[2019-06-06] MEDS: Pramipexole 0.5 MG Tab PO SCH (09:25)
[2019-06-06] MEDS: Apixaban 2.5 MG Tab PO SCH (09:26)
[2019-06-06] MEDS: Losartan 25 MG Tab PO SCH (09:26)
[2019-06-06] MEDS: Spironolactone 25 MG Tab PO SCH (09:26)
[2019-06-06] MEDS: Folic Acid 1 MG Tab PO SCH (09:26)
[2019-06-06] MEDS: Furosemide 100 MG/10 ML SDV IVPUSH SCH (09:35)
--- NOTE | 2019-06-06 12:20 | PCM.PN ---
- General Info Date of Service: 06/05/19 - Patient Data Vitals - Most Recent: Last Vital Signs Temp 36.2 C 06/06/19 07:34 Pulse 70 06/06/19 09:25 Resp 20 06/06/19 07:34 BP 127/92 H 06/06/19 09:26 Pulse Ox 92 L 06/06/19 07:34 Weight - Most Recent: 77.02 kg I&O - Last 24 Hours: Intake & Output 06/05/19 06/06/19 06/06/19 22:59 06:59 14:59 Intake Total 300 200 300 Output Total 1050 1250 Balance -750 -1050 300 Med Orders - Current: Current Medications Apixaban (Eliquis) 2.5 mg PO BID [facility] Last Admin: 06/06/19 09:26 Dose: 2.5 mg Folic Acid (Folic Acid) 2 mg PO DAILY [facility] Last Admin: 06/06/19 09:26 Dose: 2 mg Furosemide (Lasix) 80 mg PO BIDDIURETIC [facility] Levothyroxine Sodium (Levothyroxine) 125 mcg PO ACBREAKFAST [facility] Last Admin: 06/06/19 06:55 Dose: 125 mcg Losartan Potassium (Cozaar) 12.5 mg PO DAILY [facility] Last Admin: 06/06/19 09:26 Dose: 12.5 mg Metoprolol Tartrate (Lopressor) 25 mg PO BID [facility] Last Admin: 06/06/19 09:25 Dose: 25 mg Pramipexole Dihydrochloride (Mirapex) 0.5 mg PO DAILY [facility] Last Admin: 06/06/19 09:25 Dose: 0.5 mg Sertraline HCl (Zoloft) 50 mg PO BEDTIME [facility] Last Admin: 06/05/19 20:07 Dose: 50 mg Sodium Chloride (Saline Flush) 10 ml FLUSH ASDIRECTED PRN PRN Reason: Keep Vein Open Last Admin: 06/04/19 10:46 Dose: 10 ml Sodium Chloride ([place] Saline Nasal Gel) 0 gm MEG DAILY PRN PRN Reason: Dryness Spironolactone (Aldactone) 25 mg PO DAILY [facility] Last Admin: 06/06/19 09:26 Dose: 25 mg Discontinued Medications Furosemide (Lasix) 80 mg IVPUSH NOW ONE Stop: 06/04/19 10:05 Last Admin: 10/02/19 10:42 Dose: 80 mg Furosemide (Lasix) 80 mg IVPUSH BID [facility] Last Admin: 06/06/19 09:35 Dose: 80 mg Influenza Virus Vaccine (Pharmacy To Dose - Influenza Vaccine) 1 each IM ONETIME ONE Stop: 06/04/19 15:17 Last Admin: 06/04/19 19:00 Dose: Not Given Influenza Virus Vaccine (Fluzone High-Dose 2019-20 Syringe) 180 mcg IM .ONCE ONE Stop: 06/04/19 15:31 Non-Formulary Medication (Ergocalciferol (Vitamin D2)) 50,000 unit PO ASDIRECTED [facility] Non-Formulary Medication (Interdry Wipes) 1 container TOP DAILY PRN PRN Reason: Rash - Problem List & Annotations (1) Acute on chronic combined systolic (congestive) and diastolic (congestive) heart failure SNOMED Code(s): 454097958718183, 685909371013060 Code(s): I50.43 - ACUTE ON CHRONIC COMBINED SYSTOLIC AND DIASTOLIC HRT FAIL Status: Acute Current Visit: Yes (2) Altered awareness, transient SNOMED Code(s): 922864435 Code(s): R40.4 - TRANSIENT ALTERATION OF AWARENESS Status: Acute Current Visit: Yes (3) Chronic kidney disease (CKD) stage G3b/A2, moderately decreased glomerular filtration rate (GFR) between 30-44 mL/min/1.73 square meter and albuminuria creatinine ratio between 30-299 mg/g SNOMED Code(s): 903595688, 735718685, 755032358 Code(s): N18.3 - CHRONIC KIDNEY DISEASE, STAGE 3 (MODERATE) Status: Acute Current Visit: Yes (4) Atrial fibrillation with controlled ventricular response SNOMED Code(s): 961688734 Code(s): I48.91 - UNSPECIFIED ATRIAL FIBRILLATION Status: Acute Current Visit: Yes (5) Hypertension SNOMED Code(s): 21503530 Code(s): I10 - ESSENTIAL (PRIMARY) HYPERTENSION Status: Acute Current Visit: Yes (6) Metabolic alkalosis SNOMED Code(s): 7830466 Code(s): E87.3 - ALKALOSIS Status: Acute Current Visit: Yes (7) Chronic venous insufficiency of lower extremity SNOMED Code(s): 928725903 Code(s): I87.2 - VENOUS INSUFFICIENCY (CHRONIC) (PERIPHERAL) Status: Acute Current Visit: Yes (8) CHRIS (obstructive sleep apnea) SNOMED Code(s): 18910254 Code(s): G47.33 - OBSTRUCTIVE SLEEP APNEA (ADULT) (PEDIATRIC) Status: Acute Current Visit: Yes - My Orders Last 24 Hours: My Active Orders 06/06/19 08:00 Echo Comp wo Cont [US] Urgent 06/06/19 12:20 Ready for Discharge [RC] PER UNIT ROUTINE 06/06/19 14:00 Furosemide [Lasix] 80 mg PO BIDDIURETIC - Plan Plan:: 1. Acute on chronic combined systolic and diastolic heart failure, unknown ejection fraction 2.
--- NOTE | 2019-06-06 12:22 | PCM.DCSUM1 ---
Discharge Summary - Discharge Data Discharge Disposition: DC/Tfer to Other 70 Condition: Good - Referral to Home Health Primary Care Physician: Kedar Moreau MD - Discharge Diagnosis/Problem(s) (1) Acute on chronic combined systolic (congestive) and diastolic (congestive) heart failure SNOMED Code(s): 243186205416283, 946141431947534 ICD Code: I50.43 - ACUTE ON CHRONIC COMBINED SYSTOLIC AND DIASTOLIC HRT FAIL Status: Acute Current Visit: Yes (2) Altered awareness, transient SNOMED Code(s): 472864247 ICD Code: R40.4 - TRANSIENT ALTERATION OF AWARENESS Status: Acute Current Visit: Yes (3) Chronic kidney disease (CKD) stage G3b/A2, moderately decreased glomerular filtration rate (GFR) between 30-44 mL/min/1.73 square meter and albuminuria creatinine ratio between 30-299 mg/g SNOMED Code(s): 302372829, 063397506, 710673615 ICD Code: N18.3 - CHRONIC KIDNEY DISEASE, STAGE 3 (MODERATE) Status: Acute Current Visit: Yes (4) Atrial fibrillation with controlled ventricular response SNOMED Code(s): 330281900 ICD Code: I48.91 - UNSPECIFIED ATRIAL FIBRILLATION Status: Acute Current Visit: Yes (5) Hypertension SNOMED Code(s): 79207174 ICD Code: I10 - ESSENTIAL (PRIMARY) HYPERTENSION Status: Acute Current Visit: Yes (6) Metabolic alkalosis SNOMED Code(s): 9773538 ICD Code: E87.3 - ALKALOSIS Status: Acute Current Visit: Yes (7) Chronic venous insufficiency of lower extremity SNOMED Code(s): 585068857 ICD Code: I87.2 - VENOUS INSUFFICIENCY (CHRONIC) (PERIPHERAL) Status: Acute Current Visit: Yes (8) CHRIS (obstructive sleep apnea) SNOMED Code(s): 53357935 ICD Code: G47.33 - OBSTRUCTIVE SLEEP APNEA (ADULT) (PEDIATRIC) Status: Acute Current Visit: Yes - Patient Summary/Data Consults: Consultations 06/04/19 21:31 OT Evaluation and Treatment [CONS] Routine PT Evaluation and Treatment [CONS] Routine - Discharge Plan Home Medications: Home Meds Pramipexole [Mirapex] 0.5 mg PO DAILY 02/28/14 [History] Levothyroxine 125 mcg PO ACBREAKFAST #30 tab 05/21/18 [Rx] Apixaban [Eliquis] 2.5 mg PO BID 08/22/18 [History] Folic Acid 2 mg PO DAILY 08/22/18 [History] Multivit with Calcium,Iron,Min [Essential Daily] 1 tab PO DAILY 08/22/18 [ History] Sertraline [Zoloft] 50 tab PO BEDTIME 08/22/18 [History] Acetaminophen [Tylenol Extra Strength] 1,000 mg PO Q12H 01/03/19 [History] Losartan [Cozaar] 12.5 mg PO DAILY 01/03/19 [History] Triamcinolone Acetonide [Nasacort] 2 sprays NASBOTH DAILY 01/03/19 [History] Aloe Vera/Sodium Chloride [[place] Saline Nasal Gel] 1 applic MEG DAILY PRN [History] Ergocalciferol (Vitamin D2) [Vitamin D2] 50,000 unit PO ASDIRECTED 01/26/19 [ History] Loperamide [Imodium] 2 mg PO BID 01/26/19 [History] Metoprolol Tartrate 25 mg PO BID 01/26/19 [History] Zolpidem [Ambien] 2.5 mg PO BEDTIME PRN 01/26/19 [History] Furosemide [Lasix] 40 mg PO DAILY 04/03/19 [History] Interdry Wipes 1 container TOP DAILY PRN 04/03/19 [History] Nystatin [Nystop] 1 applic TOP BID PRN 04/03/19 [History] Spironolactone 25 mg PO DAILY 04/03/19 [History] Acetaminophen [Tylenol] 600 mg PO DAILY PRN 06/04/19 [History] Patient Handouts: Heart Failure, [id number]-[id number] Forms: ED Department Discharge Referrals: Kedar Moreau MD [Primary Care Provider] - (3-5 days) - Patient Data Vitals - Most Recent: Last Vital Signs Temp 36.2 C 06/06/19 07:34 Pulse 70 06/06/19 09:25 Resp 20 06/06/19 07:34 BP 127/92 H 06/06/19 09:26 Pulse Ox 92 L 06/06/19 07:34 Weight - Most Recent: 77.02 kg I&O - Last 24 hours: Intake & Output 10/11/1906/06/19 06/06/19 22:59 06:59 14:59 Intake Total 300 200 300 Output Total 1050 1250 Balance -750 -1050 300 Med Orders - Current: Current Medications Apixaban (Eliquis) 2.5 mg PO BID [facility] Last Admin: 06/06/19 09:26 Dose: 2.5 mg Folic Acid (Folic Acid) 2 mg PO DAILY [facility] Last Admin: 06/06/19 09:26 Dose: 2 mg Furosemide (Lasix) 80 mg PO BIDDIURETIC [facility] Levothyroxine Sodium (Levothyroxine) 125 mcg PO ACBREAKFAST [facility] Last Admin: 06/06/19 06:55 Dose: 125 mcg Losartan Potassium (Cozaar) 12.5 mg PO DAILY [facility] Last Admin: 06/06/19 09:26 Dose: 12.5 mg Metoprolol Tartrate (Lopressor) 25 mg PO BID [facility] Last Admin: 06/06/19 09:25 Dose: 25 mg Pramipexole Dihydrochloride (Mirapex) 0.5 mg PO DAILY [facility] Last Admin: 06/06/19 09:25 Dose: 0.5 mg Sertraline HCl (Zoloft) 50 mg PO BEDTIME [facility] Last Admin: 06/05/19 20:07 Dose: 50 mg Sodium Chloride (Saline Flush) 10 ml FLUSH ASDIRECTED PRN PRN Reason: Keep Vein Open Last Admin: 06/04/19 10:46 Dose: 10 ml Sodium Chloride ([place] Saline Nasal Gel) 0 gm MEG DAILY PRN PRN Reason: Dryness Spironolactone (Aldactone) 25 mg PO DAILY [facility] Last Admin: 06/06/19 09:26 Dose: 25 mg Discontinued Medications Furosemide (Lasix) 80 mg IVPUSH NOW ONE Stop: 06/04/19 10:05 Last Admin: 06/04/19 10:42 Dose: 80 mg Furosemide (Lasix) 80 mg IVPUSH BID [facility] Last Admin: 06/06/19 09:35 Dose: 80 mg Influenza Virus Vaccine (Pharmacy To Dose - Influenza Vaccine) 1 each IM ONETIME ONE Stop: 06/04/19 15:17 Last Admin: 06/04/19 19:00 Dose: Not Given Influenza Virus Vaccine (Fluzone High-Dose 2018- Syringe) 180 mcg IM .ONCE ONE Stop: 06/04/19 15:31 Non-Formulary Medication (Ergocalciferol (Vitamin D2)) 50,000 unit PO ASDIRECTED [facility] Non-Formulary Medication (Interdry Wipes) 1 container TOP DAILY PRN PRN Reason: Rash
[2019-06-06] MEDS ORDERED: Furosemide 80 MG Tab PO SCH (14:00)
[2019-06-06 14:58] VITALS: BP 118/73; PULSE 75
== END 2019-06-06 17:00 | disposition other institution (70) | DRG 291 ==
LOC: JD.ED 09:36 → JD.MS 13:38
PROVIDERS: ADMIT Internal Medicine; ATTEND Internal Medicine
DX: I13.0 Hypertensive heart and chronic kidney disease with heart failure and stage 1 through stage 4 chronic kidney disease, or unspecified chronic kidney disease (principal); I50.43 Acute on chronic combined systolic (congestive) and diastolic (congestive) heart failure; E87.3 Alkalosis; R06.02 Shortness of breath; N18.3 Chronic kidney disease, stage 3 (moderate); R60.1 Generalized edema; Z99.81 Dependence on supplemental oxygen; I48.91 Unspecified atrial fibrillation; Z86.14 Personal history of Methicillin resistant Staphylococcus aureus infection; I87.2 Venous insufficiency (chronic) (peripheral); G47.33 Obstructive sleep apnea (adult) (pediatric); M19.90 Unspecified osteoarthritis, unspecified site; M54.9 Dorsalgia, unspecified; G89.29 Other chronic pain; F32.9 Major depressive disorder, single episode, unspecified; E03.9 Hypothyroidism, unspecified; G25.81 Restless legs syndrome; R40.4 Transient alteration of awareness; Z96.659 Presence of unspecified artificial knee joint; Z88.0 Allergy status to penicillin; Z88.1 Allergy status to other antibiotic agents; Z88.8 Allergy status to other drugs, medicaments and biological substances; Z85.819 Personal history of malignant neoplasm of unspecified site of lip, oral cavity, and pharynx; Z79.890 Hormone replacement therapy; Z79.899 Other long term (current) drug therapy; Z98.49 Cataract extraction status, unspecified eye; Z90.89 Acquired absence of other organs; Z90.49 Acquired absence of other specified parts of digestive tract; Z95.0 Presence of cardiac pacemaker; Z23 Encounter for immunization
CPT/HCPCS: 36415; 71045; 80053; 83880; 84484; 85025; 93005; 96374; 99285; J1940; 80048; 83735; 84100; 85007; 85027; 87641; 90662; 93010; 93306; 94760; 97110-GP; 97116-GP; 97162-GP; 97165-GO; 97530-GO; 97530-GP; 99284; A9270-GY; G0008

== ENCOUNTER 2019-06-22 15:21 | Inpatient (IN) | payer MEDICARE, OTHER ==
[2019-06-22] MEDS ORDERED: Sodium Chloride 0.9% 10 ML Syringe FLUSH PRN (15:52)
--- NOTE | 2019-06-22 16:34 | EDM.PDOC ---
ED HPI GENERAL MEDICAL PROBLEM - General Chief Complaint: Respiratory Problem Stated Complaint: [facility] Time Seen by Provider: 06/22/19 15:44 Source of Information: Reports: Patient, Family (daughter), RN Notes Reviewed - History of Present Illness INITIAL COMMENTS - FREE TEXT/NARRATIVE: 89 year old female comes in with dyspnea, leg bilat leg swelling, facial edema, increasing erythema R lower leg. She has been coughing more than usual, mostly nonproductive. She dose have hx of CHF, renal insufficienc, hypothyroidism, venous insufficiency. she now has some open draining wounds that have developed RLE. She lives at [facility]. It sounds like she had recent hospitalization just 2 or 3 weeks ago. - Related Data Allergies Allergy/AdvReac Type Severity Reaction Status Date / Time Penicillins Allergy Mild Swelling/itchy Verified 06/22/19 15:25 rash ciprofloxacin [From Cipro] Allergy Rash Verified 06/22/19 15:25 vancomycin Allergy Rash Verified 06/22/19 15:25 metronidazole AdvReac Nausea and Verified 06/22/19 15:25 Vomiting Home Meds: Home Meds Pramipexole [Mirapex] 0.5 mg PO DAILY 02/28/14 [History] Levothyroxine 125 mcg PO ACBREAKFAST #30 tab 05/21/18 [Rx] Apixaban [Eliquis] 2.5 mg PO BID 08/22/18 [History] Folic Acid 2 mg PO DAILY 08/22/18 [History] Multivit with Calcium,Iron,Min [Essential Daily] 1 tab PO DAILY 08/22/18 [ History] Sertraline [Zoloft] 50 tab PO BEDTIME 08/22/18 [History] Acetaminophen [Tylenol Extra Strength] 1,000 mg PO Q12H 01/03/19 [History] Losartan [Cozaar] 25 mg PO DAILY 01/03/19 [History] Aloe Vera/Sodium Chloride [[place] Saline Nasal Gel] 1 applic MEG DAILY PRN [History] Metoprolol Tartrate 25 mg PO BID 01/26/19 [History] Zolpidem [Ambien] 2.5 mg PO BEDTIME PRN 01/26/19 [History] Furosemide [Lasix] 40 mg PO DAILY 04/03/19 [History] Interdry Wipes 1 container TOP DAILY PRN 04/03/19 [History] Nystatin [Nystop] 1 applic TOP BID PRN 04/03/19 [History] Spironolactone 50 mg PO DAILY 04/03/19 [History] Cholecalciferol (Vitamin D3) [Vitamin D] 50,000 units PO ASDIRECTED 06/22/19 [ History] Loperamide [Imodium] 2 mg PO BID 06/22/19 [History] Megestrol [Megace] 40 mg PO TID 06/22/19 [History] Triamcinolone Acetonide [Nasacort] 2 spray INH DAILY 06/22/19 [History] Past Medical History HEENT History: Reports: Impaired Vision Other HEENT History: wears glasses, hard of hearing Cardiovascular History: Reports: Heart Failure, Heart Murmur, Pacemaker, SOB on Exertion Other Cardiovascular History: generalized edema Respiratory History: Reports: Sleep Apnea, SOB Other Respiratory History: hypoxemia Gastrointestinal History: Reports: Chronic Diarrhea Other Gastrointestinal History: dysphagia with bread and certain other foods Genitourinary History: Reports: Urinary Incontinence Other Genitourinary History: 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 Has picked her toe nails and finger nails off. 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 - Past Surgical History HEENT Surgical History: Reports: Cataract Surgery, Tonsillectomy Respiratory Surgical History: Reports: None Other Respiratory Surgeries/Procedures: Uses oxygen at night 2 l NC GI Surgical History: Reports: Cholecystectomy Female Surgical History: Reports: None Endocrine Surgical History: Reports: None Neurological Surgical History: Reports: None Musculoskeletal Surgical History: Reports: Knee Replacement Oncologic Surgical History: Reports: None Dermatological Surgical History: Reports: None Social & Family History - Family History Family Medical History: Noncontributory - Tobacco Use Smoking Status *Q: Never Smoker - Caffeine Use Caffeine Use: Reports: Coffee - Living Situation & Occupation Living situation: Reports: Occupation: Retired ED ROS GENERAL - Review of Systems Review Of Systems: See Below Constitutional: Reports: Chills. Denies: Fever HEENT: Denies: Sinus Problem, Throat Pain Respiratory: Reports: Shortness of Breath, Cough. Denies: Pleuritic Chest Pain , Sputum Cardiovascular: Reports: Chest Pain, Dyspnea on Exertion, Lightheadedness GI/Abdominal: Denies: Abdominal Pain, Nausea, Vomiting Musculoskeletal: Reports: Back Pain, Leg Pain Skin: Reports: Erythema ( R lower leg) Neurological: Reports: Difficulty Walking, Weakness. Denies: Trouble Speaking ED EXAM, GENERAL - Physical Exam Exam: See Below General Appearance: Alert, Mild Distress Eye Exam: Bilateral Eye: PERRL Throat/Mouth: Normal Inspection, Normal Oropharynx Neck: Supple Respiratory/Chest: Respiratory Distress (moderate tachypnea), Rales (moderate bilat), Rhonchi (R base) Cardiovascular: Regular Rate, Rhythm GI/Abdominal: Soft, Non-Tender Extremities: Pedal Edema (bilat), Increased Warmth (R lower leg), Redness ( R lower leg), Other (no calf tenderness) Neurological: Alert, No Motor/Sensory Deficits Skin Exam: Warm, Dry, Other (She has a couple of small ulcerations R lower leg) EKG INTERPRETATION EKG Date: 06/22/19 Rhythm: Other (paced rythm, rate 71.) Course - Vital Signs Last Recorded V/S: Last Vital Signs Temp 98.0 F 06/22/19 15:25 Pulse 79 06/22/19 15:25 Resp 25 H 06/22/19 15:25 BP 124/81 06/22/19 15:25 Pulse Ox 100 06/22/19 15:25 - Orders/Labs/Meds Orders: Active Orders 24 hr Category Date Time Status Admission Status [Patient Status] [ADT] Routine ADT 06/22/19 18:48 Active EKG 12 Lead [EKG Documentation Completion] [RC] STAT Care 06/22/19 15:52 Active Peripheral IV Care [RC] . DIRECTED Care 06/22/19 15:53 Active CULTURE BLOOD [BC] Stat Lab 06/22/19 16:11 Received INFLUENZA A+B AG SCREEN [RM] Stat Lab 06/22/19 18:22 Ordered Linezolid [Zyvox] 600 mg Med 06/22/19 18:30 Active Premix Bag 1 bag IV Q12H Sodium Chloride 0.9% [Saline Flush] Med 06/22/19 15:52 Active 10 ml FLUSH ASDIRECTED PRN Peripheral IV Insertion Adult [OM.PC] Stat Oth 06/22/19 15:53 Ordered Medication Orders Linezolid 600 mg/ Premix 300 mls @ 300 mls/hr IV Q12H KAY Sodium Chloride (Saline Flush) 10 ml FLUSH ASDIRECTED PRN PRN Reason: Keep Vein Open Last Admin: 06/22/19 15:57 Dose: 10 ml Labs: Laboratory Tests 06/22/19 06/22/19 06/22/19 Range/Units 16:11 16:11 16:11 WBC 9.17 (3.98-10.04) K/mm3 RBC 3.48 L (3.98-5.22) M/mm3 Hgb 11.4 (11.2-15.7) gm/dl Hct 36.5 (34.1-44.9) % MCV 104.9 H (79.4-94.8) fl MCH 32.8 H (25.6-32.2) pg MCHC 31.2 L (32.2-35.5) g/dl RDW Std Deviation 56.7 H (36.4-46.3) fL Plt Count 149 L (182-369) K/mm3 MPV 9.3 L (9.4-12.3) fl Neutrophils % (Manual) 78 H (40-60) % Band Neutrophils % 1 (0-10) % Lymphocytes % (Manual) 18 L (20-40) % Atypical Lymphs % 1 % Monocytes % (Manual) 2 (2-10) % Eosinophils % (Manual) 0 L (0.7-5.8) % Basophils % (Manual) 0 L (0.1-1.2) Platelet Estimate Adequate Anisocytosis 1+ slight Macrocytosis 1+ slight RBC Morph Comment Not Reportable Sodium 144 (136-145) mEq/L Potassium 3.8 (3.5-5.1) mEq/L Chloride 107 (98-107) mEq/L Carbon Dioxide 32 (21-32) mEq/L Anion Gap 8.8 (5-15) BUN 37 H (7-18) mg/dL Creatinine 1.4 H (0.55-1.02) mg/dL Est Cr Clr Drug Dosing TNP Estimated GFR (MDRD) 35 (>60) mL/min BUN/Creatinine Ratio 26.4 H (14-18) Glucose 94 (83-115) mg/dL Calcium 8.8 (8.5-10.1) mg/dL Total Bilirubin 0.5 (0.2-1.0) mg/dL AST 23 (15-37) U/L ALT 24 (14-59) U/L Alkaline Phosphatase 121 H (46-116) U/L Troponin I < 0.017 (0.00-0.056) ng/mL C-Reactive Protein 6.6 H* (<1.0) mg/dL NT-Pro-B Natriuret Pep (0-450) pg/mL Total Protein 6.9 (6.4-8.2) g/dl Albumin 3.4 (3.4-5.0) g/dl Globulin 3.5 gm/dL Albumin/Globulin Ratio 1.0 (1-2) 06/22/19 Range/Units 16:11 WBC (3.98-10.04) K/mm3 RBC (3.98-5.22) M/mm3 Hgb (11.2-15.7) gm/dl Hct (34.1-44.9) % MCV (79.4-94.8) fl MCH (25.6-32.2) pg MCHC (32.2-35.5) g/dl RDW Std Deviation (36.4-46.3) fL Plt Count (182-369) K/mm3 MPV (9.4-12.3) fl Neutrophils % (Manual) (40-60) % Band Neutrophils % (0-10) % Lymphocytes % (Manual) (20-40) % Atypical Lymphs % % Monocytes % (Manual) (2-10) % Eosinophils % (Manual) (0.7-5.8) % Basophils % (Manual) (0.1-1.2) Platelet Estimate Anisocytosis Macrocytosis RBC Morph Comment Sodium (136-145) mEq/L Potassium (3.5-5.1) mEq/L Chloride (98-107) mEq/L Carbon Dioxide (21-32) mEq/L Anion Gap (5-15) BUN (7-18) mg/dL Creatinine (0.55-1.02) mg/dL Est Cr Clr Drug Dosing Estimated GFR (MDRD) (>60) mL/min BUN/Creatinine Ratio (14-18) Glucose (83-115) mg/dL Calcium (8.5-10.1) mg/dL Total Bilirubin (0.2-1.0) mg/dL AST (15-37) U/L ALT (14-59) U/L Alkaline Phosphatase (46-116) U/L Troponin I (0.00-0.056) ng/mL C-Reactive Protein (<1.0) mg/dL NT-Pro-B Natriuret Pep 3827 H (0-450) pg/mL Total Protein (6.4-8.2) g/dl Albumin (3.4-5.0) g/dl Globulin gm/dL Albumin/Globulin Ratio (1-2) Meds: Medications Generic Name Dose Route Start Last Admin Trade Name Freq PRN Reason Stop Dose Admin Linezolid 600 mg/ Premix 300 mls @ 300 mls/hr 06/22/19 18:30 IV Q12H KAY Sodium Chloride 10 ml 06/22/19 15:52 06/22/19 15:57 Saline Flush FLUSH 10 ml ASDIRECTED PRN Administration Keep Vein Open Discontinued Medications Generic Name Dose Route Start Last Admin Trade Name Freq PRN Reason Stop Dose Admin Furosemide 40 mg 06/22/19 17:37 06/22/19 17:57 Lasix IVPUSH 06/22/19 17:38 40 mg NOW ONE Administration Cefepime HCl 1 gm/ Premix 50 mls @ 100 mls/hr 06/22/19 17:41 06/22/19 18:00 IV 06/22/19 18:10 100 mls/hr ONETIME ONE Administration - Re-Assessments/Exams Free Text/Narrative Re-Assessment/Exam: 06/22/19 18:05. CXR shows increased pul congestion, infiltrate RLL. WBC 9170, CRP 6.6, ProBNP elevated. trop nl. She has worsening CHF, pneumonia, generalized weakness, cellulitis RLE. She will be admitted for further treatment. IV cefipime is running. She has been given lasix 40 mg IV. She needs a higher level of care. Hopefully [facility] placement can be a consideration when she is ready for discharge. Departure - Departure Time of Disposition: 18:10 Disposition: Admitted As Inpatient 66 Condition: Serious Clinical Impression: Pneumonia Qualifiers: Pneumonia type: due to unspecified organism Laterality: right Lung location: lower lobe of lung Qualified Code(s): J18.1 - Lobar pneumonia, unspecified organism Cellulitis Qualifiers: Site of cellulitis: extremity Site of cellulitis of extremity: lower extremity Laterality: unspecified laterality Qualified Code(s): L03.119 - Cellulitis of unspecified part of limb Congestive heart failure (CHF) Qualifiers: Heart failure type: unspecified Heart failure chronicity: chronic Qualified Code(s): I50.9 - Heart failure, unspecified - Discharge Information Referrals: PCP,Unknown [Primary Care Provider] - Forms: ED Department Discharge ED Communication - Discussed Case With (1) Discussed Case With (1): Admitting Provider (Dr Banuelos, decision to admit at about 18:10) - My Orders Last 24 Hours: My Active Orders 06/22/19 15:52 EKG 12 Lead [EKG Documentation Completion] [RC] STAT Sodium Chloride 0.9% [Saline Flush] 10 ml FLUSH ASDIRECTED PRN 06/22/19 15:53 Peripheral IV Care [RC] . DIRECTED Peripheral IV Insertion Adult [OM.PC] Stat 06/22/19 16:11 CULTURE BLOOD [BC] Stat 06/22/19 18:22 INFLUENZA A+B AG SCREEN [RM] Stat 06/22/19 18:30 Linezolid [Zyvox] 600 mg Premix Bag 1 bag IV Q12H 06/22/19 18:48 Admission Status [Patient Status] [ADT] Routine - Assessment/Plan Last 24 Hours: My Active Orders 06/22/19 15:52 EKG 12 Lead [EKG Documentation Completion] [RC] STAT Sodium Chloride 0.9% [Saline Flush] 10 ml FLUSH ASDIRECTED PRN 06/22/19 15:53 Peripheral IV Care [RC] . DIRECTED Peripheral IV Insertion Adult [OM.PC] Stat 06/22/19 16:11 CULTURE BLOOD [BC] Stat 06/22/19 18:22 INFLUENZA A+B AG SCREEN [RM] Stat 06/22/19 18:30 Linezolid [Zyvox] 600 mg Premix Bag 1 bag IV Q12H 06/22/19 18:48 Admission Status [Patient Status] [ADT] Routine
[2019-06-22] MEDS ORDERED: Furosemide 40 MG/4 ML VIAL IVPUSH ONE (17:37)
[2019-06-22] MEDS ORDERED: Cefepime 1 GM in Premix Bag 1 BAG IV ONE ×2 (17:41→19:04)
--- NOTE | 2019-06-22 18:13 | CR ---
Chest: Portable view of the chest was obtained. Comparison: Prior chest x-ray of 06/04/19. Poor inspiratory study is noted. Lungs are grossly clear. Heart size is stable. Tortuous thoracic aorta is noted. Scoliosis present within the spine. Degenerative change is seen within the shoulders. Pacemaker is present. Impression: 1. Poor inspiratory study. 2. Other findings as noted above which appears stable. 3. Nothing acute is definitely appreciated. Diagnostic code #2
[2019-06-22] MEDS: Linezolid 600 MG in Premix Bag 1 BAG IV SCH (19:04)
[2019-06-22] MEDS ORDERED: Cefepime 2 GM in Premix Bag 1 BAG IV SCH (21:00)
[2019-06-22] MEDS ORDERED: Zolpidem 5 MG Tab PO PRN (21:19)
[2019-06-22] MEDS ORDERED: [UNRECOGNIZED DRUG - OTHER] TOP PRN (21:19)
--- NOTE | 2019-06-22 21:20 | PCM.HP.2 ---
H&P History of Present Illness - General Date of Service: 06/22/19 Admit Problem/Dx: Admission Diagnosis/Problem Admission Diagnosis/Problem Congestive heart failure - History of Present Illness Initial Comments - Free Text/Narative: This is a 89 year old female with extensive cardiac past medical history who is a resident from [place] who was brought to [facility] for worsening sob and increasing puffy eyes as well as worsening productive cough and RLE pain. As per patient she was ok 2 days ago untile she started noticing her eyes getting more puffy and her sob worsening At the same time she noticed RLE was starting to get red and swollen Once she noticed symptoms were not improving rather worsening she decided to come to the ED for further evaluation. - Related Data Allergies/Adverse Reactions: Allergies Allergy/AdvReac Type Severity Reaction Status Date / Time Penicillins Allergy Mild Swelling/itchy Verified 06/22/19 15:25 rash ciprofloxacin [From Cipro] Allergy Rash Verified 06/22/19 15:25 vancomycin Allergy Rash Verified 06/22/19 15:25 metronidazole AdvReac Nausea and Verified 06/22/19 15:25 Vomiting Home Medications: Home Meds Pramipexole [Mirapex] 0.5 mg PO DAILY 02/28/14 [History] Levothyroxine 125 mcg PO ACBREAKFAST #30 tab 05/21/18 [Rx] Apixaban [Eliquis] 2.5 mg PO BID 08/22/18 [History] Folic Acid 2 mg PO DAILY 08/22/18 [History] Multivit with Calcium,Iron,Min [Essential Daily] 1 tab PO DAILY 08/22/18 [ History] Sertraline [Zoloft] 50 mg PO BEDTIME 08/22/18 [History] Acetaminophen [Tylenol Extra Strength] 1,000 mg PO Q12H 01/03/19 [History] Losartan [Cozaar] 25 mg PO DAILY 01/03/19 [History] Aloe Vera/Sodium Chloride [[place] Saline Nasal Gel] 1 applic MEG DAILY PRN [History] Metoprolol Tartrate 25 mg PO BID 01/26/19 [History] Zolpidem [Ambien] 2.5 mg PO BEDTIME PRN 01/26/19 [History] Furosemide [Lasix] 40 mg PO DAILY 04/03/19 [History] Interdry Wipes 1 container TOP DAILY PRN 04/03/19 [History] Nystatin [Nystop] 1 applic TOP BID PRN 04/03/19 [History] Spironolactone 50 mg PO DAILY 04/03/19 [History] Cholecalciferol (Vitamin D3) [Vitamin D] 50,000 units PO ASDIRECTED 06/22/19 [ History] Loperamide [Imodium] 2 mg PO BID 06/22/19 [History] Megestrol [Megace] 40 mg PO TID 06/22/19 [History] Triamcinolone Acetonide [Nasacort] 2 spray INH DAILY 06/22/19 [History] Bacitracin 1 dose TOP DAILY 06/23/19 [History] Dextromethorphan/guaiFENesin [Robitussin DM] 5 - 10 ml PO Q4H PRN 06/23/19 [ History] Past Medical History HEENT History: Reports: Impaired Vision Other HEENT History: wears glasses, hard of hearing Cardiovascular History: Reports: Heart Failure, Heart Murmur, Pacemaker, SOB on Exertion Other Cardiovascular History: generalized edema Respiratory History: Reports: Sleep Apnea, SOB Other Respiratory History: hypoxemia Gastrointestinal History: Reports: Chronic Diarrhea Other Gastrointestinal History: dysphagia with bread and certain other foods Genitourinary History: Reports: Urinary Incontinence Other Genitourinary History: 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 Has picked her toe nails and finger nails off. 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 - Past Surgical History HEENT Surgical History: Reports: Cataract Surgery, Tonsillectomy Respiratory Surgical History: Reports: None Other Respiratory Surgeries/Procedures: Uses oxygen at night 2 l NC GI Surgical History: Reports: Cholecystectomy Female Surgical History: Reports: None Endocrine Surgical History: Reports: None Neurological Surgical History: Reports: None Musculoskeletal Surgical History: Reports: Knee Replacement Oncologic Surgical History: Reports: None Dermatological Surgical History: Reports: None Social & Family History - Family History Family Medical History: Noncontributory - Tobacco Use Smoking Status *Q: Never Smoker - Caffeine Use Caffeine Use: Reports: Coffee - Living Situation & Occupation Living situation: Reports: Occupation: Retired H&P Review of Systems - Review of Systems: Review Of Systems: See Below General: Reports: Weakness, Fatigue, Weight Gain. Denies: Fever, Chills, Malaise, Night Sweats, Diaphoresis, Decreased Appetite, Weight Loss HEENT: Reports: Glasses. Denies: Dysphasia, Ear Pain, Eye Pain, Headaches, Hearing Changes, Rhinitis, Post Nasal Drip, Sinus Congestion, Sore Throat, Vertigo Pulmonary: Reports: Shortness of Breath, Wheezing, Cough, Sputum Cardiovascular: Reports: Dyspnea on Exertion, Orthopnea, PND, Edema, Lightheadedness. Denies: Chest Pain, Palpitations, Syncope, Claudication, Blood Pressure Problem Gastrointestinal: Denies: Abdominal Pain, Anorexia, Black Stool, Bloody Stool, Constipation, Diarrhea, Decreased Appetite, Difficulty Swallowing, Distension, Flatus, Hematemesis, Hematochezia, Melena Genitourinary: Denies: Dysuria, Frequency, Burning Musculoskeletal: Denies: Neck Pain, Shoulder Pain, Arm Pain, Back Pain, Hand Pain, Leg Pain, Foot Pain, Joint Pain, Joint Swelling Skin: Reports: Rash, Change in Color. Denies: Erythema Psychiatric: Denies: Confusion, Depression, Mood Lability Neurological: Denies: Confusion, Dizziness, Headache, Numbness, Paresthesia, Pre -Existing Deficit, Seizure, Syncope Exam - Exam Exam: See Below - Vital Signs Vital Signs: Last Vital Signs Temp 36.6 C 06/22/19 19:24 Pulse 74 06/22/19 19:24 Resp 20 06/22/19 19:24 BP 104/73 06/22/19 19:24 Pulse Ox 100 06/22/19 19:24 Weight: 81.828 kg - Exam Quality Assessment: Supplemental Oxygen General: Alert, Oriented, Cooperative, Mild Distress HEENT: Conjunctiva Clear, EACs Clear, EOMI, Hearing Intact, Mucosa Moist & [place] , Nares Patent Neck: Supple, Trachea Midline, JVD. No: Lymphadenopathy Lungs: Decreased Breath Sounds, Crackles, Rales, Wheezing Cardiovascular: Regular Rate, Regular Rhythm. No: Systolic Murmur, Diastolic Murmur, Rubs, Gallop/S3, Gallop/S4 GI/Abdominal Exam: Normal Bowel Sounds, Soft, Non-Tender, No Organomegaly. No: Guarding, Rigid, Rebound, Tender Back Exam: Normal Inspection. No: CVA Tenderness (L), CVA Tenderness (R), Paraspinal Tenderness Extremities: Pedal Edema, Slow Capillary Refill, Increased Warmth, Redness Skin: Warm, Rash Neuro Extensive - Mental Status: Alert, Normal Mood/Affect Psychiatric: Alert, Normal Affect, Normal Mood - Patient Data Result Diagrams: 06/25/19 04:28 06/24/19 04:30 Lorenzo Results Last 24 hrs: Microbiology 06/22/19 18:55 Influenza Type A Antigen Screen - Final Nasal Aspirate, Unspecified NEGATIVE INFLUENZA A VIRUS AG REFERENCE RANGE: NEGATIVE Influenza Type B Antigen Screen - Final NEGATIVE INFLUENZA B VIRUS AG REFERENCE RANGE: NEGATIVE - Problem List (1) Hospital-acquired pneumonia SNOMED Code(s): 639973634 ICD Code: J18.9 - PNEUMONIA, UNSPECIFIED ORGANISM; Y95 - NOSOCOMIAL CONDITION Status: Acute Current Visit: Yes (2) Hypomagnesemia SNOMED Code(s): 060161548 ICD Code: E83.42 - HYPOMAGNESEMIA Status: Acute Current Visit: Yes (3) CHF (congestive heart failure) SNOMED Code(s): 06141327 ICD Code: I50.9 - HEART FAILURE, UNSPECIFIED Status: Acute Current Visit : Yes Qualifiers: Heart failure type: unspecified Heart failure chronicity: chronic Qualified Code(s): I50.9 - Heart failure, unspecified (4) Pneumonia SNOMED Code(s): 654869098 ICD Code: J18.9 - PNEUMONIA, UNSPECIFIED ORGANISM Status: Acute Current Visit: Yes Qualifiers: Pneumonia type: due to unspecified organism Laterality: right Lung location: lower lobe of lung Qualified Code(s): J18.1 - Lobar pneumonia, unspecified organism (5) Acute on chronic combined systolic (congestive) and diastolic (congestive) heart failure SNOMED Code(s): 674094108691578, 351897442143907 ICD Code: I50.43 - ACUTE ON CHRONIC COMBINED SYSTOLIC AND DIASTOLIC HRT FAIL Status: Acute Current Visit: No (6) Atrial fibrillation with controlled ventricular response SNOMED Code(s): 132322619 ICD Code: I48.91 - UNSPECIFIED ATRIAL FIBRILLATION Status: Acute Current Visit: No (7) Bronchitis SNOMED Code(s): 25004686 ICD Code: J40 - BRONCHITIS, NOT SPECIFIED ACUTE OR CHRONIC Status: Acute Current Visit: No (8) CHF exacerbation SNOMED Code(s): 600322911, 02874264796648 ICD Code: I50.9 - HEART FAILURE, UNSPECIFIED Status: Acute Current Visit : No Qualifiers: Heart failure type: combined systolic and diastolic Qualified Code(s): I50.43 - Acute on chronic combined systolic (congestive) and diastolic ( congestive) heart failure (9) Chronic kidney disease (CKD) stage G3b/A2, moderately decreased glomerular filtration rate (GFR) between 30-44 mL/min/1.73 square meter and albuminuria creatinine ratio between 30-299 mg/g SNOMED Code(s): 005975032, 055283066, 587692465 ICD Code: N18.3 - CHRONIC KIDNEY DISEASE, STAGE 3 (MODERATE) Status: Acute Current Visit: No (10) Hypertension SNOMED Code(s): 98076650 ICD Code: I10 - ESSENTIAL (PRIMARY) HYPERTENSION Status: Acute Current Visit: No (11) Weakness SNOMED Code(s): 69469982 ICD Code: R53.1 - WEAKNESS Status: Resolved Priority: Medium Current Visit: No (12) Cellulitis SNOMED Code(s): 402900321 ICD Code: L03.90 - CELLULITIS, UNSPECIFIED Status: Acute Current Visit: Yes Problem List Initiated/Reviewed/Updated: Yes Assessment/Plan Comment:: Hospital-acquired pneumonia Recent admission + worsening productive cough + new infiltrate on CXR Patient severely allergic to vancomycin and penicillins for which ATB options are very limited Not septic PLAN - influenza swab - Procalcitonin - Sputum culture - Start linezolid and cefepime Non-purulent cellulitis or RLE Worsening erythema of RLE Fluctuation on medial side PLAN - Demarcate are to evaluate progression - ATB coverage as per HAP Acute on chronic combined systolic (congestive) and diastolic (congestive) heart failure CXR with fluid cephalization Elevated BNP Worsening GINETTE PLAN - Transition PO to IV lasix - Daily weights - Stric I/O's - Telemetry - Records for echocardiogram - Records for device interrogation Atrial fibrillation with controlled ventricular response No acute issues PLAN - Continue home medications Chronic kidney disease (CKD) stage IIIB Monitor urine output Renally dosed medications Repeat labs daily as needed Replace electrolytes as indicated Hypertension Controlled Continue home medications Non-purulent cellulitis or RLE Worsening erythema of RLE Fluctuation on medial side PLAN - Demarcate are to evaluate progression - ATB coverage as per HAP PROPHYLAXIS DVT- Lovenox GI- not indicated CODE STATUS: FULL CODE DISPOSITION: Patient will be fully admitted to the floor for IV antibiotics and monitorization of both infections.
[2019-06-22] MEDS ORDERED: 50% Dextrose in Water 50 ML Syringe IVPUSH PRN (21:22)
[2019-06-22] MEDS ORDERED: Cholecalciferol (Vitamin D3) 5,000 UNIT Tab PO SCH (21:30)
[2019-06-22] MEDS ORDERED: Sertraline 50 MG Tab PO SCH (22:15)
[2019-06-23] MEDS: Furosemide 40 MG/4 ML VIAL IVPUSH SCH ×2 (05:17→13:46)
[2019-06-23] MEDS: Levothyroxine 125 MCG Tab PO SCH (05:18)
[2019-06-23] MEDS ORDERED: Insulin Lispro 100 Units/ML 3 ML Vial SUBCUT SCH (06:00)
[2019-06-23 06:31] LABS: HEMOGLOBIN A1C 5.2 % (4.50-6.20)
[2019-06-23] MEDS ORDERED: Cefepime 2 GM in Premix Bag 1 BAG IV SCH (08:00)
[2019-06-23] MEDS: Linezolid 600 MG in Premix Bag 1 BAG IV SCH ×2 (08:15→17:51)
[2019-06-23] MEDS: Pramipexole 0.5 MG Tab PO SCH (08:17)
[2019-06-23] MEDS: Megestrol 40 MG Tab PO SCH ×3 (08:17→21:54)
[2019-06-23] MEDS: Folic Acid 1 MG Tab PO SCH (08:17)
[2019-06-23] MEDS: Multivitamins,Therapeutic Tab PO SCH (08:17)
[2019-06-23] MEDS: Loperamide 2 MG Cap PO SCH ×2 (08:17→21:54)
[2019-06-23] MEDS: Losartan 25 MG Tab PO SCH (08:18)
[2019-06-23] MEDS: Apixaban 2.5 MG Tab PO SCH ×2 (08:18→21:54)
[2019-06-23] MEDS: Metoprolol Tartrate 25 MG Tab PO SCH ×2 (08:18→21:54)
[2019-06-23] MEDS: Insulin Lispro 100 Units/ML 3 ML Vial SUBCUT SCH ×2 (08:23→18:10)
[2019-06-23] MEDS: TRIAMCINOLONE ACETONIDE NASBOTH SCH (08:24)
[2019-06-23] MEDS ORDERED: Furosemide 40 MG/4 ML VIAL IVPUSH SCH (09:00)
[2019-06-23] MEDS: Nystatin Topical Powder 15 GM Bottle TOP PRN (09:53)
--- NOTE | 2019-06-23 20:27 | PCM.PN ---
- General Info Date of Service: 06/23/19 Subjective Update: improved SOB Leg pain improved Slept through the night Tolerating diet No complaints - Patient Data Vitals - Most Recent: Last Vital Signs Temp 36.8 C 06/23/19 15:11 Pulse 71 06/23/19 15:11 Resp 20 06/23/19 15:11 BP 133/76 06/23/19 15:11 Pulse Ox 93 L 06/23/19 15:11 Weight - Most Recent: 80.83 kg I&O - Last 24 Hours: Intake & Output 06/23/19 06/23/19 06/23/19 06:59 14:59 22:59 Intake Total 500 720 350 Output Total 1700 1800 Balance -1200 720 -1450 Lab Results Last 24 Hours: Laboratory Results - last 24 hr 06/22/19 06/23/19 06/23/19 Range/Units 16:11 05:07 05:07 WBC 6.69 (3.98-10.04) K/mm3 RBC 3.21 L (3.98-5.22) M/mm3 Hgb 10.4 L (11.2-15.7) gm/dl Hct 33.5 L (34.1-44.9) % MCV 104.4 H (79.4-94.8) fl MCH 32.4 H (25.6-32.2) pg MCHC 31.0 L (32.2-35.5) g/dl RDW Std Deviation 55.2 H (36.4-46.3) fL Plt Count 135 L (182-369) K/mm3 MPV 9.3 L (9.4-12.3) fl Neut % (Auto) 74.4 H (34.0-71.1) % Lymph % (Auto) 14.5 L (19.3-51.7) % Sully % (Auto) 9.0 (4.7-12.5) % Eos % (Auto) 1.5 (0.7-5.8) Baso % (Auto) 0.3 (0.1-1.2) % Neut # (Auto) 4.98 (1.56-6.13) K/mm3 Lymph # (Auto) 0.97 L (1.18-3.74) K/mm3 Sully # (Auto) 0.60 H (0.24-0.36) K/mm3 Eos # (Auto) 0.10 (0.04-0.36) K/mm3 Baso # (Auto) 0.02 (0.01-0.08) K/mm3 POC Glucose (83-110) mg/dL Hemoglobin A1c (4.50-6.20) % Phosphorus 2.9 (2.6-4.7) mg/dL Magnesium 1.8 (1.8-2.4) mg/dl Mycoplasma pneumon IgM Negative (NEGATIVE) 06/23/19 06/23/19 06/23/19 Range/Units 05:07 08:09 12:05 WBC (3.98-10.04) K/mm3 RBC (3.98-5.22) M/mm3 Hgb (11.2-15.7) gm/dl Hct (34.1-44.9) % MCV (79.4-94.8) fl MCH (25.6-32.2) pg MCHC (32.2-35.5) g/dl RDW Std Deviation (36.4-46.3) fL Plt Count (182-369) K/mm3 MPV (9.4-12.3) fl Neut % (Auto) (34.0-71.1) % Lymph % (Auto) (19.3-51.7) % Sully % (Auto) (4.7-12.5) % Eos % (Auto) (0.7-5.8) Baso % (Auto) (0.1-1.2) % Neut # (Auto) (1.56-6.13) K/mm3 Lymph # (Auto) (1.18-3.74) K/mm3 Sully # (Auto) (0.24-0.36) K/mm3 Eos # (Auto) (0.04-0.36) K/mm3 Baso # (Auto) (0.01-0.08) K/mm3 POC Glucose 83 81 L (83-110) mg/dL Hemoglobin A1c 5.20 (4.50-6.20) % Phosphorus (2.6-4.7) mg/dL Magnesium (1.8-2.4) mg/dl Mycoplasma pneumon IgM (NEGATIVE) 06/23/19 06/23/19 Range/Units 17:52 18:19 WBC (3.98-10.04) K/mm3 RBC (3.98-5.22) M/mm3 Hgb (11.2-15.7) gm/dl Hct (34.1-44.9) % MCV (79.4-94.8) fl MCH (25.6-32.2) pg MCHC (32.2-35.5) g/dl RDW Std Deviation (36.4-46.3) fL Plt Count (182-369) K/mm3 MPV (9.4-12.3) fl Neut % (Auto) (34.0-71.1) % Lymph % (Auto) (19.3-51.7) % Sully % (Auto) (4.7-12.5) % Eos % (Auto) (0.7-5.8) Baso % (Auto) (0.1-1.2) % Neut # (Auto) (1.56-6.13) K/mm3 Lymph # (Auto) (1.18-3.74) K/mm3 [place]ully # (Auto) (0.24-0.36) K/mm3 Eos # (Auto) (0.04-0.36) K/mm3 Baso # (Auto) (0.01-0.08) K/mm3 POC Glucose 72 L 125 H (83-110) mg/dL Hemoglobin A1c (4.50-6.20) % Phosphorus (2.6-4.7) mg/dL Magnesium (1.8-2.4) mg/dl Mycoplasma pneumon IgM (NEGATIVE) Lorenzo Results Last 24 Hours: Microbiology 06/22/19 16:11 Aerobic Blood Culture - Preliminary Blood NO GROWTH AFTER 1 DAY Anaerobic Blood Culture - Preliminary NO GROWTH AFTER 1 DAY 06/22/19 18:55 Influenza Type A Antigen Screen - Final Nasal Aspirate, Unspecified NEGATIVE INFLUENZA A VIRUS AG REFERENCE RANGE: NEGATIVE Influenza Type B Antigen Screen - Final NEGATIVE INFLUENZA B VIRUS AG REFERENCE RANGE: NEGATIVE Med Orders - Current: Current Medications Apixaban (Eliquis) 2.5 mg PO BID [facility] Last Admin: 06/23/19 08:18 Dose: 2.5 mg Dextrose/Water (Dextrose 50% In Water) 50 ml IVPUSH ASDIRECTED PRN PRN Reason: Hypoglycemia Folic Acid (Folic Acid) 2 mg PO DAILY [facility] Last Admin: 06/23/19 08:17 Dose: 2 mg Furosemide (Lasix) 60 mg IVPUSH BIDDIURETIC [facility] Last Admin: 06/23/19 13:46 Dose: 60 mg Linezolid 600 mg/ Premix 300 mls @ 300 mls/hr IV Q12H [facility] Last Admin: 06/23/19 17:51 Dose: 300 mls/hr Cefepime HCl 2 gm/ Premix 50 mls @ 100 mls/hr IV Q24H [facility] Insulin Human Lispro (Humalog) 0 unit SUBCUT BID@0800,1700 [facility]; Protocol Last Admin: 06/23/19 18:10 Dose: Not Given Levothyroxine Sodium (Levothyroxine) 125 mcg PO ACBREAKFAST [facility] Last Admin: 06/23/19 05:18 Dose: 125 mcg Loperamide HCl (Imodium) 2 mg PO BID [facility] Last Admin: 06/23/19 08:17 Dose: 2 mg Losartan Potassium (Cozaar) 25 mg PO DAILY [facility] Last Admin: 06/23/19 08:18 Dose: 25 mg Megestrol Acetate (Megace) 40 mg PO TID [facility] Last Admin: 06/23/19 14:01 Dose: 40 mg Metoprolol Tartrate (Lopressor) 25 mg PO BID [facility] Last Admin: 06/23/19 08:18 Dose: 25 mg Multivitamins (Thera) 1 each PO DAILY [facility] Last Admin: 06/23/19 08:17 Dose: 1 each Nystatin (Nystop) 0 gm TOP BID PRN PRN Reason: Other Last Admin: 06/23/19 09:53 Dose: 1 gm Triamcinolone Acetonide [Nasacort] Ptom 0 each NASBOTH DAILY [facility] Last Admin: 06/23/19 08:24 Dose: Not Given Pramipexole Dihydrochloride (Mirapex) 0.5 mg PO DAILY [facility] Last Admin: 06/23/19 08:17 Dose: 0.5 mg Sodium Chloride (Saline Flush) 10 ml FLUSH ASDIRECTED PRN PRN Reason: Keep Vein Open Last Admin: 06/22/19 15:57 Dose: 10 ml Zolpidem Tartrate (Ambien) 2.5 mg PO BEDTIME PRN PRN Reason: Insomnia Discontinued Medications Cholecalciferol (Vitamin D3) 50,000 unit PO ASDIRECTED [facility] Furosemide (Lasix) 40 mg IVPUSH NOW ONE Stop: 06/22/19 17:38 Last Admin: 06/22/19 17:57 Dose: 40 mg Furosemide (Lasix) 60 mg IVPUSH BID [facility] Cefepime HCl 1 gm/ Premix 50 mls @ 100 mls/hr IV ONETIME ONE Stop: 06/22/19 18:10 Last Admin: 06/22/19 18:00 Dose: 100 mls/hr Cefepime HCl 1 gm/ Premix 50 mls @ 100 mls/hr IV ONETIME ONE Stop: 06/22/19 19:33 Last Admin: 06/22/19 20:39 Dose: 100 mls/hr Cefepime HCl 2 gm/ Premix 50 mls @ 100 mls/hr IV Q12H [facility] Insulin Human Lispro (Humalog) 0 unit SUBCUT BIDAC [facility]; Protocol Non-Formulary Medication (Interdry Wipes) 1 container TOP DAILY PRN PRN Reason: Rash Sertraline HCl (Zoloft) 2,500 mg PO BEDTIME [facility] Sertraline HCl (Zoloft) 50 mg PO BEDTIME [facility] Last Admin: 06/22/19 22:46 Dose: 50 mg - Exam Physical Findings Comments:: Quality Assessment: Supplemental Oxygen General: Alert, Oriented, Cooperative, Mild Distress HEENT: Conjunctiva Clear, EACs Clear, EOMI, Hearing Intact, Mucosa Moist & [place] , Nares Patent Neck: Supple, Trachea Midline, JVD. No: Lymphadenopathy Lungs: Decreased Breath Sounds, Crackles, Rales, Wheezing Cardiovascular: Regular Rate, Regular Rhythm. No: Systolic Murmur, Diastolic Murmur, Rubs, Gallop/S3, Gallop/S4 GI/Abdominal Exam: Normal Bowel Sounds, Soft, Non-Tender, No Organomegaly. No: Guarding, Rigid, Rebound, Tender Back Exam: Normal Inspection. No: CVA Tenderness (L), CVA Tenderness (R), Paraspinal Tenderness Extremities: Pedal Edema, Slow Capillary Refill, Increased Warmth, Redness Skin: Warm, Rash Neuro Extensive - Mental Status: Alert, Normal Mood/Affect Psychiatric: Alert, Normal Affect, Normal Mood - Problem List & Annotations (1) CHF (congestive heart failure) SNOMED Code(s): 87546091 Code(s): I50.9 - HEART FAILURE, UNSPECIFIED Status: Acute Current Visit: Yes Qualifiers: Heart failure type: unspecified Heart failure chronicity: chronic Qualified Code(s): I50.9 - Heart failure, unspecified (2) Cellulitis SNOMED Code(s): 681537177 Code(s): L03.90 - CELLULITIS, UNSPECIFIED Status: Acute Current Visit: Yes (3) Hospital-acquired pneumonia SNOMED Code(s): 763767341 Code(s): J18.9 - PNEUMONIA, UNSPECIFIED ORGANISM; Y95 - NOSOCOMIAL CONDITION Status: Acute Current Visit: Yes (4) Hypomagnesemia SNOMED Code(s): 697192802 Code(s): E83.42 - HYPOMAGNESEMIA Status: Acute Current Visit: Yes (5) Pneumonia SNOMED Code(s): 135383822 Code(s): J18.9 - PNEUMONIA, UNSPECIFIED ORGANISM Status: Acute Current Visit: Yes Qualifiers: Pneumonia type: due to unspecified organism Laterality: right Lung location: lower lobe of lung Qualified Code(s): J18.1 - Lobar pneumonia, unspecified organism (6) Cellulitis SNOMED Code(s): 330713812 Code(s): L03.90 - CELLULITIS, UNSPECIFIED Status: Chronic Current Visit: Yes Qualifiers: Site of cellulitis: extremity Site of cellulitis of extremity: lower extremity Laterality: unspecified laterality Qualified Code(s): L03.119 - Cellulitis of unspecified part of limb (7) Acute on chronic combined systolic (congestive) and diastolic (congestive) heart failure SNOMED Code(s): 874862519649345, 173509951705172 Code(s): I50.43 - ACUTE ON CHRONIC COMBINED SYSTOLIC AND DIASTOLIC HRT FAIL Status: Acute Current Visit: No (8) Acute upper urinary tract infection SNOMED Code(s): 742533021 Code(s): N39.0 - URINARY TRACT INFECTION, SITE NOT SPECIFIED Status: Acute Current Visit: No (9) Atrial fibrillation with controlled ventricular response SNOMED Code(s): 200714287 Code(s): I48.91 - UNSPECIFIED ATRIAL FIBRILLATION Status: Acute Current Visit: No (10) Bronchitis SNOMED Code(s): 69108121 Code(s): J40 - BRONCHITIS, NOT SPECIFIED ACUTE OR CHRONIC Status: Acute Current Visit: No (11) CHF exacerbation SNOMED Code(s): 415395633, 45688202057557 Code(s): I50.9 - HEART FAILURE, UNSPECIFIED Status: Acute Current Visit: No Qualifiers: Heart failure type: combined systolic and diastolic Qualified Code(s): I50.43 - Acute on chronic combined systolic (congestive) and diastolic ( congestive) heart failure (12) Hypertension SNOMED Code(s): 34426598 Code(s): I10 - ESSENTIAL (PRIMARY) HYPERTENSION Status: Acute Current Visit: No (13) Hypothyroid SNOMED Code(s): 32784363 Code(s): E03.9 - HYPOTHYROIDISM, UNSPECIFIED Status: Acute Current Visit : No (14) Hypoxemia SNOMED Code(s): 198318134 Code(s): R09.02 - HYPOXEMIA Status: Acute Current Visit: No (15) MRSA (methicillin resistant Staphylococcus aureus) colonization SNOMED Code(s): 008716092 Code(s): Z22.322 - CARRIER OR SUSPECTED CARRIER OF METHICILLIN RESIS STAPH Status: Acute Current Visit: No - Problem List Review Problem List Initiated/Reviewed/Updated: Yes - Plan Plan:: Hospital-acquired pneumonia Recent admission + worsening productive cough + new infiltrate on CXR Patient severely allergic to vancomycin and penicillins for which ATB options are very limited Not septic PLAN - influenza swab - Procalcitonin - Sputum culture - Start linezolid and cefepime Non-purulent cellulitis or RLE Worsening erythema of RLE Fluctuation on medial side PLAN - Demarcate are to evaluate progression - ATB coverage as per HAP Acute on chronic combined systolic (congestive) and diastolic (congestive) heart failure CXR with fluid cephalization Elevated BNP Worsening GINETTE PLAN - Transition PO to IV lasix - Daily weights - Stric I/O's - Telemetry - Records for echocardiogram - Records for device interrogation Atrial fibrillation with controlled ventricular response No acute issues PLAN - Continue home medications Chronic kidney disease (CKD) stage IIIB Monitor urine output Renally dosed medications Repeat labs daily as needed Replace electrolytes as indicated Hypertension Controlled Continue home medications Non-purulent cellulitis or RLE Worsening erythema of RLE Fluctuation on medial side PLAN - Demarcate are to evaluate progression - ATB coverage as per HAP PROPHYLAXIS DVT- Lovenox GI- not indicated CODE STATUS: FULL CODE DISPOSITION: Patient will be fully admitted to the floor for IV antibiotics and monitorization of both infections.
[2019-06-23] MEDS ORDERED: Sertraline 50 MG Tab PO SCH (21:00)
[2019-06-23] MEDS: Cefepime 2 GM in Premix Bag 1 BAG IV SCH (21:53)
[2019-06-24] MEDS: Levothyroxine 125 MCG Tab PO SCH (06:55)
[2019-06-24] MEDS: Furosemide 40 MG/4 ML VIAL IVPUSH SCH ×2 (06:55→14:45)
[2019-06-24] MEDS: Linezolid 600 MG in Premix Bag 1 BAG IV SCH ×2 (06:55→17:38)
[2019-06-24] MEDS: Metoprolol Tartrate 25 MG Tab PO SCH ×2 (08:19→20:50)
[2019-06-24] MEDS: Apixaban 2.5 MG Tab PO SCH ×2 (08:20→20:43)
[2019-06-24] MEDS: Pramipexole 0.5 MG Tab PO SCH (08:20)
[2019-06-24] MEDS: Loperamide 2 MG Cap PO SCH ×2 (08:20→20:42)
[2019-06-24] MEDS: Losartan 25 MG Tab PO SCH (08:20)
[2019-06-24] MEDS: Multivitamins,Therapeutic Tab PO SCH (08:20)
[2019-06-24] MEDS: Insulin Lispro 100 Units/ML 3 ML Vial SUBCUT SCH (08:20)
[2019-06-24] MEDS: Megestrol 40 MG Tab PO SCH ×3 (08:21→20:42)
[2019-06-24] MEDS: TRIAMCINOLONE ACETONIDE NASBOTH SCH (08:22)
[2019-06-24] MEDS: Folic Acid 1 MG Tab PO SCH (08:26)
[2019-06-24] MEDS ORDERED: Ketorolac 15 MG/ML SDV IVPUSH PRN (12:56)
[2019-06-24] MEDS ORDERED: Morphine 2 MG/ML Syringe IVPUSH PRN (12:57)
--- NOTE | 2019-06-24 13:06 | PCM.PN ---
<Matt Anderson - Last Filed: 06/24/19 16:49> - General Info Date of Service: 06/24/19 Admission Dx/Problem (Free Text): Admission Diagnosis/Problem Admission Diagnosis/Problem Congestive heart failure Functional Status: Reports: Pain Controlled, Tolerating Diet, Ambulating, Urinating. Denies: New Symptoms - Review of Systems General: Reports: Weakness, Fatigue. Denies: Fever, Malaise, Chills HEENT: Reports: No Symptoms. Denies: Sore Throat, Visual Changes Pulmonary: Reports: Shortness of Breath, Cough, Sputum. Denies: Pleuritic Chest Pain, Wheezing Cardiovascular: Reports: Edema (chronic ). Denies: Chest Pain Gastrointestinal: Reports: No Symptoms. Denies: Abdominal Pain, Constipation, Diarrhea, Nausea, Vomiting Genitourinary: Reports: No Symptoms. Denies: Pain Musculoskeletal: Reports: Leg Pain (2/2 cellulitis ) Skin: Reports: No Symptoms Neurological: Reports: No Symptoms, Difficulty Walking, Gait Disturbance. Denies: Confusion Psychiatric: Reports: No Symptoms - Patient Data Vitals - Most Recent: Last Vital Signs Temp 98.2 F 06/24/19 12:28 Pulse 71 06/24/19 12:28 Resp 15 06/24/19 12:28 BP 91/56 L 06/24/19 12:43 Pulse Ox 95 06/24/19 12:28 Weight - Most Recent: 80.014 kg I&O - Last 24 Hours: Intake & Output 06/23/19 06/24/19 06/24/19 22:59 06:59 14:59 Intake Total 350 250 300 Output Total 1800 400 Balance -1450 -150 300 Lab Results Last 24 Hours: Laboratory Results - last 24 hr 06/22/19 06/23/19 06/23/19 Range/Units 16:11 11:10 17:52 Sodium (136-145) mEq/L Potassium (3.5-5.1) mEq/L Chloride (98-107) mEq/L Carbon Dioxide (21-32) mEq/L Anion Gap (5-15) BUN (7-18) mg/dL Creatinine (0.55-1.02) mg/dL Est Cr Clr Drug Dosing mL/min Estimated GFR (MDRD) (>60) mL/min BUN/Creatinine Ratio (14-18) Glucose (83-115) mg/dL POC Glucose 72 L (83-110) mg/dL Calcium (8.5-10.1) mg/dL Procalcitonin 0.14 H (<0.10) ng/mL Adenovirus (PCR) Not detected (Not Detected) B. pertussis DNA (PCR) Not detected (Not Detected) B.parapertussis DNA PCR Not detected (Not Detected) C. pneumoniae DNA (PCR) Not detected (Not Detected) Coronavirus (PCR) Not detected (Not Detected) Human Metapneumovir PCR Not detected (Not Detected) Influenza A (RT-PCR) Not detected (Not Detected) Influenza B (RT-PCR) Not detected (Not Detected) M. pneumoniae (PCR) Not detected (Not Detected) Parainfluen 1,2,3,4 PCR Not detected (Not Detected) RSV (PCR) Not detected (Not Detected) Entero/Rhino (PCR) Not detected (Not Detected) 06/23/19 06/23/19 06/24/19 Range/Units 18:19 21:57 04:30 Sodium 139 (136-145) mEq/L Potassium 4.1 (3.5-5.1) mEq/L Chloride 101 (98-107) mEq/L Carbon Dioxide 29 (21-32) mEq/L Anion Gap 13.1 (5-15) BUN 37 H (7-18) mg/dL Creatinine 1.4 H (0.55-1.02) mg/dL Est Cr Clr Drug Dosing 19.57 mL/min Estimated GFR (MDRD) 35 (>60) mL/min BUN/Creatinine Ratio 26.4 H (14-18) Glucose 92 (83-115) mg/dL POC Glucose 125 H 109 (83-110) mg/dL Calcium 8.9 (8.5-10.1) mg/dL Procalcitonin (<0.10) ng/mL Adenovirus (PCR) (Not Detected) B. pertussis DNA (PCR) (Not Detected) B.parapertussis DNA PCR (Not Detected) C. pneumoniae DNA (PCR) (Not Detected) Coronavirus (PCR) (Not Detected) Human Metapneumovir PCR (Not Detected) Influenza A (RT-PCR) (Not Detected) Influenza B (RT-PCR) (Not Detected) M. pneumoniae (PCR) (Not Detected) Parainfluen 1,2,3,4 PCR (Not Detected) RSV (PCR) (Not Detected) Entero/Rhino (PCR) (Not Detected) 06/24/19 06/24/19 Range/Units 06:08 11:30 Sodium (136-145) mEq/L Potassium (3.5-5.1) mEq/L Chloride (98-107) mEq/L Carbon Dioxide (21-32) mEq/L Anion Gap (5-15) BUN (7-18) mg/dL Creatinine (0.55-1.02) mg/dL Est Cr Clr Drug Dosing mL/min Estimated GFR (MDRD) (>60) mL/min BUN/Creatinine Ratio (14-18) Glucose (83-115) mg/dL POC Glucose 91 85 (83-110) mg/dL Calcium (8.5-10.1) mg/dL Procalcitonin (<0.10) ng/mL Adenovirus (PCR) (Not Detected) B. pertussis DNA (PCR) (Not Detected) B.parapertussis DNA PCR (Not Detected) C. pneumoniae DNA (PCR) (Not Detected) Coronavirus (PCR) (Not Detected) Human Metapneumovir PCR (Not Detected) Influenza A (RT-PCR) (Not Detected) Influenza B (RT-PCR) (Not Detected) M. pneumoniae (PCR) (Not Detected) Parainfluen 1,2,3,4 PCR (Not Detected) RSV (PCR) (Not Detected) Entero/Rhino (PCR) (Not Detected) Lorenzo Results Last 24 Hours: Microbiology 06/22/19 16:11 Aerobic Blood Culture - Preliminary Blood NO GROWTH AFTER 1 DAY Anaerobic Blood Culture - Preliminary NO GROWTH AFTER 1 DAY Med Orders - Current: Current Medications Apixaban (Eliquis) 2.5 mg PO BID [facility] Last Admin: 06/24/19 08:20 Dose: 2.5 mg Dextrose/Water (Dextrose 50% In Water) 50 ml IVPUSH ASDIRECTED PRN PRN Reason: Hypoglycemia Folic Acid (Folic Acid) 2 mg PO DAILY [facility] Last Admin: 06/24/19 08:26 Dose: 2 mg Furosemide (Lasix) 60 mg IVPUSH BIDDIURETIC [facility] Last Admin: 06/24/19 06:55 Dose: 60 mg Linezolid 600 mg/ Premix 300 mls @ 300 mls/hr IV Q12H [facility] Last Admin: 10/22/19 06:55 Dose: 300 mls/hr Cefepime HCl 2 gm/ Premix 50 mls @ 100 mls/hr IV Q24H [facility] Last Admin: 06/23/19 21:53 Dose: 100 mls/hr Ketorolac Tromethamine (Toradol) 15 mg IVPUSH Q6H PRN PRN Reason: Pain (moderate 4-6) Levothyroxine Sodium (Levothyroxine) 125 mcg PO ACBREAKFAST [facility] Last Admin: 06/24/19 06:55 Dose: 125 mcg Loperamide HCl (Imodium) 2 mg PO BID [facility] Last Admin: 06/24/19 08:20 Dose: 2 mg Losartan Potassium (Cozaar) 25 mg PO DAILY [facility] Last Admin: 06/24/19 08:20 Dose: 25 mg Megestrol Acetate (Megace) 40 mg PO TID [facility] Last Admin: 06/24/19 08:21 Dose: 40 mg Metoprolol Tartrate (Lopressor) 25 mg PO BID [facility] Last Admin: 06/24/19 08:19 Dose: 25 mg Morphine Sulfate (Morphine) 1 mg IVPUSH Q6H PRN PRN Reason: Pain (severe 7-10) Multivitamins (Thera) 1 each PO DAILY [facility] Last Admin: 06/24/19 08:20 Dose: 1 each Nystatin (Nystop) 0 gm TOP BID PRN PRN Reason: Other Last Admin: 06/23/19 09:53 Dose: 1 gm Triamcinolone Acetonide [Nasacort] Ptom 0 each NASBOTH DAILY [facility] Last Admin: 06/24/19 08:22 Dose: Not Given Pramipexole Dihydrochloride (Mirapex) 0.5 mg PO DAILY [facility] Last Admin: 06/24/19 08:20 Dose: 0.5 mg Sodium Chloride (Saline Flush) 10 ml FLUSH ASDIRECTED PRN PRN Reason: Keep Vein Open Last Admin: 06/22/19 15:57 Dose: 10 ml Zolpidem Tartrate (Ambien) 2.5 mg PO BEDTIME PRN PRN Reason: Insomnia Discontinued Medications Cholecalciferol (Vitamin D3) 50,000 unit PO ASDIRECTED [facility] Furosemide (Lasix) 40 mg IVPUSH NOW ONE Stop: 10/20/19 17:38 Last Admin: 06/22/19 17:57 Dose: 40 mg Furosemide (Lasix) 60 mg IVPUSH BID [facility] Cefepime HCl 1 gm/ Premix 50 mls @ 100 mls/hr IV ONETIME ONE Stop: 06/22/19 18:10 Last Admin: 06/22/19 18:00 Dose: 100 mls/hr Cefepime HCl 1 gm/ Premix 50 mls @ 100 mls/hr IV ONETIME ONE Stop: 06/22/19 19:33 Last Admin: 06/22/19 20:39 Dose: 100 mls/hr Cefepime HCl 2 gm/ Premix 50 mls @ 100 mls/hr IV Q12H [facility] Insulin Human Lispro (Humalog) 0 unit SUBCUT BIDAC [facility]; Protocol Insulin Human Lispro (Humalog) 0 unit SUBCUT BID@0800,1700 [facility]; Protocol Last Admin: 06/24/19 08:20 Dose: Not Given Non-Formulary Medication (Interdry Wipes) 1 container TOP DAILY PRN PRN Reason: Rash Sertraline HCl (Zoloft) 2,500 mg PO BEDTIME [facility] Sertraline HCl (Zoloft) 50 mg PO BEDTIME [facility] Last Admin: 06/22/19 22:46 Dose: 50 mg - Exam Quality Assessment: Supplemental Oxygen (chronic ), DVT Prophylaxis General: Alert, Oriented, Cooperative, No Acute Distress HEENT: Pupils Equal, Pupils Reactive, EOMI, Mucous Membr. Moist/[place] Neck: Trachea Midline Lungs: Decreased Breath Sounds, Rhonchi Cardiovascular: Regular Rate, Regular Rhythm GI/Abdominal Exam: Normal Bowel Sounds, Soft, Non-Tender, No Distention, No Abnormal Bruit (Female) Exam: Deferred Back Exam: Normal Inspection, Decreased Range of Motion Extremities: Pedal Edema, Leg Pain (Right ), Limited Range of Motion (2/2 pain ) , Increased Warmth (improving ), Redness (improving ) Wound/Incisions: Drainage, Erythema Improving Neurological: No New Focal Deficit Psy/Mental Status: Alert, Normal Affect, Normal Mood - Problem List & Annotations (1) Pneumonia SNOMED Code(s): 043947758 Code(s): J18.9 - PNEUMONIA, UNSPECIFIED ORGANISM Status: Acute Current Visit: Yes Qualifiers: Pneumonia type: due to unspecified organism Laterality: right Lung location: lower lobe of lung Qualified Code(s): J18.1 - Lobar pneumonia, unspecified organism (2) Cellulitis SNOMED Code(s): 947026770 Code(s): L03.90 - CELLULITIS, UNSPECIFIED Status: Chronic Current Visit: Yes Qualifiers: Site of cellulitis: extremity Site of cellulitis of extremity: lower extremity Laterality: unspecified laterality Qualified Code(s): L03.119 - Cellulitis of unspecified part of limb (3) Acute on chronic combined systolic (congestive) and diastolic (congestive) heart failure SNOMED Code(s): 163163380624637, 438436607903410 Code(s): I50.43 - ACUTE ON CHRONIC COMBINED SYSTOLIC AND DIASTOLIC HRT FAIL Status: Acute Current Visit: No (4) Chronic kidney disease (CKD) stage G3b/A2, moderately decreased glomerular filtration rate (GFR) between 30-44 mL/min/1.73 square meter and albuminuria creatinine ratio between 30-299 mg/g SNOMED Code(s): 872826143, 455157435, 585343202 Code(s): N18.3 - CHRONIC KIDNEY DISEASE, STAGE 3 (MODERATE) Status: Acute Current Visit: No (5) Chronic venous insufficiency of lower extremity SNOMED Code(s): 898527068 Code(s): I87.2 - VENOUS INSUFFICIENCY (CHRONIC) (PERIPHERAL) Status: Acute Current Visit: No (6) Constipation by delayed colonic transit SNOMED Code(s): 37071255 Code(s): K59.01 - SLOW TRANSIT CONSTIPATION Status: Acute Current Visit: No - Problem List Review Problem List Initiated/Reviewed/Updated: Yes - My Orders Last 24 Hours: My Active Orders 06/24/19 12:56 Ketorolac [Toradol] 15 mg IVPUSH Q6H PRN 06/24/19 12:57 Morphine 1 mg IVPUSH Q6H PRN - Plan Plan:: Assessment/Plan: RLL PNA - healthcare acquired -CT of chest -IS/Acapella -Consult RT -Negative Blood cultures -Negative influenza -Strep pneumo pending -ABX as ordered -Procalcitonin >0.5 -Lactic acid 1.5 Cellulitis of right leg -Worsened by chronic venous insufficiency -Erythema/warmth/pain all improving with ABX -Redness, warmth, drainage still noted -Mepilex on wounds -ABX as noted -Ambulate -PT/Nursing for wound care -IV and PO pain medications as needed CHF - chronic -IV lasix given - discontinued due to hypotension -Resume home diuretics Chronic venous insufficiency -Monitor -Contributing to above CKD -Avoid nephrotoxic agents if possible -Caution with diuretics -Labs stable <Vin [place] - Last Filed: 06/25/19 05:18> - Patient Data Vitals - Most Recent: Last Vital Signs Temp 36.8 C 06/25/19 04:30 Pulse 71 06/25/19 04:30 Resp 20 06/25/19 04:30 BP 123/70 06/25/19 04:30 Pulse Ox 95 06/25/19 04:30 I&O - Last 24 Hours: Intake & Output 06/24/19 06/24/19 06/25/19 14:59 22:59 06:59 Intake Total 300 600 300 Output Total 800 400 Balance 300 -200 -100 Lab Results Last 24 Hours: Laboratory Results - last 24 hr 06/24/19 06/24/19 06/24/19 Range/Units 04:30 06:08 11:30 WBC (3.98-10.04) K/mm3 RBC (3.98-5.22) M/mm3 Hgb (11.2-15.7) gm/dl Hct (34.1-44.9) % MCV (79.4-94.8) fl MCH (25.6-32.2) pg MCHC (32.2-35.5) g/dl RDW Std Deviation (36.4-46.3) fL Plt Count (182-369) K/mm3 MPV (9.4-12.3) fl Neut % (Auto) (34.0-71.1) % Lymph % (Auto) (19.3-51.7) % [place] % (Auto) (4.7-12.5) % Eos % (Auto) (0.7-5.8) Baso % (Auto) (0.1-1.2) % Neut # (Auto) (1.56-6.13) K/mm3 Lymph # (Auto) (1.18-3.74) K/mm3 [place] # (Auto) (0.24-0.36) K/mm3 Eos # (Auto) (0.04-0.36) K/mm3 Baso # (Auto) (0.01-0.08) K/mm3 Sodium 139 (136-145) mEq/L Potassium 4.1 (3.5-5.1) mEq/L Chloride 101 (98-107) mEq/L Carbon Dioxide 29 (21-32) mEq/L Anion Gap 13.1 (5-15) BUN 37 H (7-18) mg/dL Creatinine 1.4 H (0.55-1.02) mg/dL Est Cr Clr Drug Dosing 19.57 mL/min Estimated GFR (MDRD) 35 (>60) mL/min BUN/Creatinine Ratio 26.4 H (14-18) Glucose 92 (83-115) mg/dL POC Glucose 91 85 (83-110) mg/dL Calcium 8.9 (8.5-10.1) mg/dL 06/24/19 06/25/19 Range/Units 17:13 04:28 WBC 6.20 (3.98-10.04) K/mm3 RBC 3.37 L (3.98-5.22) M/mm3 Hgb 11.0 L (11.2-15.7) gm/dl Hct 34.8 (34.1-44.9) % MCV 103.3 H (79.4-94.8) fl MCH 32.6 H (25.6-32.2) pg MCHC 31.6 L (32.2-35.5) g/dl RDW Std Deviation 54.3 H (36.4-46.3) fL Plt Count 148 L (182-369) K/mm3 MPV 9.4 (9.4-12.3) fl Neut % (Auto) 68.6 (34.0-71.1) % Lymph % (Auto) 18.5 L (19.3-51.7) % [place] % (Auto) 10.2 (4.7-12.5) % Eos % (Auto) 2.1 (0.7-5.8) Baso % (Auto) 0.3 (0.1-1.2) % Neut # (Auto) 4.25 (1.56-6.13) K/mm3 Lymph # (Auto) 1.15 L (1.18-3.74) K/mm3 [place] # (Auto) 0.63 H (0.24-0.36) K/mm3 Eos # (Auto) 0.13 (0.04-0.36) K/mm3 Baso # (Auto) 0.02 (0.01-0.08) K/mm3 Sodium (136-145) mEq/L Potassium (3.5-5.1) mEq/L Chloride (98-107) mEq/L Carbon Dioxide (21-32) mEq/L Anion Gap (5-15) BUN (7-18) mg/dL Creatinine (0.55-1.02) mg/dL Est Cr Clr Drug Dosing mL/min Estimated GFR (MDRD) (>60) mL/min BUN/Creatinine Ratio (14-18) Glucose (83-115) mg/dL POC Glucose 107 (83-110) mg/dL Calcium (8.5-10.1) mg/dL Lorenzo Results Last 24 Hours: Microbiology 06/22/19 16:11 Aerobic Blood Culture - Preliminary Blood NO GROWTH AFTER 2 DAYS Anaerobic Blood Culture - Preliminary NO GROWTH AFTER 2 DAYS Med Orders - Current: Current Medications Acetaminophen (Tylenol) 650 mg PO Q6H PRN PRN Reason: Pain Last Admin: 06/24/19 14:12 Dose: 650 mg Apixaban (Eliquis) 2.5 mg PO BID [facility] Last Admin: 06/24/19 20:43 Dose: 2.5 mg Dextrose/Water (Dextrose 50% In Water) 50 ml IVPUSH ASDIRECTED PRN PRN Reason: Hypoglycemia Folic Acid (Folic Acid) 2 mg PO DAILY [facility] Last Admin: 06/24/19 08:26 Dose: 2 mg Furosemide (Lasix) 40 mg PO DAILY [facility] Linezolid 600 mg/ Premix 300 mls @ 300 mls/hr IV Q12H [facility] Last Admin: 06/24/19 17:38 Dose: 300 mls/hr Cefepime HCl 2 gm/ Premix 50 mls @ 100 mls/hr IV Q24H [facility] Last Admin: 06/24/19 20:38 Dose: 100 mls/hr Levothyroxine Sodium (Levothyroxine) 125 mcg PO ACBREAKFAST [facility] Last Admin: 06/24/19 06:55 Dose: 125 mcg Loperamide HCl (Imodium) 2 mg PO BID [facility] Last Admin: 06/24/19 20:42 Dose: 2 mg Losartan Potassium (Cozaar) 25 mg PO DAILY [facility] Last Admin: 06/24/19 08:20 Dose: 25 mg Megestrol Acetate (Megace) 40 mg PO TID [facility] Last Admin: 06/24/19 20:42 Dose: 40 mg Metoprolol Tartrate (Lopressor) 25 mg PO BID [facility] Last Admin: 06/24/19 20:50 Dose: 25 mg Morphine Sulfate (Morphine) 1 mg IVPUSH Q6H PRN PRN Reason: Pain (severe 7-10) Multivitamins (Thera) 1 each PO DAILY [facility] Last Admin: 06/24/19 08:20 Dose: 1 each Nystatin (Nystop) 0 gm TOP BID PRN PRN Reason: Other Last Admin: 06/23/19 09:53 Dose: 1 gm Triamcinolone Acetonide [Nasacort] Ptom 0 each NASBOTH DAILY [facility] Last Admin: 06/24/19 08:22 Dose: Not Given Pramipexole Dihydrochloride (Mirapex) 0.5 mg PO DAILY [facility] Last Admin: 06/24/19 08:20 Dose: 0.5 mg Sodium Chloride (Saline Flush) 10 ml FLUSH ASDIRECTED PRN PRN Reason: Keep Vein Open Last Admin: 06/22/19 15:57 Dose: 10 ml Spironolactone (Aldactone) 50 mg PO DAILY [facility] Tramadol HCl (Ultram) 50 mg PO Q6H PRN PRN Reason: Pain (moderate 4-6) Last Admin: 06/24/19 16:50 Dose: 50 mg Zolpidem Tartrate (Ambien) 2.5 mg PO BEDTIME PRN PRN Reason: Insomnia Discontinued Medications Cholecalciferol (Vitamin D3) 50,000 unit PO ASDIRECTED [facility] Furosemide (Lasix) 40 mg IVPUSH NOW ONE Stop: 06/22/19 17:38 Last Admin: 06/22/19 17:57 Dose: 40 mg Furosemide (Lasix) 60 mg IVPUSH BID [facility] Furosemide (Lasix) 60 mg IVPUSH BIDDIURETIC [facility] Last Admin: 06/24/19 14:45 Dose: Not Given Cefepime HCl 1 gm/ Premix 50 mls @ 100 mls/hr IV ONETIME ONE Stop: 06/22/19 18:10 Last Admin: 06/22/19 18:00 Dose: 100 mls/hr Cefepime HCl 1 gm/ Premix 50 mls @ 100 mls/hr IV ONETIME ONE Stop: 06/22/19 19:33 Last Admin: 06/22/19 20:39 Dose: 100 mls/hr Cefepime HCl 2 gm/ Premix 50 mls @ 100 mls/hr IV Q12H [facility] Insulin Human Lispro (Humalog) 0 unit SUBCUT BIDAC [facility]; Protocol Insulin Human Lispro (Humalog) 0 unit SUBCUT BID@0800,1700 [facility]; Protocol Last Admin: 06/24/19 08:20 Dose: Not Given Ketorolac Tromethamine (Toradol) 15 mg IVPUSH Q6H PRN PRN Reason: Pain (moderate 4-6) Non-Formulary Medication (Interdry Wipes) 1 container TOP DAILY PRN PRN Reason: Rash Sertraline HCl (Zoloft) 2,500 mg PO BEDTIME [facility] Sertraline HCl (Zoloft) 50 mg PO BEDTIME [facility] Last Admin: 06/22/19 22:46 Dose: 50 mg - Problem List & Annotations (1) CHF (congestive heart failure) SNOMED Code(s): 05842742 Code(s): I50.9 - HEART FAILURE, UNSPECIFIED Status: Acute Current Visit: Yes Qualifiers: Heart failure type: unspecified Heart failure chronicity: chronic Qualified Code(s): I50.9 - Heart failure, unspecified (2) Cellulitis SNOMED Code(s): 389191901 Code(s): L03.90 - CELLULITIS, UNSPECIFIED Status: Acute Current Visit: Yes (3) Hospital-acquired pneumonia SNOMED Code(s): 740347547 Code(s): J18.9 - PNEUMONIA, UNSPECIFIED ORGANISM; Y95 - NOSOCOMIAL CONDITION Status: Acute Current Visit: Yes (4) Hypomagnesemia SNOMED Code(s): 976931358 Code(s): E83.42 - HYPOMAGNESEMIA Status: Acute Current Visit: Yes (5) Pneumonia SNOMED Code(s): 183685891 Code(s): J18.9 - PNEUMONIA, UNSPECIFIED ORGANISM Status: Acute Current Visit: Yes Qualifiers: Pneumonia type: due to unspecified organism Laterality: right Lung location: lower lobe of lung Qualified Code(s): J18.1 - Lobar pneumonia, unspecified organism (6) Cellulitis SNOMED Code(s): 379314732 Code(s): L03.90 - CELLULITIS, UNSPECIFIED Status: Chronic Current Visit: Yes Qualifiers: Site of cellulitis: extremity Site of cellulitis of extremity: lower extremity Laterality: unspecified laterality Qualified Code(s): L03.119 - Cellulitis of unspecified part of limb (7) Acute on chronic combined systolic (congestive) and diastolic (congestive) heart failure SNOMED Code(s): 241966038935506, 993998583193081 Code(s): I50.43 - ACUTE ON CHRONIC COMBINED SYSTOLIC AND DIASTOLIC HRT FAIL Status: Acute Current Visit: No (8) Acute upper urinary tract infection SNOMED Code(s): 027383843 Code(s): N39.0 - URINARY TRACT INFECTION, SITE NOT SPECIFIED Status: Acute Current Visit: No (9) Atrial fibrillation with controlled ventricular response SNOMED Code(s): 087366204 Code(s): I48.91 - UNSPECIFIED ATRIAL FIBRILLATION Status: Acute Current Visit: No (10) Bronchitis SNOMED Code(s): 79340774 Code(s): J40 - BRONCHITIS, NOT SPECIFIED ACUTE OR CHRONIC Status: Acute Current Visit: No (11) CHF exacerbation SNOMED Code(s): 397135042, 97579034133563 Code(s): I50.9 - HEART FAILURE, UNSPECIFIED Status: Acute Current Visit: No Qualifiers: Heart failure type: combined systolic and diastolic Qualified Code(s): I50.43 - Acute on chronic combined systolic (congestive) and diastolic ( congestive) heart failure (12) Hypertension SNOMED Code(s): 97994732 Code(s): I10 - ESSENTIAL (PRIMARY) HYPERTENSION Status: Acute Current Visit: No (13) Hypothyroid SNOMED Code(s): 35829003 Code(s): E03.9 - HYPOTHYROIDISM, UNSPECIFIED Status: Acute Current Visit : No (14) Hypoxemia SNOMED Code(s): 223814810 Code(s): R09.02 - HYPOXEMIA Status: Acute Current Visit: No (15) MRSA (methicillin resistant Staphylococcus aureus) colonization SNOMED Code(s): 721765265 Code(s): Z22.322 - CARRIER OR SUSPECTED CARRIER OF METHICILLIN RESIS STAPH Status: Acute Current Visit: No - My Orders Last 24 Hours: My Active Orders 06/25/19 05:11 PROCALCITONIN [REF] AM 06/25/19 09:00 Furosemide [Lasix] 40 mg PO DAILY - Plan Plan:: Patient seen and evaluate by me at bedside. Case discussed in detail with Matt Anderson PA-C Agree with the assessment and plan above.
[2019-06-24] MEDS: Acetaminophen 325 MG Tab PO PRN (14:12)
[2019-06-24] MEDS: traMADol 50 MG Tab PO PRN (16:50)
--- NOTE | 2019-06-24 17:19 | CT ---
CT chest Technique: Multiple axial sections through the chest were obtained. Intravenous contrast was not utilized. Comparison: No prior chest CT, recent chest x-ray of 06/22/19. Findings: Aorta shows atherosclerotic change. Artifact is noted from pacemaker. Aorta shows no aneurysm. Heart is enlarged. Cyst is noted within the left lobe of the liver measuring 1.2 cm. Cyst is also noted within the right lobe of the liver measuring 1.3 cm. Cyst is noted within the left kidney measuring 1.4 cm. Lungs show no acute appearing parenchymal change. No pleural effusions are seen. Numerous compression deformities are seen within the spine causing kyphosis. No acute rib fracture is appreciated. Impression: 1. Multiple findings as noted above. Nothing acute is suspected. Diagnostic code #3
[2019-06-24] MEDS: Cefepime 2 GM in Premix Bag 1 BAG IV SCH (20:38)
[2019-06-25] MEDS: Levothyroxine 125 MCG Tab PO SCH (06:16)
[2019-06-25] MEDS: Linezolid 600 MG in Premix Bag 1 BAG IV SCH ×2 (06:17→17:49)
[2019-06-25] MEDS: Losartan 25 MG Tab PO SCH (08:42)
[2019-06-25] MEDS: Metoprolol Tartrate 25 MG Tab PO SCH ×3 (08:42→21:58)
[2019-06-25] MEDS: Spironolactone 25 MG Tab PO SCH (08:42)
[2019-06-25] MEDS: Pramipexole 0.5 MG Tab PO SCH (08:42)
[2019-06-25] MEDS: Multivitamins,Therapeutic Tab PO SCH (08:42)
[2019-06-25] MEDS: Megestrol 40 MG Tab PO SCH ×3 (08:42→21:46)
[2019-06-25] MEDS: Apixaban 2.5 MG Tab PO SCH ×2 (08:43→21:46)
[2019-06-25] MEDS: Nystatin Topical Powder 15 GM Bottle TOP PRN (08:43)
[2019-06-25] MEDS: Folic Acid 1 MG Tab PO SCH (08:43)
[2019-06-25] MEDS: Acetaminophen 325 MG Tab PO PRN (08:43)
[2019-06-25] MEDS: Furosemide 40 MG Tab PO SCH (08:43)
[2019-06-25] MEDS: Loperamide 2 MG Cap PO SCH ×2 (08:43→21:54)
[2019-06-25] MEDS: TRIAMCINOLONE ACETONIDE NASBOTH SCH (10:36)
--- NOTE | 2019-06-25 16:49 | PCM.PN ---
- General Info Date of Service: 06/25/19 Admission Dx/Problem (Free Text): Admission Diagnosis/Problem Admission Diagnosis/Problem Congestive heart failure Subjective Update: Pt. is hard of hearing, but has no new complaints. She still is having pain in the right lower leg from her cellulitis. - Review of Systems General: Reports: No Symptoms HEENT: Reports: No Symptoms Pulmonary: Reports: No Symptoms Cardiovascular: Reports: No Symptoms Gastrointestinal: Reports: No Symptoms - Patient Data Vitals - Most Recent: Last Vital Signs Temp 97.3 F 06/25/19 16:00 Pulse 66 06/25/19 16:00 Resp 24 H 06/25/19 16:00 BP 77/50 L 06/25/19 16:00 Pulse Ox 95 06/25/19 16:00 Weight - Most Recent: 178 lb 3.194 oz I&O - Last 24 Hours: Intake & Output 06/25/19 06/25/19 06/25/19 06:59 14:59 22:59 Intake Total 300 360 300 Output Total 400 500 Balance -100 360 -200 Lab Results Last 24 Hours: Laboratory Results - last 24 hr 06/24/19 06/25/19 06/25/19 Range/Units 17:13 04:28 04:28 WBC 6.20 (3.98-10.04) K/mm3 RBC 3.37 L (3.98-5.22) M/mm3 Hgb 11.0 L (11.2-15.7) gm/dl Hct 34.8 (34.1-44.9) % MCV 103.3 H (79.4-94.8) fl MCH 32.6 H (25.6-32.2) pg MCHC 31.6 L (32.2-35.5) g/dl RDW Std Deviation 54.3 H (36.4-46.3) fL Plt Count 148 L (182-369) K/mm3 MPV 9.4 (9.4-12.3) fl Neut % (Auto) 68.6 (34.0-71.1) % Lymph % (Auto) 18.5 L (19.3-51.7) % [place] % (Auto) 10.2 (4.7-12.5) % Eos % (Auto) 2.1 (0.7-5.8) Baso % (Auto) 0.3 (0.1-1.2) % Neut # (Auto) 4.25 (1.56-6.13) K/mm3 Lymph # (Auto) 1.15 L (1.18-3.74) K/mm3 [place] # (Auto) 0.63 H (0.24-0.36) K/mm3 Eos # (Auto) 0.13 (0.04-0.36) K/mm3 Baso # (Auto) 0.02 (0.01-0.08) K/mm3 Sodium 138 (136-145) mEq/L Potassium 3.6 (3.5-5.1) mEq/L Chloride 100 (98-107) mEq/L Carbon Dioxide 33 H (21-32) mEq/L Anion Gap 8.6 (5-15) BUN 36 H (7-18) mg/dL Creatinine 1.4 H (0.55-1.02) mg/dL Est Cr Clr Drug Dosing 19.57 mL/min Estimated GFR (MDRD) 35 (>60) mL/min BUN/Creatinine Ratio 25.7 H (14-18) Glucose 89 (83-115) mg/dL POC Glucose 107 (83-110) mg/dL Calcium 8.2 L (8.5-10.1) mg/dL Magnesium 1.8 (1.8-2.4) mg/dl Lorenzo Results Last 24 Hours: Microbiology 06/22/19 16:11 Aerobic Blood Culture - Preliminary Blood NO GROWTH AFTER 3 DAYS Anaerobic Blood Culture - Preliminary NO GROWTH AFTER 3 DAYS 06/23/19 13:13 Streptococcus pneumoniae Antigen (M - Final Urine Med Orders - Current: Current Medications Acetaminophen (Tylenol) 650 mg PO Q6H PRN PRN Reason: Pain Last Admin: 06/25/19 08:43 Dose: 650 mg Apixaban (Eliquis) 2.5 mg PO BID [facility] Last Admin: 06/25/19 08:43 Dose: 2.5 mg Dextrose/Water (Dextrose 50% In Water) 50 ml IVPUSH ASDIRECTED PRN PRN Reason: Hypoglycemia Folic Acid (Folic Acid) 2 mg PO DAILY [facility] Last Admin: 06/25/19 08:43 Dose: 2 mg Furosemide (Lasix) 40 mg PO DAILY [facility] Last Admin: 06/25/19 08:43 Dose: 40 mg Linezolid 600 mg/ Premix 300 mls @ 300 mls/hr IV Q12H [facility] Last Admin: 06/25/19 06:17 Dose: 300 mls/hr Cefepime HCl 2 gm/ Premix 50 mls @ 100 mls/hr IV Q24H [facility] Last Admin: 06/24/19 20:38 Dose: 100 mls/hr Levothyroxine Sodium (Levothyroxine) 125 mcg PO ACBREAKFAST [facility] Last Admin: 06/25/19 06:16 Dose: 125 mcg Loperamide HCl (Imodium) 2 mg PO BID [facility] Last Admin: 06/25/19 08:43 Dose: 2 mg Losartan Potassium (Cozaar) 25 mg PO DAILY [facility] Last Admin: 06/25/19 08:42 Dose: 25 mg Megestrol Acetate (Megace) 40 mg PO TID [facility] Last Admin: 06/25/19 15:58 Dose: 40 mg Metoprolol Tartrate (Lopressor) 25 mg PO BID [facility] Last Admin: 06/25/19 08:42 Dose: 25 mg Morphine Sulfate (Morphine) 1 mg IVPUSH Q6H PRN PRN Reason: Pain (severe 7-10) Multivitamins (Thera) 1 each PO DAILY [facility] Last Admin: 06/25/19 08:42 Dose: 1 each Nystatin (Nystop) 0 gm TOP BID PRN PRN Reason: Other Last Admin: 06/25/19 08:43 Dose: 1 applic Triamcinolone Acetonide [Nasacort] Ptom 0 each NASBOTH DAILY [facility] Last Admin: 06/25/19 10:36 Dose: Not Given Pramipexole Dihydrochloride (Mirapex) 0.5 mg PO DAILY [facility] Last Admin: 06/25/19 08:42 Dose: 0.5 mg Sodium Chloride (Saline Flush) 10 ml FLUSH ASDIRECTED PRN PRN Reason: Keep Vein Open Last Admin: 06/22/19 15:57 Dose: 10 ml Spironolactone (Aldactone) 50 mg PO DAILY [facility] Last Admin: 06/25/19 08:42 Dose: 50 mg Tramadol HCl (Ultram) 50 mg PO Q6H PRN PRN Reason: Pain (moderate 4-6) Last Admin: 06/24/19 16:50 Dose: 50 mg Zolpidem Tartrate (Ambien) 2.5 mg PO BEDTIME PRN PRN Reason: Insomnia Discontinued Medications Cholecalciferol (Vitamin D3) 50,000 unit PO ASDIRECTED [facility] Furosemide (Lasix) 40 mg IVPUSH NOW ONE Stop: 06/22/19 17:38 Last Admin: 06/22/19 17:57 Dose: 40 mg Furosemide (Lasix) 60 mg IVPUSH BID [facility] Furosemide (Lasix) 60 mg IVPUSH BIDDIURETIC [facility] Last Admin: 06/24/19 14:45 Dose: Not Given Cefepime HCl 1 gm/ Premix 50 mls @ 100 mls/hr IV ONETIME ONE Stop: 06/22/19 18:10 Last Admin: 06/22/19 18:00 Dose: 100 mls/hr Cefepime HCl 1 gm/ Premix 50 mls @ 100 mls/hr IV ONETIME ONE Stop: 06/22/19 19:33 Last Admin: 06/22/19 20:39 Dose: 100 mls/hr Cefepime HCl 2 gm/ Premix 50 mls @ 100 mls/hr IV Q12H [facility] Insulin Human Lispro (Humalog) 0 unit SUBCUT BIDAC [facility]; Protocol Insulin Human Lispro (Humalog) 0 unit SUBCUT BID@0800,1700 [facility]; Protocol Last Admin: 06/24/19 08:20 Dose: Not Given Ketorolac Tromethamine (Toradol) 15 mg IVPUSH Q6H PRN PRN Reason: Pain (moderate 4-6) Non-Formulary Medication (Interdry Wipes) 1 container TOP DAILY PRN PRN Reason: Rash Sertraline HCl (Zoloft) 2,500 mg PO BEDTIME [facility] Sertraline HCl (Zoloft) 50 mg PO BEDTIME [facility] Last Admin: 06/22/19 22:46 Dose: 50 mg - Exam General: Alert, Oriented HEENT: Pupils Equal Neck: Supple Lungs: Clear to Auscultation, Normal Respiratory Effort Cardiovascular: Regular Rate, Regular Rhythm GI/Abdominal Exam: Normal Bowel Sounds, Soft, Non-Tender, No Distention Extremities: Pedal Edema, Other (bilateral dressing.) - Problem List Review Problem List Initiated/Reviewed/Updated: Yes - Plan Plan:: Assessment/Plan: RLL PNA - healthcare acquired -CT of chest -IS/Acapella -Consult RT -Negative Blood cultures -Negative influenza -Strep pneumo negative -ABX as ordered -Procalcitonin <0.5 -Lactic acid 1.5 Cellulitis of right leg -Worsened by chronic venous insufficiency -Erythema/warmth/pain all improving with ABX -Redness, warmth, drainage still noted -Mepilex on wounds -ABX as noted -Ambulate -PT/Nursing for wound care -IV and PO pain medications as needed CHF - chronic -IV lasix given - discontinued due to hypotension -Resume home diuretics Chronic venous insufficiency -Monitor -Contributing to above CKD -Avoid nephrotoxic agents if possible -Caution with diuretics -Labs stable
[2019-06-25] MEDS: Cefepime 2 GM in Premix Bag 1 BAG IV SCH (21:44)
[2019-06-26] MEDS: Acetaminophen 325 MG Tab PO PRN ×3 (02:36→20:26)
[2019-06-26] MEDS: traMADol 50 MG Tab PO PRN ×2 (02:38→09:16)
[2019-06-26] MEDS: Levothyroxine 125 MCG Tab PO SCH (06:48)
[2019-06-26] MEDS: Linezolid 600 MG in Premix Bag 1 BAG IV SCH (06:48)
[2019-06-26] MEDS: Losartan 25 MG Tab PO SCH (09:16)
[2019-06-26] MEDS: Loperamide 2 MG Cap PO SCH ×2 (09:16→20:25)
[2019-06-26] MEDS: Pramipexole 0.5 MG Tab PO SCH (09:16)
[2019-06-26] MEDS: Spironolactone 25 MG Tab PO SCH (09:16)
[2019-06-26] MEDS: Metoprolol Tartrate 25 MG Tab PO SCH ×2 (09:16→20:30)
[2019-06-26] MEDS: Apixaban 2.5 MG Tab PO SCH ×2 (09:16→20:25)
[2019-06-26] MEDS: Folic Acid 1 MG Tab PO SCH (09:17)
[2019-06-26] MEDS: Furosemide 40 MG Tab PO SCH (09:17)
[2019-06-26] MEDS: Multivitamins,Therapeutic Tab PO SCH (09:17)
[2019-06-26] MEDS: Megestrol 40 MG Tab PO SCH ×3 (09:17→20:26)
[2019-06-26] MEDS: TRIAMCINOLONE ACETONIDE NASBOTH SCH (09:17)
--- NOTE | 2019-06-26 12:01 | CR ---
Chest: Two views of the chest were obtained. Comparison: Prior chest CT study of 06/24/19 and chest x-ray of 06/22/19. Slight atelectasis within both lung bases. Lungs otherwise are clear. Heart size slightly enlarged. Tortuous thoracic aorta is seen. Pacemaker is noted. Bony structures are grossly intact. Impression: 1. Mild bibasilar atelectasis. 2. Other stable findings. Nothing acute is appreciated. Diagnostic code #2
--- NOTE | 2019-06-26 15:25 | PCM.PN ---
- General Info Date of Service: 06/26/19 Admission Dx/Problem (Free Text): Admission Diagnosis/Problem Admission Diagnosis/Problem Congestive heart failure Subjective Update: Denies any worsening of shortness of breath. Stable without any chest pain. - Review of Systems General: Reports: No Symptoms HEENT: Reports: No Symptoms Pulmonary: Reports: No Symptoms Cardiovascular: Reports: No Symptoms Gastrointestinal: Reports: No Symptoms - Patient Data Vitals - Most Recent: Last Vital Signs Temp 97.3 F 06/26/19 09:14 Pulse 74 06/26/19 09:16 Resp 20 06/26/19 09:14 BP 121/70 06/26/19 09:16 Pulse Ox 98 06/26/19 09:14 Weight - Most Recent: 177 lb 9.6 oz I&O - Last 24 Hours: Intake & Output 06/26/19 06/26/19 06/26/19 06:59 14:59 22:59 Intake Total 545 300 360 Output Total 300 Balance 245 300 360 Lab Results Last 24 Hours: Laboratory Results - last 24 hr 06/25/19 06/26/19 06/26/19 Range/Units 04:28 04:50 04:50 WBC 6.20 (3.98-10.04) K/mm3 RBC 3.30 L (3.98-5.22) M/mm3 Hgb 10.7 L (11.2-15.7) gm/dl Hct 34.0 L (34.1-44.9) % MCV 103.0 H (79.4-94.8) fl MCH 32.4 H (25.6-32.2) pg MCHC 31.5 L (32.2-35.5) g/dl RDW Std Deviation 53.4 H (36.4-46.3) fL Plt Count 143 L (182-369) K/mm3 MPV 9.3 L (9.4-12.3) fl Neut % (Auto) 72.7 H (34.0-71.1) % Lymph % (Auto) 14.2 L (19.3-51.7) % [place] % (Auto) 10.3 (4.7-12.5) % Eos % (Auto) 2.3 (0.7-5.8) Baso % (Auto) 0.3 (0.1-1.2) % Neut # (Auto) 4.51 (1.56-6.13) K/mm3 Lymph # (Auto) 0.88 L (1.18-3.74) K/mm3 [place] # (Auto) 0.64 H (0.24-0.36) K/mm3 Eos # (Auto) 0.14 (0.04-0.36) K/mm3 Baso # (Auto) 0.02 (0.01-0.08) K/mm3 Sodium 137 (136-145) mEq/L Potassium 3.8 (3.5-5.1) mEq/L Chloride 99 (98-107) mEq/L Carbon Dioxide 32 (21-32) mEq/L Anion Gap 9.8 (5-15) BUN 33 H (7-18) mg/dL Creatinine 1.4 H (0.55-1.02) mg/dL Est Cr Clr Drug Dosing 19.57 mL/min Estimated GFR (MDRD) 35 (>60) mL/min BUN/Creatinine Ratio 23.6 H (14-18) Glucose 85 (83-115) mg/dL Calcium 8.4 L (8.5-10.1) mg/dL Magnesium 1.9 (1.8-2.4) mg/dl Procalcitonin 0.08 (<0.10) ng/mL Lorenzo Results Last 24 Hours: Microbiology 06/22/19 16:11 Aerobic Blood Culture - Preliminary Blood NO GROWTH AFTER 3 DAYS Anaerobic Blood Culture - Preliminary NO GROWTH AFTER 3 DAYS Med Orders - Current: Current Medications Acetaminophen (Tylenol) 650 mg PO Q6H PRN PRN Reason: Pain Last Admin: 06/26/19 09:15 Dose: 650 mg Apixaban (Eliquis) 2.5 mg PO BID [facility] Last Admin: 06/26/19 09:16 Dose: 2.5 mg Dextrose/Water (Dextrose 50% In Water) 50 ml IVPUSH ASDIRECTED PRN PRN Reason: Hypoglycemia Folic Acid (Folic Acid) 2 mg PO DAILY [facility] Last Admin: 06/26/19 09:17 Dose: 2 mg Furosemide (Lasix) 40 mg PO DAILY [facility] Last Admin: 06/26/19 09:17 Dose: 40 mg Cefepime HCl 2 gm/ Premix 50 mls @ 100 mls/hr IV Q24H [facility] Last Admin: 06/25/19 21:44 Dose: 100 mls/hr Levothyroxine Sodium (Levothyroxine) 125 mcg PO ACBREAKFAST [facility] Last Admin: 06/26/19 06:48 Dose: 125 mcg Linezolid (Zyvox) 600 mg PO Q12H [facility] Loperamide HCl (Imodium) 2 mg PO BID [facility] Last Admin: 06/26/19 09:16 Dose: 2 mg Losartan Potassium (Cozaar) 25 mg PO DAILY [facility] Last Admin: 06/26/19 09:16 Dose: 25 mg Megestrol Acetate (Megace) 40 mg PO TID [facility] Last Admin: 06/26/19 09:17 Dose: 40 mg Metoprolol Tartrate (Lopressor) 25 mg PO BID [facility] Last Admin: 06/26/19 09:16 Dose: 25 mg Morphine Sulfate (Morphine) 1 mg IVPUSH Q6H PRN PRN Reason: Pain (severe 7-10) Multivitamins (Thera) 1 each PO DAILY [facility] Last Admin: 06/26/19 09:17 Dose: 1 each Nystatin (Nystop) 0 gm TOP BID PRN PRN Reason: Other Last Admin: 06/25/19 08:43 Dose: 1 applic Triamcinolone Acetonide [Nasacort] Ptom 0 each NASBOTH DAILY [facility] Last Admin: 06/26/19 09:17 Dose: Not Given Pramipexole Dihydrochloride (Mirapex) 0.5 mg PO DAILY [facility] Last Admin: 06/26/19 09:16 Dose: 0.5 mg Sodium Chloride (Saline Flush) 10 ml FLUSH ASDIRECTED PRN PRN Reason: Keep Vein Open Last Admin: 06/22/19 15:57 Dose: 10 ml Spironolactone (Aldactone) 50 mg PO DAILY [facility] Last Admin: 06/26/19 09:16 Dose: 50 mg Tramadol HCl (Ultram) 50 mg PO Q6H PRN PRN Reason: Pain (moderate 4-6) Last Admin: 06/26/19 09:16 Dose: 50 mg Zolpidem Tartrate (Ambien) 2.5 mg PO BEDTIME PRN PRN Reason: Insomnia Discontinued Medications Cholecalciferol (Vitamin D3) 50,000 unit PO ASDIRECTED [facility] Furosemide (Lasix) 40 mg IVPUSH NOW ONE Stop: 06/22/19 17:38 Last Admin: 06/22/19 17:57 Dose: 40 mg Furosemide (Lasix) 60 mg IVPUSH BID [facility] Furosemide (Lasix) 60 mg IVPUSH BIDDIURETIC [facility] Last Admin: 06/24/19 14:45 Dose: Not Given Cefepime HCl 1 gm/ Premix 50 mls @ 100 mls/hr IV ONETIME ONE Stop: 06/22/19 18:10 Last Admin: 06/22/19 18:00 Dose: 100 mls/hr Linezolid 600 mg/ Premix 300 mls @ 300 mls/hr IV Q12H [facility] Last Admin: 06/26/19 06:48 Dose: 300 mls/hr Cefepime HCl 1 gm/ Premix 50 mls @ 100 mls/hr IV ONETIME ONE Stop: 06/22/19 19:33 Last Admin: 06/22/19 20:39 Dose: 100 mls/hr Cefepime HCl 2 gm/ Premix 50 mls @ 100 mls/hr IV Q12H [facility] Insulin Human Lispro (Humalog) 0 unit SUBCUT BIDAC [facility]; Protocol Insulin Human Lispro (Humalog) 0 unit SUBCUT BID@0800,1700 [facility]; Protocol Last Admin: 06/24/19 08:20 Dose: Not Given Ketorolac Tromethamine (Toradol) 15 mg IVPUSH Q6H PRN PRN Reason: Pain (moderate 4-6) Non-Formulary Medication (Interdry Wipes) 1 container TOP DAILY PRN PRN Reason: Rash Sertraline HCl (Zoloft) 2,500 mg PO BEDTIME [facility] Sertraline HCl (Zoloft) 50 mg PO BEDTIME [facility] Last Admin: 06/22/19 22:46 Dose: 50 mg - Exam Quality Assessment: Supplemental Oxygen General: Alert Neck: Supple Lungs: Normal Respiratory Effort, Crackles Cardiovascular: Regular Rate, Regular Rhythm Extremities: Other (Bandaged lower extremities.) Skin: Warm, Dry, Intact - Problem List Review Problem List Initiated/Reviewed/Updated: Yes - My Orders Last 24 Hours: My Active Orders 06/26/19 18:30 Linezolid [Zyvox] 600 mg PO Q12H - Plan Plan:: Assessment/Plan: RLL PNA - healthcare acquired -CT of chest -IS/Acapella -Consult RT -Negative Blood cultures -Negative influenza -Strep pneumo negative -Cefepime for pseudomonas coverage. Will dc after 7 days. -Procalcitonin <0.5 -Lactic acid 1.5 Cellulitis of right leg -Worsened by chronic venous insufficiency -Erythema/warmth/pain all improving with ABX -Redness, warmth, drainage still noted -Mepilex on wounds -Change Zyvox to PO -Ambulate -PT/Nursing for wound care -IV and PO pain medications as needed CHF - chronic -IV lasix given - discontinued due to hypotension -Resume home diuretics Chronic venous insufficiency -Monitor -Contributing to above CKD -Avoid nephrotoxic agents if possible -Caution with diuretics -Labs stable
[2019-06-26] MEDS: Linezolid 600 MG Tab PO SCH (17:51)
[2019-06-26] MEDS: Cefepime 2 GM in Premix Bag 1 BAG IV SCH (20:27)
[2019-06-27] MEDS: Levothyroxine 125 MCG Tab PO SCH (06:44)
[2019-06-27] MEDS: Linezolid 600 MG Tab PO SCH ×2 (06:44→19:56)
[2019-06-27] MEDS: Multivitamins,Therapeutic Tab PO SCH (08:22)
[2019-06-27] MEDS: Pramipexole 0.5 MG Tab PO SCH (08:22)
[2019-06-27] MEDS: Apixaban 2.5 MG Tab PO SCH ×2 (08:23→21:28)
[2019-06-27] MEDS: Loperamide 2 MG Cap PO SCH ×2 (08:23→21:28)
[2019-06-27] MEDS: Furosemide 40 MG Tab PO SCH (08:23)
[2019-06-27] MEDS: Spironolactone 25 MG Tab PO SCH (08:23)
[2019-06-27] MEDS: Metoprolol Tartrate 25 MG Tab PO SCH ×2 (08:23→21:34)
[2019-06-27] MEDS: Folic Acid 1 MG Tab PO SCH (08:24)
[2019-06-27] MEDS: Megestrol 40 MG Tab PO SCH ×3 (08:24→21:29)
[2019-06-27] MEDS: Losartan 25 MG Tab PO SCH (08:24)
[2019-06-27] MEDS: TRIAMCINOLONE ACETONIDE NASBOTH SCH (08:25)
--- NOTE | 2019-06-27 09:43 | PCM.PN ---
- General Info Date of Service: 06/27/19 Admission Dx/Problem (Free Text): Admission Diagnosis/Problem Admission Diagnosis/Problem Congestive heart failure Functional Status: Reports: Pain Controlled, Tolerating Diet, Ambulating, Urinating, Incentive Spirometry, Other (Acapella ). Denies: New Symptoms - Review of Systems General: Reports: No Symptoms, Weakness (improving ). Denies: Fever, Malaise, Chills HEENT: Reports: No Symptoms. Denies: Headaches, Sore Throat Pulmonary: Reports: Cough, Wheezing. Denies: Shortness of Breath, Sputum Cardiovascular: Reports: No Symptoms. Denies: Chest Pain, Palpitations, Dyspnea on Exertion, Edema Gastrointestinal: Reports: No Symptoms. Denies: Abdominal Pain, Constipation, Diarrhea, Nausea, Vomiting Genitourinary: Reports: No Symptoms. Denies: Pain Musculoskeletal: Reports: Leg Pain (Bilateral ) Skin: Reports: No Symptoms. Denies: Cyanosis Neurological: Reports: No Symptoms, Difficulty Walking, Weakness, Gait Disturbance. Denies: Confusion Psychiatric: Reports: No Symptoms - Patient Data Vitals - Most Recent: Last Vital Signs Temp 97.7 F 06/27/19 08:11 Pulse 71 06/27/19 08:23 Resp 20 06/27/19 08:11 BP 114/71 06/27/19 08:24 Pulse Ox 95 06/27/19 08:11 Weight - Most Recent: 178 lb 6.4 oz I&O - Last 24 Hours: Intake & Output 06/26/19 06/27/19 06/27/19 22:59 06:59 14:59 Intake Total 840 250 Output Total 600 400 Balance 240 -150 Lab Results Last 24 Hours: Laboratory Results - last 24 hr 06/27/19 06/27/19 Range/Units 04:26 04:26 WBC 5.99 (3.98-10.04) K/mm3 RBC 3.58 L (3.98-5.22) M/mm3 Hgb 11.4 (11.2-15.7) gm/dl Hct 37.0 (34.1-44.9) % MCV 103.4 H (79.4-94.8) fl MCH 31.8 (25.6-32.2) pg MCHC 30.8 L (32.2-35.5) g/dl RDW Std Deviation 54.0 H (36.4-46.3) fL Plt Count 151 L (182-369) K/mm3 MPV 9.2 L (9.4-12.3) fl Neut % (Auto) 70.1 (34.0-71.1) % Lymph % (Auto) 16.5 L (19.3-51.7) % [place] % (Auto) 10.5 (4.7-12.5) % Eos % (Auto) 2.3 (0.7-5.8) Baso % (Auto) 0.3 (0.1-1.2) % Neut # (Auto) 4.19 (1.56-6.13) K/mm3 Lymph # (Auto) 0.99 L (1.18-3.74) K/mm3 [place] # (Auto) 0.63 H (0.24-0.36) K/mm3 Eos # (Auto) 0.14 (0.04-0.36) K/mm3 Baso # (Auto) 0.02 (0.01-0.08) K/mm3 Sodium 137 (136-145) mEq/L Potassium 4.4 (3.5-5.1) mEq/L Chloride 100 (98-107) mEq/L Carbon Dioxide 31 (21-32) mEq/L Anion Gap 10.4 (5-15) BUN 36 H (7-18) mg/dL Creatinine 1.5 H (0.55-1.02) mg/dL Est Cr Clr Drug Dosing 18.26 mL/min Estimated GFR (MDRD) 33 (>60) mL/min BUN/Creatinine Ratio 24.0 H (14-18) Glucose 86 (83-115) mg/dL Calcium 8.3 L (8.5-10.1) mg/dL Magnesium 1.8 (1.8-2.4) mg/dl Lorenzo Results Last 24 Hours: Microbiology 06/26/19 14:41 Gram Stain - Final Sputum - Induced Sputum Culture - Preliminary 06/22/19 16:11 Aerobic Blood Culture - Preliminary Blood NO GROWTH AFTER 4 DAYS Anaerobic Blood Culture - Preliminary NO GROWTH AFTER 4 DAYS Med Orders - Current: Current Medications Acetaminophen (Tylenol) 650 mg PO Q6H PRN PRN Reason: Pain Last Admin: 06/26/19 20:26 Dose: 650 mg Apixaban (Eliquis) 2.5 mg PO BID [facility] Last Admin: 06/27/19 08:23 Dose: 2.5 mg Dextrose/Water (Dextrose 50% In Water) 50 ml IVPUSH ASDIRECTED PRN PRN Reason: Hypoglycemia Folic Acid (Folic Acid) 2 mg PO DAILY [facility] Last Admin: 06/27/19 08:24 Dose: 2 mg Furosemide (Lasix) 40 mg PO DAILY [facility] Last Admin: 06/27/19 08:23 Dose: 40 mg Cefepime HCl 2 gm/ Premix 50 mls @ 100 mls/hr IV Q24H [facility] Last Admin: 06/26/19 20:27 Dose: 100 mls/hr Levothyroxine Sodium (Levothyroxine) 125 mcg PO ACBREAKFAST [facility] Last Admin: 06/27/19 06:44 Dose: 125 mcg Linezolid (Zyvox) 600 mg PO Q12H [facility] Last Admin: 06/27/19 06:44 Dose: 600 mg Loperamide HCl (Imodium) 2 mg PO BID [facility] Last Admin: 06/27/19 08:23 Dose: 2 mg Losartan Potassium (Cozaar) 25 mg PO DAILY [facility] Last Admin: 06/27/19 08:24 Dose: 25 mg Megestrol Acetate (Megace) 40 mg PO TID [facility] Last Admin: 06/27/19 08:24 Dose: 40 mg Metoprolol Tartrate (Lopressor) 25 mg PO BID [facility] Last Admin: 06/27/19 08:23 Dose: 25 mg Morphine Sulfate (Morphine) 1 mg IVPUSH Q6H PRN PRN Reason: Pain (severe 7-10) Multivitamins (Thera) 1 each PO DAILY [facility] Last Admin: 06/27/19 08:22 Dose: 1 each Nystatin (Nystop) 0 gm TOP BID PRN PRN Reason: Other Last Admin: 06/25/19 08:43 Dose: 1 applic Pramipexole Dihydrochloride (Mirapex) 0.5 mg PO DAILY [facility] Last Admin: 06/27/19 08:22 Dose: 0.5 mg Sodium Chloride (Saline Flush) 10 ml FLUSH ASDIRECTED PRN PRN Reason: Keep Vein Open Last Admin: 06/22/19 15:57 Dose: 10 ml Spironolactone (Aldactone) 50 mg PO DAILY [facility] Last Admin: 06/27/19 08:23 Dose: 50 mg Tramadol HCl (Ultram) 50 mg PO Q6H PRN PRN Reason: Pain (moderate 4-6) Last Admin: 06/26/19 09:16 Dose: 50 mg Zolpidem Tartrate (Ambien) 2.5 mg PO BEDTIME PRN PRN Reason: Insomnia Discontinued Medications Cholecalciferol (Vitamin D3) 50,000 unit PO ASDIRECTED [facility] Furosemide (Lasix) 40 mg IVPUSH NOW ONE Stop: 06/22/19 17:38 Last Admin: 06/22/19 17:57 Dose: 40 mg Furosemide (Lasix) 60 mg IVPUSH BID [facility] Furosemide (Lasix) 60 mg IVPUSH BIDDIURETIC [facility] Last Admin: 06/24/19 14:45 Dose: Not Given Cefepime HCl 1 gm/ Premix 50 mls @ 100 mls/hr IV ONETIME ONE Stop: 06/22/19 18:10 Last Admin: 06/22/19 18:00 Dose: 100 mls/hr Linezolid 600 mg/ Premix 300 mls @ 300 mls/hr IV Q12H [facility] Last Admin: 06/26/19 06:48 Dose: 300 mls/hr Cefepime HCl 1 gm/ Premix 50 mls @ 100 mls/hr IV ONETIME ONE Stop: 06/22/19 19:33 Last Admin: 06/22/19 20:39 Dose: 100 mls/hr Cefepime HCl 2 gm/ Premix 50 mls @ 100 mls/hr IV Q12H [facility] Insulin Human Lispro (Humalog) 0 unit SUBCUT BIDAC [facility]; Protocol Insulin Human Lispro (Humalog) 0 unit SUBCUT BID@0800,1700 [facility]; Protocol Last Admin: 06/24/19 08:20 Dose: Not Given Ketorolac Tromethamine (Toradol) 15 mg IVPUSH Q6H PRN PRN Reason: Pain (moderate 4-6) Non-Formulary Medication (Interdry Wipes) 1 container TOP DAILY PRN PRN Reason: Rash Triamcinolone Acetonide [Nasacort] Ptom 0 each NASBOTH DAILY [facility] Last Admin: 06/27/19 08:25 Dose: Not Given Sertraline HCl (Zoloft) 2,500 mg PO BEDTIME [facility] Sertraline HCl (Zoloft) 50 mg PO BEDTIME [facility] Last Admin: 06/22/19 22:46 Dose: 50 mg - Exam Quality Assessment: DVT Prophylaxis General: Alert, Oriented, Cooperative, No Acute Distress HEENT: Pupils Equal, Pupils Reactive, EOMI, Mucous Membr. Moist/[place] Neck: Supple, Trachea Midline Lungs: Normal Respiratory Effort, Decreased Breath Sounds Cardiovascular: Regular Rate, Regular Rhythm GI/Abdominal Exam: Normal Bowel Sounds, Soft, Non-Tender, No Distention, No Abnormal Bruit (Female) Exam: Deferred Back Exam: Normal Inspection, Decreased Range of Motion Extremities: Pedal Edema, Leg Pain, Limited Range of Motion, Redness (improving ). No: Increased Warmth Wound/Incisions: Dressing Dry and Intact, Erythema Improving Neurological: No New Focal Deficit Psy/Mental Status: Alert, Normal Affect, Normal Mood - Problem List & Annotations (1) Pneumonia SNOMED Code(s): 219458050 Code(s): J18.9 - PNEUMONIA, UNSPECIFIED ORGANISM Status: Acute Current Visit: Yes Qualifiers: Pneumonia type: due to unspecified organism Laterality: right Lung location: lower lobe of lung Qualified Code(s): J18.1 - Lobar pneumonia, unspecified organism (2) Cellulitis SNOMED Code(s): 625527814 Code(s): L03.90 - CELLULITIS, UNSPECIFIED Status: Chronic Current Visit: Yes Qualifiers: Site of cellulitis: extremity Site of cellulitis of extremity: lower extremity Laterality: unspecified laterality Qualified Code(s): L03.119 - Cellulitis of unspecified part of limb (3) Acute on chronic combined systolic (congestive) and diastolic (congestive) heart failure SNOMED Code(s): 104154002596047, 559541632453515 Code(s): I50.43 - ACUTE ON CHRONIC COMBINED SYSTOLIC AND DIASTOLIC HRT FAIL Status: Acute Current Visit: No (4) Chronic kidney disease (CKD) stage G3b/A2, moderately decreased glomerular filtration rate (GFR) between 30-44 mL/min/1.73 square meter and albuminuria creatinine ratio between 30-299 mg/g SNOMED Code(s): 452780265, 499964868, 961726526 Code(s): N18.3 - CHRONIC KIDNEY DISEASE, STAGE 3 (MODERATE) Status: Acute Current Visit: No (5) Chronic venous insufficiency of lower extremity SNOMED Code(s): 181916247 Code(s): I87.2 - VENOUS INSUFFICIENCY (CHRONIC) (PERIPHERAL) Status: Acute Current Visit: No (6) Constipation by delayed colonic transit SNOMED Code(s): 66753814 Code(s): K59.01 - SLOW TRANSIT CONSTIPATION Status: Acute Current Visit: No - Problem List Review Problem List Initiated/Reviewed/Updated: Yes - My Orders Last 24 Hours: My Active Orders 06/28/19 05:11 BASIC METABOLIC PANEL,BMP [CHEM] AM CBC WITH AUTO DIFF [HEME] AM MAGNESIUM [CHEM] AM - Plan Plan:: Assessment/Plan: RLL PNA - healthcare acquired -CT of chest -IS/Acapella -Consult RT -Negative Blood cultures -Negative influenza -Strep pneumo negative -Cefepime for pseudomonas coverage. Will dc after 7 days. -Procalcitonin <0.5 -Lactic acid 1.5 Cellulitis of right leg -Worsened by chronic venous insufficiency -Erythema/warmth/pain all improving with ABX -Redness, warmth, drainage still noted -Mepilex on wounds -Change Zyvox to PO -Ambulate -PT/Nursing for wound care -IV and PO pain medications as needed CHF - chronic -IV lasix given - discontinued due to hypotension -Resume home diuretics Chronic venous insufficiency -Monitor -Contributing to above CKD -Avoid nephrotoxic agents if possible -Caution with diuretics -Labs stable Disposition: Likely discharge 06/28/19 back to [facility] LOS >96 HRS due to slow response to treatment and need for continued IV ABX.
[2019-06-27] MEDS ORDERED: Famotidine 20 MG Tab PO PRN (13:22)
[2019-06-27] MEDS ORDERED: Cefepime 2 GM in Premix Bag 1 BAG IV ONE (16:00)
[2019-06-28] MEDS: Linezolid 600 MG Tab PO SCH (05:49)
[2019-06-28] MEDS: Levothyroxine 125 MCG Tab PO SCH (05:49)
[2019-06-28] MEDS: Apixaban 2.5 MG Tab PO SCH (09:00)
[2019-06-28] MEDS: Loperamide 2 MG Cap PO SCH (09:00)
[2019-06-28] MEDS: Metoprolol Tartrate 25 MG Tab PO SCH (09:00)
[2019-06-28] MEDS: Megestrol 40 MG Tab PO SCH (09:01)
[2019-06-28] MEDS: Spironolactone 25 MG Tab PO SCH (09:01)
[2019-06-28] MEDS: Folic Acid 1 MG Tab PO SCH (09:01)
[2019-06-28] MEDS: Furosemide 40 MG Tab PO SCH (09:01)
[2019-06-28] MEDS: Losartan 25 MG Tab PO SCH (09:01)
[2019-06-28] MEDS: Multivitamins,Therapeutic Tab PO SCH (09:01)
[2019-06-28] MEDS: Pramipexole 0.5 MG Tab PO SCH (09:01)
[2019-06-28] MEDS: Acetaminophen 325 MG Tab PO PRN (10:31)
--- NOTE | 2019-06-28 11:49 | PCM.DCSUM1 ---
Discharge Summary - Hospital Course HPI Initial Comments: This is a 89 year old female with extensive cardiac past medical history who is a resident from [place] who was brought to [facility] for worsening sob and increasing puffy eyes as well as worsening productive cough and RLE pain. As per patient she was ok 2 days ago untile she started noticing her eyes getting more puffy and her sob worsening At the same time she noticed RLE was starting to get red and swollen Once she noticed symptoms were not improving rather worsening she decided to come to the ED for further evaluation. Brief History: Hospital-acquired pneumonia. Recent admission + worsening productive cough + new infiltrate on CXR. Patient severely allergic to vancomycin and penicillins for which ATB options are very limited. Not septic. PLAN. - influenza swab. - Procalcitonin. - Sputum culture. - Start linezolid and cefepime. Non-purulent cellulitis or RLE. Worsening erythema of RLE. Fluctuation on medial side. PLAN. - Demarcate are to evaluate progression. - ATB coverage as per HAP. 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 CXR with fluid cephalization. Elevated BNP. Worsening GINETTE. PLAN. - Transition PO to IV lasix. - Daily weights. - Stric I/O's. - Telemetry. - Records for echocardiogram. - Records for device interrogation. Atrial fibrillation with controlled ventricular response. No acute issues. PLAN. - Continue home medications. Chronic kidney disease (CKD) stage IIIB. Monitor urine output. Renally dosed medications. Repeat labs daily as needed. Replace electrolytes as indicated. Hypertension. Controlled. Continue home medications. Non- purulent cellulitis or RLE. Worsening erythema of RLE. Fluctuation on medial side. PLAN. - Demarcate are to evaluate progression. - ATB coverage as per HAP. PROPHYLAXIS. DVT- Lovenox. GI- not indicated. CODE STATUS: FULL CODE. DISPOSITION: Patient will be fully admitted to the floor for IV antibiotics and monitorization of both infections. Diagnosis: Stroke: No - Discharge Data Discharge Date: 06/28/19 Discharge Disposition: Home, Self-Care 01 Condition: Good - Referral to Home Health Primary Care Physician: Kedar Moreau MD - Patient Summary/Data Consults: Consultations 06/22/19 21:22 Consult to Case Management/Tilt Tray Driver [CONS] Routine Consult to Supervisor Treating And Pumping [CONS] Routine Consult to Spiritual Care [CONS] Routine OT Evaluation and Treatment [CONS] Routine PT Evaluation and Treatment [CONS] Routine Respiratory Care Assess and Treatment [CONS] Routine 06/23/19 08:36 PT Evaluation and Treatment [CONS] Routine Hospital Course: RLL PNA - healthcare acquired -CT of chest -IS/Acapella -Consult RT -Negative Blood cultures -Negative influenza -Strep pneumo negative -Cefepime for pseudomonas coverage. Will dc after 7 days. -Procalcitonin <0.5 -Lactic acid 1.5 Cellulitis of right leg -Worsened by chronic venous insufficiency -Erythema/warmth/pain all improving with ABX -Redness, warmth, drainage still noted -Mepilex on wounds -Change Zyvox to PO -Ambulate -PT/Nursing for wound care -IV and PO pain medications as needed CHF - chronic -IV lasix given - discontinued due to hypotension -Resume home diuretics Chronic venous insufficiency -Monitor -Contributing to above CKD -Avoid nephrotoxic agents if possible -Caution with diuretics -Labs stable Disposition: Likely discharge 06/28/19 back to [facility] LOS >96 HRS due to slow response to treatment and need for continued IV ABX. - Patient Instructions Diet: Heart Healthy Diet Activity: As Tolerated Driving: Do Not Drive Showering/Bathing: May Shower Other/Special Instructions: Follow up with Dr. Ring early next week to review hospitalization and evaluate if you need to continue on antibiotics. - Discharge Plan *PRESCRIPTION DRUG MONITORING PROGRAM REVIEWED*: No *COPY OF PRESCRIPTION DRUG MONITORING REPORT IN PATIENT RACHANA: No Prescriptions/Med Rec: Linezolid [Zyvox] 600 mg PO Q12H #8 tablet Home Medications: Home Meds Pramipexole [Mirapex] 0.5 mg PO DAILY 02/28/14 [History] Levothyroxine 125 mcg PO ACBREAKFAST #30 tab 05/21/18 [Rx] Apixaban [Eliquis] 2.5 mg PO BID 08/22/18 [History] Folic Acid 2 mg PO DAILY 08/22/18 [History] Multivit with Calcium,Iron,Min [Essential Daily] 1 tab PO DAILY 08/22/18 [ History] Sertraline [Zoloft] 50 mg PO BEDTIME 08/22/18 [History] Acetaminophen [Tylenol Extra Strength] 1,000 mg PO Q12H 05/03/19 [History] Losartan [Cozaar] 25 mg PO DAILY 01/03/19 [History] Aloe Vera/Sodium Chloride [[place] Saline Nasal Gel] 1 applic MEG DAILY PRN [History] Metoprolol Tartrate 25 mg PO BID 01/26/19 [History] Zolpidem [Ambien] 2.5 mg PO BEDTIME PRN 01/26/19 [History] Furosemide [Lasix] 40 mg PO DAILY 04/03/19 [History] Interdry Wipes 1 container TOP DAILY PRN 04/03/19 [History] Nystatin [Nystop] 1 applic TOP BID PRN 04/03/19 [History] Spironolactone 50 mg PO DAILY 04/03/19 [History] Cholecalciferol (Vitamin D3) [Vitamin D] 50,000 units PO ASDIRECTED 06/22/19 [ History] Loperamide [Imodium] 2 mg PO BID 06/22/19 [History] Megestrol [Megace] 40 mg PO TID 06/22/19 [History] Triamcinolone Acetonide [Nasacort] 2 spray INH DAILY 06/22/19 [History] Bacitracin 1 dose TOP DAILY 06/23/19 [History] Dextromethorphan/guaiFENesin [Robitussin DM] 5 - 10 ml PO Q4H PRN 06/23/19 [ History] Furosemide [Lasix] 40 mg PO DAILY tablet 06/28/19 [Rx] Linezolid [Zyvox] 600 mg PO Q12H #8 tablet 06/28/19 [Rx] Oxygen Therapy Mode: Nasal Cannula Oxygen Flow Rate (L/min): 1 Patient Handouts: Heart-Healthy Eating Plan, [id number]-Btet, Sepsis, Adult, Heart Failure Forms: ED Department Discharge Referrals: PCP,Unknown [Ordering Only Provider] - - Discharge Summary/Plan Comment DC Time >30 min.: Yes Discharge Summary/Plan Comment: Follow up with Dr. Ring to revaluate cellulitis. - General Info Date of Service: 06/28/19 Admission Dx/Problem (Free Text: Admission Diagnosis/Problem Admission Diagnosis/Problem Congestive heart failure Subjective Update: Patient is doing well. She states that she still has lower extremity pain. - Review of Systems General: Reports: No Symptoms HEENT: Reports: No Symptoms Pulmonary: Reports: Cough Cardiovascular: Reports: No Symptoms Gastrointestinal: Reports: No Symptoms - Patient Data Vitals - Most Recent: Last Vital Signs Temp 97.5 F 06/28/19 08:58 Pulse 76 06/28/19 09:00 Resp 20 06/28/19 08:58 BP 137/81 06/28/19 09:01 Pulse Ox 97 06/28/19 08:58 Weight - Most Recent: 177 lb 9.6 oz I&O - Last 24 hours: Intake & Output 06/27/19 06/28/19 06/28/19 22:59 06:59 14:59 Intake Total 830 500 120 Output Total 700 550 Balance 130 -50 120 Lab Results - Last 24 hrs: Laboratory Results - last 24 hr 06/28/19 06/28/19 Range/Units 04:18 04:48 WBC 6.57 (3.98-10.04) K/mm3 RBC 3.53 L (3.98-5.22) M/mm3 Hgb 11.4 (11.2-15.7) gm/dl Hct 36.2 (34.1-44.9) % MCV 102.5 H (79.4-94.8) fl MCH 32.3 H (25.6-32.2) pg MCHC 31.5 L (32.2-35.5) g/dl RDW Std Deviation 53.3 H (36.4-46.3) fL Plt Count 145 L (182-369) K/mm3 MPV 9.2 L (9.4-12.3) fl Neut % (Auto) 67.0 (34.0-71.1) % Lymph % (Auto) 19.9 (19.3-51.7) % [place] % (Auto) 10.4 (4.7-12.5) % Eos % (Auto) 2.1 (0.7-5.8) Baso % (Auto) 0.3 (0.1-1.2) % Neut # (Auto) 4.40 (1.56-6.13) K/mm3 Lymph # (Auto) 1.31 (1.18-3.74) K/mm3 [place] # (Auto) 0.68 H (0.24-0.36) K/mm3 Eos # (Auto) 0.14 (0.04-0.36) K/mm3 Baso # (Auto) 0.02 (0.01-0.08) K/mm3 Sodium 138 (136-145) mEq/L Potassium 4.0 (3.5-5.1) mEq/L Chloride 102 (98-107) mEq/L Carbon Dioxide 30 (21-32) mEq/L Anion Gap 10.0 (5-15) BUN 31 H (7-18) mg/dL Creatinine 1.5 H (0.55-1.02) mg/dL Est Cr Clr Drug Dosing 18.26 mL/min Estimated GFR (MDRD) 33 (>60) mL/min BUN/Creatinine Ratio 20.7 H (14-18) Glucose 86 (83-115) mg/dL Calcium 8.4 L (8.5-10.1) mg/dL Magnesium 1.8 (1.8-2.4) mg/dl BR[place]AN Results - Last 24 hrs: Microbiology 06/22/19 16:11 Aerobic Blood Culture - Preliminary Blood NO GROWTH AFTER 5 DAYS Anaerobic Blood Culture - Preliminary NO GROWTH AFTER 5 DAYS 06/26/19 14:41 Gram Stain - Final Sputum - Induced Sputum Culture - Preliminary Med Orders - Current: Current Medications Acetaminophen (Tylenol) 650 mg PO Q6H PRN PRN Reason: Pain Last Admin: 06/28/19 10:31 Dose: 650 mg Apixaban (Eliquis) 2.5 mg PO BID [facility] Last Admin: 06/28/19 09:00 Dose: 2.5 mg Dextrose/Water (Dextrose 50% In Water) 50 ml IVPUSH ASDIRECTED PRN PRN Reason: Hypoglycemia Famotidine (Pepcid) 20 mg PO BID PRN PRN Reason: Heartburn Last Admin: 06/27/19 13:35 Dose: 20 mg Folic Acid (Folic Acid) 2 mg PO DAILY [facility] Last Admin: 06/28/19 09:01 Dose: 2 mg Furosemide (Lasix) 40 mg PO DAILY [facility] Last Admin: 06/28/19 09:01 Dose: 40 mg Cefepime HCl 2 gm/ Premix 50 mls @ 100 mls/hr IV ONETIME ONE Stop: 06/28/19 12:29 Last Admin: 06/28/19 11:35 Dose: 100 mls/hr Levothyroxine Sodium (Levothyroxine) 125 mcg PO ACBREAKFAST [facility] Last Admin: 06/28/19 05:49 Dose: 125 mcg Linezolid (Zyvox) 600 mg PO Q12H [facility] Last Admin: 06/28/19 05:49 Dose: 600 mg Loperamide HCl (Imodium) 2 mg PO BID [facility] Last Admin: 06/28/19 09:00 Dose: 2 mg Losartan Potassium (Cozaar) 25 mg PO DAILY [facility] Last Admin: 06/28/19 09:01 Dose: 25 mg Megestrol Acetate (Megace) 40 mg PO TID [facility] Last Admin: 06/28/19 09:01 Dose: 40 mg Metoprolol Tartrate (Lopressor) 25 mg PO BID [facility] Last Admin: 06/28/19 09:00 Dose: 25 mg Morphine Sulfate (Morphine) 1 mg IVPUSH Q6H PRN PRN Reason: Pain (severe 7-10) Multivitamins (Thera) 1 each PO DAILY [facility] Last Admin: 06/28/19 09:01 Dose: 1 each Nystatin (Nystop) 0 gm TOP BID PRN PRN Reason: Other Last Admin: 06/25/19 08:43 Dose: 1 applic Pramipexole Dihydrochloride (Mirapex) 0.5 mg PO DAILY [facility] Last Admin: 06/28/19 09:01 Dose: 0.5 mg Sodium Chloride (Saline Flush) 10 ml FLUSH ASDIRECTED PRN PRN Reason: Keep Vein Open Last Admin: 06/22/19 15:57 Dose: 10 ml Spironolactone (Aldactone) 50 mg PO DAILY [facility] Last Admin: 06/28/19 09:01 Dose: 50 mg Tramadol HCl (Ultram) 50 mg PO Q6H PRN PRN Reason: Pain (moderate 4-6) Last Admin: 06/26/19 09:16 Dose: 50 mg Zolpidem Tartrate (Ambien) 2.5 mg PO BEDTIME PRN PRN Reason: Insomnia Discontinued Medications Cholecalciferol (Vitamin D3) 50,000 unit PO ASDIRECTED [facility] Furosemide (Lasix) 40 mg IVPUSH NOW ONE Stop: 06/22/19 17:38 Last Admin: 06/22/19 17:57 Dose: 40 mg Furosemide (Lasix) 60 mg IVPUSH BID [facility] Furosemide (Lasix) 60 mg IVPUSH BIDDIURETIC [facility] Last Admin: 06/24/19 14:45 Dose: Not Given Cefepime HCl 1 gm/ Premix 50 mls @ 100 mls/hr IV ONETIME ONE Stop: 06/22/19 18:10 Last Admin: 06/22/19 18:00 Dose: 100 mls/hr Linezolid 600 mg/ Premix 300 mls @ 300 mls/hr IV Q12H [facility] Last Admin: 06/26/19 06:48 Dose: 300 mls/hr Cefepime HCl 1 gm/ Premix 50 mls @ 100 mls/hr IV ONETIME ONE Stop: 06/22/19 19:33 Last Admin: 06/22/19 20:39 Dose: 100 mls/hr Cefepime HCl 2 gm/ Premix 50 mls @ 100 mls/hr IV Q12H [facility] Cefepime HCl 2 gm/ Premix 50 mls @ 100 mls/hr IV Q24H [facility] Last Admin: 06/26/19 20:27 Dose: 100 mls/hr Cefepime HCl 2 gm/ Premix 50 mls @ 100 mls/hr IV ONETIME ONE Stop: 06/27/19 16:29 Last Admin: 06/27/19 16:04 Dose: 100 mls/hr Insulin Human Lispro (Humalog) 0 unit SUBCUT BIDAC [facility]; Protocol Insulin Human Lispro (Humalog) 0 unit SUBCUT BID@0800,1700 [facility]; Protocol Last Admin: 06/24/19 08:20 Dose: Not Given Ketorolac Tromethamine (Toradol) 15 mg IVPUSH Q6H PRN PRN Reason: Pain (moderate 4-6) Non-Formulary Medication (Interdry Wipes) 1 container TOP DAILY PRN PRN Reason: Rash Triamcinolone Acetonide [Nasacort] Ptom 0 each NASBOTH DAILY [facility] Last Admin: 06/27/19 08:25 Dose: Not Given Sertraline HCl (Zoloft) 2,500 mg PO BEDTIME [facility] Sertraline HCl (Zoloft) 50 mg PO BEDTIME [facility] Last Admin: 06/22/19 22:46 Dose: 50 mg - Exam Quality Assessment: Reports: Supplemental Oxygen General: Reports: Alert HEENT: Reports: Pupils Equal Neck: Reports: Supple Lungs: Reports: Clear to Auscultation, Normal Respiratory Effort Cardiovascular: Reports: Regular Rate, Regular Rhythm GI/Abdominal Exam: Normal Bowel Sounds, Soft, Non-Tender, No Organomegaly, No Distention, No Abnormal Bruit, No Mass, Pelvis Stable Extremities: Redness (Bilateral lower extremity) Skin: Reports: Warm Psy/Mental Status: Reports: Alert, Normal Affect, Normal Mood *Q Meaningful Use (DIS) - VTE *Q VTE Anticoagulation Contraindications: Med/TX Not Indicated/Need
[2019-06-28] MEDS ORDERED: Cefepime 2 GM in Premix Bag 1 BAG IV ONE (12:00)
[2019-06-28 12:57] VITALS: BP 105/60; PULSE 70
== END 2019-06-28 13:15 | disposition home or self-care (01) | DRG 291 ==
LOC: JD.ED 15:21 → JD.MS 18:56
PROVIDERS: ADMIT Internal Medicine; ATTEND Internal Medicine
DX: I13.0 Hypertensive heart and chronic kidney disease with heart failure and stage 1 through stage 4 chronic kidney disease, or unspecified chronic kidney disease (principal); L03.119 Cellulitis of unspecified part of limb; I50.9 Heart failure, unspecified; J18.1 Lobar pneumonia, unspecified organism; I50.43 Acute on chronic combined systolic (congestive) and diastolic (congestive) heart failure; N39.0 Urinary tract infection, site not specified; L03.115 Cellulitis of right lower limb; R13.10 Dysphagia, unspecified; H54.7 Unspecified visual loss; H91.90 Unspecified hearing loss, unspecified ear; G47.30 Sleep apnea, unspecified; N18.3 Chronic kidney disease, stage 3 (moderate); M19.90 Unspecified osteoarthritis, unspecified site; G89.29 Other chronic pain; M54.9 Dorsalgia, unspecified; Z79.01 Long term (current) use of anticoagulants; Z79.890 Hormone replacement therapy; G25.81 Restless legs syndrome; F32.9 Major depressive disorder, single episode, unspecified; Y95 Nosocomial condition; E83.42 Hypomagnesemia; I87.2 Venous insufficiency (chronic) (peripheral); K59.01 Slow transit constipation; I48.91 Unspecified atrial fibrillation; J40 Bronchitis, not specified as acute or chronic; E03.9 Hypothyroidism, unspecified; Z96.659 Presence of unspecified artificial knee joint; Z98.49 Cataract extraction status, unspecified eye; Z98.890 Other specified postprocedural states; Z95.0 Presence of cardiac pacemaker; Z88.0 Allergy status to penicillin; Z88.8 Allergy status to other drugs, medicaments and biological substances; Z88.1 Allergy status to other antibiotic agents; Z90.49 Acquired absence of other specified parts of digestive tract; Z90.89 Acquired absence of other organs; Z79.899 Other long term (current) drug therapy; Z22.322 Carrier or suspected carrier of Methicillin resistant Staphylococcus aureus
CPT/HCPCS: 36415; 71045; 80053; 83605; 83880; 84145; 84484; 85007; 85027; 86140; 86738; 87040; 87804 ×2; 93005; 96365; 96375; 99285; J0692; J1940; 71046; 71046-26; 71250; 71250-26; 80048; 82962; 83036; 83735; 84100; 85025; 87070; 87205; 87486; 87581; 87632; 87798; 87899; 93010; 94667; 94668; 94760; 94761; 96367; 97110-GP; 97116-GP; 97162-GP; 97165-GO; 97530-GP; 97597-GP; 99284; A9270-GY; J2020

== ENCOUNTER 2019-07-08 20:54 | Emergency (ER) | payer MEDICARE, OTHER ==
[2019-07-08 21:08] VITALS: BP 141/83; PULSE 73
[2019-07-08] MEDS ORDERED: Sodium Chloride 0.9% 10 ML Syringe FLUSH PRN (21:12)
--- NOTE | 2019-07-08 21:26 | EDM.PDOC ---
ED HPI GENERAL MEDICAL PROBLEM - General Chief Complaint: Respiratory Problem Stated Complaint: [facility] Time Seen by Provider: 07/08/19 21:10 Source of Information: Reports: Patient, Old Records, RN Notes Reviewed History Limitations: Reports: No Limitations - History of Present Illness INITIAL COMMENTS - FREE TEXT/NARRATIVE: Patient is an 89-year-old female who presents to the ED via [facility] for the evaluation of increased shortness of breath and a cough. Patient states that she does wear oxygen at [facility], and she usually uses 2-4 L. She notes however that she has been having increased dyspnea and a cough that has been producing some junky green stuff. Of note the patient has recently been hospitalized, one on 06/04/19, and 06/22/19 both at this facility. The patient does have pretty impressive edema throughout her body, worse on her bilateral lower extremities, she does have an open draining ulcer on the left medial malleolus. The ambulance did give the patient an albuterol neb in route to the hospital, and they stated this did help perk her up some. Of note patient does have peripheral vascular disease. 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: Breathing Treatments, IV/IO - Related Data Allergies Allergy/AdvReac Type Severity Reaction Status Date / Time Penicillins Allergy Mild Swelling/itchy Verified 06/22/19 15:25 rash ciprofloxacin [From Cipro] Allergy Rash Verified 06/22/19 15:25 vancomycin Allergy Rash Verified 06/22/19 15:25 metronidazole AdvReac Nausea and Verified 06/22/19 15:25 Vomiting Home Meds: Home Meds Pramipexole [Mirapex] 0.5 mg PO DAILY 02/28/14 [History] Levothyroxine 125 mcg PO ACBREAKFAST #30 tab 05/21/18 [Rx] Apixaban [Eliquis] 2.5 mg PO BID 08/22/18 [History] Folic Acid 2 mg PO DAILY 08/22/18 [History] Multivit with Calcium,Iron,Min [Essential Daily] 1 tab PO DAILY 08/22/18 [ History] Sertraline [Zoloft] 50 mg PO BEDTIME 08/22/18 [History] Acetaminophen [Tylenol Extra Strength] 1,000 mg PO Q12H 01/03/19 [History] Losartan [Cozaar] 25 mg PO DAILY 01/03/19 [History] Aloe Vera/Sodium Chloride [Blandon Saline Nasal Gel] 1 applic MEG DAILY PRN [History] Metoprolol Tartrate 25 mg PO BID 01/26/19 [History] Zolpidem [Ambien] 2.5 mg PO BEDTIME PRN 01/26/19 [History] Furosemide [Lasix] 40 mg PO DAILY 04/03/19 [History] Interdry Wipes 1 container TOP DAILY PRN 04/03/19 [History] Nystatin [Nystop] 1 applic TOP BID PRN 04/03/19 [History] Spironolactone 50 mg PO DAILY 04/03/19 [History] Cholecalciferol (Vitamin D3) [Vitamin D] 50,000 units PO ASDIRECTED 06/22/19 [ History] Loperamide [Imodium] 2 mg PO BID 06/22/19 [History] Megestrol [Megace] 40 mg PO TID 06/22/19 [History] Triamcinolone Acetonide [Nasacort] 2 spray INH DAILY 06/22/19 [History] Bacitracin 1 dose TOP DAILY 06/23/19 [History] Dextromethorphan/guaiFENesin [Robitussin DM] 5 - 10 ml PO Q4H PRN 06/23/19 [ History] Furosemide [Lasix] 40 mg PO DAILY tablet 06/28/19 [Rx] Linezolid [Zyvox] 600 mg PO Q12H #8 tablet 06/28/19 [Rx] Past Medical History HEENT History: Reports: Impaired Vision Other HEENT History: wears glasses, hard of hearing Cardiovascular History: Reports: Heart Failure, Heart Murmur, Pacemaker, SOB on Exertion Other Cardiovascular History: generalized edema Respiratory History: Reports: Sleep Apnea, SOB Other Respiratory History: hypoxemia Gastrointestinal History: Reports: Chronic Diarrhea Other Gastrointestinal History: dysphagia with bread and certain other foods Genitourinary History: Reports: Urinary Incontinence Other Genitourinary History: CKD STAGE 3 [employer] History: Reports: Musculoskeletal History: Reports: Arthritis, Back Pain, Chronic Neurological History: Reports: None Other Neuro History: restless leg syndrome Psychiatric History: Reports: Depression, Other (See Below) Other Psychiatric History: restless leg syndrom Endocrine/Metabolic History: Reports: Hypothyroidism Other Endocrine/Metabolic History: autoimmune thyroiditis Other Hematologic History: hypokalemia Oncologic (Cancer) History: Reports: Other (See Below) 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 Has picked her toe nails and finger nails off. 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 - Past Surgical History HEENT Surgical History: Reports: Cataract Surgery, Tonsillectomy Respiratory Surgical History: Reports: None Other Respiratory Surgeries/Procedures: Uses oxygen at night 2 l NC GI Surgical History: Reports: Cholecystectomy Female Surgical History: Reports: None Endocrine Surgical History: Reports: None Neurological Surgical History: Reports: None Musculoskeletal Surgical History: Reports: Knee Replacement Oncologic Surgical History: Reports: None Dermatological Surgical History: Reports: None Social & Family History - Family History Family Medical History: Noncontributory - Tobacco Use Smoking Status *Q: Never Smoker - Caffeine Use Caffeine Use: Reports: Coffee - Recreational Drug Use Recreational Drug Use: No - Living Situation & Occupation Living situation: Reports: Occupation: Retired ED ROS GENERAL - Review of Systems Review Of Systems: See Below Constitutional: Denies: Fever, Chills, Malaise HEENT: Reports: No Symptoms Respiratory: Reports: Shortness of Breath, Cough, Sputum (green "junk"). Denies : Wheezing Cardiovascular: Denies: Chest Pain Endocrine: Reports: No Symptoms GI/Abdominal: Reports: No Symptoms. Denies: Constipation, Diarrhea, Nausea, Vomiting : Reports: No Symptoms Musculoskeletal: Reports: No Symptoms Skin: Reports: No Symptoms Neurological: Reports: No Symptoms Psychiatric: Reports: No Symptoms Hematologic/Lymphatic: Reports: No Symptoms Immunologic: Reports: No Symptoms ED EXAM, GENERAL - Physical Exam Exam: See Below Exam Limited By: No Limitations General Appearance: Alert, WD/WN, Mild Distress Eye Exam: Bilateral Eye: Normal Inspection Nose: Normal Inspection Throat/Mouth: Normal Inspection, Normal Lips, Normal Teeth, Normal Gums, Normal Oropharynx, Normal Voice, No Airway Compromise Respiratory/Chest: No Respiratory Distress, Lungs Clear, Normal Breath Sounds, No Accessory Muscle Use, Chest Non-Tender Cardiovascular: Normal Peripheral Pulses, Regular Rate, Rhythm, No Murmur, Other (3+ pitting edema noted to bliateral Lower extremities) GI/Abdominal: Normal Bowel Sounds, Soft, Non-Tender, No Distention, No Mass Extremities: Pedal Edema (3+ pitting edema noted to bilateral lower extremities) Neurological: Alert, Oriented, Normal Cognition, No Motor/Sensory Deficits Psychiatric: Normal Affect, Normal Mood Skin Exam: Warm, Dry, Normal Color, No Rash, Decubitus (Noted to the left medial malleolus, this does not appear to be infected looking.) EKG INTERPRETATION EKG Date: 07/08/19 Time: 21:07 Rhythm: Other (Ventricular paced complexes) Rate (Beats/Min): 76 EKG Interpretation Comments: Dr. Moreno reviewed the EKG, and notes 100% ventricular paced rhythm at 75 bpm , no further analysis was attempted. Course - Vital Signs Last Recorded V/S: Last Vital Signs Temp 97.0 F 07/08/19 21:05 Pulse 73 07/08/19 21:05 Resp 22 H 07/08/19 21:05 BP 141/83 H 07/08/19 21:05 Pulse Ox 97 07/08/19 21:05 - Orders/Labs/Meds Orders: Active Orders 24 hr Category Date Time Status EKG Documentation Completion [RC] STAT Care 07/08/19 21:11 Active Oxygen Therapy, ED [RC] ASDIRECTED Care 07/08/19 21:25 Active Peripheral IV Care [RC] . DIRECTED Care 07/08/19 21:13 Active Chest 1V Frontal [CR] Stat Exams 07/08/19 21:11 Taken CULTURE BLOOD [BC] Stat Lab 07/08/19 21:36 Received CULTURE BLOOD [BC] Stat Lab 07/08/19 21:45 Received Sodium Chloride 0.9% [Saline Flush] Med 07/08/19 21:12 Active 10 ml FLUSH ASDIRECTED PRN Blood Culture x2 Reflex Set [OM.PC] Stat Oth 07/08/19 21:11 Ordered Peripheral IV Insertion Adult [OM.PC] Stat Oth 07/08/19 21:12 Ordered Medication Orders Sodium Chloride (Saline Flush) 10 ml FLUSH ASDIRECTED PRN PRN Reason: Keep Vein Open Last Admin: 07/08/19 21:50 Dose: 10 ml Labs: Laboratory Tests 07/08/19 07/08/19 07/08/19 Range/Units 21:36 21:36 21:36 WBC 7.57 (3.98-10.04) K/mm3 RBC 3.44 L (3.98-5.22) M/mm3 Hgb 11.1 L (11.2-15.7) gm/dl Hct 34.9 (34.1-44.9) % MCV 101.5 H (79.4-94.8) fl MCH 32.3 H (25.6-32.2) pg MCHC 31.8 L (32.2-35.5) g/dl RDW Std Deviation 52.7 H (36.4-46.3) fL Plt Count 135 L (182-369) K/mm3 MPV 9.9 (9.4-12.3) fl Neutrophils % (Manual) 71 H (40-60) % Band Neutrophils % 0 (0-10) % Lymphocytes % (Manual) 26 (20-40) % Atypical Lymphs % 0 % Monocytes % (Manual) 3 (2-10) % Eosinophils % (Manual) 0 L (0.7-5.8) % Basophils % (Manual) 0 L (0.1-1.2) Platelet Estimate Decreased Plt Morphology Comment See note Anisocytosis 1+ slight Macrocytosis 1+ slight RBC Morph Comment Not Reportable PT 12.9 H (9.7-12.0) SECONDS INR 1.20 APTT 30 (22-31) SECONDS Sodium 140 (136-145) mEq/L Potassium 4.3 (3.5-5.1) mEq/L Chloride 103 (98-107) mEq/L Carbon Dioxide 30 (21-32) mEq/L Anion Gap 11.3 (5-15) BUN 38 H (7-18) mg/dL Creatinine 1.4 H (0.55-1.02) mg/dL Est Cr Clr Drug Dosing 19.57 mL/min Estimated GFR (MDRD) 35 (>60) mL/min BUN/Creatinine Ratio 27.1 H (14-18) Glucose 105 (83-115) mg/dL Calcium 9.5 (8.5-10.1) mg/dL Total Bilirubin 0.4 (0.2-1.0) mg/dL AST 27 (15-37) U/L ALT 25 (14-59) U/L Alkaline Phosphatase 121 H (46-116) U/L Troponin I < 0.017 (0.00-0.056) ng/mL NT-Pro-B Natriuret Pep (0-450) pg/mL Total Protein 7.4 (6.4-8.2) g/dl Albumin 3.9 (3.4-5.0) g/dl Globulin 3.5 gm/dL Albumin/Globulin Ratio 1.1 (1-2) 07/08/19 Range/Units 21:36 WBC (3.98-10.04) K/mm3 RBC (3.98-5.22) M/mm3 Hgb (11.2-15.7) gm/dl Hct (34.1-44.9) % MCV (79.4-94.8) fl MCH (25.6-32.2) pg MCHC (32.2-35.5) g/dl RDW Std Deviation (36.4-46.3) fL Plt Count (182-369) K/mm3 MPV (9.4-12.3) fl Neutrophils % (Manual) (40-60) % Band Neutrophils % (0-10) % Lymphocytes % (Manual) (20-40) % Atypical Lymphs % % Monocytes % (Manual) (2-10) % Eosinophils % (Manual) (0.7-5.8) % Basophils % (Manual) (0.1-1.2) Platelet Estimate Plt Morphology Comment Anisocytosis Macrocytosis RBC Morph Comment PT (9.7-12.0) SECONDS INR APTT (22-31) SECONDS Sodium (136-145) mEq/L Potassium (3.5-5.1) mEq/L Chloride (98-107) mEq/L Carbon Dioxide (21-32) mEq/L Anion Gap (5-15) BUN (7-18) mg/dL Creatinine (0.55-1.02) mg/dL Est Cr Clr Drug Dosing mL/min Estimated GFR (MDRD) (>60) mL/min BUN/Creatinine Ratio (14-18) Glucose (83-115) mg/dL Calcium (8.5-10.1) mg/dL Total Bilirubin (0.2-1.0) mg/dL AST (15-37) U/L ALT (14-59) U/L Alkaline Phosphatase (46-116) U/L Troponin I (0.00-0.056) ng/mL NT-Pro-B Natriuret Pep 2820 H (0-450) pg/mL Total Protein (6.4-8.2) g/dl Albumin (3.4-5.0) g/dl Globulin gm/dL Albumin/Globulin Ratio (1-2) Meds: Medications Generic Name Dose Route Start Last Admin Trade Name Freq PRN Reason Stop Dose Admin Sodium Chloride 10 ml 07/08/19 21:12 07/08/19 21:50 Saline Flush FLUSH 10 ml ASDIRECTED PRN Administration Keep Vein Open Discontinued Medications Generic Name Dose Route Start Last Admin Trade Name Freq PRN Reason Stop Dose Admin Furosemide 40 mg 07/08/19 22:44 07/08/19 22:59 Lasix IVPUSH 07/08/19 22:45 40 mg NOW ONE Administration - Re-Assessments/Exams Free Text/Narrative Re-Assessment/Exam: 07/08/19 21:29 Patient presents to the ED for increasing dyspnea and a cough. Did order a chest x-ray, EKG, CBC, CMP, BNP, coags, troponin, and blood cultures 2, and oxygen at this time. 07/08/19 22:22 Chest x-ray is done, official radiology read is pending, however Dr. Moreno did look at this, and appreciates that it does look improved from the last chest x-ray that she had done when she was last discharged. 07/08/19 22:45 Labs have returned, white blood cell count is not elevated, BNP is elevated at 2820, metabolic panel shows no acute worrisome abnormalities, her creatinine is elevated at 1.4, but this is stable from previous lab evaluation. Did order 40 mg IV Lasix for further management. At the present time, it appears that the patient only gets 40 mg of Lasix daily at [facility]. Departure - Departure Time of Disposition: 23:06 Disposition: Home, Self-Care 01 Condition: Fair Clinical Impression: CHF (congestive heart failure) Qualifiers: Heart failure type: unspecified Heart failure chronicity: acute on chronic Qualified Code(s): I50.9 - Heart failure, unspecified - Discharge Information *PRESCRIPTION DRUG MONITORING PROGRAM REVIEWED*: No *COPY OF PRESCRIPTION DRUG MONITORING REPORT IN PATIENT RACHANA: No Instructions: Heart Failure, [id number] Forms: ED Department Discharge Additional Instructions: You were evaluated in the ER tonight regarding your increased shortness of breath and cough. Your laboratory evaluation demonstrated that you do have some extra fluid on board, the BNP was 2820, you were given 40 mg IV Lasix for management of this. Recommend that over the next 5 days, he be given 40 mg Lasix in the morning, and 40 mg Lasix at night, and that you have your weight taken daily, to see if the Lasix is taking an appropriate amount of water off. Try the best she can to stick to a low-sodium diet as well, as this will also help guard against too much water retention or edema. Recommend that you have a follow-up visit with your primary care provider for a recheck of your labs, this may be end of this week or early next week. Your chest x-ray was compared to her last hospital visit, and it appears to be improved from then. Your other laboratory evaluation does not demonstrate any sort of acute bacterial infection at this time. Regarding your toe, you may apply bacitracin as needed for further management. Please return to the ED if her symptoms change or worsen. - My Orders Last 24 Hours: My Active Orders 07/08/19 21:11 EKG Documentation Completion [RC] STAT Chest 1V Frontal [CR] Stat Blood Culture x2 Reflex Set [OM.PC] Stat 07/08/19 21:12 Sodium Chloride 0.9% [Saline Flush] 10 ml FLUSH ASDIRECTED PRN Peripheral IV Insertion Adult [OM.PC] Stat 07/08/19 21:13 Peripheral IV Care [RC] . DIRECTED 07/08/19 21:25 Oxygen Therapy, ED [RC] ASDIRECTED 07/08/19 21:36 CULTURE BLOOD [BC] Stat 07/08/19 21:45 CULTURE BLOOD [BC] Stat - Assessment/Plan Last 24 Hours: My Active Orders 07/08/19 21:11 EKG Documentation Completion [RC] STAT Chest 1V Frontal [CR] Stat Blood Culture x2 Reflex Set [OM.PC] Stat 07/08/19 21:12 Sodium Chloride 0.9% [Saline Flush] 10 ml FLUSH ASDIRECTED PRN Peripheral IV Insertion Adult [OM.PC] Stat 07/08/19 21:13 Peripheral IV Care [RC] . DIRECTED 07/08/19 21:25 Oxygen Therapy, ED [RC] ASDIRECTED 07/08/19 21:36 CULTURE BLOOD [BC] Stat 07/08/19 21:45 CULTURE BLOOD [BC] Stat
[2019-07-08] MEDS ORDERED: Furosemide 40 MG/4 ML VIAL IVPUSH ONE (22:44)
--- NOTE | 2019-07-09 06:51 | CR ---
Chest: Portable view of the chest was obtained. Comparison: Prior chest x-ray of 06/26/19. Tortuous thoracic aorta is noted. Heart size mildly prominent. Lungs are clear with no acute parenchymal change. Bichamber pacemaker is noted. Scoliosis is noted within the spine. Impression: 1. Findings as noted above. 2. Nothing acute is definitely appreciated. Diagnostic code #2
== END 2019-07-08 23:30 | disposition home or self-care (01) ==
LOC: JD.ED 20:54
DX: I50.9 Heart failure, unspecified (principal); N18.3 Chronic kidney disease, stage 3 (moderate); E03.9 Hypothyroidism, unspecified; F32.9 Major depressive disorder, single episode, unspecified; Z88.0 Allergy status to penicillin; Z88.1 Allergy status to other antibiotic agents; Z79.890 Hormone replacement therapy; Z79.899 Other long term (current) drug therapy
CPT/HCPCS: 36415; 71045; 80053; 83880; 84484; 85007; 85027; 85610; 85730; 87040; 93005; 96374; 99285; J1940; 93010; 99284

== ENCOUNTER 2019-09-12 13:45 | Emergency (ER) | payer MEDICARE, OTHER ==
[2019-09-12 14:01] VITALS: BP 103/71; PULSE 72
[2019-09-12] MEDS ORDERED: Sodium Chloride 0.9% 10 ML Syringe FLUSH PRN (14:22)
--- NOTE | 2019-09-12 14:25 | EDM.PDOC ---
ED HPI GENERAL MEDICAL PROBLEM - General Chief Complaint: Respiratory Problem Stated Complaint: COUGH, SOB, CHF Time Seen by Provider: 09/12/19 14:05 Source of Information: Reports: Patient, RN Notes Reviewed - History of Present Illness INITIAL COMMENTS - FREE TEXT/NARRATIVE: 89-year-old lady has been sent here from [facility] for evaluation of dyspnea, hypoxia, probable exacerbation CHF. She does have history of chronic CHF, renal insufficiency, multiple other medical problems and has been experiencing chronic fluid retention. She is on oxygen 2 L continuous. Her sats been running about 85%. Does deny chest pain at this time. Her daughter states that she has had what sounds like a "wet but nonproductive cough". No fever or chills. No abdominal pain nausea or vomiting. - Related Data Allergies Allergy/AdvReac Type Severity Reaction Status Date / Time Penicillins Allergy Mild Swelling/itchy Verified 09/14/19 17:11 rash ciprofloxacin [From Cipro] Allergy Rash Verified 09/14/19 17:11 vancomycin Allergy Rash Verified 09/14/19 17:11 metronidazole AdvReac Nausea and Verified 09/14/19 17:11 Vomiting Home Meds: Home Meds Pramipexole [Mirapex] 0.5 mg PO DAILY 02/28/14 [History] Levothyroxine 125 mcg PO ACBREAKFAST #30 tab 05/21/18 [Rx] Apixaban [Eliquis] 2.5 mg PO BID 08/22/18 [History] Folic Acid 2 mg PO DAILY 08/22/18 [History] Multivit with Calcium,Iron,Min [Essential Daily] 1 tab PO DAILY 08/22/18 [ History] Sertraline [Zoloft] 50 mg PO BEDTIME 08/22/18 [History] Acetaminophen [Tylenol Extra Strength] 1,000 mg PO Q12H 01/03/19 [History] Losartan [Cozaar] 25 mg PO DAILY 01/03/19 [History] Aloe Vera/Sodium Chloride [De Pere Saline Nasal Gel] 1 applic MEG DAILY PRN [History] Metoprolol Tartrate 25 mg PO BID 01/26/19 [History] Zolpidem [Ambien] 2.5 mg PO BEDTIME PRN 01/26/19 [History] Furosemide [Lasix] 40 mg PO DAILY 04/03/19 [History] Interdry Wipes 1 container TOP DAILY PRN 04/03/19 [History] Nystatin [Nystop] 1 applic TOP BID PRN 04/03/19 [History] Spironolactone 50 mg PO DAILY 04/03/19 [History] Cholecalciferol (Vitamin D3) [Vitamin D] 50,000 units PO ASDIRECTED 06/22/19 [ History] Loperamide [Imodium] 2 mg PO BID 06/22/19 [History] Megestrol [Megace] 40 mg PO TID 06/22/19 [History] Triamcinolone Acetonide [Nasacort] 2 spray INH DAILY 06/22/19 [History] Bacitracin 1 dose TOP DAILY 06/23/19 [History] LORazepam 0.5 mg PO BID PRN 09/12/19 [History] Past Medical History HEENT History: Reports: Impaired Vision Other HEENT History: wears glasses, hard of hearing Cardiovascular History: Reports: Heart Failure, Heart Murmur, Pacemaker, SOB on Exertion Other Cardiovascular History: generalized edema Respiratory History: Reports: Sleep Apnea, SOB Other Respiratory History: hypoxemia Gastrointestinal History: Reports: Chronic Diarrhea Other Gastrointestinal History: dysphagia with bread and certain other foods Genitourinary History: Reports: Urinary Incontinence Other Genitourinary History: CKD STAGE 3 C[employer]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[employer]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: Reports: Musculoskeletal History: Reports: Arthritis, Back Pain, Chronic Neurological History: Reports: None Other Neuro History: restless leg syndrome Psychiatric History: Reports: Depression, Other (See Below) Other Psychiatric History: restless leg syndrom Endocrine/Metabolic History: Reports: Hypothyroidism Other Endocrine/Metabolic History: autoimmune thyroiditis Other Hematologic History: hypokalemia Oncologic (Cancer) History: Reports: Other (See Below) 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 Has picked her toe nails and finger nails off. 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 - Past Surgical History HEENT Surgical History: Reports: Cataract Surgery, Tonsillectomy Respiratory Surgical History: Reports: None Other Respiratory Surgeries/Procedures: Uses oxygen at night 2 l NC GI Surgical History: Reports: Cholecystectomy Female Surgical History: Reports: None Endocrine Surgical History: Reports: None Neurological Surgical History: Reports: None Musculoskeletal Surgical History: Reports: Knee Replacement Oncologic Surgical History: Reports: None Dermatological Surgical History: Reports: None Social & Family History - Family History Family Medical History: Noncontributory - Tobacco Use Smoking Status *Q: Never Smoker Second Hand Smoke Exposure: No - Caffeine Use Caffeine Use: Reports: None - Recreational Drug Use Recreational Drug Use: No - Living Situation & Occupation Living situation: Reports: Occupation: Retired ED ROS GENERAL - Review of Systems Review Of Systems: See Below Constitutional: Denies: Fever, Chills, Diaphoresis HEENT: Denies: Glasses, Throat Pain Respiratory: Reports: Shortness of Breath, Cough. Denies: Wheezing, Pleuritic Chest Pain, Sputum Cardiovascular: Reports: Dyspnea on Exertion. Denies: Chest Pain Endocrine: Reports: Fatigue GI/Abdominal: Denies: Abdominal Pain, Nausea, Vomiting Musculoskeletal: Reports: Other (Bilateral leg edema, chronic) Neurological: Reports: Dizziness (Generalized chronic), Difficulty Walking ( Chronic), Weakness ED EXAM, GENERAL - Physical Exam Exam: See Below General Appearance: Alert, Other (Does not look well) Eye Exam: Bilateral Eye: PERRL Throat/Mouth: Normal Inspection Respiratory/Chest: Respiratory Distress (Mild tachypnea), Rales. No: Rhonchi ( Left lower lung field), Wheezing Cardiovascular: Regular Rate, Rhythm GI/Abdominal: Soft, Non-Tender Back Exam: No: CVA Tenderness (L), CVA Tenderness (R) Extremities: Pedal Edema (Moderate bilateral). No: Leg Pain Neurological: Alert, Oriented, No Motor/Sensory Deficits Skin Exam: Warm, Dry EKG INTERPRETATION EKG Date: 09/12/19 Rhythm: Other (Paced rhythm) Rate (Beats/Min): 72 QRS: Wide Course - Vital Signs Last Recorded V/S: Last Vital Signs Temp 97.6 F 09/12/19 13:57 Pulse 72 09/12/19 13:57 Resp 16 09/12/19 13:57 BP 103/71 09/12/19 13:57 Pulse Ox 100 09/12/19 15:11 - Orders/Labs/Meds Labs: Laboratory Tests 09/12/19 09/12/19 09/12/19 Range/Units 04:05 14:04 14:05 WBC 12.11 H (3.98-10.04) K/mm3 RBC 3.50 L (3.98-5.22) M/mm3 Hgb 11.5 (11.2-15.7) gm/dl Hct 36.4 (34.1-44.9) % MCV 104.0 H D (79.4-94.8) fl MCH 32.9 H (25.6-32.2) pg MCHC 31.6 L (32.2-35.5) g/dl RDW Std Deviation 64.4 H (36.4-46.3) fL Plt Count 205 (182-369) K/mm3 MPV 9.5 (9.4-12.3) fl Neut % (Auto) 84.8 H (34.0-71.1) % Lymph % (Auto) 8.6 L (19.3-51.7) % Woodson % (Auto) 5.5 (4.7-12.5) % Eos % (Auto) 0.7 (0.7-5.8) Baso % (Auto) 0.2 (0.1-1.2) % Neut # (Auto) 10.28 H (1.56-6.13) K/mm3 Lymph # (Auto) 1.04 L (1.18-3.74) K/mm3 Woodson # (Auto) 0.66 H (0.24-0.36) K/mm3 Eos # (Auto) 0.08 (0.04-0.36) K/mm3 Baso # (Auto) 0.02 (0.01-0.08) K/mm3 Manual Slide Review Abnormal smear Puncture Site ABG pH (7.35-7.45) ABG pCO2 (35.0-45.0) mmHg ABG pO2 (80.0-100.0) mmHg ABG HCO3 (22.0-26.0) meq/L ABG O2 Saturation (96.0-97.0) % ABG Base Excess (-2-2.0) A-a Gradient mmHg O2 Delivery Device Oxygen Flow Rate FiO2 (21.00-100.00) % Sodium 139 (136-145) mEq/L Potassium 4.3 (3.5-5.1) mEq/L Chloride 100 (98-107) mEq/L Carbon Dioxide 29 (21-32) mEq/L Anion Gap 14.3 (5-15) BUN 46 H (7-18) mg/dL Creatinine 1.8 H (0.55-1.02) mg/dL Est Cr Clr Drug Dosing 15.22 mL/min Estimated GFR (MDRD) 26 (>60) mL/min BUN/Creatinine Ratio 25.6 H (14-18) Glucose 102 (83-115) mg/dL Calcium 8.8 (8.5-10.1) mg/dL Total Bilirubin 0.6 (0.2-1.0) mg/dL AST 25 (15-37) U/L ALT 24 (14-59) U/L Alkaline Phosphatase 96 (46-116) U/L Troponin I < 0.017 (0.00-0.056) ng/mL NT-Pro-B Natriuret Pep 3969 H (0-450) pg/mL Total Protein 7.0 (6.4-8.2) g/dl Albumin 3.3 L (3.4-5.0) g/dl Globulin 3.7 gm/dL Albumin/Globulin Ratio 0.9 L (1-2) 09/12/19 Range/Units 15:24 WBC (3.98-10.04) K/mm3 RBC (3.98-5.22) M/mm3 Hgb (11.2-15.7) gm/dl Hct (34.1-44.9) % MCV (79.4-94.8) fl MCH (25.6-32.2) pg MCHC (32.2-35.5) g/dl RDW Std Deviation (36.4-46.3) fL Plt Count (182-369) K/mm3 MPV (9.4-12.3) fl Neut % (Auto) (34.0-71.1) % Lymph % (Auto) (19.3-51.7) % Woodson % (Auto) (4.7-12.5) % Eos % (Auto) (0.7-5.8) Baso % (Auto) (0.1-1.2) % Neut # (Auto) (1.56-6.13) K/mm3 Lymph # (Auto) (1.18-3.74) K/mm3 Woodson # (Auto) (0.24-0.36) K/mm3 Eos # (Auto) (0.04-0.36) K/mm3 Baso # (Auto) (0.01-0.08) K/mm3 Manual Slide Review Puncture Site Rt radial ABG pH 7.40 (7.35-7.45) ABG pCO2 42.3 (35.0-45.0) mmHg ABG pO2 144.0 H (80.0-100.0) mmHg ABG HCO3 25.9 (22.0-26.0) meq/L ABG O2 Saturation 99.6 H (96.0-97.0) % ABG Base Excess 1.5 (-2-2.0) A-a Gradient 32 mmHg O2 Delivery Device Nasal cannula Oxygen Flow Rate 3.0 FiO2 32.00 (21.00-100.00) % Sodium (136-145) mEq/L Potassium (3.5-5.1) mEq/L Chloride (98-107) mEq/L Carbon Dioxide (21-32) mEq/L Anion Gap (5-15) BUN (7-18) mg/dL Creatinine (0.55-1.02) mg/dL Est Cr Clr Drug Dosing mL/min Estimated GFR (MDRD) (>60) mL/min BUN/Creatinine Ratio (14-18) Glucose (83-115) mg/dL Calcium (8.5-10.1) mg/dL Total Bilirubin (0.2-1.0) mg/dL AST (15-37) U/L ALT (14-59) U/L Alkaline Phosphatase (46-116) U/L Troponin I (0.00-0.056) ng/mL NT-Pro-B Natriuret Pep (0-450) pg/mL Total Protein (6.4-8.2) g/dl Albumin (3.4-5.0) g/dl Globulin gm/dL Albumin/Globulin Ratio (1-2) Meds: Medications Discontinued Medications Generic Name Dose Route Start Last Admin Trade Name Freq PRN Reason Stop Dose Admin Albuterol/Ipratropium 3 ml 09/12/19 15:10 09/12/19 15:35 Duoneb 3.0-0.5 Mg/3 Ml NEB 09/12/19 15:11 3 ml ONETIME ONE Administration Furosemide 20 mg 09/12/19 15:10 09/12/19 15:20 Lasix IVPUSH 09/12/19 15:11 20 mg NOW ONE Administration Sodium Chloride 10 ml 09/12/19 14:22 09/12/19 14:35 Saline Flush FLUSH 10 ml ASDIRECTED PRN Administration Keep Vein Open Departure - Departure Time of Disposition: 15:55 Disposition: [facility] Condition: Fair Clinical Impression: Fluid retention Congestive heart failure (CHF) Qualifiers: Heart failure type: unspecified Heart failure chronicity: acute on chronic Qualified Code(s): I50.9 - Heart failure, unspecified - Discharge Information Instructions: Heart Failure, [id number] Referrals: Kedar Moreau MD [Primary Care Provider] - Forms: ED Department Discharge Additional Instructions: Our original sats measured from her hand were also low in the 85-87% range. However when we checked arterial blood gases oxygenation was actually running at 99.6% on 3 L nasal cannula, PO2 of 144. When we did switch to earlobe readings we were able to get sats in the 97-100% range. Chest x-ray does show chronic CHF. Creatinine today is elevated today at 1.8 is elevated from prior readings of around 1.5 showing chronic renal insufficiency. Continue current medications as prescribed. See Dr. Ring as needed. Return to ED as needed if symptoms worsening in any way. Sepsis Event Note - Evaluation Sepsis Screening Result: No Definite Risk - Focused Exam Date Exam was Performed: 09/18/19 Time Exam was Performed: 08:27
[2019-09-12] MEDS ORDERED: Albuterol/Ipratropium 3.0-0.5 MG/3 ML Neb Soln NEB ONE (15:10)
[2019-09-12] MEDS ORDERED: Furosemide 40 MG/4 ML VIAL IVPUSH ONE (15:10)
--- NOTE | 2019-09-14 17:48 | CR ---
Chest: Portable view of the chest was obtained. Comparison: Prior chest x-ray of 07/08/19. Heart size may be slightly prominent. Tortuous thoracic aorta is seen. Minimal atelectasis is seen above the left hemidiaphragm. Lungs otherwise are clear. Portion of the upper lungs are obscured from the patient's chin. Bony structures are grossly intact. Bichamber pacemaker is seen. Impression: 1. Slight atelectasis within the left base. 2. Other findings as noted above. 3. Nothing acute is suspected. Diagnostic code #2 This report was dictated in [place] Standard Time
== END 2019-09-12 16:35 ==
LOC: JD.ED 13:45
DX: I50.9 Heart failure, unspecified (principal); N18.3 Chronic kidney disease, stage 3 (moderate); E03.9 Hypothyroidism, unspecified; F32.9 Major depressive disorder, single episode, unspecified; Z79.01 Long term (current) use of anticoagulants; Z88.1 Allergy status to other antibiotic agents; Z88.8 Allergy status to other drugs, medicaments and biological substances; Z95.0 Presence of cardiac pacemaker; Z79.899 Other long term (current) drug therapy; Z79.890 Hormone replacement therapy; Z88.0 Allergy status to penicillin
CPT/HCPCS: 36415; 36600; 71045; 80053; 82803; 83880; 84484; 85025; 87804; 93005; 94640; 96374; 99285; J1940; 93010; 99283; J7620-GY

== ENCOUNTER 2019-09-14 13:01 | Inpatient (IN) | payer MEDICARE, OTHER ==
--- NOTE | 2019-09-14 13:14 | EDM.PDOC ---
ED HPI GENERAL MEDICAL PROBLEM - General Chief Complaint: Respiratory Problem Stated Complaint: COUGH,SOB,CHF Time Seen by Provider: 09/14/19 13:28 Source of Information: Reports: Patient, Family (daughter) History Limitations: Reports: No Limitations - History of Present Illness INITIAL COMMENTS - FREE TEXT/NARRATIVE: 89-year-old female from [facility] presents to the ED with her daughter. Her indicates that she has had very poor appetite over the last couple of days and appears to be failing generally. She is obviously short of breath and apparently has a harsh sounding cough. She can no longer walk. He has weeping lesions from both lower extremities from chronic dependent edema and venous stasis dermatitis with weeping of fluid. Occupational health is changing bandages on her left lower medial ankle twice weekly. No noted fevers. She is not on oxygen. She has known to have severe congestive failure. Very cool extremities from not being able to perfuse her extremities due to heart weakness. O2 sats are 88% on her ear off of oxygen. On 2 L she is up to 100%. Pressure was low initially but once. Just at the cuff to her upper extremity BP is 106/76. She is obviously dyspneic. Onset: Gradual (Patient's health has been gradually dwindling for several months.) Duration: Week(s):, Chronic, Getting Worse Location: Reports: Other (Increasing shortness of breath and increased weakness with decreased ability to eat and drink.) Quality: Reports: Same as Previous Episode Severity: Severe Improves with: Reports: None Worsens with: Reports: Other (She is worth with any exertion such as getting dressed or even) Context: Denies: Activity, Exercise ( getting helped to the bathroom.), Lifting , Sick Contact, Trauma, Other Associated Symptoms: Reports: Cough, Loss of Appetite, Malaise (Sounds like a wet cough but she denies producing any sputum.), Shortness of Breath, Weakness ( Severe and generalized.). 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: Other (see below) (Has been taking her prescribed medications.) - Related Data Allergies Allergy/AdvReac Type Severity Reaction Status Date / Time Penicillins Allergy Mild Swelling/itchy Verified 09/14/19 13:15 rash ciprofloxacin [From Cipro] Allergy Rash Verified 09/14/19 13:15 vancomycin Allergy Rash Verified 09/14/19 13:15 metronidazole AdvReac Nausea and Verified 09/14/19 13:15 Vomiting Home Meds: Home Meds Pramipexole [Mirapex] 0.5 mg PO DAILY 02/28/14 [History] Levothyroxine 125 mcg PO ACBREAKFAST #30 tab 05/21/18 [Rx] Apixaban [Eliquis] 2.5 mg PO BID 08/22/18 [History] Folic Acid 2 mg PO DAILY 08/22/18 [History] Multivit with Calcium,Iron,Min [Essential Daily] 1 tab PO DAILY 08/22/18 [ History] Sertraline [Zoloft] 50 mg PO BEDTIME 08/22/18 [History] Acetaminophen [Tylenol Extra Strength] 1,000 mg PO Q12H 01/03/19 [History] Losartan [Cozaar] 25 mg PO DAILY 01/03/19 [History] Aloe Vera/Sodium Chloride [[place] Saline Nasal Gel] 1 applic MEG DAILY PRN [History] Metoprolol Tartrate 25 mg PO BID 01/26/19 [History] Zolpidem [Ambien] 2.5 mg PO BEDTIME PRN 01/26/19 [History] Furosemide [Lasix] 40 mg PO DAILY 04/03/19 [History] Interdry Wipes 1 container TOP DAILY PRN 04/03/19 [History] Nystatin [Nystop] 1 applic TOP BID PRN 04/03/19 [History] Spironolactone 50 mg PO DAILY 04/03/19 [History] Cholecalciferol (Vitamin D3) [Vitamin D] 50,000 units PO ASDIRECTED 06/22/19 [ History] Loperamide [Imodium] 2 mg PO BID 06/22/19 [History] Megestrol [Megace] 40 mg PO TID 06/22/19 [History] Triamcinolone Acetonide [Nasacort] 2 spray INH DAILY 06/22/19 [History] Bacitracin 1 dose TOP DAILY 06/23/19 [History] LORazepam 0.5 mg PO BID PRN 09/12/19 [History] Past Medical History HEENT History: Reports: Impaired Vision Other HEENT History: wears glasses, hard of hearing Cardiovascular History: Reports: CAD, Heart Failure, Heart Murmur, Pacemaker, SOB on Exertion Other Cardiovascular History: generalized edema Respiratory History: Reports: Sleep Apnea, SOB Other Respiratory History: hypoxemia Gastrointestinal History: Reports: Chronic Diarrhea Other Gastrointestinal History: dysphagia with bread and certain other foods Genitourinary History: Reports: Urinary Incontinence Other Genitourinary History: CKD STAGE 3 [employer]IE[employer] History: Reports: Musculoskeletal History: Reports: Arthritis, Back Pain, Chronic Neurological History: Reports: None Other Neuro History: restless leg syndrome Psychiatric History: Reports: Depression, Other (See Below) Other Psychiatric History: restless leg syndrom Endocrine/Metabolic History: Reports: Hypothyroidism Other Endocrine/Metabolic History: autoimmune thyroiditis Other Hematologic History: hypokalemia Oncologic (Cancer) History: Reports: Other (See Below) 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 Has picked her toe nails and finger nails off. 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 - Past Surgical History HEENT Surgical History: Reports: Cataract Surgery, Tonsillectomy Respiratory Surgical History: Reports: None Other Respiratory Surgeries/Procedures: Uses oxygen at night 2 l NC GI Surgical History: Reports: Cholecystectomy Female Surgical History: Reports: None Endocrine Surgical History: Reports: None Neurological Surgical History: Reports: None Musculoskeletal Surgical History: Reports: Knee Replacement Oncologic Surgical History: Reports: None Dermatological Surgical History: Reports: None Social & Family History - Family History Family Medical History: Noncontributory - Caffeine Use Caffeine Use: Reports: None - Living Situation & Occupation Living situation: Reports: Occupation: Retired [employer] [facility] - Review of Systems Review Of Systems: See Below Constitutional: Reports: Malaise, Weakness, Fatigue, Decreased Appetite. Denies : Fever, Chills HEENT: Reports: Hearing Loss, Other (Has decreased visual acuity.) Respiratory: Reports: Shortness of Breath, Wheezing, Cough. Denies: Pleuritic Chest Pain (Daughter is aware of her wheezing at times.), Hemoptysis ( Productive sounding cough) Cardiovascular: Reports: Blood Pressure Problem, Dyspnea on Exertion ( Worse on the left at present), Edema (Chronic edema both lower extremities with weeping venous stasis dermatitis both lower extremities.), Orthopnea. Denies: Claudication (Usually runs low.), Lightheadedness Endocrine: Reports: Fatigue GI/Abdominal: Reports: Constipation, Decreased Appetite : Reports: Incontinence (She wears a depends.) Musculoskeletal: Reports: Neck Pain, Shoulder Pain, Back Pain, Joint Pain (Both knees have been operated on multiple times. The left side. Longer walks.) Skin: Reports: Cyanosis (She has a close cyanosis due to poor perfusion of her extremities which are very cool to touch.), Bruising (Bruises everywhere in her forearms and antecubital fossa is from venipuncture sites.), Other Neurological: Reports: Weakness. Denies: Confusion, Dizziness, Headache, Numbness, Syncope, Tingling, Trouble Speaking, Difficulty Walking, Change in Speech, Gait Disturbance (Unable to walk) Psychiatric: Reports: No Symptoms Hematologic/Lymphatic: Reports: Easy Bleeding, Easy Bruising, Other (Patient is on Eliquis.) Immunologic: Reports: No Symptoms ED EXAM, GENERAL - Physical Exam Exam: See Below Exam Limited By: Respiratory Distress General Appearance: Lethargic, Moderate Distress, Other (Moderate respiratory distress. Vital signs show temperature 36.6 and she feels quite cool to touch particularly in her extremities. She is exhibiting a gross cyanosis of her hands and feet. Heart rate is 83. Respiratory rate is 22 with O2 sats of 87% off of oxygen and 98% on 2 L with the similar reading from her earlobe and not her hands. BP is 106/76.) Eye Exam: Bilateral Eye: Normal Inspection (No scleral icterus. No peripheral pallor.) Throat/Mouth: Other Head: Atraumatic (Tongue is moist), Normocephalic, Facial Swelling (He appears to have edema particularly periorbitally particularly inferior to each eye.) Neck: Normal Inspection, Supple, Non-Tender, Full Range of Motion, Limited Range of Motion, Tender Lateral (Tender bilateral aspect of the neck on palpation suspect due to degenerative arthritic change.) Respiratory/Chest: Respiratory Distress, Decreased Breath Sounds (Marked tachypnea. Shallow respirations). No: Lungs Clear, Normal Breath Sounds, Rales ( 3 staring to the lower 50% lung trevino bilaterally.), Rhonchi, Wheezing Cardiovascular: No Rub, Systolic Murmur (Grade 1/6 systolic ejection murmur at the left sternal border both aortic stenosis.). No: Normal Peripheral Pulses, No Edema Peripheral Pulses: 0: Posterior Tibial (L), Posterior Tibial (R), Dorsalis Pedis (L), Dorsalis Pedis (R), 2+: Radial (L), Radial (R) GI/Abdominal: Normal Bowel Sounds, Soft, Non-Tender, No Organomegaly, No Abnormal Bruit, Pelvis Stable, Distended (Mild tympany to percussion upper abdomen composed some degree of aerophagia.), Other (Female) Exam: Other (She is wearing a depends. She has mild intertrigo both groins.) Back Exam: Other (Mild increased kyphosis thoracic spine.) Extremities: Pedal Edema (She has 3+ pitting edema both lower extremities. The skin is scaly dry and cracked and weeping serous fluid particular a from the left lower chimney. Both legs are wrapped with [place] wraps. The DuoNeb and dressing of the medial aspect of her left ankle.) Neurological: Alert, Oriented, CN II-XII Intact, Normal Cognition (She answers questions appropriately but most of the questions were answered by her daughter as it's an effort to speak.) Psychiatric: Flat Affect Skin Exam: Cool, Rash (Venous stasis dermatitis both lower extremities without any increased warmth to suggest cellulitis.) Course - Vital Signs Last Recorded V/S: Last Vital Signs Temp 36.6 C 09/14/19 13:11 Pulse 77 09/14/19 14:15 Resp 13 09/14/19 14:15 BP 114/88 09/14/19 14:15 Pulse Ox 95 09/14/19 15:55 - Orders/Labs/Meds Orders: Active Orders 24 hr Category Date Time Status Patient Status [ADT] Routine ADT 09/14/19 15:49 Active EKG Documentation Completion [RC] STAT Care 09/14/19 13:29 Active Height and Weight [RC] DAILY Care 09/14/19 15:48 Active Insert Adam Catheter [Insert Urinary Catheter] [OM.PC] Care 09/14/19 15:30 Ordered Q24H Intake and Output [RC] Q2HR Care 09/14/19 15:51 Active Oxygen Therapy [RC] ASDIRECTED Care 09/14/19 13:30 Active Oxygen Therapy [RC] PRN Care 09/14/19 15:49 Active Peripheral IV Care [RC] . DIRECTED Care 09/14/19 13:30 Active Peripheral IV Care [RC] . DIRECTED Care 09/14/19 13:47 Active Pulse Oximetry [RC] CONTINUOUS Care 09/14/19 15:51 Active RT Aerosol Therapy [RC] ASDIRECTED Care 09/14/19 15:54 Active RT BiPAP/CPAP [RC] ASDIRECTED Care 09/14/19 15:49 Active Up to Chair [RC] ASDIRECTED Care 09/14/19 15:48 Active Urinary Catheter Assessment [RC] ASDIRECTED Care 09/14/19 15:28 Active VTE/DVT Education [RC] PER UNIT ROUTINE Care 09/14/19 15:49 Active Vital Signs [RC] Q4H Care 09/14/19 15:49 Active Nothing per Oral Now Diet [DIET] Diet 09/14/19 Dinner Active Chest 1V Frontal [CR] Stat Exams 09/14/19 13:29 Taken BASIC METABOLIC PANEL,BMP [CHEM] AM Lab 09/15/19 05:11 Ordered CBC WITH AUTO DIFF [HEME] AM Lab 09/15/19 05:11 Ordered CULTURE BLOOD [BC] Stat Lab 09/14/19 13:48 Received CULTURE BLOOD [BC] Stat Lab 09/14/19 14:09 Received MAGNESIUM [CHEM] AM Lab 09/15/19 05:11 Ordered PHOSPHORUS [CHEM] AM Lab 09/15/19 05:11 Ordered Albuterol/Ipratropium [DuoNeb 3.0-0.5 MG/3 ML] Med 09/14/19 18:00 Active 3 ml NEB Q4HRRT Sodium Chloride 0.9% [Saline Flush] Med 09/14/19 13:30 Active 10 ml FLUSH ASDIRECTED PRN Sodium Chloride 0.9% [Saline Flush] Med 09/14/19 13:46 Active 10 ml FLUSH ASDIRECTED PRN Blood Culture x2 Reflex Set [OM.PC] Stat Oth 09/14/19 13:30 Ordered Peripheral IV Insertion Adult [OM.PC] Stat Oth 09/14/19 13:30 Ordered Peripheral IV Insertion Adult [OM.PC] Stat Oth 09/14/19 13:47 Ordered Resuscitation Status Routine Resus Stat 01/12/20 15:48 Ordered Medication Orders Albuterol/Ipratropium (Duoneb 3.0-0.5 Mg/3 Ml) 3 ml NEB Q4HRRT KAY Sodium Chloride (Saline Flush) 10 ml FLUSH ASDIRECTED PRN PRN Reason: Keep Vein Open Last Admin: 09/14/19 13:20 Dose: 10 ml Sodium Chloride (Saline Flush) 10 ml FLUSH ASDIRECTED PRN PRN Reason: Keep Vein Open Last Admin: 09/14/19 14:40 Dose: 10 ml Labs: Laboratory Tests 09/14/19 09/14/19 09/14/19 Range/Units 13:20 13:20 13:20 WBC 10.13 H (3.98-10.04) K/mm3 RBC 3.65 L (3.98-5.22) M/mm3 Hgb 12.1 (11.2-15.7) gm/dl Hct 38.0 (34.1-44.9) % MCV 104.1 H (79.4-94.8) fl MCH 33.2 H (25.6-32.2) pg MCHC 31.8 L (32.2-35.5) g/dl RDW Std Deviation 64.9 H (36.4-46.3) fL Plt Count 227 (182-369) K/mm3 MPV 9.1 L (9.4-12.3) fl Neutrophils % (Manual) 75 H (40-60) % Band Neutrophils % 0 (0-10) % Lymphocytes % (Manual) 13 L (20-40) % Atypical Lymphs % 0 % Monocytes % (Manual) 9 (2-10) % Eosinophils % (Manual) 3 (0.7-5.8) % Basophils % (Manual) 0 L (0.1-1.2) Platelet Estimate Adequate Anisocytosis 2+ moderate Macrocytosis 2+ moderate RBC Morph Comment Not Reportable ESR (0-20) mm/hr PT 12.8 H (9.7-12.0) SECONDS INR 1.19 APTT 37 H D (22-31) SECONDS Puncture Site ABG pH (7.35-7.45) ABG pCO2 (35.0-45.0) mmHg ABG pO2 (80.0-100.0) mmHg ABG HCO3 (22.0-26.0) meq/L ABG O2 Saturation (96.0-97.0) % ABG Base Excess (-2-2.0) Toni Test A-a Gradient mmHg O2 Delivery Device Oxygen Flow Rate FiO2 (21.00-100.00) % Sodium 140 (136-145) mEq/L Potassium 3.8 (3.5-5.1) mEq/L Chloride 101 (98-107) mEq/L Carbon Dioxide 30 (21-32) mEq/L Anion Gap 12.8 (5-15) BUN 47 H (7-18) mg/dL Creatinine 1.6 H (0.55-1.02) mg/dL Est Cr Clr Drug Dosing TNP Estimated GFR (MDRD) 30 (>60) mL/min BUN/Creatinine Ratio 29.4 H (14-18) Glucose 83 (83-115) mg/dL Lactic Acid (0.4-2.0) mmol/L Calcium 8.8 (8.5-10.1) mg/dL Magnesium 2.2 (1.8-2.4) mg/dl Total Bilirubin 0.6 (0.2-1.0) mg/dL AST 22 (15-37) U/L ALT 25 (14-59) U/L Alkaline Phosphatase 104 (46-116) U/L Troponin I < 0.017 (0.00-0.056) ng/mL C-Reactive Protein 9.7 H* (<1.0) mg/dL NT-Pro-B Natriuret Pep (0-450) pg/mL Total Protein 6.9 (6.4-8.2) g/dl Albumin 3.2 L (3.4-5.0) g/dl Globulin 3.7 gm/dL Albumin/Globulin Ratio 0.9 L (1-2) Urine Color (Yellow) Urine Appearance (Clear) Urine pH (5.0-8.0) Ur Specific [place] (1.005-1.030) Urine Protein (Negative) Urine Glucose (UA) (Negative) Urine Ketones (Negative) Urine Occult Blood (Negative) Urine Nitrite (Negative) Urine Bilirubin (Negative) Urine Urobilinogen (0.2-1.0) Ur Leukocyte Esterase (Negative) Urine RBC (0-5) /hpf Urine WBC (0-5) /hpf Ur Squamous Epith Cells (0-5) /hpf Urine Bacteria (FEW) /hpf Hyaline Casts (0-5) /lpf Urine Mucus (FEW) /hpf 09/14/19 09/14/19 09/14/19 Range/Units 13:20 13:20 13:20 WBC (3.98-10.04) K/mm3 RBC (3.98-5.22) M/mm3 Hgb (11.2-15.7) gm/dl Hct (34.1-44.9) % MCV (79.4-94.8) fl MCH (25.6-32.2) pg MCHC (32.2-35.5) g/dl RDW Std Deviation (36.4-46.3) fL Plt Count (182-369) K/mm3 MPV (9.4-12.3) fl Neutrophils % (Manual) (40-60) % Band Neutrophils % (0-10) % Lymphocytes % (Manual) (20-40) % Atypical Lymphs % % Monocytes % (Manual) (2-10) % Eosinophils % (Manual) (0.7-5.8) % Basophils % (Manual) (0.1-1.2) Platelet Estimate Anisocytosis Macrocytosis RBC Morph Comment ESR 35 H (0-20) mm/hr PT (9.7-12.0) SECONDS INR APTT (22-31) SECONDS Puncture Site ABG pH (7.35-7.45) ABG pCO2 (35.0-45.0) mmHg ABG pO2 (80.0-100.0) mmHg ABG HCO3 (22.0-26.0) meq/L ABG O2 Saturation (96.0-97.0) % ABG Base Excess (-2-2.0) Toni Test A-a Gradient mmHg O2 Delivery Device Oxygen Flow Rate FiO2 (21.00-100.00) % Sodium (136-145) mEq/L Potassium (3.5-5.1) mEq/L Chloride (98-107) mEq/L Carbon Dioxide (21-32) mEq/L Anion Gap (5-15) BUN (7-18) mg/dL Creatinine (0.55-1.02) mg/dL Est Cr Clr Drug Dosing Estimated GFR (MDRD) (>60) mL/min BUN/Creatinine Ratio (14-18) Glucose (83-115) mg/dL Lactic Acid 1.2 (0.4-2.0) mmol/L Calcium (8.5-10.1) mg/dL Magnesium (1.8-2.4) mg/dl Total Bilirubin (0.2-1.0) mg/dL AST (15-37) U/L ALT (14-59) U/L Alkaline Phosphatase (46-116) U/L Troponin I (0.00-0.056) ng/mL C-Reactive Protein (<1.0) mg/dL NT-Pro-B Natriuret Pep 5099 H (0-450) pg/mL Total Protein (6.4-8.2) g/dl Albumin (3.4-5.0) g/dl Globulin gm/dL Albumin/Globulin Ratio (1-2) Urine Color (Yellow) Urine Appearance (Clear) Urine pH (5.0-8.0) Ur Specific [place] (1.005-1.030) Urine Protein (Negative) Urine Glucose (UA) (Negative) Urine Ketones (Negative) Urine Occult Blood (Negative) Urine Nitrite (Negative) Urine Bilirubin (Negative) Urine Urobilinogen (0.2-1.0) Ur Leukocyte Esterase (Negative) Urine RBC (0-5) /hpf Urine WBC (0-5) /hpf Ur Squamous Epith Cells (0-5) /hpf Urine Bacteria (FEW) /hpf Hyaline Casts (0-5) /lpf Urine Mucus (FEW) /hpf 09/14/19 09/14/19 Range/Units 14:20 15:44 WBC (3.98-10.04) K/mm3 RBC (3.98-5.22) M/mm3 Hgb (11.2-15.7) gm/dl Hct (34.1-44.9) % MCV (79.4-94.8) fl MCH (25.6-32.2) pg MCHC (32.2-35.5) g/dl RDW Std Deviation (36.4-46.3) fL Plt Count (182-369) K/mm3 MPV (9.4-12.3) fl Neutrophils % (Manual) (40-60) % Band Neutrophils % (0-10) % Lymphocytes % (Manual) (20-40) % Atypical Lymphs % % Monocytes % (Manual) (2-10) % Eosinophils % (Manual) (0.7-5.8) % Basophils % (Manual) (0.1-1.2) Platelet Estimate Anisocytosis Macrocytosis RBC Morph Comment ESR (0-20) mm/hr PT (9.7-12.0) SECONDS INR APTT (22-31) SECONDS Puncture Site Lt radial ABG pH 7.39 (7.35-7.45) ABG pCO2 43.1 (35.0-45.0) mmHg ABG pO2 92.0 (80.0-100.0) mmHg ABG HCO3 25.7 (22.0-26.0) meq/L ABG O2 Saturation 96.5 (96.0-97.0) % ABG Base Excess 1.2 (-2-2.0) Toni Test Positive A-a Gradient 54 mmHg O2 Delivery Device Nasal cannula Oxygen Flow Rate 2.0 FiO2 28.00 (21.00-100.00) % Sodium (136-145) mEq/L Potassium (3.5-5.1) mEq/L Chloride (98-107) mEq/L Carbon Dioxide (21-32) mEq/L Anion Gap (5-15) BUN (7-18) mg/dL Creatinine (0.55-1.02) mg/dL Est Cr Clr Drug Dosing Estimated GFR (MDRD) (>60) mL/min BUN/Creatinine Ratio (14-18) Glucose (83-115) mg/dL Lactic Acid (0.4-2.0) mmol/L Calcium (8.5-10.1) mg/dL Magnesium (1.8-2.4) mg/dl Total Bilirubin (0.2-1.0) mg/dL AST (15-37) U/L ALT (14-59) U/L Alkaline Phosphatase (46-116) U/L Troponin I (0.00-0.056) ng/mL C-Reactive Protein (<1.0) mg/dL NT-Pro-B Natriuret Pep (0-450) pg/mL Total Protein (6.4-8.2) g/dl Albumin (3.4-5.0) g/dl Globulin gm/dL Albumin/Globulin Ratio (1-2) Urine Color Yellow (Yellow) Urine Appearance Slt cloudy H (Clear) Urine pH 6.0 (5.0-8.0) Ur Specific [place] 1.020 (1.005-1.030) Urine Protein Trace H (Negative) Urine Glucose (UA) Negative (Negative) Urine Ketones Negative (Negative) Urine Occult Blood Trace-intact H (Negative) Urine Nitrite Positive H (Negative) Urine Bilirubin Negative (Negative) Urine Urobilinogen 0.2 (0.2-1.0) Ur Leukocyte Esterase 1+ H (Negative) Urine RBC 0-5 (0-5) /hpf Urine WBC 30-40 H (0-5) /hpf Ur Squamous Epith Cells 0-5 (0-5) /hpf Urine Bacteria Many H (FEW) /hpf Hyaline Casts 10-20 H (0-5) /lpf Urine Mucus Not seen (FEW) /hpf Meds: Medications Generic Name Dose Route Start Last Admin Trade Name Freq PRN Reason Stop Dose Admin Albuterol/Ipratropium 3 ml 09/14/19 18:00 Duoneb 3.0-0.5 Mg/3 Ml NEB Q4HRRT KAY Sodium Chloride 10 ml 09/14/19 13:30 09/14/19 13:20 Saline Flush FLUSH 10 ml ASDIRECTED PRN Administration Keep Vein Open Sodium Chloride 10 ml 09/14/19 13:46 09/14/19 14:40 Saline Flush FLUSH 10 ml ASDIRECTED PRN Administration Keep Vein Open Discontinued Medications Generic Name Dose Route Start Last Admin Trade Name Freq PRN Reason Stop Dose Admin Furosemide 60 mg 09/14/19 13:47 09/14/19 14:18 Lasix IVPUSH 09/14/19 13:48 60 mg NOW ONE Administration Metolazone 2.5 mg 09/14/19 15:58 Zaroxolyn PO 09/14/19 15:59 ONETIME ONE Morphine Sulfate 2 mg 09/14/19 15:57 Morphine IVPUSH 09/14/19 15:58 ONETIME ONE - Radiology Interpretation Free Text/Narrative:: 89-year-old female presents the ED with generally failing health for the last several months. She has terminal congestive heart failure. Is in respiratory distress today with tachypnea 22-24/m presumably due to increased fluid load within her heart. She has precordial extremities with equal cyanosis indicating she has not perfusing her periphery well due to poor cardiac output. He was seen through the ED 2 days ago and had a BNP of around 4000. No changes to her meds were made. He is on Lasix 40 mg daily and Aldactone 50 mg once daily as well. Peers that she may benefit from further diuresis at this time. Daughter is requesting hospitalization if possible. She recognizes that her mother is nearing the end of her life. Placed on oxygen at 2 L and she maintained sats of 99%. T labs including a septic workup will be carried out as she is not febrile but she initially was hypoxic and hypotensive. - Re-Assessments/Exams Free Text/Narrative Re-Assessment/Exam: 09/14/19 14:42 portable chest x-ray is a very poor quality partly because of the patient's position and inability to sit up straight due to kyphosis and chin on chest. She has very poor inspirational views. He has cardiomegaly and prominent thoracic aorta. There is no pleural effusions. The left heart border abuts the chest wall due to severe cardiomegaly. There is a pacemaker left upper anterior chest.White blood cell count is 10.13 with 75% neutrophils and no bands reported. Hemoglobin is 12.1 with hematocrit of 38.0. MCV is 104.1. Platelet count 227,000. The slight shows 2+ anisocytosis and 2+ macrocytosis. Sedimentation rate is 35. PT is 12.8 with an INR 1.19. PTT is 37. Sodium was 140 with potassium of 3.8. Chloride is 101 with a bicarbonate of 30. Anion gap is 12.8. BUN is elevated at 47 with a creatinine of 1.6 GFR is 38 severe stage III chronic kidney disease. Glucose is 83 with a lactic acid of 1.2. Calcium is 8.8 with a magnesium of 2.2. Liver function is normal. Troponin I is less than 0.017. C-reactive protein is elevated at 9.7. BNP is elevated at 5099. Total protein is 6.9 with an albumin fraction of 3.2. I will discuss this case with Dr. Banuelos stone engraver hospitalist about partial admission to the hospital. 09/14/19 14:57/the case with on-call hospice Dr. Banuelos and she will attend the patient in the ED. They DO NOT RESUSCITATE CODE STATUS. Her prognosis remains extremely guarded at this point time. She requires diuresis to improve her oxygenation status but her cardiac output remains extremely low. I'm wondering about low-dose digoxin 0.0625 mg daily to see if it would improve her cardiac function. 09/14/19 16:08 Urinalysis obtained by catheter shows positive nitrates 1+ leukocyte esters raise 30-40 WBCs per power field with many bacteria present. Tended 20 hyaline casts. Urine culture ordered. will be admitted to the [facility] surgery floor per Dr. Banuelos. Departure - Departure Time of Disposition: 16:12 Disposition: Admitted As Inpatient 66 Condition: Serious Clinical Impression: Chronic renal insufficiency, stage IV (severe), COPD (chronic obstructive pulmonary disease), Adult failure to thrive syndrome, Urinary tract infection after immobility CHF exacerbation Qualifiers: Heart failure type: combined systolic and diastolic Qualified Code(s): I50.43 - Acute on chronic combined systolic (congestive) and diastolic (congestive) heart failure - Discharge Information Sepsis Event Note - Focused Exam Vital Signs: Vital Signs Temp Pulse Resp BP Pulse Ox Pulse Ox 09/14/19 14:15 77 13 114/88 98 09/14/19 13:30 100 09/14/19 13:11 36.6 C 83 19 91/65 87 L Date Exam was Performed: 09/14/19 Time Exam was Performed: 16:12 - My Orders Last 24 Hours: My Active Orders 09/14/19 13:29 EKG Documentation Completion [RC] STAT Chest 1V Frontal [CR] Stat 09/14/19 13:30 Oxygen Therapy [RC] ASDIRECTED Peripheral IV Care [RC] . DIRECTED Sodium Chloride 0.9% [Saline Flush] 10 ml FLUSH ASDIRECTED PRN Blood Culture x2 Reflex Set [OM.PC] Stat Peripheral IV Insertion Adult [OM.PC] Stat 09/14/19 13:46 Sodium Chloride 0.9% [Saline Flush] 10 ml FLUSH ASDIRECTED PRN 09/14/19 13:47 Peripheral IV Care [RC] . DIRECTED Peripheral IV Insertion Adult [OM.PC] Stat 09/14/19 13:48 CULTURE BLOOD [BC] Stat 09/14/19 14:09 CULTURE BLOOD [BC] Stat - Assessment/Plan Last 24 Hours: My Active Orders 09/14/19 13:29 EKG Documentation Completion [RC] STAT Chest 1V Frontal [CR] Stat 09/14/19 13:30 Oxygen Therapy [RC] ASDIRECTED Peripheral IV Care [RC] . DIRECTED Sodium Chloride 0.9% [Saline Flush] 10 ml FLUSH ASDIRECTED PRN Blood Culture x2 Reflex Set [OM.PC] Stat Peripheral IV Insertion Adult [OM.PC] Stat 09/14/19 13:46 Sodium Chloride 0.9% [Saline Flush] 10 ml FLUSH ASDIRECTED PRN 09/14/19 13:47 Peripheral IV Care [RC] . DIRECTED Peripheral IV Insertion Adult [OM.PC] Stat 09/14/19 13:48 CULTURE BLOOD [BC] Stat 09/14/19 14:09 CULTURE BLOOD [BC] Stat
[2019-09-14] MEDS: Sodium Chloride 0.9% 10 ML Syringe FLUSH PRN (13:20)
[2019-09-14] MEDS ORDERED: Sodium Chloride 0.9% 10 ML Syringe FLUSH PRN (13:46)
[2019-09-14] MEDS ORDERED: Furosemide 40 MG/4 ML VIAL IVPUSH ONE (13:47)
[2019-09-14] MEDS ORDERED: Morphine 2 MG/ML Syringe IVPUSH ONE (15:57)
[2019-09-14] MEDS ORDERED: Metolazone 2.5 MG Tab PO ONE (15:58)
--- NOTE | 2019-09-14 15:59 | PCM.HP.2 ---
H&P History of Present Illness - General Date of Service: 09/14/19 Admit Problem/Dx: Admission Diagnosis/Problem Admission Diagnosis/Problem Hypoxemia - History of Present Illness Initial Comments - Free Text/Narative: OBTAINED BY CHART REVIEW AND VERBAL HAND OFF 89-year-old female brought to the ED by daughter for very poor appetite over the last couple of days and appears to be failing generally. She was seen in the ED 2 days ago for worsening shortness of breath but was discharged back to [facility]. Comes in severely dyspneic, unable to speak with altered mental status. Right Leg Pain Score (Numeric/FACES): 5 - Related Data Allergies/Adverse Reactions: Allergies Allergy/AdvReac Type Severity Reaction Status Date / Time Penicillins Allergy Mild Swelling/itchy Verified 09/14/19 17:11 rash ciprofloxacin [From Cipro] Allergy Rash Verified 09/14/19 17:11 vancomycin Allergy Rash Verified 09/14/19 17:11 metronidazole AdvReac Nausea and Verified 09/14/19 17:11 Vomiting Home Medications: Home Meds Pramipexole [Mirapex] 0.5 mg PO DAILY 02/28/14 [History] Levothyroxine 125 mcg PO ACBREAKFAST #30 tab 05/21/18 [Rx] Apixaban [Eliquis] 2.5 mg PO BID 08/22/18 [History] Folic Acid 2 mg PO DAILY 08/22/18 [History] Multivit with Calcium,Iron,Min [Essential Daily] 1 tab PO DAILY 08/22/18 [ History] Sertraline [Zoloft] 50 mg PO BEDTIME 08/22/18 [History] Acetaminophen [Tylenol Extra Strength] 1,000 mg PO Q12H 01/03/19 [History] Losartan [Cozaar] 25 mg PO DAILY 01/03/19 [History] Aloe Vera/Sodium Chloride [Shannon Saline Nasal Gel] 1 applic MEG DAILY PRN [History] Metoprolol Tartrate 25 mg PO BID 01/26/19 [History] Zolpidem [Ambien] 2.5 mg PO BEDTIME PRN 01/26/19 [History] Furosemide [Lasix] 40 mg PO DAILY 04/03/19 [History] Interdry Wipes 1 container TOP DAILY PRN 04/03/19 [History] Nystatin [Nystop] 1 applic TOP BID PRN 04/03/19 [History] Spironolactone 50 mg PO DAILY 04/03/19 [History] Cholecalciferol (Vitamin D3) [Vitamin D] 50,000 units PO ASDIRECTED 06/22/19 [ History] Loperamide [Imodium] 2 mg PO BID 06/22/19 [History] Megestrol [Megace] 40 mg PO TID 06/22/19 [History] Triamcinolone Acetonide [Nasacort] 2 spray INH DAILY 06/22/19 [History] Bacitracin 1 dose TOP DAILY 06/23/19 [History] LORazepam 0.5 mg PO BID PRN 09/12/19 [History] Past Medical History HEENT History: Reports: Impaired Vision Other HEENT History: wears glasses, hard of hearing Cardiovascular History: Reports: CAD, Heart Failure, Heart Murmur, Pacemaker, SOB on Exertion Other Cardiovascular History: generalized edema Respiratory History: Reports: Sleep Apnea, SOB Other Respiratory History: hypoxemia Gastrointestinal History: Reports: Chronic Diarrhea Other Gastrointestinal History: dysphagia with bread and certain other foods Genitourinary History: Reports: Urinary Incontinence Other Genitourinary History: CKD STAGE 3 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: Musculoskeletal History: Reports: Arthritis, Back Pain, Chronic Neurological History: Reports: None Other Neuro History: restless leg syndrome Psychiatric History: Reports: Depression, Other (See Below) Other Psychiatric History: restless leg syndrom Endocrine/Metabolic History: Reports: Hypothyroidism Other Endocrine/Metabolic History: autoimmune thyroiditis Other Hematologic History: hypokalemia Oncologic (Cancer) History: Reports: Other (See Below) 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 Has picked her toe nails and finger nails off. 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 - Past Surgical History HEENT Surgical History: Reports: Cataract Surgery, Tonsillectomy Respiratory Surgical History: Reports: None Other Respiratory Surgeries/Procedures: Uses oxygen at night 2 l NC GI Surgical History: Reports: Cholecystectomy Female Surgical History: Reports: None Endocrine Surgical History: Reports: None Neurological Surgical History: Reports: None Musculoskeletal Surgical History: Reports: Knee Replacement Oncologic Surgical History: Reports: None Dermatological Surgical History: Reports: None Social & Family History - Family History Family Medical History: Noncontributory - Tobacco Use Smoking Status *Q: Never Smoker - Caffeine Use Caffeine Use: Reports: None - Recreational Drug Use Recreational Drug Use: No - Living Situation & Occupation Living situation: Reports: Occupation: Retired H&P Review of Systems - Review of Systems: Review Of Systems: Unable To Obtain Reason Not Obtained: Altered mental status and poor cooperation Exam - Exam Exam: See Below Reason Not Obtained: confounded by poor cooperation - Vital Signs Vital Signs: Last Vital Signs Temp 97.8 F 09/14/19 13:11 Pulse 77 09/14/19 14:15 Resp 13 09/14/19 14:15 BP 114/88 09/14/19 14:15 Pulse Ox 95 09/14/19 15:55 Weight: 81.556 kg - Exam Quality Assessment: Supplemental Oxygen General: Severe Distress, Obtunded, Other (hunched over to the right side) HEENT: Mucosa Moist & [place] Neck: Other Lungs: Decreased Breath Sounds, Crackles, Rales, Rhonchi, Wheezing Cardiovascular: Other (unable to auscultate due to sevre respiratory distress overcoming heart sounds) GI/Abdominal Exam: Soft, Non-Tender (Female) Exam: Other (erythematous labia with excoriations and stigmas of scratching in perineum. Betty excoriations. Exquisitely tender to touch) Extremities: Other (3+ pitting edema both lower extremities. The skin is scaly dry and cracked and weeping serous fluid particular a from the left lower chimney. Both legs are wrapped with [place] wraps. The DuoNeb and dressing of the medial aspect of her left ankle.) Skin: Cool - Patient Data Result Diagrams: 09/16/19 05:20 09/16/19 05:20 Sepsis Event Note - Evaluation Sepsis Screening Result: No Definite Risk - Focused Exam Vital Signs: Vital Signs Temp Pulse Resp BP Pulse Ox Pulse Ox Pulse Ox 09/14/19 15:55 95 09/14/19 14:15 77 13 114/88 98 09/14/19 13:30 100 09/14/19 13:11 97.8 F 83 19 91/65 87 L Date Exam was Performed: 01/14/20 Time Exam was Performed: 16:44 - Problem List (1) Right heart failure due to pulmonary hypertension SNOMED Code(s): 977419233 ICD Code: I27.29 - OTHER SECONDARY PULMONARY HYPERTENSION; I50.810 - RIGHT HEART FAILURE, UNSPECIFIED Status: Acute Current Visit: Yes (2) [facility] resident SNOMED Code(s): 054244259 ICD Code: Z59.3 - PROBLEMS RELATED TO LIVING IN RESIDENTIAL INSTITUTION Status: Acute Current Visit: Yes (3) Bedbound SNOMED Code(s): 374265289 ICD Code: Z74.01 - BED CONFINEMENT STATUS Status: Acute Current Visit: Yes (4) Venous stasis ulcers Status: Acute Current Visit: Yes (5) Hypoxemic respiratory failure, chronic SNOMED Code(s): 329496064 ICD Code: J96.11 - CHRONIC RESPIRATORY FAILURE WITH HYPOXIA Status: Acute Current Visit: Yes (6) Macrocytosis without anemia SNOMED Code(s): 056053383 ICD Code: D75.89 - OTHER SPECIFIED DISEASES OF BLOOD AND BLOOD-FORMING ORGANS Status: Acute Current Visit: Yes (7) Anasarca SNOMED Code(s): 761169743, 360152937 ICD Code: R60.1 - GENERALIZED EDEMA Status: Acute Current Visit: Yes (8) Severe muscle deconditioning SNOMED Code(s): 769752979 ICD Code: R29.898 - OTH SYMPTOMS AND SIGNS INVOLVING THE MUSCULOSKELETAL SYSTEM Status: Acute Current Visit: Yes (9) Adult failure to thrive syndrome SNOMED Code(s): 384994631 ICD Code: R62.7 - ADULT FAILURE TO THRIVE Status: Acute Current Visit: Yes (10) CHF exacerbation SNOMED Code(s): 118060720, 53167155616701 ICD Code: I50.9 - HEART FAILURE, UNSPECIFIED Status: Acute Current Visit : Yes Qualifiers: Heart failure type: combined systolic and diastolic Qualified Code(s): I50.43 - Acute on chronic combined systolic (congestive) and diastolic ( congestive) heart failure (11) COPD (chronic obstructive pulmonary disease) SNOMED Code(s): 05044693 ICD Code: J44.9 - CHRONIC OBSTRUCTIVE PULMONARY DISEASE, UNSPECIFIED Status : Acute Current Visit: Yes (12) Chronic renal insufficiency, stage IV (severe) SNOMED Code(s): 212954903 ICD Code: N18.4 - CHRONIC KIDNEY DISEASE, STAGE 4 (SEVERE) Status: Acute Current Visit: Yes (13) Generalized weakness SNOMED Code(s): 77254261 ICD Code: R53.1 - WEAKNESS Status: Chronic Priority: Medium Current Visit: Yes (14) Hypertension SNOMED Code(s): 11915948 ICD Code: I10 - ESSENTIAL (PRIMARY) HYPERTENSION Status: Acute Current Visit: No (15) Respiratory distress SNOMED Code(s): 546510644 ICD Code: R06.00 - DYSPNEA, UNSPECIFIED Status: Acute Current Visit: No (16) Vitamin D deficiency SNOMED Code(s): 10281279 ICD Code: E55.9 - VITAMIN D DEFICIENCY, UNSPECIFIED Status: Acute Current Visit: No (17) MRSA (methicillin resistant Staphylococcus aureus) colonization SNOMED Code(s): 582726273 ICD Code: Z22.322 - CARRIER OR SUSPECTED CARRIER OF METHICILLIN RESIS STAPH Status: Chronic Priority: Medium Current Visit: No (18) CHRIS (obstructive sleep apnea) SNOMED Code(s): 59559154 ICD Code: G47.33 - OBSTRUCTIVE SLEEP APNEA (ADULT) (PEDIATRIC) Status: Chronic Priority: Medium Current Visit: No (19) Pacemaker SNOMED Code(s): 432278859 ICD Code: Z95.0 - PRESENCE OF CARDIAC PACEMAKER Status: Chronic Priority : Low Current Visit: No (20) Perineal irritation SNOMED Code(s): 123642580 ICD Code: L29.3 - ANOGENITAL PRURITUS, UNSPECIFIED Status: Acute Current Visit: Yes (21) Candidal dermatitis SNOMED Code(s): 18295311 ICD Code: B37.2 - CANDIDIASIS OF SKIN AND NAIL Status: Acute Current Visit: Yes Problem List Initiated/Reviewed/Updated: Yes Assessment/Plan Comment:: Hypoxemic respiratory failure Respiratory distress 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 Diastolic heart failure exacerbation Anasarca COPD (chronic obstructive pulmonary disease) CHRIS (obstructive sleep apnea) Recurrent readmissions Altered mental status on admission which precluded appropriate Audible stridor + anasarca Minimal lung expansion Home furosemide and spironolactone PLAN - BIPAP/ CPAP as needed - Lasix IV BID - Daily weights - Strict intake and output - Heart healthy diet - Fluid restriction Atrial fibrillation, rate controlled on Eliquis No acute issues PLAN - Continue home Eliquis - Monitor VS Chronic venous stasis ulcers Stable since previous admission No signs of cellulitis No purulent drainage or foul smell PLAN - Continue current wound care Severe muscle deconditioning Generalized weakness Adult failure to thrive syndrome Bedbound [facility] resident Severely deconditioned with steady decline in the past couple of months PLAN - PT/OT evaluation and treatment Chronic renal insufficiency, stage IV (severe) GFR 30 on admission PLAN - Avoid nephrotoxic medications - Renally dosed medications - Monitor urine output Hypotension in the setting of hypertension BP on admission / PLAN - Hold home BP medications Hypothyroidism No acute issues PLAN - Continue home levothyroxine MRSA (methicillin resistant Staphylococcus aureus) colonization No acute issues PLAN - Repeat swab - Contact isolation Perineal irritation Candidal dermatitis Bedbound Patient has chronic scratching stigma and excoriations PLAN - Nystatin powder - Calmoseptine - Rotation by staff and out of bed to chair - Interdry Depression/Anxiety No acute issues PLAN - PRN Lorazepam - PRN Zolpidem PROPHYLAXIS DVT- continue Eliquis GI- not indicated CODE STATUS: DNR DISPOSITION: Patient placed on BiPAP, poorly responsive, will be admitted to ICU for close monitorization, IV diuresis. From [facility] - Mortality Measure Prognosis:: Poor
[2019-09-14] MEDS: Albuterol/Ipratropium 3.0-0.5 MG/3 ML Neb Soln NEB SCH ×2 (17:16→21:38)
--- NOTE | 2019-09-14 17:49 | CR ---
Chest: Portable view of the chest was obtained. Comparison: Previous chest x-ray of 09/12/19. Heart size appears within normal limits for portable technique on current chest x-ray. Tortuous thoracic aorta is seen. Minimal atelectasis remains within the left lung base above the left hemidiaphragm. Pacemaker is noted. No acute parenchymal change is seen. Bony structures appear grossly intact. Impression: 1. Findings as noted above. 2. Nothing acute is suspected. Diagnostic code #2 This report was dictated in [place] Standard Time
[2019-09-15] MEDS: Albuterol/Ipratropium 3.0-0.5 MG/3 ML Neb Soln NEB SCH ×6 (02:16→21:40)
[2019-09-15] MEDS: Sodium Chloride 0.9% 10 ML Syringe FLUSH PRN (03:24)
--- NOTE | 2019-09-15 11:20 | PCM.PN ---
- General Info Date of Service: 09/15/19 Admission Dx/Problem (Free Text): Admission Diagnosis/Problem Admission Diagnosis/Problem Hypoxemia Subjective Update: In to see Citlali. She is doing much better clinically and states she feels better. Family has been at bedside. Family is discussing SNF placement with SW. No patient or nursing concerns. Functional Status: Reports: Pain Controlled, Tolerating Diet, Urinating (solano in place). Denies: Ambulating, New Symptoms - Review of Systems General: Reports: Weakness, Fatigue, Malaise. Denies: Fever, Chills HEENT: Denies: Headaches, Sore Throat Pulmonary: Reports: Shortness of Breath, Cough. Denies: Pleuritic Chest Pain, Sputum, Wheezing Cardiovascular: Reports: Dyspnea on Exertion, Edema. Denies: Chest Pain, Palpitations Gastrointestinal: Reports: Constipation. Denies: Abdominal Pain, Diarrhea, Nausea, Vomiting Genitourinary: Reports: Other (Solano catheter in place ) Musculoskeletal: Reports: No Symptoms Skin: Reports: No Symptoms Neurological: Reports: Difficulty Walking, Weakness, Gait Disturbance Psychiatric: Reports: No Symptoms - Patient Data Vitals - Most Recent: Last Vital Signs Temp 98.9 F 09/15/19 08:00 Pulse 77 09/14/19 14:15 Resp 20 09/15/19 08:00 BP 107/57 L 09/15/19 08:00 Pulse Ox 98 09/15/19 09:50 Weight - Most Recent: 175 lb 9.6 oz I&O - Last 24 Hours: Intake & Output 09/14/19 09/15/19 09/15/19 22:59 06:59 14:59 Output Total 1550 600 175 Balance -1550 -600 -175 Lab Results Last 24 Hours: Laboratory Results - last 24 hr 09/14/19 09/14/19 09/14/19 Range/Units 13:20 13:20 13:20 WBC 10.13 H (3.98-10.04) K/mm3 RBC 3.65 L (3.98-5.22) M/mm3 Hgb 12.1 (11.2-15.7) gm/dl Hct 38.0 (34.1-44.9) % MCV 104.1 H (79.4-94.8) fl MCH 33.2 H (25.6-32.2) pg MCHC 31.8 L (32.2-35.5) g/dl RDW Std Deviation 64.9 H (36.4-46.3) fL Plt Count 227 (182-369) K/mm3 MPV 9.1 L (9.4-12.3) fl Neut % (Auto) (34.0-71.1) % Lymph % (Auto) (19.3-51.7) % [place] % (Auto) (4.7-12.5) % Eos % (Auto) (0.7-5.8) Baso % (Auto) (0.1-1.2) % Neut # (Auto) (1.56-6.13) K/mm3 Lymph # (Auto) (1.18-3.74) K/mm3 [place] # (Auto) (0.24-0.36) K/mm3 Eos # (Auto) (0.04-0.36) K/mm3 Baso # (Auto) (0.01-0.08) K/mm3 Neutrophils % (Manual) 75 H (40-60) % Band Neutrophils % 0 (0-10) % Lymphocytes % (Manual) 13 L (20-40) % Atypical Lymphs % 0 % Monocytes % (Manual) 9 (2-10) % Eosinophils % (Manual) 3 (0.7-5.8) % Basophils % (Manual) 0 L (0.1-1.2) Manual Slide Review Platelet Estimate Adequate Anisocytosis 2+ moderate Macrocytosis 2+ moderate RBC Morph Comment Not Reportable ESR (0-20) mm/hr PT 12.8 H (9.7-12.0) SECONDS INR 1.19 APTT 37 H D (22-31) SECONDS Puncture Site ABG pH (7.35-7.45) ABG pCO2 (35.0-45.0) mmHg ABG pO2 (80.0-100.0) mmHg ABG HCO3 (22.0-26.0) meq/L ABG O2 Saturation (96.0-97.0) % ABG Base Excess (-2-2.0) Toni Test A-a Gradient mmHg O2 Delivery Device Oxygen Flow Rate FiO2 (21.00-100.00) % Sodium 140 (136-145) mEq/L Potassium 3.8 (3.5-5.1) mEq/L Chloride 101 (98-107) mEq/L Carbon Dioxide 30 (21-32) mEq/L Anion Gap 12.8 (5-15) BUN 47 H (7-18) mg/dL Creatinine 1.6 H (0.55-1.02) mg/dL Est Cr Clr Drug Dosing TNP Estimated GFR (MDRD) 30 (>60) mL/min BUN/Creatinine Ratio 29.4 H (14-18) Glucose 83 (83-115) mg/dL Lactic Acid (0.4-2.0) mmol/L Calcium 8.8 (8.5-10.1) mg/dL Phosphorus (2.6-4.7) mg/dL Magnesium 2.2 (1.8-2.4) mg/dl Total Bilirubin 0.6 (0.2-1.0) mg/dL AST 22 (15-37) U/L ALT 25 (14-59) U/L Alkaline Phosphatase 104 (46-116) U/L Troponin I < 0.017 (0.00-0.056) ng/mL C-Reactive Protein 9.7 H* (<1.0) mg/dL NT-Pro-B Natriuret Pep (0-450) pg/mL Total Protein 6.9 (6.4-8.2) g/dl Albumin 3.2 L (3.4-5.0) g/dl Globulin 3.7 gm/dL Albumin/Globulin Ratio 0.9 L (1-2) Urine Color (Yellow) Urine Appearance (Clear) Urine pH (5.0-8.0) Ur Specific [place] (1.005-1.030) Urine Protein (Negative) Urine Glucose (UA) (Negative) Urine Ketones (Negative) Urine Occult Blood (Negative) Urine Nitrite (Negative) Urine Bilirubin (Negative) Urine Urobilinogen (0.2-1.0) Ur Leukocyte Esterase (Negative) Urine RBC (0-5) /hpf Urine WBC (0-5) /hpf Ur Squamous Epith Cells (0-5) /hpf Urine Bacteria (FEW) /hpf Hyaline Casts (0-5) /lpf Urine Mucus (FEW) /hpf 09/14/19 09/14/19 09/14/19 Range/Units 13:20 13:20 13:20 WBC (3.98-10.04) K/mm3 RBC (3.98-5.22) M/mm3 Hgb (11.2-15.7) gm/dl Hct (34.1-44.9) % MCV (79.4-94.8) fl MCH (25.6-32.2) pg MCHC (32.2-35.5) g/dl RDW Std Deviation (36.4-46.3) fL Plt Count (182-369) K/mm3 MPV (9.4-12.3) fl Neut % (Auto) (34.0-71.1) % Lymph % (Auto) (19.3-51.7) % [place] % (Auto) (4.7-12.5) % Eos % (Auto) (0.7-5.8) Baso % (Auto) (0.1-1.2) % Neut # (Auto) (1.56-6.13) K/mm3 Lymph # (Auto) (1.18-3.74) K/mm3 [place] # (Auto) (0.24-0.36) K/mm3 Eos # (Auto) (0.04-0.36) K/mm3 Baso # (Auto) (0.01-0.08) K/mm3 Neutrophils % (Manual) (40-60) % Band Neutrophils % (0-10) % Lymphocytes % (Manual) (20-40) % Atypical Lymphs % % Monocytes % (Manual) (2-10) % Eosinophils % (Manual) (0.7-5.8) % Basophils % (Manual) (0.1-1.2) Manual Slide Review Platelet Estimate Anisocytosis Macrocytosis RBC Morph Comment ESR 35 H (0-20) mm/hr PT (9.7-12.0) SECONDS INR APTT (22-31) SECONDS Puncture Site ABG pH (7.35-7.45) ABG pCO2 (35.0-45.0) mmHg ABG pO2 (80.0-100.0) mmHg ABG HCO3 (22.0-26.0) meq/L ABG O2 Saturation (96.0-97.0) % ABG Base Excess (-2-2.0) Toni Test A-a Gradient mmHg O2 Delivery Device Oxygen Flow Rate FiO2 (21.00-100.00) % Sodium (136-145) mEq/L Potassium (3.5-5.1) mEq/L Chloride (98-107) mEq/L Carbon Dioxide (21-32) mEq/L Anion Gap (5-15) BUN (7-18) mg/dL Creatinine (0.55-1.02) mg/dL Est Cr Clr Drug Dosing Estimated GFR (MDRD) (>60) mL/min BUN/Creatinine Ratio (14-18) Glucose (83-115) mg/dL Lactic Acid 1.2 (0.4-2.0) mmol/L Calcium (8.5-10.1) mg/dL Phosphorus (2.6-4.7) mg/dL Magnesium (1.8-2.4) mg/dl Total Bilirubin (0.2-1.0) mg/dL AST (15-37) U/L ALT (14-59) U/L Alkaline Phosphatase (46-116) U/L Troponin I (0.00-0.056) ng/mL C-Reactive Protein (<1.0) mg/dL NT-Pro-B Natriuret Pep 5099 H (0-450) pg/mL Total Protein (6.4-8.2) g/dl Albumin (3.4-5.0) g/dl Globulin gm/dL Albumin/Globulin Ratio (1-2) Urine Color (Yellow) Urine Appearance (Clear) Urine pH (5.0-8.0) Ur Specific [place] (1.005-1.030) Urine Protein (Negative) Urine Glucose (UA) (Negative) Urine Ketones (Negative) Urine Occult Blood (Negative) Urine Nitrite (Negative) Urine Bilirubin (Negative) Urine Urobilinogen (0.2-1.0) Ur Leukocyte Esterase (Negative) Urine RBC (0-5) /hpf Urine WBC (0-5) /hpf Ur Squamous Epith Cells (0-5) /hpf Urine Bacteria (FEW) /hpf Hyaline Casts (0-5) /lpf Urine Mucus (FEW) /hpf 09/14/19 09/14/19 09/14/19 Range/Units 14:20 15:44 17:26 WBC (3.98-10.04) K/mm3 RBC (3.98-5.22) M/mm3 Hgb (11.2-15.7) gm/dl Hct (34.1-44.9) % MCV (79.4-94.8) fl MCH (25.6-32.2) pg MCHC (32.2-35.5) g/dl RDW Std Deviation (36.4-46.3) fL Plt Count (182-369) K/mm3 MPV (9.4-12.3) fl Neut % (Auto) (34.0-71.1) % Lymph % (Auto) (19.3-51.7) % [place] % (Auto) (4.7-12.5) % Eos % (Auto) (0.7-5.8) Baso % (Auto) (0.1-1.2) % Neut # (Auto) (1.56-6.13) K/mm3 Lymph # (Auto) (1.18-3.74) K/mm3 [place] # (Auto) (0.24-0.36) K/mm3 Eos # (Auto) (0.04-0.36) K/mm3 Baso # (Auto) (0.01-0.08) K/mm3 Neutrophils % (Manual) (40-60) % Band Neutrophils % (0-10) % Lymphocytes % (Manual) (20-40) % Atypical Lymphs % % Monocytes % (Manual) (2-10) % Eosinophils % (Manual) (0.7-5.8) % Basophils % (Manual) (0.1-1.2) Manual Slide Review Platelet Estimate Anisocytosis Macrocytosis RBC Morph Comment ESR (0-20) mm/hr PT (9.7-12.0) SECONDS INR APTT (22-31) SECONDS Puncture Site Lt radial ABG pH 7.39 (7.35-7.45) ABG pCO2 43.1 (35.0-45.0) mmHg ABG pO2 92.0 (80.0-100.0) mmHg ABG HCO3 25.7 (22.0-26.0) meq/L ABG O2 Saturation 96.5 (96.0-97.0) % ABG Base Excess 1.2 (-2-2.0) Toni Test Positive A-a Gradient 54 mmHg O2 Delivery Device Nasal cannula Oxygen Flow Rate 2.0 FiO2 28.00 (21.00-100.00) % Sodium (136-145) mEq/L Potassium (3.5-5.1) mEq/L Chloride (98-107) mEq/L Carbon Dioxide (21-32) mEq/L Anion Gap (5-15) BUN (7-18) mg/dL Creatinine (0.55-1.02) mg/dL Est Cr Clr Drug Dosing Estimated GFR (MDRD) (>60) mL/min BUN/Creatinine Ratio (14-18) Glucose (83-115) mg/dL Lactic Acid (0.4-2.0) mmol/L Calcium (8.5-10.1) mg/dL Phosphorus (2.6-4.7) mg/dL Magnesium (1.8-2.4) mg/dl Total Bilirubin (0.2-1.0) mg/dL AST (15-37) U/L ALT (14-59) U/L Alkaline Phosphatase (46-116) U/L Troponin I (0.00-0.056) ng/mL C-Reactive Protein (<1.0) mg/dL NT-Pro-B Natriuret Pep (0-450) pg/mL Total Protein (6.4-8.2) g/dl Albumin (3.4-5.0) g/dl Globulin gm/dL Albumin/Globulin Ratio (1-2) Urine Color Yellow Yellow (Yellow) Urine Appearance Slt cloudy H Clear (Clear) Urine pH 6.0 6.5 (5.0-8.0) Ur Specific [place] 1.020 1.020 (1.005-1.030) Urine Protein Trace H Negative (Negative) Urine Glucose (UA) Negative Negative (Negative) Urine Ketones Negative Negative (Negative) Urine Occult Blood Trace-intact H Trace-intact H (Negative) Urine Nitrite Positive H Negative (Negative) Urine Bilirubin Negative Negative (Negative) Urine Urobilinogen 0.2 0.2 (0.2-1.0) Ur Leukocyte Esterase 1+ H 1+ H (Negative) Urine RBC 0-5 0-5 (0-5) /hpf Urine WBC 30-40 H 10-20 H (0-5) /hpf Ur Squamous Epith Cells 0-5 0-5 (0-5) /hpf Urine Bacteria Many H Rare (FEW) /hpf Hyaline Casts 10-20 H (0-5) /lpf Urine Mucus Not seen Not seen (FEW) /hpf 09/15/19 09/15/19 09/15/19 Range/Units 05:46 05:46 08:27 WBC 8.11 (3.98-10.04) K/mm3 RBC 3.37 L (3.98-5.22) M/mm3 Hgb 11.0 L (11.2-15.7) gm/dl Hct 35.0 (34.1-44.9) % MCV 103.9 H (79.4-94.8) fl MCH 32.6 H (25.6-32.2) pg MCHC 31.4 L (32.2-35.5) g/dl RDW Std Deviation 64.4 H (36.4-46.3) fL Plt Count 186 (182-369) K/mm3 MPV 9.4 (9.4-12.3) fl Neut % (Auto) 79.9 H (34.0-71.1) % Lymph % (Auto) 10.1 L (19.3-51.7) % [place] % (Auto) 8.4 (4.7-12.5) % Eos % (Auto) 1.1 (0.7-5.8) Baso % (Auto) 0.1 (0.1-1.2) % Neut # (Auto) 6.48 H (1.56-6.13) K/mm3 Lymph # (Auto) 0.82 L (1.18-3.74) K/mm3 [place] # (Auto) 0.68 H (0.24-0.36) K/mm3 Eos # (Auto) 0.09 (0.04-0.36) K/mm3 Baso # (Auto) 0.01 (0.01-0.08) K/mm3 Neutrophils % (Manual) (40-60) % Band Neutrophils % (0-10) % Lymphocytes % (Manual) (20-40) % Atypical Lymphs % % Monocytes % (Manual) (2-10) % Eosinophils % (Manual) (0.7-5.8) % Basophils % (Manual) (0.1-1.2) Manual Slide Review Not Reportable Platelet Estimate Anisocytosis Macrocytosis RBC Morph Comment ESR (0-20) mm/hr PT (9.7-12.0) SECONDS INR APTT (22-31) SECONDS Puncture Site Rt radial ABG pH 7.41 (7.35-7.45) ABG pCO2 42.9 (35.0-45.0) mmHg ABG pO2 93.0 (80.0-100.0) mmHg ABG HCO3 26.6 H (22.0-26.0) meq/L ABG O2 Saturation 96.7 (96.0-97.0) % ABG Base Excess 2.1 H (-2-2.0) Toni Test Positive A-a Gradient mmHg O2 Delivery Device Nasal cannula Oxygen Flow Rate 3.0 FiO2 0.00 L (21.00-100.00) % Sodium 138 (136-145) mEq/L Potassium 3.8 (3.5-5.1) mEq/L Chloride 101 (98-107) mEq/L Carbon Dioxide 25 (21-32) mEq/L Anion Gap 15.8 H (5-15) BUN 48 H (7-18) mg/dL Creatinine 1.5 H (0.55-1.02) mg/dL Est Cr Clr Drug Dosing 18.26 Estimated GFR (MDRD) 33 (>60) mL/min BUN/Creatinine Ratio 32.0 H (14-18) Glucose 87 (83-115) mg/dL Lactic Acid (0.4-2.0) mmol/L Calcium 8.8 (8.5-10.1) mg/dL Phosphorus 3.4 (2.6-4.7) mg/dL Magnesium 2.0 (1.8-2.4) mg/dl Total Bilirubin (0.2-1.0) mg/dL AST (15-37) U/L ALT (14-59) U/L Alkaline Phosphatase (46-116) U/L Troponin I (0.00-0.056) ng/mL C-Reactive Protein (<1.0) mg/dL NT-Pro-B Natriuret Pep (0-450) pg/mL Total Protein (6.4-8.2) g/dl Albumin (3.4-5.0) g/dl Globulin gm/dL Albumin/Globulin Ratio (1-2) Urine Color (Yellow) Urine Appearance (Clear) Urine pH (5.0-8.0) Ur Specific [place] (1.005-1.030) Urine Protein (Negative) Urine Glucose (UA) (Negative) Urine Ketones (Negative) Urine Occult Blood (Negative) Urine Nitrite (Negative) Urine Bilirubin (Negative) Urine Urobilinogen (0.2-1.0) Ur Leukocyte Esterase (Negative) Urine RBC (0-5) /hpf Urine WBC (0-5) /hpf Ur Squamous Epith Cells (0-5) /hpf Urine Bacteria (FEW) /hpf Hyaline Casts (0-5) /lpf Urine Mucus (FEW) /hpf Lorenzo Results Last 24 Hours: Microbiology 09/14/19 13:48 Anaerobic Blood Culture - Final Blood - Venous 09/14/19 14:20 Urine Culture - Preliminary Urine, Catheterized Gram Negative Rods Med Orders - Current: Current Medications Albuterol/Ipratropium (Duoneb 3.0-0.5 Mg/3 Ml) 3 ml NEB Q4HRRT [facility] [place] Last Admin: 09/15/19 09:48 Dose: 3 ml Potassium Chloride (Klor-Con M20) 40 meq PO BID [facility] [place] Stop: 09/15/19 21:01 Sodium Chloride (Saline Flush) 10 ml FLUSH ASDIRECTED PRN PRN Reason: Keep Vein Open Last Admin: 09/15/19 03:24 Dose: 10 ml Sodium Chloride (Saline Flush) 10 ml FLUSH ASDIRECTED PRN PRN Reason: Keep Vein Open Last Admin: 09/14/19 14:40 Dose: 10 ml Discontinued Medications Furosemide (Lasix) 60 mg IVPUSH NOW ONE Stop: 09/14/19 13:48 Last Admin: 09/14/19 14:18 Dose: 60 mg Metolazone (Zaroxolyn) 2.5 mg PO ONETIME ONE Stop: 09/14/19 15:59 Last Admin: 09/14/19 16:51 Dose: 2.5 mg Morphine Sulfate (Morphine) 2 mg IVPUSH ONETIME ONE Stop: 09/14/19 15:58 Last Admin: 09/14/19 16:51 Dose: 2 mg - Exam Quality Assessment: Supplemental Oxygen (3L), Urine Catheter, DVT Prophylaxis General: Alert, Oriented, Cooperative, No Acute Distress HEENT: Pupils Equal, Pupils Reactive, Mucous Membr. Moist/[place] Neck: Supple, Trachea Midline Lungs: Normal Respiratory Effort, Decreased Breath Sounds, Rhonchi. No: Rales, Wheezing Cardiovascular: Regular Rate, Regular Rhythm, Murmurs GI/Abdominal Exam: Normal Bowel Sounds, Soft, Non-Tender, No Distention, No Abnormal Bruit (Female) Exam: Deferred Extremities: Non-Tender, Pedal Edema, Limited Range of Motion, Other ( Significant pedal edema. Chronic oozing wounds to bilateral legs. AYESHA bandages in place.) Skin: Warm, Dry, Intact, Ecchymosis (Scattered ) Neurological: No New Focal Deficit Psy/Mental Status: Alert Sepsis Event Note - Evaluation Sepsis Screening Result: No Definite Risk - Focused Exam Vital Signs: Vital Signs Temp Resp BP Pulse Ox Pulse Ox Pulse Ox 09/15/19 09:50 98 09/15/19 08:00 98.9 F 20 107/57 L 92 L 09/15/19 05:47 97 09/15/19 05:30 97 09/15/19 04:00 97.6 F 13 90/50 L 97 09/15/19 03:30 97 09/15/19 02:16 94 L 09/15/19 00:00 97.8 F 14 97/78 93 L Date Exam was Performed: 09/17/19 Time Exam was Performed: 07:37 - Problem List & Annotations (1) Adult failure to thrive syndrome SNOMED Code(s): 887996303 Code(s): R62.7 - ADULT FAILURE TO THRIVE Status: Acute Current Visit: Yes (2) CHF exacerbation SNOMED Code(s): 700403534, 97298854874555 Code(s): I50.9 - HEART FAILURE, UNSPECIFIED Status: Acute Current Visit: Yes Qualifiers: Heart failure type: combined systolic and diastolic Qualified Code(s): I50.43 - Acute on chronic combined systolic (congestive) and diastolic ( congestive) heart failure (3) COPD (chronic obstructive pulmonary disease) SNOMED Code(s): 42354585 Code(s): J44.9 - CHRONIC OBSTRUCTIVE PULMONARY DISEASE, UNSPECIFIED Status : Acute Current Visit: Yes (4) Chronic renal insufficiency, stage IV (severe) SNOMED Code(s): 267052634 Code(s): N18.4 - CHRONIC KIDNEY DISEASE, STAGE 4 (SEVERE) Status: Acute Current Visit: Yes (5) Acute on chronic combined systolic (congestive) and diastolic (congestive) heart failure SNOMED Code(s): 045830552496932, 643040462668664 Code(s): I50.43 - ACUTE ON CHRONIC COMBINED SYSTOLIC AND DIASTOLIC HRT FAIL Status: Chronic Priority: Medium Current Visit: No (6) Chronic kidney disease (CKD) stage G3b/A2, moderately decreased glomerular filtration rate (GFR) between 30-44 mL/min/1.73 square meter and albuminuria creatinine ratio between 30-299 mg/g SNOMED Code(s): 507463079, 538980539, 976933891 Code(s): N18.3 - CHRONIC KIDNEY DISEASE, STAGE 3 (MODERATE) Status: Chronic Priority: Medium Current Visit: No (7) MRSA (methicillin resistant Staphylococcus aureus) colonization SNOMED Code(s): 817598129 Code(s): Z22.322 - CARRIER OR SUSPECTED CARRIER OF METHICILLIN RESIS STAPH Status: Chronic Priority: Medium Current Visit: No (8) CHRIS (obstructive sleep apnea) SNOMED Code(s): 67352028 Code(s): G47.33 - OBSTRUCTIVE SLEEP APNEA (ADULT) (PEDIATRIC) Status: Chronic Priority: Medium Current Visit: No (9) Pacemaker SNOMED Code(s): 321343292 Code(s): Z95.0 - PRESENCE OF CARDIAC PACEMAKER Status: Chronic Priority: Low Current Visit: No (10) Venous ulcer of leg SNOMED Code(s): 382617566, 518352799 Code(s): I83.009 - VARICOSE VEINS OF UNSP LOWER EXTREMITY W ULCER OF UNSP SITE; L97.909 - NON-PRS CHRONIC ULC UNSP PRT OF UNSP LOW LEG W UNSP SEVERITY Status: Chronic Priority: Medium Current Visit: No Qualifiers: Laterality: unspecified laterality Qualified Code(s): I83.009 - Varicose veins of unspecified lower extremity with ulcer of unspecified site; L97.909 - Non-pressure chronic ulcer of unspecified part of unspecified lower leg with unspecified severity (11) Generalized weakness SNOMED Code(s): 78521898 Code(s): R53.1 - WEAKNESS Status: Chronic Priority: Medium Current Visit: Yes (12) OCD (obsessive compulsive disorder) SNOMED Code(s): 258123396 Code(s): F42.9 - OBSESSIVE-COMPULSIVE DISORDER, UNSPECIFIED Status: Chronic Priority: Low Current Visit: No Qualifiers: Obsessive-compulsive disorder type: excoriation disorder Qualified Code(s) : 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 (13) Anasarca SNOMED Code(s): 620544863, 284880986 Code(s): R60.1 - GENERALIZED EDEMA Status: Chronic Priority: Medium Current Visit: Yes (14) Bedbound SNOMED Code(s): 168748848 Code(s): Z74.01 - BED CONFINEMENT STATUS Status: Chronic Priority: Medium Current Visit: Yes (15) Candidal dermatitis SNOMED Code(s): 49363266 Code(s): B37.2 - CANDIDIASIS OF SKIN AND NAIL Status: Chronic Priority: Medium Current Visit: Yes (16) Hypoxemic respiratory failure, chronic SNOMED Code(s): 063719032 Code(s): J96.11 - CHRONIC RESPIRATORY FAILURE WITH HYPOXIA Status: Acute Priority: High Current Visit: Yes (17) Macrocytosis without anemia SNOMED Code(s): 318403737 Code(s): D75.89 - OTHER SPECIFIED DISEASES OF BLOOD AND BLOOD-FORMING ORGANS Status: Chronic Priority: Low Current Visit: Yes (18) jail resident SNOMED Code(s): 581501030 Code(s): Z59.3 - PROBLEMS RELATED TO LIVING IN RESIDENTIAL INSTITUTION Status: Chronic Priority: Low Current Visit: Yes (19) Perineal irritation SNOMED Code(s): 316670279 Code(s): L29.3 - ANOGENITAL PRURITUS, UNSPECIFIED Status: Acute Priority : High Current Visit: Yes (20) Right heart failure due to pulmonary hypertension SNOMED Code(s): 569145939 Code(s): I27.29 - OTHER SECONDARY PULMONARY HYPERTENSION; I50.810 - RIGHT HEART FAILURE, UNSPECIFIED Status: Chronic Priority: Low Current Visit: No (21) Severe muscle deconditioning SNOMED Code(s): 979301781 Code(s): R29.898 - OTH SYMPTOMS AND SIGNS INVOLVING THE MUSCULOSKELETAL SYSTEM Status: Chronic Priority: Medium Current Visit: Yes (22) Venous stasis ulcers Status: Chronic Priority: Medium Current Visit: Yes Qualifiers: Venous stasis ulcer site: unspecified site Varicose vein presence: unspecified whether present Non-pressure ulcer stage: unspecified non- pressure ulcer stage Qualified Code(s): I83.009 - Varicose veins of unspecified lower extremity with ulcer of unspecified site; L97.909 - Non- pressure chronic ulcer of unspecified part of unspecified lower leg with unspecified severity (23) Altered awareness, transient SNOMED Code(s): 806646096 Code(s): R40.4 - TRANSIENT ALTERATION OF AWARENESS Status: Chronic Priority: Medium Current Visit: No (24) Chronic diastolic congestive heart failure, NYHA class 3 SNOMED Code(s): 759957643, 934831352, 617807185 Code(s): I50.32 - CHRONIC DIASTOLIC (CONGESTIVE) HEART FAILURE Status: Chronic Priority: Medium Current Visit: No (25) Chronic venous insufficiency of lower extremity SNOMED Code(s): 614331100 Code(s): I87.2 - VENOUS INSUFFICIENCY (CHRONIC) (PERIPHERAL) Status: Chronic Priority: Low Current Visit: No (26) Constipation by delayed colonic transit SNOMED Code(s): 93141381 Code(s): K59.01 - SLOW TRANSIT CONSTIPATION Status: Chronic Priority: Medium Current Visit: Yes - Problem List Review Problem List Initiated/Reviewed/Updated: Yes - Plan Plan:: Hypoxemic respiratory failure Respiratory distress 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 Diastolic heart failure exacerbation Anasarca COPD (chronic obstructive pulmonary disease) CHRIS (obstructive sleep apnea) Recurrent readmissions Altered mental status on admission which precluded appropriate Audible stridor + anasarca Minimal lung expansion Home furosemide and spironolactone PLAN - BIPAP/ CPAP as needed - Lasix IV BID - Daily weights - Strict intake and output - Heart healthy diet - Fluid restriction Atrial fibrillation, rate controlled on Eliquis No acute issues PLAN - Continue home Eliquis - Monitor VS Chronic venous stasis ulcers Stable since previous admission No signs of cellulitis No purulent drainage or foul smell Has been receiving outpatient wound care PLAN - Continue current wound care Severe muscle deconditioning Generalized weakness Adult failure to thrive syndrome Bedbound jail resident Severely deconditioned with steady decline in the past couple of months PLAN - PT/OT evaluation and treatment - Will likely require SNF placement - has been recommended multiple times on past visits Chronic renal insufficiency, stage IV (severe) GFR 30 on admission Baseline appears to be mid 30's to low 40's PLAN - Avoid nephrotoxic medications - Renally dosed medications - Monitor urine output Hypotension in the setting of hypertension, Resolved BP on admission 91/63 Has been stable on floor PLAN - Continue to hold home BP medications Hypothyroidism No acute issues PLAN - Continue home levothyroxine MRSA (methicillin resistant Staphylococcus aureus) colonization No acute issues PLAN - Repeat swab - Contact isolation Perineal irritation Candidal dermatitis Bedbound Patient has chronic scratching stigma and excoriations Poor hygiene PLAN - Nystatin powder - Calmoseptine - Rotation by staff and out of bed to chair - Interdry - [place] placed to keep perineal area dry/clean Depression/Anxiety No acute issues PLAN - PRN Lorazepam - PRN Zolpidem PROPHYLAXIS DVT- continue Eliquis GI- not indicated CODE STATUS: DNR DISPOSITION: Downgraded to floor status. Continue PRN BiPAP and IVP diuresis. [facility]
[2019-09-15] MEDS: Potassium Chloride 20 MEQ Tab.ER PO SCH ×2 (12:34→20:10)
[2019-09-15] MEDS ORDERED: Furosemide 40 MG/4 ML VIAL IVPUSH ONE ×2 (13:00→21:00)
[2019-09-15] MEDS ORDERED: Bisacodyl 5 MG Tab PO PRN (13:47)
[2019-09-15] MEDS: Docusate Sodium 100 MG Cap PO SCH (18:15)
[2019-09-15] MEDS ORDERED: LORazepam 0.5 MG Tab PO PRN (23:26)
[2019-09-16] MEDS ORDERED: Acetaminophen 325 MG Tab PO SCH
[2019-09-16] MEDS: Albuterol/Ipratropium 3.0-0.5 MG/3 ML Neb Soln NEB SCH ×6 (01:29→21:16)
[2019-09-16] MEDS ORDERED: Furosemide 40 MG/4 ML VIAL IVPUSH ONE (06:00)
--- NOTE | 2019-09-16 07:13 | PCM.PN ---
- General Info Date of Service: 09/16/19 Admission Dx/Problem (Free Text): Admission Diagnosis/Problem Admission Diagnosis/Problem Hypoxemia Subjective Update: In to see Citlali. She is feeling better today and clinically looks good. She reports she continues to improve. She did not sleep well last night. Unknown last BM. Hopeful for discharge tomorrow pending continued improvement. Functional Status: Reports: Pain Controlled, Tolerating Diet, Ambulating, Urinating (Adam in place ). Denies: New Symptoms - Review of Systems General: Reports: No Symptoms. Denies: Fever, Chills HEENT: Reports: No Symptoms. Denies: Headaches, Sore Throat Pulmonary: Reports: No Symptoms, Shortness of Breath. Denies: Cough, Sputum, Wheezing Cardiovascular: Reports: Edema (chronic ). Denies: Chest Pain, Palpitations Gastrointestinal: Reports: Other (Unknown last BM ). Denies: Abdominal Pain, Constipation, Diarrhea, Nausea, Vomiting Genitourinary: Reports: Other (Adam in place ) Musculoskeletal: Reports: No Symptoms Skin: Reports: No Symptoms. Denies: Cyanosis Neurological: Reports: Difficulty Walking, Gait Disturbance Psychiatric: Reports: No Symptoms - Patient Data Vitals - Most Recent: Last Vital Signs Temp 97.5 F 09/16/19 04:14 Pulse 78 09/16/19 04:15 Resp 20 09/16/19 04:14 BP 97/71 09/16/19 04:14 Pulse Ox 100 09/16/19 06:24 Weight - Most Recent: 171 lb 9.6 oz I&O - Last 24 Hours: Intake & Output 09/15/19 09/16/19 09/16/19 22:59 06:59 14:59 Intake Total 520 400 Output Total 876 700 Balance -356 -300 Lab Results Last 24 Hours: Laboratory Results - last 24 hr 09/15/19 09/16/19 09/16/19 Range/Units 08:27 05:20 05:20 WBC 13.29 H (3.98-10.04) K/mm3 RBC 3.48 L (3.98-5.22) M/mm3 Hgb 11.4 (11.2-15.7) gm/dl Hct 35.7 (34.1-44.9) % MCV 102.6 H (79.4-94.8) fl MCH 32.8 H (25.6-32.2) pg MCHC 31.9 L (32.2-35.5) g/dl RDW Std Deviation 63.3 H (36.4-46.3) fL Plt Count 192 (182-369) K/mm3 MPV 9.2 L (9.4-12.3) fl Neut % (Auto) 85.5 H (34.0-71.1) % Lymph % (Auto) 6.3 L (19.3-51.7) % [place] % (Auto) 7.4 (4.7-12.5) % Eos % (Auto) 0.2 L (0.7-5.8) Baso % (Auto) 0.1 (0.1-1.2) % Neut # (Auto) 11.37 H (1.56-6.13) K/mm3 Lymph # (Auto) 0.84 L (1.18-3.74) K/mm3 [place] # (Auto) 0.98 H (0.24-0.36) K/mm3 Eos # (Auto) 0.02 L (0.04-0.36) K/mm3 Baso # (Auto) 0.01 (0.01-0.08) K/mm3 Puncture Site Rt radial ABG pH 7.41 (7.35-7.45) ABG pCO2 42.9 (35.0-45.0) mmHg ABG pO2 93.0 (80.0-100.0) mmHg ABG HCO3 26.6 H (22.0-26.0) meq/L ABG O2 Saturation 96.7 (96.0-97.0) % ABG Base Excess 2.1 H (-2-2.0) Toni Test Positive O2 Delivery Device Nasal cannula Oxygen Flow Rate 3.0 FiO2 0.00 L (21.00-100.00) % Sodium 134 L (136-145) mEq/L Potassium 4.7 (3.5-5.1) mEq/L Chloride 96 L (98-107) mEq/L Carbon Dioxide 28 (21-32) mEq/L Anion Gap 14.7 (5-15) BUN 50 H (7-18) mg/dL Creatinine 1.9 H (0.55-1.02) mg/dL Est Cr Clr Drug Dosing 14.42 mL/min Estimated GFR (MDRD) 25 (>60) mL/min BUN/Creatinine Ratio 26.3 H (14-18) Glucose 106 (83-115) mg/dL Calcium 9.3 (8.5-10.1) mg/dL Magnesium 1.8 (1.8-2.4) mg/dl Lorenzo Results Last 24 Hours: Microbiology 09/14/19 14:09 Aerobic Blood Culture - Preliminary Blood - Venous - Lab Draw NO GROWTH AFTER 1 DAY Anaerobic Blood Culture - Preliminary NO GROWTH AFTER 1 DAY 09/14/19 13:48 Aerobic Blood Culture - Preliminary Blood - Venous NO GROWTH AFTER 1 DAY Anaerobic Blood Culture - Final 09/14/19 14:20 Urine Culture - Preliminary Urine, Catheterized Gram Negative Rods Med Orders - Current: Current Medications Acetaminophen (Tylenol) 650 mg PO Q12H [facility] Last Admin: 09/15/19 23:59 Dose: 650 mg Albuterol/Ipratropium (Duoneb 3.0-0.5 Mg/3 Ml) 3 ml NEB Q4HRRT [facility] Last Admin: 09/16/19 06:13 Dose: 3 ml Apixaban (Eliquis) 2.5 mg PO BID [facility] Bacitracin (Bacitracin Oint) 0 gm TOP DAILY [facility] Bisacodyl (Dulcolax) 10 mg PO DAILY PRN PRN Reason: Constipation Docusate Sodium (Colace) 100 mg PO DAILY [facility] Last Admin: 09/15/19 18:15 Dose: Not Given Loperamide HCl (Imodium) 2 mg PO BID [facility] Lorazepam (Ativan) 0.5 mg PO BID PRN PRN Reason: Anxiety Non-Formulary Medication (Triamcinolone Acetonide [Nasacort]) 2 spray INH DAILY [facility] Pramipexole Dihydrochloride (Mirapex) 0.5 mg PO DAILY [facility] Sertraline HCl (Zoloft) 50 mg PO BEDTIME [facility] Sodium Chloride (Saline Flush) 10 ml FLUSH ASDIRECTED PRN PRN Reason: Keep Vein Open Last Admin: 09/15/19 03:24 Dose: 10 ml Sodium Chloride (Saline Flush) 10 ml FLUSH ASDIRECTED PRN PRN Reason: Keep Vein Open Last Admin: 09/14/19 14:40 Dose: 10 ml Discontinued Medications Furosemide (Lasix) 60 mg IVPUSH NOW ONE Stop: 09/14/19 13:48 Last Admin: 09/14/19 14:18 Dose: 60 mg Furosemide (Lasix) 60 mg IVPUSH BIDDIURETIC ONE Stop: 09/16/19 06:01 Last Admin: 09/16/19 06:15 Dose: 60 mg Furosemide (Lasix) 60 mg IVPUSH ONETIME ONE Stop: 09/15/19 13:01 Last Admin: 09/15/19 13:05 Dose: 60 mg Furosemide (Lasix) 60 mg IVPUSH ONETIME ONE Stop: 09/15/19 21:01 Last Admin: 09/15/19 20:11 Dose: 60 mg Metolazone (Zaroxolyn) 2.5 mg PO ONETIME ONE Stop: 09/14/19 15:59 Last Admin: 09/14/19 16:51 Dose: 2.5 mg Morphine Sulfate (Morphine) 2 mg IVPUSH ONETIME ONE Stop: 09/14/19 15:58 Last Admin: 09/14/19 16:51 Dose: 2 mg Potassium Chloride (Klor-Con M20) 40 meq PO BID KAY Stop: 09/15/19 21:01 Last Admin: 09/15/19 20:10 Dose: 40 meq - Exam Quality Assessment: Supplemental Oxygen (2L baseline ), Urine Catheter, DVT Prophylaxis General: Alert, Oriented, Cooperative, No Acute Distress HEENT: Pupils Equal, Mucous Membr. Moist/[place] Neck: Supple, Trachea Midline Lungs: Normal Respiratory Effort, Decreased Breath Sounds Cardiovascular: Regular Rate, Regular Rhythm, Murmurs, Other (paced rhythm ) GI/Abdominal Exam: Normal Bowel Sounds, Soft, Non-Tender, No Distention, No Abnormal Bruit (Female) Exam: Deferred Back Exam: Normal Inspection, Decreased Range of Motion Extremities: Non-Tender, Pedal Edema, Limited Range of Motion, Other ( Significant bilateral pedal edema with oozing leg wounds - at baseline. AYESHA bandages in place. ) Skin: Warm, Dry, Intact, Ecchymosis (scattered ) Neurological: No New Focal Deficit Psy/Mental Status: Alert Sepsis Event Note - Evaluation Sepsis Screening Result: No Definite Risk - Focused Exam Vital Signs: Vital Signs Temp Pulse Resp BP Pulse Ox Pulse Ox 09/16/19 06:24 100 09/16/19 04:15 78 97 09/16/19 04:14 97.5 F 73 20 97/71 91 L 09/16/19 01:32 95 09/15/19 21:43 95 09/15/19 19:58 97.3 F 82 22 H 116/70 94 L Date Exam was Performed: 09/17/19 Time Exam was Performed: 07:47 - Problem List & Annotations (1) Adult failure to thrive syndrome SNOMED Code(s): 447411675 Code(s): R62.7 - ADULT FAILURE TO THRIVE Status: Acute Current Visit: Yes (2) CHF exacerbation SNOMED Code(s): 481296899, 54648566335752 Code(s): I50.9 - HEART FAILURE, UNSPECIFIED Status: Acute Current Visit: Yes Qualifiers: Heart failure type: combined systolic and diastolic Qualified Code(s): I50.43 - Acute on chronic combined systolic (congestive) and diastolic ( congestive) heart failure (3) COPD (chronic obstructive pulmonary disease) SNOMED Code(s): 54215866 Code(s): J44.9 - CHRONIC OBSTRUCTIVE PULMONARY DISEASE, UNSPECIFIED Status : Acute Current Visit: Yes (4) Chronic renal insufficiency, stage IV (severe) SNOMED Code(s): 636901900 Code(s): N18.4 - CHRONIC KIDNEY DISEASE, STAGE 4 (SEVERE) Status: Acute Current Visit: Yes (5) Acute on chronic combined systolic (congestive) and diastolic (congestive) heart failure SNOMED Code(s): 695357075372965, 474536123080960 Code(s): I50.43 - ACUTE ON CHRONIC COMBINED SYSTOLIC AND DIASTOLIC HRT FAIL Status: Chronic Priority: Medium Current Visit: No (6) Chronic kidney disease (CKD) stage G3b/A2, moderately decreased glomerular filtration rate (GFR) between 30-44 mL/min/1.73 square meter and albuminuria creatinine ratio between 30-299 mg/g SNOMED Code(s): 406168211, 858768202, 680175370 Code(s): N18.3 - CHRONIC KIDNEY DISEASE, STAGE 3 (MODERATE) Status: Chronic Priority: Medium Current Visit: No (7) MRSA (methicillin resistant Staphylococcus aureus) colonization SNOMED Code(s): 562248737 Code(s): Z22.322 - CARRIER OR SUSPECTED CARRIER OF METHICILLIN RESIS STAPH Status: Chronic Priority: Medium Current Visit: No (8) CHRIS (obstructive sleep apnea) SNOMED Code(s): 34763680 Code(s): G47.33 - OBSTRUCTIVE SLEEP APNEA (ADULT) (PEDIATRIC) Status: Chronic Priority: Medium Current Visit: No (9) Pacemaker SNOMED Code(s): 845903211 Code(s): Z95.0 - PRESENCE OF CARDIAC PACEMAKER Status: Chronic Priority: Low Current Visit: No (10) Venous ulcer of leg SNOMED Code(s): 051883950, 285574287 Code(s): I83.009 - VARICOSE VEINS OF UNSP LOWER EXTREMITY W ULCER OF UNSP SITE; L97.909 - NON-PRS CHRONIC ULC UNSP PRT OF UNSP LOW LEG W UNSP SEVERITY Status: Chronic Priority: Medium Current Visit: No Qualifiers: Laterality: unspecified laterality Qualified Code(s): I83.009 - Varicose veins of unspecified lower extremity with ulcer of unspecified site; L97.909 - Non-pressure chronic ulcer of unspecified part of unspecified lower leg with unspecified severity (11) Generalized weakness SNOMED Code(s): 08183005 Code(s): R53.1 - WEAKNESS Status: Chronic Priority: Medium Current Visit: Yes (12) OCD (obsessive compulsive disorder) SNOMED Code(s): 434054871 Code(s): F42.9 - OBSESSIVE-COMPULSIVE DISORDER, UNSPECIFIED Status: Chronic Priority: Low Current Visit: No Qualifiers: Obsessive-compulsive disorder type: excoriation disorder Qualified Code(s) : 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 - Problem List Review Problem List Initiated/Reviewed/Updated: Yes - My Orders Last 24 Hours: My Active Orders 09/15/19 13:47 bisacodyL [Dulcolax] 10 mg PO DAILY PRN 09/15/19 14:00 Docusate Sodium [Colace] 100 mg PO DAILY 09/15/19 Lunch 2 Gram Sodium Diet [DIET] Fluid Restriction [DIET] 09/16/19 05:20 CBC WITH AUTO DIFF [HEME] AM - Plan Plan:: Hypoxemic respiratory failure Respiratory distress 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 Diastolic heart failure exacerbation Anasarca COPD (chronic obstructive pulmonary disease) CHRIS (obstructive sleep apnea) Recurrent readmissions Altered mental status on admission which precluded appropriate Audible stridor + anasarca Minimal lung expansion Home furosemide and spironolactone PLAN - BIPAP/ CPAP as needed - Lasix IV BID - Daily weights - Strict intake and output - Heart healthy diet - Fluid restriction Atrial fibrillation, rate controlled on Eliquis No acute issues PLAN - Continue home Eliquis - Monitor VS Chronic venous stasis ulcers Stable since previous admission No signs of cellulitis No purulent drainage or foul smell Has been receiving outpatient wound care Per PT has been stable to improved PLAN - Continue current wound care Severe muscle deconditioning Generalized weakness Adult failure to thrive syndrome Bedbound residential resident Severely deconditioned with steady decline in the past couple of months PLAN - PT/OT evaluation and treatment - Family working on SNF paperwork - CM/SW for discharge planning Chronic renal insufficiency, stage IV (severe) GFR 30 on admission, Now 33 Baseline appears to be mid 30's to low 40's Likely exacerbated by diuresis PLAN - Avoid nephrotoxic medications - Renally dosed medications - Monitor urine output Hypotension in the setting of hypertension, Resolved BP on admission 91/63 Has been stable on floor PLAN - Continue to hold home BP medications Hypothyroidism No acute issues PLAN - Continue home levothyroxine MRSA (methicillin resistant Staphylococcus aureus) colonization No acute issues PLAN - Contact isolation Perineal irritation Candidal dermatitis Bedbound Patient has chronic scratching stigma and excoriations Poor hygiene PLAN - Nystatin powder - Calmoseptine - Rotation by staff and out of bed to chair - Interdry - Adam placed to keep perineal area dry/clean - discontinue this afternoon Depression/Anxiety No acute issues PLAN - PRN Lorazepam - PRN Zolpidem Constipation Acute on chronic Unknown last BM - [place] does not track this and patient cannot remember PLAN - Started Colace - PRN PO Dulcolax - Continue to monitor Inactive: Positive UA UA obtained in ED was known to be contaminated Repeat UA on floor negative Initial UA growing klebsiella PLAN - No further workup PROPHYLAXIS DVT- continue Eliquis GI- not indicated CODE STATUS: DNR DISPOSITION: Downgraded to floor status. Continue PRN BiPAP and IVP diuresis. SW working on SNF placement. From [facility]
[2019-09-16] MEDS: Apixaban 2.5 MG Tab PO SCH ×2 (08:35→20:02)
[2019-09-16] MEDS: Pramipexole 0.5 MG Tab PO SCH (08:35)
[2019-09-16] MEDS: Docusate Sodium 100 MG Cap PO SCH (08:35)
[2019-09-16] MEDS: Bacitracin Oint 15 GM Tube TOP SCH (08:40)
[2019-09-16] MEDS: Fluticasone Propionate Nasal Spray 16 GM Bottle NAS SCH (08:42)
[2019-09-16] MEDS ORDERED: Loperamide 2 MG Cap PO SCH (09:00)
[2019-09-16] MEDS: Acetaminophen 325 MG Tab PO SCH ×2 (11:25→20:03)
[2019-09-16] MEDS ORDERED: Melatonin 3 MG Tab PO PRN (11:57)
[2019-09-16] MEDS ORDERED: LORazepam 2 MG/ML SDV IVPUSH PRN (11:57)
[2019-09-16] MEDS: Furosemide 100 MG/10 ML SDV IVPUSH SCH (13:35)
[2019-09-16] MEDS: Nystatin Topical Powder 15 GM Bottle TOP SCH (20:02)
[2019-09-16] MEDS: Sertraline 50 MG Tab PO SCH (20:02)
[2019-09-17] MEDS: Albuterol/Ipratropium 3.0-0.5 MG/3 ML Neb Soln NEB SCH ×6 (01:30→21:09)
[2019-09-17] MEDS: Furosemide 100 MG/10 ML SDV IVPUSH SCH ×2 (06:04→13:40)
[2019-09-17] MEDS ORDERED: Potassium Chloride 20 MEQ Tab.ER PO ONE (07:30)
[2019-09-17] MEDS: Docusate Sodium 100 MG Cap PO SCH (09:02)
[2019-09-17] MEDS: Pramipexole 0.5 MG Tab PO SCH (09:02)
[2019-09-17] MEDS: Apixaban 2.5 MG Tab PO SCH (09:02)
[2019-09-17] MEDS: Acetaminophen 325 MG Tab PO SCH (09:02)
[2019-09-17] MEDS: Fluticasone Propionate Nasal Spray 16 GM Bottle NAS SCH (09:03)
[2019-09-17] MEDS: Bacitracin Oint 15 GM Tube TOP SCH (09:04)
[2019-09-17] MEDS: Nystatin Topical Powder 15 GM Bottle TOP SCH (09:04)
--- NOTE | 2019-09-17 10:03 | PCM.PN ---
- General Info Date of Service: 09/17/19 Admission Dx/Problem (Free Text): Admission Diagnosis/Problem Admission Diagnosis/Problem Hypoxemia Subjective Update: In to see Citlali. She reports she feels ok but is quite tired. She denies any acute issues and was surprised to see her lunch was in front of her. No patient concerns. She reports she did not sleep very well again last night. Functional Status: Reports: Pain Controlled, Tolerating Diet, Ambulating, Urinating. Denies: New Symptoms - Review of Systems General: Reports: Weakness, Fatigue, Malaise. Denies: Fever, Chills HEENT: Reports: No Symptoms. Denies: Headaches, Sore Throat Pulmonary: Reports: Shortness of Breath (chronic ), Cough, Sputum Cardiovascular: Reports: Dyspnea on Exertion (chronic ). Denies: Chest Pain, Palpitations Gastrointestinal: Reports: No Symptoms, Other (Had BM this AM ). Denies: Abdominal Pain, Constipation, Diarrhea, Nausea, Vomiting Genitourinary: Reports: No Symptoms. Denies: Pain Musculoskeletal: Reports: No Symptoms Skin: Reports: No Symptoms Neurological: Reports: Pre-Existing Deficit, Difficulty Walking, Gait Disturbance Psychiatric: Reports: No Symptoms - Patient Data Vitals - Most Recent: Last Vital Signs Temp 98.2 F 09/17/19 04:07 Pulse 75 09/17/19 04:07 Resp 19 09/17/19 04:07 BP 129/94 H 09/17/19 04:07 Pulse Ox 98 09/17/19 09:29 Weight - Most Recent: 171 lb 9.6 oz I&O - Last 24 Hours: Intake & Output 09/16/19 09/17/19 09/17/19 22:59 06:59 14:59 Intake Total 230 200 Output Total 900 550 Balance -670 -350 Lab Results Last 24 Hours: Laboratory Results - last 24 hr 09/17/19 09/17/19 Range/Units 05:06 05:06 WBC 8.41 (3.98-10.04) K/mm3 RBC 3.40 L (3.98-5.22) M/mm3 Hgb 11.0 L (11.2-15.7) gm/dl Hct 34.8 (34.1-44.9) % MCV 102.4 H (79.4-94.8) fl MCH 32.4 H (25.6-32.2) pg MCHC 31.6 L (32.2-35.5) g/dl RDW Std Deviation 61.6 H (36.4-46.3) fL Plt Count 181 L (182-369) K/mm3 MPV 9.1 L (9.4-12.3) fl Neut % (Auto) 78.6 H (34.0-71.1) % Lymph % (Auto) 9.4 L (19.3-51.7) % [place] % (Auto) 8.0 (4.7-12.5) % Eos % (Auto) 2.6 (0.7-5.8) Baso % (Auto) 0.2 (0.1-1.2) % Neut # (Auto) 6.61 H (1.56-6.13) K/mm3 Lymph # (Auto) 0.79 L (1.18-3.74) K/mm3 [place] # (Auto) 0.67 H (0.24-0.36) K/mm3 Eos # (Auto) 0.22 (0.04-0.36) K/mm3 Baso # (Auto) 0.02 (0.01-0.08) K/mm3 Manual Slide Review Abnormal smear Sodium 134 L (136-145) mEq/L Potassium 3.5 (3.5-5.1) mEq/L Chloride 94 L (98-107) mEq/L Carbon Dioxide 31 (21-32) mEq/L Anion Gap 12.5 (5-15) BUN 47 H (7-18) mg/dL Creatinine 1.5 H (0.55-1.02) mg/dL Est Cr Clr Drug Dosing 18.26 mL/min Estimated GFR (MDRD) 33 (>60) mL/min BUN/Creatinine Ratio 31.3 H (14-18) Glucose 92 (83-115) mg/dL Calcium 8.9 (8.5-10.1) mg/dL Magnesium 1.8 (1.8-2.4) mg/dl Lorenzo Results Last 24 Hours: Microbiology 09/14/19 14:09 Aerobic Blood Culture - Preliminary Blood - Venous - Lab Draw NO GROWTH AFTER 2 DAYS Anaerobic Blood Culture - Preliminary NO GROWTH AFTER 2 DAYS 09/14/19 13:48 Aerobic Blood Culture - Preliminary Blood - Venous NO GROWTH AFTER 2 DAYS Anaerobic Blood Culture - Final 09/14/19 14:20 Urine Culture - Final Urine, Catheterized Klebsiella Oxytoca Med Orders - Current: Current Medications Acetaminophen (Tylenol) 650 mg PO BID [facility] Last Admin: 09/17/19 09:02 Dose: 650 mg Albuterol/Ipratropium (Duoneb 3.0-0.5 Mg/3 Ml) 3 ml NEB Q4HRRT [facility] Last Admin: 09/17/19 09:29 Dose: 3 ml Apixaban (Eliquis) 2.5 mg PO BID [facility] Last Admin: 09/17/19 09:02 Dose: 2.5 mg Bacitracin (Bacitracin Oint) 0 gm TOP DAILY [facility] Last Admin: 09/17/19 09:04 Dose: 1 applic Bisacodyl (Dulcolax) 10 mg PO DAILY PRN PRN Reason: Constipation Docusate Sodium (Colace) 100 mg PO DAILY [facility] Last Admin: 09/17/19 09:02 Dose: 100 mg Fluticasone Propionate (Flonase) 0 gm MEG DAILY [facility] Last Admin: 09/17/19 09:03 Dose: 1 spray Furosemide (Lasix) 60 mg IVPUSH BIDDIURETIC [facility] Last Admin: 09/17/19 06:04 Dose: 60 mg Loperamide HCl (Imodium) 2 mg PO BID [facility] Lorazepam (Ativan) 0.5 mg PO BID PRN PRN Reason: Anxiety Lorazepam (Ativan) 0.5 mg IVPUSH BEDTIME PRN PRN Reason: Insomnia Melatonin (Melatonin) 9 mg PO BEDTIME PRN PRN Reason: Insomnia Nystatin (Nystop) 0 gm TOP BID [facility] Last Admin: 09/17/19 09:04 Dose: 1 applic Pramipexole Dihydrochloride (Mirapex) 0.5 mg PO DAILY [facility] Last Admin: 09/17/19 09:02 Dose: 0.5 mg Sertraline HCl (Zoloft) 50 mg PO BEDTIME [facility] Last Admin: 09/16/19 20:02 Dose: 50 mg Sodium Chloride (Saline Flush) 10 ml FLUSH ASDIRECTED PRN PRN Reason: Keep Vein Open Last Admin: 09/15/19 03:24 Dose: 10 ml Sodium Chloride (Saline Flush) 10 ml FLUSH ASDIRECTED PRN PRN Reason: Keep Vein Open Last Admin: 09/14/19 14:40 Dose: 10 ml Discontinued Medications Acetaminophen (Tylenol) 650 mg PO Q12H [facility] Last Admin: 09/15/19 23:59 Dose: 650 mg Furosemide (Lasix) 60 mg IVPUSH NOW ONE Stop: 09/14/19 13:48 Last Admin: 09/14/19 14:18 Dose: 60 mg Furosemide (Lasix) 60 mg IVPUSH BIDDIURETIC ONE Stop: 09/16/19 06:01 Last Admin: 09/16/19 06:15 Dose: 60 mg Furosemide (Lasix) 60 mg IVPUSH ONETIME ONE Stop: 09/15/19 13:01 Last Admin: 09/15/19 13:05 Dose: 60 mg Furosemide (Lasix) 60 mg IVPUSH ONETIME ONE Stop: 09/15/19 21:01 Last Admin: 09/15/19 20:11 Dose: 60 mg Metolazone (Zaroxolyn) 2.5 mg PO ONETIME ONE Stop: 09/14/19 15:59 Last Admin: 09/14/19 16:51 Dose: 2.5 mg Morphine Sulfate (Morphine) 2 mg IVPUSH ONETIME ONE Stop: 09/14/19 15:58 Last Admin: 09/14/19 16:51 Dose: 2 mg Potassium Chloride (Klor-Con M20) 40 meq PO BID [facility] Stop: 09/15/19 21:01 Last Admin: 09/15/19 20:10 Dose: 40 meq Potassium Chloride (Klor-Con M20) 40 meq PO ONETIME ONE Stop: 09/17/19 07:31 Last Admin: 09/17/19 09:01 Dose: 40 meq - Exam Quality Assessment: Supplemental Oxygen (2L) General: Alert, Oriented, Cooperative HEENT: Pupils Equal, Mucous Membr. Moist/Yarnell Neck: Supple, Trachea Midline Lungs: Clear to Auscultation, Normal Respiratory Effort, Decreased Breath Sounds Cardiovascular: Regular Rate, Regular Rhythm, Other (paced rhythm ) GI/Abdominal Exam: Normal Bowel Sounds, Soft, Non-Tender, No Organomegaly (Female) Exam: Deferred Back Exam: Decreased Range of Motion Extremities: Non-Tender, Pedal Edema (Significant pedal edema with weeping wounds bilaterally. Bilateral AYESHA bandages in place. ), Limited Range of Motion. No: Increased Warmth Skin: Warm, Dry, Ecchymosis (scattered ) Neurological: No New Focal Deficit Psy/Mental Status: Alert Sepsis Event Note - Evaluation Sepsis Screening Result: No Definite Risk - Focused Exam Vital Signs: Vital Signs Temp Pulse Resp BP Pulse Ox Pulse Ox 09/17/19 09:29 98 09/17/19 05:50 97 09/17/19 04:07 98.2 F 75 19 129/94 H 98 09/17/19 01:29 100 09/16/19 23:40 97.2 F 84 18 121/64 100 Date Exam was Performed: 09/17/19 Time Exam was Performed: 13:40 - Problem List & Annotations (1) Adult failure to thrive syndrome SNOMED Code(s): 092007577 Code(s): R62.7 - ADULT FAILURE TO THRIVE Status: Acute Current Visit: Yes (2) CHF exacerbation SNOMED Code(s): 947012196, 19673317483618 Code(s): I50.9 - HEART FAILURE, UNSPECIFIED Status: Acute Current Visit: Yes Qualifiers: Heart failure type: combined systolic and diastolic Qualified Code(s): I50.43 - Acute on chronic combined systolic (congestive) and diastolic ( congestive) heart failure (3) COPD (chronic obstructive pulmonary disease) SNOMED Code(s): 15057433 Code(s): J44.9 - CHRONIC OBSTRUCTIVE PULMONARY DISEASE, UNSPECIFIED Status : Acute Current Visit: Yes (4) Chronic renal insufficiency, stage IV (severe) SNOMED Code(s): 467696105 Code(s): N18.4 - CHRONIC KIDNEY DISEASE, STAGE 4 (SEVERE) Status: Acute Current Visit: Yes (5) Acute on chronic combined systolic (congestive) and diastolic (congestive) heart failure SNOMED Code(s): 851390925416908, 211791352003880 Code(s): I50.43 - ACUTE ON CHRONIC COMBINED SYSTOLIC AND DIASTOLIC HRT FAIL Status: Chronic Priority: Medium Current Visit: No (6) Chronic kidney disease (CKD) stage G3b/A2, moderately decreased glomerular filtration rate (GFR) between 30-44 mL/min/1.73 square meter and albuminuria creatinine ratio between 30-299 mg/g SNOMED Code(s): 230247585, 183635713, 341033325 Code(s): N18.3 - CHRONIC KIDNEY DISEASE, STAGE 3 (MODERATE) Status: Chronic Priority: Medium Current Visit: No (7) MRSA (methicillin resistant Staphylococcus aureus) colonization SNOMED Code(s): 258370585 Code(s): Z22.322 - CARRIER OR SUSPECTED CARRIER OF METHICILLIN RESIS STAPH Status: Chronic Priority: Medium Current Visit: No (8) CHRIS (obstructive sleep apnea) SNOMED Code(s): 51716195 Code(s): G47.33 - OBSTRUCTIVE SLEEP APNEA (ADULT) (PEDIATRIC) Status: Chronic Priority: Medium Current Visit: No (9) Pacemaker SNOMED Code(s): 818364076 Code(s): Z95.0 - PRESENCE OF CARDIAC PACEMAKER Status: Chronic Priority: Low Current Visit: No (10) Venous ulcer of leg SNOMED Code(s): 843720248, 395787302 Code(s): I83.009 - VARICOSE VEINS OF UNSP LOWER EXTREMITY W ULCER OF UNSP SITE; L97.909 - NON-PRS CHRONIC ULC UNSP PRT OF UNSP LOW LEG W UNSP SEVERITY Status: Chronic Priority: Medium Current Visit: No Qualifiers: Laterality: unspecified laterality Qualified Code(s): I83.009 - Varicose veins of unspecified lower extremity with ulcer of unspecified site; L97.909 - Non-pressure chronic ulcer of unspecified part of unspecified lower leg with unspecified severity (11) Generalized weakness SNOMED Code(s): 08049802 Code(s): R53.1 - WEAKNESS Status: Chronic Priority: Medium Current Visit: Yes (12) OCD (obsessive compulsive disorder) SNOMED Code(s): 216006237 Code(s): F42.9 - OBSESSIVE-COMPULSIVE DISORDER, UNSPECIFIED Status: Chronic Priority: Low Current Visit: No Qualifiers: Obsessive-compulsive disorder type: excoriation disorder Qualified Code(s) : 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 (13) Hypoxemic respiratory failure, chronic SNOMED Code(s): 893544299 Code(s): J96.11 - CHRONIC RESPIRATORY FAILURE WITH HYPOXIA Status: Chronic Priority: High Current Visit: Yes (14) Anasarca SNOMED Code(s): 374126458, 472523862 Code(s): R60.1 - GENERALIZED EDEMA Status: Chronic Priority: Medium Current Visit: Yes (15) Candidal dermatitis SNOMED Code(s): 98108497 Code(s): B37.2 - CANDIDIASIS OF SKIN AND NAIL Status: Chronic Priority: Medium Current Visit: Yes (16) Constipation by delayed colonic transit SNOMED Code(s): 89281908 Code(s): K59.01 - SLOW TRANSIT CONSTIPATION Status: Chronic Priority: Medium Current Visit: Yes (17) Macrocytosis without anemia SNOMED Code(s): 221570140 Code(s): D75.89 - OTHER SPECIFIED DISEASES OF BLOOD AND BLOOD-FORMING ORGANS Status: Chronic Priority: Low Current Visit: Yes (18) Severe muscle deconditioning SNOMED Code(s): 777545278 Code(s): R29.898 - OTH SYMPTOMS AND SIGNS INVOLVING THE MUSCULOSKELETAL SYSTEM Status: Chronic Priority: Medium Current Visit: Yes (19) Venous stasis ulcers Status: Chronic Priority: Medium Current Visit: Yes Qualifiers: Venous stasis ulcer site: unspecified site Varicose vein presence: unspecified whether present Non-pressure ulcer stage: unspecified non- pressure ulcer stage Qualified Code(s): I83.009 - Varicose veins of unspecified lower extremity with ulcer of unspecified site; L97.909 - Non- pressure chronic ulcer of unspecified part of unspecified lower leg with unspecified severity (20) CHF (congestive heart failure) SNOMED Code(s): 81301711 Code(s): I50.9 - HEART FAILURE, UNSPECIFIED Status: Acute Current Visit: No Qualifiers: Heart failure type: unspecified Heart failure chronicity: acute on chronic Qualified Code(s): I50.9 - Heart failure, unspecified (21) Chronic diastolic congestive heart failure, NYHA class 3 SNOMED Code(s): 465178685, 872077873, 330860029 Code(s): I50.32 - CHRONIC DIASTOLIC (CONGESTIVE) HEART FAILURE Status: Chronic Priority: Medium Current Visit: No (22) Chronic venous insufficiency of lower extremity SNOMED Code(s): 891001933 Code(s): I87.2 - VENOUS INSUFFICIENCY (CHRONIC) (PERIPHERAL) Status: Chronic Priority: Low Current Visit: No (23) Right heart failure due to pulmonary hypertension SNOMED Code(s): 738288352 Code(s): I27.29 - OTHER SECONDARY PULMONARY HYPERTENSION; I50.810 - RIGHT HEART FAILURE, UNSPECIFIED Status: Chronic Priority: Low Current Visit: No (24) Weakness SNOMED Code(s): 38002610 Code(s): R53.1 - WEAKNESS Status: Resolved Priority: Medium Current Visit: No - Problem List Review Problem List Initiated/Reviewed/Updated: Yes - My Orders Last 24 Hours: My Active Orders 09/16/19 14:00 Furosemide [Lasix] 60 mg IVPUSH BIDDIURETIC 09/17/19 10:02 RESPIRATORY PANEL Stat 09/17/19 10:03 B PERTUSSIS IGG/M/A AB [REF] Stat - Plan Plan:: Hypoxemic respiratory failure Respiratory distress 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 Diastolic heart failure exacerbation Anasarca COPD (chronic obstructive pulmonary disease) CHRIS (obstructive sleep apnea) Recurrent readmissions Cough Altered mental status on admission which precluded appropriate Audible stridor + anasarca Minimal lung expansion Home furosemide and spironolactone PLAN - BIPAP/ CPAP as needed - Lasix IV BID - Daily weights - Strict intake and output - Heart healthy diet - Fluid restriction - Viral panel - Repeat CXR today Atrial fibrillation, rate controlled on Eliquis No acute issues PLAN - Continue home Eliquis - Monitor VS Chronic venous stasis ulcers Ela in groin Stable since previous admission No signs of cellulitis No purulent drainage or foul smell Has been receiving outpatient wound care Per PT has been stable to improved PLAN - Continue current wound care - Started on nystatin powder Severe muscle deconditioning Generalized weakness Adult failure to thrive syndrome Bedbound [facility] resident Severely deconditioned with steady decline in the past couple of months PLAN - PT/OT evaluation and treatment - Family working on SNF paperwork - CM/SW for discharge planning Chronic renal insufficiency, stage IV (severe) GFR 30 on admission, Now 33 Baseline appears to be mid 30's to low 40's Likely exacerbated by diuresis PLAN - Avoid nephrotoxic medications - Renally dosed medications - Monitor urine output Hypotension in the setting of hypertension, Resolved BP on admission 91/63 Has been stable on floor PLAN - Continue to hold home BP medications Hypothyroidism No acute issues PLAN - Continue home levothyroxine MRSA (methicillin resistant Staphylococcus aureus) colonization No acute issues PLAN - Contact isolation Perineal irritation Candidal dermatitis Bedbound Patient has chronic scratching stigma and excoriations Poor hygiene PLAN - Nystatin powder - Calmoseptine - Rotation by staff and out of bed to chair - Interdry - Adam placed to keep perineal area dry/clean - discontinue this afternoon Depression/Anxiety No acute issues PLAN - PRN Lorazepam - PRN Zolpidem Constipation Acute on chronic Unknown last BM on admission- [facility] does not track this and patient cannot remember BM today 09/17/18 PLAN - Started Colace - PRN PO Dulcolax - Continue to monitor Inactive: Positive UA UA obtained in ED was known to be contaminated Repeat UA on floor negative Initial UA growing klebsiella PLAN - No further workup PROPHYLAXIS DVT- continue Eliquis GI- not indicated CODE STATUS: DNR DISPOSITION: Downgraded to floor status. Continue PRN BiPAP and IVP diuresis. SW working on SNF placement. From [facility] - refusing return due to higher need for care Family meeting held 09/17/18 to discuss discharge. Will require SNF placement Likely discharge in next 24-48 hours
[2019-09-17] MEDS: guaiFENesin 100 MG/5 ML Soln 10 ML UD Cup PO SCH ×2 (10:34→16:05)
--- NOTE | 2019-09-17 15:07 | CR ---
Chest: Two views of the chest are obtained. Comparison: Previous chest x-ray of 09/14/19. Film technique is somewhat dark. Heart is felt to be slightly enlarged. Tortuous thoracic aorta is seen. Pacemaker is noted. Pulmonary vessels are slightly congested which appears chronic. No acute parenchymal change is seen. Impression: 1. Findings as noted above believed to be stable. 2. Nothing acute is appreciated. Diagnostic code #2 This report was dictated in [place] Standard Time
[2019-09-18] MEDS: Apixaban 2.5 MG Tab PO SCH ×2 (00:05→08:03)
[2019-09-18] MEDS: Acetaminophen 325 MG Tab PO SCH ×2 (00:05→08:04)
[2019-09-18] MEDS: Sertraline 50 MG Tab PO SCH (00:05)
[2019-09-18] MEDS: guaiFENesin 100 MG/5 ML Soln 10 ML UD Cup PO SCH ×3 (00:05→11:29)
[2019-09-18] MEDS: Nystatin Topical Powder 15 GM Bottle TOP SCH ×2 (00:05→08:04)
[2019-09-18] MEDS: Albuterol/Ipratropium 3.0-0.5 MG/3 ML Neb Soln NEB SCH ×3 (02:13→08:59)
[2019-09-18] MEDS: Furosemide 100 MG/10 ML SDV IVPUSH SCH (07:04)
[2019-09-18] MEDS: Docusate Sodium 100 MG Cap PO SCH (08:03)
[2019-09-18] MEDS: Pramipexole 0.5 MG Tab PO SCH (08:03)
[2019-09-18] MEDS: Bacitracin Oint 15 GM Tube TOP SCH (08:03)
[2019-09-18] MEDS: Fluticasone Propionate Nasal Spray 16 GM Bottle NAS SCH (08:04)
[2019-09-18 08:35] VITALS: BP 120/74; PULSE 75
--- NOTE | 2019-09-18 11:04 | PCM.DCSUM1 ---
Discharge Summary - Hospital Course Diagnosis: Stroke: No - Discharge Data Discharge Date: 09/18/19 (Admit date: 09/14/19) Discharge Disposition: DC/Tfer to SNF 03 Condition: Good - Referral to Home Health Primary Care Physician: Kedar Moreau MD - Discharge Diagnosis/Problem(s) (1) Adult failure to thrive syndrome SNOMED Code(s): 562699204 ICD Code: R62.7 - ADULT FAILURE TO THRIVE Status: Acute Current Visit: Yes (2) CHF exacerbation SNOMED Code(s): 478720281, 21022455071175 ICD Code: I50.9 - HEART FAILURE, UNSPECIFIED Status: Acute Current Visit : Yes Qualifiers: Heart failure type: combined systolic and diastolic Qualified Code(s): I50.43 - Acute on chronic combined systolic (congestive) and diastolic ( congestive) heart failure (3) COPD (chronic obstructive pulmonary disease) SNOMED Code(s): 05625498 ICD Code: J44.9 - CHRONIC OBSTRUCTIVE PULMONARY DISEASE, UNSPECIFIED Status : Acute Current Visit: Yes (4) Chronic renal insufficiency, stage IV (severe) SNOMED Code(s): 314007496 ICD Code: N18.4 - CHRONIC KIDNEY DISEASE, STAGE 4 (SEVERE) Status: Acute Current Visit: Yes (5) Acute on chronic combined systolic (congestive) and diastolic (congestive) heart failure SNOMED Code(s): 341940683199908, 120157374314033 ICD Code: I50.43 - ACUTE ON CHRONIC COMBINED SYSTOLIC AND DIASTOLIC HRT FAIL Status: Chronic Priority: Medium Current Visit: No (6) Chronic kidney disease (CKD) stage G3b/A2, moderately decreased glomerular filtration rate (GFR) between 30-44 mL/min/1.73 square meter and albuminuria creatinine ratio between 30-299 mg/g SNOMED Code(s): 024403487, 239360529, 729884770 ICD Code: N18.3 - CHRONIC KIDNEY DISEASE, STAGE 3 (MODERATE) Status: Chronic Priority: Medium Current Visit: No (7) MRSA (methicillin resistant Staphylococcus aureus) colonization SNOMED Code(s): 432588607 ICD Code: Z22.322 - CARRIER OR SUSPECTED CARRIER OF METHICILLIN RESIS STAPH Status: Chronic Priority: Medium Current Visit: No (8) CHRIS (obstructive sleep apnea) SNOMED Code(s): 28503747 ICD Code: G47.33 - OBSTRUCTIVE SLEEP APNEA (ADULT) (PEDIATRIC) Status: Chronic Priority: Medium Current Visit: No (9) Pacemaker SNOMED Code(s): 894739630 ICD Code: Z95.0 - PRESENCE OF CARDIAC PACEMAKER Status: Chronic Priority : Low Current Visit: No (10) Venous ulcer of leg SNOMED Code(s): 990295126, 928885772 ICD Code: I83.009 - VARICOSE VEINS OF UNSP LOWER EXTREMITY W ULCER OF UNSP SITE; L97.909 - NON-PRS CHRONIC ULC UNSP PRT OF UNSP LOW LEG W UNSP SEVERITY Status: Chronic Priority: Medium Current Visit: No Qualifiers: Laterality: unspecified laterality Qualified Code(s): I83.009 - Varicose veins of unspecified lower extremity with ulcer of unspecified site; L97.909 - Non-pressure chronic ulcer of unspecified part of unspecified lower leg with unspecified severity (11) Generalized weakness SNOMED Code(s): 73019577 ICD Code: R53.1 - WEAKNESS Status: Chronic Priority: Medium Current Visit: Yes (12) OCD (obsessive compulsive disorder) SNOMED Code(s): 200310188 ICD Code: F42.9 - OBSESSIVE-COMPULSIVE DISORDER, UNSPECIFIED Status: Chronic Priority: Low Current Visit: No Qualifiers: Obsessive-compulsive disorder type: excoriation disorder Qualified Code(s) : 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 (13) Hypoxemic respiratory failure, chronic SNOMED Code(s): 101560338 ICD Code: J96.11 - CHRONIC RESPIRATORY FAILURE WITH HYPOXIA Status: Chronic Priority: High Current Visit: Yes (14) Anasarca SNOMED Code(s): 723629060, 723728733 ICD Code: R60.1 - GENERALIZED EDEMA Status: Chronic Priority: Medium Current Visit: Yes (15) Candidal dermatitis SNOMED Code(s): 08884929 ICD Code: B37.2 - CANDIDIASIS OF SKIN AND NAIL Status: Chronic Priority: Medium Current Visit: Yes (16) Constipation by delayed colonic transit SNOMED Code(s): 54398058 ICD Code: K59.01 - SLOW TRANSIT CONSTIPATION Status: Chronic Priority: Medium Current Visit: Yes (17) Macrocytosis without anemia SNOMED Code(s): 377305553 ICD Code: D75.89 - OTHER SPECIFIED DISEASES OF BLOOD AND BLOOD-FORMING ORGANS Status: Chronic Priority: Low Current Visit: Yes (18) Severe muscle deconditioning SNOMED Code(s): 990675729 ICD Code: R29.898 - OTH SYMPTOMS AND SIGNS INVOLVING THE MUSCULOSKELETAL SYSTEM Status: Chronic Priority: Medium Current Visit: Yes (19) Venous stasis ulcers Status: Chronic Priority: Medium Current Visit: Yes Qualifiers: Venous stasis ulcer site: unspecified site Varicose vein presence: unspecified whether present Non-pressure ulcer stage: unspecified non- pressure ulcer stage Qualified Code(s): I83.009 - Varicose veins of unspecified lower extremity with ulcer of unspecified site; L97.909 - Non- pressure chronic ulcer of unspecified part of unspecified lower leg with unspecified severity (20) CHF (congestive heart failure) SNOMED Code(s): 49819686 ICD Code: I50.9 - HEART FAILURE, UNSPECIFIED Status: Acute Current Visit : No Qualifiers: Heart failure type: unspecified Heart failure chronicity: acute on chronic Qualified Code(s): I50.9 - Heart failure, unspecified (21) Chronic diastolic congestive heart failure, NYHA class 3 SNOMED Code(s): 762944599, 467179177, 231153556 ICD Code: I50.32 - CHRONIC DIASTOLIC (CONGESTIVE) HEART FAILURE Status: Chronic Priority: Medium Current Visit: No (22) Chronic venous insufficiency of lower extremity SNOMED Code(s): 926789683 ICD Code: I87.2 - VENOUS INSUFFICIENCY (CHRONIC) (PERIPHERAL) Status: Chronic Priority: Low Current Visit: No (23) Right heart failure due to pulmonary hypertension SNOMED Code(s): 564998176 ICD Code: I27.29 - OTHER SECONDARY PULMONARY HYPERTENSION; I50.810 - RIGHT HEART FAILURE, UNSPECIFIED Status: Chronic Priority: Low Current Visit: No (24) Weakness SNOMED Code(s): 68426512 ICD Code: R53.1 - WEAKNESS Status: Acute Priority: High Current Visit: Yes (25) Parainfluenza infection SNOMED Code(s): 33478807 ICD Code: B34.8 - OTHER VIRAL INFECTIONS OF UNSPECIFIED SITE Status: Acute Priority: High Current Visit: Yes - Patient Summary/Data Consults: Consultations 09/14/19 17:21 PT Evaluation and Treatment [CONS] Routine 09/14/19 17:22 OT Evaluation and Treatment [CONS] Routine 09/14/19 17:23 Consult to Case Management/Dry Cleaning Machine Operator Helper [CONS] Routine 09/15/19 10:37 Consult to Speech Language Pathology [ASSISTANT PROFESSOR OF [employer]IMINAL JUSTICE Evaluation and Treatment] [CONS] Routine 09/15/19 15:45 PT Evaluation and Treatment [CONS] Routine Labs Pending at D/C: None Recommended Follow-up Testing/Procedures: Follow-up with PCP within 5-7 days of discharge, sooner if needed. Hospital Course: Citlali was admitted to the floor with respiratory failure and altered mental status on admission. Started on BiPAP and diuresed. She is well-known to the service with multiple frequent admissions for CHF exacerbations. It is noted that overall her health is getting progressively worse and she has been struggling to thrive. She has chronic bilateral venous stasis ulcers and has been seeing outpatient PT for wound care. She has been residing at [facility]. She has very frail skin with multiple wounds. She has known OCD and frequently picks at her scabs on her skin. She is also been picking at her fingernails. While here she was noted to have a 19 pound weight loss. Labs otherwise remained stable. She was noted to have a cough and a respiratory viral panel was ultimately obtained which was positive for parainfluenza. Of note, UA was obtained in the ED which did appear grossly positive for UTI and a urine culture returned Klebsiella. This was a known contaminated culture and a repeat UA once on the floor was negative without any antibiotics. Patient did see PT/OT who recommended longterm facility placement with continued PT and OT. Family meeting was had between primary care provider, kumarleatha children, social work, primary nurse, and hospitalist provider. Ultimately family was in agreement for placement as patient will need frequent turns and skin care. Patient was accepted to [facility]F. She will discharge today. She was prescribed a 4-day course of every 6 hours guaifenesin. She was advised that she does have a viral infection and there is no benefit to antibiotics for this. We will need to work its course with supportive care. Should follow-up with her primary care provider within 5 to 7 days of discharge. She was advised to contact her primary care provider or return the emergency room should symptoms return or worsen. - Patient Instructions Diet: Usual Diet as Tolerated Activity: As Tolerated Driving: Do Not Drive Notify Provider of: Fever, Increased Pain, Nausea and/or Vomiting Other/Special Instructions: Follow-up with primary care provider within 5-7 days of discharge, sooner if needed. Resume home medications as ordered. You have a viral illness. Antibiotics will not help improve this. It will take some time until you feel back to normal. Take your weight daily. Record it and bring this with to all medical appointments. Continue oxygen at 2L. Should symptoms return or worsen contact primary care provider or return to the emergency department. - Discharge Plan *PRESCRIPTION DRUG MONITORING PROGRAM REVIEWED*: No *COPY OF PRESCRIPTION DRUG MONITORING REPORT IN PATIENT RACHANA: No Prescriptions/Med Rec: guaiFENesin [Guaifenesin] 200 mg PO Q6H #16 tablet Home Medications: Home Meds Pramipexole [Mirapex] 0.5 mg PO DAILY 02/28/14 [History] Levothyroxine 125 mcg PO ACBREAKFAST #30 tab 05/21/18 [Rx] Apixaban [Eliquis] 2.5 mg PO BID 08/22/18 [History] Folic Acid 2 mg PO DAILY 08/22/18 [History] Multivit with Calcium,Iron,Min [Essential Daily] 1 tab PO DAILY 08/22/18 [ History] Sertraline [Zoloft] 50 mg PO BEDTIME 08/22/18 [History] Acetaminophen [Tylenol Extra Strength] 1,000 mg PO Q12H 01/03/19 [History] Losartan [Cozaar] 25 mg PO DAILY 01/03/19 [History] Aloe Vera/Sodium Chloride [[place] Saline Nasal Gel] 1 applic MEG DAILY PRN [History] Metoprolol Tartrate 25 mg PO BID 01/26/19 [History] Zolpidem [Ambien] 2.5 mg PO BEDTIME PRN 01/26/19 [History] Furosemide [Lasix] 40 mg PO DAILY 04/03/19 [History] Interdry Wipes 1 container TOP DAILY PRN 04/03/19 [History] Nystatin [Nystop] 1 applic TOP BID PRN 04/03/19 [History] Spironolactone 50 mg PO DAILY 04/03/19 [History] Cholecalciferol (Vitamin D3) [Vitamin D] 50,000 units PO ASDIRECTED 06/22/19 [ History] Loperamide [Imodium] 2 mg PO BID 06/22/19 [History] Megestrol [Megace] 40 mg PO TID 06/22/19 [History] Triamcinolone Acetonide [Nasacort] 2 spray INH DAILY 06/22/19 [History] Bacitracin 1 dose TOP DAILY 06/23/19 [History] LORazepam 0.5 mg PO BID PRN 09/12/19 [History] guaiFENesin [Guaifenesin] 200 mg PO Q6H #16 tablet 09/18/19 [Rx] Oxygen Therapy Mode: Nasal Cannula Oxygen Flow Rate (L/min): 2 Maintain SpO2% greater than: 90 Patient Handouts: Viral Respiratory Infection, [id number], Sepsis, Adult, Urinary Tract Infection, Adult, Wound Care, Adult, Heart Failure Forms: ED Department Discharge Referrals: Kedar Moreau MD [Primary Care Provider] - 09/26/19 10:15 am - Discharge Summary/Plan Comment DC Time >30 min.: Yes (45 mins ) - General Info Date of Service: 09/18/19 Admission Dx/Problem (Free Text: Admission Diagnosis/Problem Admission Diagnosis/Problem Hypoxemia Functional Status: Reports: Pain Controlled, Tolerating Diet, Ambulating, Urinating. Denies: New Symptoms - Review of Systems General: Reports: Weakness, Fatigue, Malaise. Denies: Fever, Chills HEENT: Denies: Headaches, Sore Throat Pulmonary: Reports: Shortness of Breath (chronic ), Cough. Denies: Sputum Cardiovascular: Reports: Dyspnea on Exertion (chronic ), Edema. Denies: Chest Pain, Palpitations Gastrointestinal: Reports: No Symptoms. Denies: Abdominal Pain, Constipation, Diarrhea, Nausea, Vomiting Genitourinary: Reports: Incontinence. Denies: Pain Musculoskeletal: Reports: No Symptoms Skin: Reports: No Symptoms. Denies: Cyanosis Neurological: Reports: Pre-Existing Deficit, Difficulty Walking, Gait Disturbance. Denies: Confusion Psychiatric: Reports: No Symptoms - Patient Data Vitals - Most Recent: Last Vital Signs Temp 97.9 F 09/18/19 08:13 Pulse 75 09/18/19 08:13 Resp 19 09/18/19 08:13 BP 120/74 01/16/20 08:13 Pulse Ox 98 09/18/19 08:59 Weight - Most Recent: 160 lb 9.6 oz I&O - Last 24 hours: Intake & Output 09/17/19 09/18/19 09/18/19 22:59 06:59 14:59 Intake Total 670 400 80 Output Total 600 450 Balance 70 -50 80 Lab Results - Last 24 hrs: Laboratory Results - last 24 hr 09/17/19 Range/Units 10:29 Adenovirus (PCR) Not detected (Not Detected) B. pertussis DNA (PCR) Not detected (Not Detected) B.parapertussis DNA PCR Not detected (Not Detected) C. pneumoniae DNA (PCR) Not detected (Not Detected) Coronavirus (PCR) Not detected (Not Detected) Human Metapneumovir PCR Not detected (Not Detected) Influenza A (RT-PCR) Not detected (Not Detected) Influenza B (RT-PCR) Not detected (Not Detected) M. pneumoniae (PCR) Not detected (Not Detected) Parainfluen 1,2,3,4 PCR Detected H (Not Detected) RSV (PCR) Not detected (Not Detected) Entero/Rhino (PCR) Not detected (Not Detected) BRENDAN Results - Last 24 hrs: Microbiology 09/14/19 14:09 Aerobic Blood Culture - Preliminary Blood - Venous - Lab Draw NO GROWTH AFTER 3 DAYS Anaerobic Blood Culture - Preliminary NO GROWTH AFTER 3 DAYS 09/14/19 13:48 Aerobic Blood Culture - Preliminary Blood - Venous NO GROWTH AFTER 3 DAYS Anaerobic Blood Culture - Final Med Orders - Current: Current Medications Acetaminophen (Tylenol) 650 mg PO BID [facility] Last Admin: 09/18/19 08:04 Dose: 650 mg Albuterol/Ipratropium (Duoneb 3.0-0.5 Mg/3 Ml) 3 ml NEB Q4HRRT [facility] Last Admin: 09/18/19 08:59 Dose: 3 ml Apixaban (Eliquis) 2.5 mg PO BID [facility] Last Admin: 09/18/19 08:03 Dose: 2.5 mg Bacitracin (Bacitracin Oint) 0 gm TOP DAILY [facility] Last Admin: 09/18/19 08:03 Dose: 1 applic Bisacodyl (Dulcolax) 10 mg PO DAILY PRN PRN Reason: Constipation Docusate Sodium (Colace) 100 mg PO DAILY [facility] Last Admin: 09/18/19 08:03 Dose: 100 mg Fluticasone Propionate (Flonase) 0 gm MEG DAILY [facility] Last Admin: 09/18/19 08:04 Dose: 1 spray Furosemide (Lasix) 60 mg IVPUSH BIDDIURETIC [facility] Last Admin: 09/18/19 07:04 Dose: 60 mg Guaifenesin (Robitussin) 200 mg PO Q6H [facility] Last Admin: 09/18/19 05:22 Dose: 200 mg Loperamide HCl (Imodium) 2 mg PO BID [facility] Lorazepam (Ativan) 0.5 mg PO BID PRN PRN Reason: Anxiety Lorazepam (Ativan) 0.5 mg IVPUSH BEDTIME PRN PRN Reason: Insomnia Melatonin (Melatonin) 9 mg PO BEDTIME PRN PRN Reason: Insomnia Nystatin (Nystop) 0 gm TOP BID [facility] Last Admin: 09/18/19 08:04 Dose: 1 applic Pramipexole Dihydrochloride (Mirapex) 0.5 mg PO DAILY [facility] Last Admin: 09/18/19 08:03 Dose: 0.5 mg Sertraline HCl (Zoloft) 50 mg PO BEDTIME [facility] Last Admin: 09/18/19 00:05 Dose: 50 mg Sodium Chloride (Saline Flush) 10 ml FLUSH ASDIRECTED PRN PRN Reason: Keep Vein Open Last Admin: 09/15/19 03:24 Dose: 10 ml Sodium Chloride (Saline Flush) 10 ml FLUSH ASDIRECTED PRN PRN Reason: Keep Vein Open Last Admin: 09/14/19 14:40 Dose: 10 ml Discontinued Medications Acetaminophen (Tylenol) 650 mg PO Q12H [facility] Last Admin: 09/15/19 23:59 Dose: 650 mg Furosemide (Lasix) 60 mg IVPUSH NOW ONE Stop: 09/14/19 13:48 Last Admin: 09/14/19 14:18 Dose: 60 mg Furosemide (Lasix) 60 mg IVPUSH BIDDIURETIC ONE Stop: 09/16/19 06:01 Last Admin: 09/16/19 06:15 Dose: 60 mg Furosemide (Lasix) 60 mg IVPUSH ONETIME ONE Stop: 09/15/19 13:01 Last Admin: 09/15/19 13:05 Dose: 60 mg Furosemide (Lasix) 60 mg IVPUSH ONETIME ONE Stop: 09/15/19 21:01 Last Admin: 09/15/19 20:11 Dose: 60 mg Metolazone (Zaroxolyn) 2.5 mg PO ONETIME ONE Stop: 09/14/19 15:59 Last Admin: 09/14/19 16:51 Dose: 2.5 mg Morphine Sulfate (Morphine) 2 mg IVPUSH ONETIME ONE Stop: 09/14/19 15:58 Last Admin: 09/14/19 16:51 Dose: 2 mg Potassium Chloride (Klor-Con M20) 40 meq PO BID KAY Stop: 09/15/19 21:01 Last Admin: 09/15/19 20:10 Dose: 40 meq Potassium Chloride (Klor-Con M20) 40 meq PO ONETIME ONE Stop: 09/17/19 07:31 Last Admin: 09/17/19 09:01 Dose: 40 meq - Exam Quality Assessment: Reports: Supplemental Oxygen (2L), DVT Prophylaxis General: Reports: Alert, Oriented, Cooperative, No Acute Distress HEENT: Reports: Pupils Equal, Pupils Reactive, Mucous Membr. Moist/[place] Neck: Reports: Supple, Trachea Midline Lungs: Reports: Normal Respiratory Effort, Decreased Breath Sounds Cardiovascular: Reports: Regular Rate, Regular Rhythm GI/Abdominal Exam: Normal Bowel Sounds, Soft, Non-Tender, No Distention, No Abnormal Bruit (Female) Exam: Deferred Rectal (Female) Exam: Deferred Back Exam: Reports: Decreased Range of Motion Extremities: Non-Tender, Normal Capillary Refill, Pedal Edema, Limited Range of Motion, Other (Bilateral draining leg wounds and edema. PT working with patient for woundcare. ). No: Increased Warmth, Redness Skin: Reports: Warm, Dry, Intact, Ecchymosis (scattered) Neurological: Reports: No New Focal Deficit Psy/Mental Status: Reports: Alert, Normal Affect, Normal Mood
== END 2019-09-18 13:45 | DRG 291 ==
LOC: JD.ED 13:01 → JD.ICU 15:49 → JD.MS 09-15 10:54
PROVIDERS: ADMIT Internal Medicine; ATTEND Internal Medicine
PROC: 5A09457 Assistance with Respiratory Ventilation, 24-96 Consecutive Hours, Continuous Positive Airway Pressure (ICD-10-PCS; principal; 2019-09-14)
DX: I13.0 Hypertensive heart and chronic kidney disease with heart failure and stage 1 through stage 4 chronic kidney disease, or unspecified chronic kidney disease (principal); I50.43 Acute on chronic combined systolic (congestive) and diastolic (congestive) heart failure; J96.11 Chronic respiratory failure with hypoxia; N18.4 Chronic kidney disease, stage 4 (severe); L97.919 Non-pressure chronic ulcer of unspecified part of right lower leg with unspecified severity; L97.929 Non-pressure chronic ulcer of unspecified part of left lower leg with unspecified severity; I50.810 Right heart failure, unspecified; Z66 Do not resuscitate; H54.7 Unspecified visual loss; H91.90 Unspecified hearing loss, unspecified ear; I25.10 Atherosclerotic heart disease of native coronary artery without angina pectoris; R32 Unspecified urinary incontinence; Z96.659 Presence of unspecified artificial knee joint; M54.9 Dorsalgia, unspecified; G89.29 Other chronic pain; M19.90 Unspecified osteoarthritis, unspecified site; G25.81 Restless legs syndrome; Z85.818 Personal history of malignant neoplasm of other sites of lip, oral cavity, and pharynx; Z86.14 Personal history of Methicillin resistant Staphylococcus aureus infection; B96.89 Other specified bacterial agents as the cause of diseases classified elsewhere; F32.9 Major depressive disorder, single episode, unspecified; E03.9 Hypothyroidism, unspecified; R60.0 Localized edema; I87.2 Venous insufficiency (chronic) (peripheral); I27.29 Other secondary pulmonary hypertension; D75.89 Other specified diseases of blood and blood-forming organs; R62.7 Adult failure to thrive; J44.9 Chronic obstructive pulmonary disease, unspecified; Z79.890 Hormone replacement therapy; E55.9 Vitamin D deficiency, unspecified; G47.33 Obstructive sleep apnea (adult) (pediatric); L29.3 Anogenital pruritus, unspecified; B37.2 Candidiasis of skin and nail; I48.91 Unspecified atrial fibrillation; I95.9 Hypotension, unspecified; F42.4 Excoriation (skin-picking) disorder; K59.01 Slow transit constipation; B34.8 Other viral infections of unspecified site; I83.019 Varicose veins of right lower extremity with ulcer of unspecified site; I83.029 Varicose veins of left lower extremity with ulcer of unspecified site; F41.9 Anxiety disorder, unspecified; Z90.49 Acquired absence of other specified parts of digestive tract; Z88.0 Allergy status to penicillin; Z88.1 Allergy status to other antibiotic agents; Z88.8 Allergy status to other drugs, medicaments and biological substances; Z22.322 Carrier or suspected carrier of Methicillin resistant Staphylococcus aureus; Z90.89 Acquired absence of other organs; Z79.01 Long term (current) use of anticoagulants; Z74.01 Bed confinement status; Z79.899 Other long term (current) drug therapy; Z95.0 Presence of cardiac pacemaker; Z98.49 Cataract extraction status, unspecified eye; Z68.31 Body mass index [BMI] 31.0-31.9, adult
CPT/HCPCS: 36415; 36600; 71045; 80053; 81001; 82803; 83605; 83735; 83880; 84484; 85007; 85027; 85610; 85652; 85730; 86140; 87040 ×2; 87086; 87186; 93005; 96374; 99285; J1940; 71046; 71046-26; 80048; 84100; 85025; 86615; 87088; 87486; 87581; 87632; 87798; 92610-GN; 93010; 94640; 94660; 94761; 96375; 97110-GO; 97110-GP; 97116-GP; 97162-GP; 97166-GO; 97530-GP; 97535-GO; A9270-GY; J2270; J7620-GY